=== PATIENT | female | born 1965 | race Caucasian/White ===

== ENCOUNTER 2019-07-17 17:44 | Emergency (ER) | payer OTHER, SELFPAY ==
[2018-10-29 10:39] VITALS: BMI 31.5
[2019-07-17] VITALS (7 sets, daily range): BP systolic 147–180; BP diastolic 81–106; PULSE 76–91; RESP 16–20; TEMP 36.3; O2SAT 96–98; BMI 34.3
--- NOTE | 2019-07-17 18:07 | EKG12_ITS ---
Test Reason : Blood Pressure : / mmHG Vent. Rate : 091 BPM Atrial Rate : 091 BPM P-R Int : 170 ms QRS Dur : 094 ms QT Int : 398 ms P-R-T Axes : 048 038 047 degrees QTc Int : 489 ms Normal sinus rhythm Prolonged QT Abnormal ECG Confirmed by RUPAL ESPITIA, ADELA ([id number]), editor magazine NARDA AKHTAR ([id number]) on 07/22/2019 11:28:29 AM Referred By: BRUNO Confirmed By:ADELA GOLDSMITH MD
--- NOTE | 2019-07-17 18:07 | RAD_ITS ---
STUDY: X-RAY CHEST REASON FOR EXAM: Female, 54 years old. Chest pain TECHNIQUE: Single AP portable view of the chest. COMPARISON: None. FINDINGS: The lungs are clear and expanded. There is no demonstrated pleural abnormality. Normal size heart. Normal mediastinum and paco. Normal visualized pulmonary arteries. Normal visualized aortic arch and descending thoracic aorta. Normal visualized thoracic spine. Normal visualized ribs, clavicles, and shoulders. There is no demonstrated abnormality of the visualized soft tissue structures of the upper abdomen. RAD/Chest 1 View (Portable) IMPRESSION: Normal x-ray examination of the chest. Electronically Signed: Charli Burger MD at 18:38 EST , Service support ,
--- NOTE | 2019-07-17 18:09 | ED.DCSUM_ITS ---
- ER Visit Summary Date of Service: 07/17/19 Chief Complaint: Chest pain History of Present Illness: The patient is a 54 F with left-sided chest pain that feels like an achy pressure. It started about an hour prior to arrival. She said she had similar symptoms in the past with panic attacks, but they usua lly do not last this long. Her pain is still 5 out of 10. Nothing seems to make it better. She does report increasing stress over the last few months. Denies any exertional component. She does report some shortness of breath and tingling in her bilateral fingertips. Denies any history of heart disease besides mitral valve prolapse. Denies any history of DVT or PE. Denies aortic disease. Denies recent illness, fever, or hospitalization. Physical Examination: Afebrile. Blood pressure 180/106. Otherwise vitals unremarkable. Alert and oriented. No acute distress. Heart regular. Lungs clear. Abdomen soft. Extremities nontender with no edema. Good pulses. Normal skin. Test Results: EKG shows sinus rhythm and rate of 91 with a QTC of 49. No sign of acute ischemia or infarction pattern. Laboratory studies and chest x-ray are pending. Emergency Department Course and Treatment: Patient presents with chest pain for about an hour. History of hypertension, but not currently on blood pressure medications. Denies any other risk factors for ACS. Initial EKG was unremarkable. Will check labs and a chest x-ray. She has no risk factors for PE besides her age. I have no clinical suspicion. Nothing to suggest aortic disease. Her blood pressure is elevated now, but I will monitor her. I suspect it is elevated from stress. Treated with aspirin while awaiting results. Patient's work-up was unremarkable. On reevaluation, she is feeling better. Her heart score is a 3, so we will check a delta troponin. Repeat blood pressure 169/96. Repeat troponin is normal. Patient is doing well. Given her symptoms, history, risk factors, findings, we will refer the patient for outpatient follow-up. She has a follow-up with her doctor next week. She will also have her blood pressure rechecked as she may need treatment for this. Treatment Plan: As above Disposition: Discharge Impression: 1. Chest pain This note was generated with Teachernowation software. It may contain incorrect words, spelling, and punctuation that were not noted in review of the chart prior to signing ED Disposition - Plan for ED Patient: Referrals: Eladio Gilman MD [Primary Care Provider] -
[2019-07-17 18:18] LABS: Absolute Lymphocyte Count 3.34 X10^3/uL (0.83-4.51); Absolute Neutrophil Count 4.2 X10^3/uL (2.0-7.7); Basophil# 0.07 X10^3/uL; Basophil% 0.8 % (0-1); Eosinophil# 0.13 X10^3/uL; Eosinophils% 1.6 % (0-5); Hemoglobin 13.6 g/dL (12.0-15.0); Lymphocyte # 3.34 X10^3/ul (4.0); Lymphocyte % 40.4 % (19-41); Mean Corp Hgb Conc 33.2 g/dL (32-36); Mean Corpuscular Hgb 31.8 pg (27.0-32.0); Mean Corpuscular Volume 95.8 fL (81-99); Mean Platelet Vol. 10.8 fl (6.2-12.0); Monocyte% 6.1 % (0-10); NRBC Flagged by Analyzer 0 % (0-5); Neutrophil # 4.19 X10^3/uL (2.7-7.7); Neutrophil % 50.7 % (47-70); Platelet Count 234 K/mm3 (150-450); RBC Distribution Width CV 12.1 % (11.6-14.6); RBC Distribution Width SD 42.1 fl (35.1-43.9); Red Blood Count 4.28 M/mm3 (4.2-5.4); White Blood Count 8.3 K/mm3 (4.4-11.0)
[2019-07-17] MEDS: Aspirin 81 MG TAB.CHEW 324 MG PO (18:35)
[2019-07-17 18:36] LABS: Anion Gap 8 (5-15); BUN 12 mg/dL (7-18); BUN/Creat Ratio 13.2 RATIO (10-20); Chloride 109 mmol/L (98-107); Creatinine, Serum 0.91 mg/dL (0.55-1.02); EST Glomerular Filtration Rate 68 mL/min (>60); Est Glom Filt Rate - Afr Amer 83 mL/min (>60); Glucose 93 mg/dL (74-106); Sodium Level 141 mmol/L (136-145)
--- NOTE | 2019-07-17 21:32 | ED.DEP ---
ED Disposition - Plan for ED Patient: Instructions: CHEST PAIN, Uncertain Cause Referrals: Eladio Gilman MD [Primary Care Provider] -
[2019-07-17] MEDS: Ibuprofen 600 MG Tablet PO (21:42)
== END 2019-07-17 21:46 | disposition home or self-care (01) ==
LOC: ED 18:10
PROVIDERS: Emergency Provider Emergency Medicine; Family Provider Family Medicine; PCP Family Medicine
DX: R07.9 Chest pain, unspecified (principal); I34.1 Nonrheumatic mitral (valve) prolapse; I10 Essential (primary) hypertension; R20.2 Paresthesia of skin; R06.02 Shortness of breath
CPT/HCPCS: 71045; 80048; 84484; 85025; 93005; 99285

== ENCOUNTER 2020-04-27 11:55 | Emergency (ER) | payer OTHER, SELFPAY ==
[2019-07-17 17:44] VITALS: BMI 34.3
[2020-04-27 11:55] VITALS: BP 170/112; PULSE 107; RESP 24; TEMP 36.4; O2SAT 96; BMI 34.0
[2020-04-27 12:07] VITALS: BP 158/113; PULSE 88; RESP 18
--- NOTE | 2020-04-27 12:16 | EKG12_ITS ---
Test Reason : CP Blood Pressure : / mmHG Vent. Rate : 091 BPM Atrial Rate : 091 BPM P-R Int : 140 ms QRS Dur : 086 ms QT Int : 364 ms P-R-T Axes : 053 026 085 degrees QTc Int : 447 ms Normal sinus rhythm Nonspecific ST and T wave abnormality Abnormal ECG Confirmed by RYLAN TELLO ([id number]), image editor ABRIL MERINO ([id number]) on 04/29/2020 9:01:58 AM Referred By: CHIRAG Confirmed By:RYLAN TELLO
--- NOTE | 2020-04-27 12:20 | RAD_ITS ---
STUDY: X-RAY CHEST REASON FOR EXAM: Female, 54 years old. Numbness and tingling all over, chest heaviness TECHNIQUE: Single AP portable view of the chest. COMPARISON: Comparison is made with prior examination dated 07/17/2019. FINDINGS: EKG electrodes are seen. The lungs are clear and expanded. There is no demonstrated pleural abnormality. Normal size heart. Normal mediastinum and paco. Normal visualized pulmonary arteries. Normal visualized aortic arch and descending thoracic aorta. Normal visualized thoracic spine. Normal visualized ribs, clavicles, and shoulders. There is no demonstrated abnormality of the visualized soft tissue structures of the upper abdomen. RAD/Chest 1 View (Portable) IMPRESSION: Normal x-ray examination of the chest. Electronically Signed: Dwight Bond, at 12:31 EDT , Service support ,
[2020-04-27 12:30] LABS: Absolute Lymphocyte Count 2.15 X10^3/uL (0.83-4.51); Absolute Neutrophil Count 3.6 X10^3/uL (2.0-7.7); Basophil# 0.04 X10^3/uL; Basophil% 0.6 % (0-1); Eosinophil# 0.04 X10^3/uL; Eosinophils% 0.6 % (0-5); Hematocrit 43.1 % (37-47); Hemoglobin 14.4 g/dL (12.0-15.0); Lymphocyte # 2.15 X10^3/ul (4.0); Lymphocyte % 34.9 % (19-41); Mean Corp Hgb Conc 33.4 g/dL (32-36); Mean Corpuscular Hgb 31.9 pg (27.0-32.0); Mean Corpuscular Volume 95.4 fL (81-99); Mean Platelet Vol. 10.6 fl (6.2-12.0); Monocyte# 0.31 X10^3/uL; NRBC Flagged by Analyzer 0 % (0-5); Neutrophil % 58.6 % (47-70); Platelet Count 250 K/mm3 (150-450); Red Blood Count 4.52 M/mm3 (4.2-5.4); White Blood Count 6.2 K/mm3 (4.4-11.0)
[2020-04-27 12:56] LABS: Anion Gap 7 (5-15); BUN 8 mg/dL (7-18); BUN/Creat Ratio 8.1 RATIO (10-20); Calcium,Total 9.6 mg/dL (8.5-10.1); Chloride 111 mmol/L (98-107); Creatinine, Serum 0.98 mg/dL (0.55-1.02); EST Glomerular Filtration Rate 62 mL/min (>60); Est Glom Filt Rate - Afr Amer 75 mL/min (>60); Estimated Creatinine Clearance 67.79 ml/min; Glucose 103 mg/dL (74-106); Magnesium 2.3 mg/dL (1.6-2.6); Potassium 4.1 mmol/L (3.5-5.1); Sodium Level 141 mmol/L (136-145)
--- NOTE | 2020-04-27 13:11 | ED.VIS.GEN ---
History of Present Illness Chief Complaint: Chest Pain Informant: Patient Narrative: Patient presents to the ED for multiple symptoms which she believes is related to a panic attack. States that her bilateral hands are tingling. She feels like she is out of her body. He has been having some midsternal chest discomfort/tightness. No significant shortness of breath with this. She has a history of panic attacks before in the past but they each resolve over a course of 10 minutes. Her symptoms at this time have been going on for multiple days which is unusual. Medication for anxiety/depression and has not had any recent medication adjustments. She denies any headache or vision changes. No weakness or loss of sensation in any extremity. No neck pain/stiffness. She has not had any leg swelling or calf pain. He has been having chills but denies any hot or cold intolerances. No significant weight gain or loss unintentionally. Symptoms. No nausea/vomiting/diarrhea. Past Medical History - Allergies and Home Meds Allergies/Adverse Reactions: Allergies No Known Allergies Allergy (Verified 07/17/19 17:50) Primary Care Physician: Eladio Gilman MD [Primary Care Provider] - 2 Days Prior records reviewed: Yes Past Medical History: - - Anxiety/depression Smoking Status: Never smoker Alcohol: None Drugs: None Review of Systems All systems negative except as indicated General: Reports: Chills. Denies: Fever, Sweats Eyes: Denies: Visual changes - bilaterally, Diplopia ENT: Denies: Rhinorrhea, Sore throat Cardiovascular: Reports: Chest pain - Tightness. Denies: Palpitations Respiratory: Denies: Dyspnea, Cough, Dyspnea on exertion Gastrointestinal: Denies: Abdominal pain, Nausea, Vomiting, Diarrhea Genitourinary: Denies: Dysuria, Hematuria, Frequency Musculoskeletal: Denies: Back pain, Extremity Pain Skin: Denies: Rash, Wounds Neurological: Reports: Parasthesia. Denies: Headache, Weakness, Numbness Psych: Reports: Anxiety. Denies: Suicidal thoughts, Suicidal ideations Endocrine: Denies: Heat intolerance, Cold intolerance Hematologic: Denies: Easy bruising, Easy bleeding Physical Exam Vital Signs/Narrative: Vital Signs Temp Pulse Resp BP Pulse Ox 04/27/20 12:07 88 18 158/113 H 04/27/20 11:55 97.6 F L 107 H 24 H 170/112 H 96 Inital Vital Signs reviewed: Yes General: Well nourished, Well developed, No Acute Distress Head: Normocephalic, Atraumatic Eyes: Perrl, EOMI ENT: Moist mucous membranes, No rhinorrhea Neck: Supple, Nontender Cardiovascular: Regular rate, Regular rhythm, No murmurs Respiratory: No distress, CTA bilaterally, Chest nontender Abdomen: Soft, Nontender, Nondistended, Normal bowel sounds Back: Nontender, Normal Inspection Extremities: Nontender, No edema Skin: Normal color, No rash Neurological: Alert, Oriented x3, Cranial nerves II-XII grossly intact, Normal Strength, Normal Sensation Psychological: - - Anxious Diagnostic/Tx/Re-eval - EKG Initial EKG Interpretation: - - Rate of 91 bpm and normal sinus rhythm. Normal intervals. Normal axis. No ST elevations or depressions appreciated. No significant T wave abnormalities. No prior EKG for comparison. - Medical Decision Making Patient presents to the ED for what she presumes is a panic attack although this is longer than her normal symptoms last for typically. Low concern for VTE. Denies any shortness of breath and has not been hypoxic. Heart rate did come down after resting and reassurance. No unilateral leg swelling. No risk factors. Her main concern is not her chest pain but her other symptoms. No shortness of breath. We did do a work-up which did not reveal an elevated troponin. EKG did not show any signs of ischemia or arrhythmia. The rest of her lab work was unremarkable for significant acute abnormality. Patient is relieved at this information. She is still having some symptoms despite the small dose of Ativan orally. She needs to see her PCP for potential medication increase or adjustment. At this time she does feel comfortable going home. Will discharge home in stable condition. Warning signs and symptoms for which to return to the ED are reviewed with her. She understands and is agreeable this plan. ED Disposition - Plan for ED Patient: Disposition: Home or Assisted Living Diagnosis: Chest pain, Paresthesia and pain of both upper extremities Instructions: Understanding Anxiety Disorders, ED Chest Pain Atypical Unkn Cause, ED Paraesthesias Referrals: Eladio Gilman MD [Primary Care Provider] - 2 Days
[2020-04-27 13:50] VITALS: BP 179/104; PULSE 79; RESP 18
[2020-04-27] MEDS: LORazepam 0.5 MG Tablet PO (13:50)
== END 2020-04-27 14:09 | disposition home or self-care (01) ==
PROVIDERS: Emergency Provider Emergency Medicine; PCP Family Medicine
DX: R07.9 Chest pain, unspecified (principal); R20.2 Paresthesia of skin; F32.9 Major depressive disorder, single episode, unspecified; F41.9 Anxiety disorder, unspecified
CPT/HCPCS: 71045; 80048; 83735; 84484; 85025; 93005; 99285; A4216

== ENCOUNTER 2021-03-19 17:31 | Inpatient (IN) | payer OTHER, SELFPAY ==
[2021-03-19 17:33] VITALS: BP 166/133; PULSE 121; RESP 18; TEMP 36.7; O2SAT 94; BMI 36.1
--- NOTE | 2021-03-19 17:51 | EKG12_ITS ---
Test Reason : ANXIETY Blood Pressure : / mmHG Vent. Rate : 117 BPM Atrial Rate : 117 BPM P-R Int : 142 ms QRS Dur : 086 ms QT Int : 328 ms P-R-T Axes : 055 022 043 degrees QTc Int : 457 ms Sinus tachycardia Otherwise normal ECG Confirmed by RUPAL ESPITIA, ADELA ([id number]), food expeditor HELEN PAEZ ([id number]) on 03/21/2021 2:24:31 PM Referred By: DAFNE Confirmed By:ADELA GOLDSMITH MD
--- NOTE | 2021-03-19 17:59 | EDS_ITS ---
HPI History of Present Illness Chief Complaint: Anxiety Narrative Narrative: Patient presenting with anxiety. She states that she has been drinking more often since July. She states she was drinking 5 small bottles of wine up until recently she has been drinking more. She is states that she is drinking about the equivalent of 2-1/2 bottles of wine daily. She took a cannabis gummy today as well thinking that would help. Patient states that she wanted to seek help earlier to quit drinking however she did not want to go to [facility] because other people would know her. Patient has not had withdrawal before. No withdrawal seizure. [facility], [facility] Medical History Anxiety HTN (hypertension) Home Medications NK 07/17/19 [History Last Taken Unknown] Allergy/AdvReac Type Severity Reaction Status Date / Time No Known Allergies Allergy Verified 07/17/19 17:50 Surgical History H/O section Social History Smoking Status: Never smoker alcohol intake: current alcohol intake frequency: a few times a week ROS ROS ED Constitutional Constitutional ED: Denies chills or fever(s) Eyes Eyes: Denies blurry vision ENT ENT ED: Denies ear pain or rhinorrhea Cardiovascular Cardiovascular: Reports palpitations and racing heartbeat Respiratory/Chest Respiratory/Chest: Denies cough or dyspnea Gastrointestinal Gastrointestinal: Denies abdominal pain, nausea or vomiting Genitourinary Genitourinary ED: Denies dysuria or hematuria Musculoskeletal Musculoskeletal: Denies arthralgias or myalgias Integumentary Denies abscess or rash Neurologic Neurologic: Denies headache(s) or paresthesias Psychiatric Psychiatric: Reports anxiety and depression; Denies suicidal ideation or suicidal thoughts EXAM Physical Exam Const Vital Signs: 03/19/21 17:33 03/19/21 20:08 Temperature 98.0 F Temperature Source Temporal Pulse Rate 121 H 109 H Respiratory Rate 18 17 Blood Pressure 166/133 H 151/95 H Blood Pressure Mean 144 113 Pulse Ox 94 92 Oxygen Delivery Method Room Air Room Air Positive obese General Appearance ED: other Very anxious Nutritional Appearance: obese HEENT Reports moist mucous membranes Negative for trauma Eyes PERRL and EOMs intact bilaterally General Eye ED: Negative for scleral icterus Chest Wall inspection of chest normal and palpation of chest normal Resp normal respiratory effort and clear to auscultation bilaterally Cardio regular rhythm Rate: tachycardic GI normal to inspection, nondistended, normoactive bowel sounds Extremity normal to inspection General Extremety ED: Yes tenderness Neuro oriented x3 and CN's II-XII intact bilaterally Sensorium / Orientation: alert Psych mental status grossly normal Skin no rashes or lesions noted and no wounds MDM MDM MDM Narrative Medical decision making narrative: Patient presenting for EtOH detox. She does have pain with anxiety as well. He is concerned that her special needs son would not have the assistance that he needs. Her states that he will be able to handle this. Patient states that she does want to be hospitalized for detox. She was given Ativan on arrival. Her lab work-up was remarkable for elevated AST and ALT as well as slight hyponatremia at 27. EtOH was negative. Urine drug screen is positive for cannabinoids. Patient discussed with hospitalist for admission for detox. She was accepted to the medical floor. Impression: 1. EtOH abuse 2. Hyponatremia 3. Elevated AST and ALT 4. EtOH withdrawal Lab Data Attestation: I reviewed the patient's lab results. Labs: Laboratory Results - last 24 hr 03/19/21 03/19/21 03/19/21 18:15 18:15 18:15 WBC 7.4 RBC 4.06 L Hgb 13.6 Hct 39.0 MCV 96.1 MCH 33.5 H MCHC 34.9 RDW Std Deviation 44.2 H RDW Coeff of Carline 12.6 Plt Count 236 MPV 10.4 Immature Gran % (Auto) 0.500 Neut % (Auto) 75.1 H Lymph % (Auto) 16.8 L [place] % (Auto) 6.8 Eos % (Auto) 0.3 Baso % (Auto) 0.5 Absolute Neuts (auto) 5.6 Absolute Lymphs (auto) 1.24 Nucleated RBC % 0 Sodium Cancelled Potassium Cancelled Chloride Cancelled Carbon Dioxide Cancelled Anion Gap Cancelled BUN Cancelled Creatinine Cancelled Estim Creat Clear Calc Cancelled Est GFR (MDRD) Af Amer Cancelled Est GFR (MDRD) Non-Af Cancelled BUN/Creatinine Ratio Cancelled Glucose Cancelled Calcium Cancelled Total Bilirubin Cancelled AST Cancelled ALT Cancelled Alkaline Phosphatase Cancelled Troponin I High Sens Cancelled Total Protein Cancelled Albumin Cancelled Globulin Cancelled Albumin/Globulin Ratio Cancelled Lipase Cancelled Urine Opiates Screen Urine Methadone Screen Ur Barbiturates Screen Ur Phencyclidine Scrn Ur Amphetamines Screen U Methamphetamin-MDMA U Benzodiazepines Scrn Urine Cocaine Screen U Cannabinoids Screen Ur Drug Screen Comment Ethyl Alcohol Cancelled 03/19/21 03/19/21 03/19/21 18:45 19:30 20:00 WBC RBC Hgb Hct MCV MCH MCHC RDW Std Deviation RDW Coeff of Carline Plt Count MPV Immature Gran % (Auto) Neut % (Auto) Lymph % (Auto) [place] % (Auto) Eos % (Auto) Baso % (Auto) Absolute Neuts (auto) Absolute Lymphs (auto) Nucleated RBC % Sodium 127 L Potassium 3.6 Chloride 95 L Carbon Dioxide 18.0 L Anion Gap 14 BUN 5 L Creatinine 0.63 Estim Creat Clear Calc 104.20 Est GFR (MDRD) Af Amer 125 Est GFR (MDRD) Non-Af 103 BUN/Creatinine Ratio 7.9 L Glucose 112 H Calcium 9.4 Total Bilirubin 0.80 AST 298 H ALT 150 H Alkaline Phosphatase 89 Troponin I High Sens 4.5 Total Protein 7.0 Albumin 3.7 Globulin 3.3 Albumin/Globulin Ratio 1.1 Lipase 81 Urine Opiates Screen NEGATIVE Urine Methadone Screen NEGATIVE Ur Barbiturates Screen NEGATIVE Ur Phencyclidine Scrn NEGATIVE Ur Amphetamines Screen NEGATIVE U Methamphetamin-MDMA NEGATIVE U Benzodiazepines Scrn NEGATIVE Urine Cocaine Screen NEGATIVE U Cannabinoids Screen POSITIVE H Ur Drug Screen Comment Ethyl Alcohol 4.0 Discharge Plan Disposition Disposition: Acute Care Hospital [facility] Discharge Date/Time: 03/19/21 21:34
[2021-03-19] MEDS: LORazepam 2 MG/ML Syringe 1 MG IV (18:16)
[2021-03-19 18:32] LABS: Absolute Lymphocyte Count 1.24 X10^3/uL (0.83-4.51); Absolute Neutrophil Count 5.6 X10^3/uL (2.0-7.7); Basophil# 0.04 X10^3/uL; Basophil% 0.5 % (0-1); Eosinophil# 0.02 X10^3/uL; Eosinophils% 0.3 % (0-5); Hemoglobin 13.6 g/dL (12.0-15.0); Lymphocyte # 1.24 X10^3/ul (0.83-4.51); Lymphocyte % 16.8 % (19-41); Mean Corp Hgb Conc 34.9 g/dL (32-36); Mean Corpuscular Hgb 33.5 pg (27.0-32.0); Mean Corpuscular Volume 96.1 fL (81-99); Mean Platelet Vol. 10.4 fl (6.2-12.0); Monocyte% 6.8 % (0-10); NRBC Flagged by Analyzer 0 % (0-5); Neutrophil # 5.55 X10^3/uL (2.7-7.7); Neutrophil % 75.1 % (47-70); Platelet Count 236 K/mm3 (150-450); RBC Distribution Width CV 12.6 % (11.6-14.6); RBC Distribution Width SD 44.2 fl (35.1-43.9); Red Blood Count 4.06 M/mm3 (4.2-5.4); White Blood Count 7.4 K/mm3 (4.4-11.0)
[2021-03-19 19:33] LABS: ALB/GLOB Ratio 1.1 RATIO (0.9-2.4); AST(SGOT) 298 U/L (15-37); Alanine Aminotransfer ALT/SGPT 150 U/L (13-56); Albumin, Serum 3.7 g/dL (3.2-5.0); Alkaline Phosphatase 89 U/L (45-117); Anion Gap 14 (5-15); BUN 5 mg/dL (7-18); BUN/Creat Ratio 7.9 RATIO (10-20); Calcium,Total 9.4 mg/dL (8.5-10.1); Chloride 95 mmol/L (98-107); Creatinine, Serum 0.63 mg/dL (0.55-1.02); EST Glomerular Filtration Rate 103 mL/min (>60); Est Glom Filt Rate - Afr Amer 125 mL/min (>60); Globulin 3.3 g/dL (2.2-4.2); Glucose 112 mg/dL (74-106); Lipase 81 U/L (73-393); Potassium 3.6 mmol/L (3.5-5.1); Sodium Level 127 mmol/L (136-145); Troponin-I HS 4.5 pg/mL (3.0-53.7)
[2021-03-19 20:08] VITALS: BP 151/95; PULSE 109; RESP 17; O2SAT 92
[2021-03-19 20:08] LABS: Amphetamine Urine VISTA NEGATIVE (<1000 ng/mL); Barbiturate Urine VISTA NEGATIVE (< 200 ng/mL); Benzodiazepine Urine VISTA NEGATIVE (< 200 ng/mL); Cocaine Urine VISTA NEGATIVE (< 300 ng/mL); Ecstacy Urine VISTA NEGATIVE (< 500 ng/mL); Methadone Urine VISTA NEGATIVE (< 300 ng/mL); PCP Urine VISTA NEGATIVE (< 25 ng/mL); THC Urine VISTA POSITIVE (< 50 ng/mL); Vista UDS pH Range 5
--- NOTE | 2021-03-19 20:15 | CASEMGMT ---
SW Note Referral Source: teletype installer Reason: Anxiety BRIT met with patient. Patient was tearful and labile. Patient appeared to be under the influence. Patient said that she came to the ED to taper off alcohol. Patient siad that she has really bad anxiety related to her tapering off alcohol. Patient has previously gone to her PCP for Ativan for the taper of alcohol. 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 Patient said that in July she was drinking 2 1/2 bottles wine a day. Patient said that for the past 2 days she has been drinking 6 glasses of wine. Patient reports she is [place] high functioning alcoholic. Patient said that a friend gave her a marijuana gummie today to assist with the anxiety related to the detox. Patient reported that she is not suicidal or homicidal and that the anxiety is related to her detox and alcohol use. SW advised and educated patient on the RAMP program. Patient verbalized understanding of the RAMP program and agreement to enroll in the RAMP program. BRIT called Jacqueline at [facility] and made referral to RAMP program for patient. Plan: Ramp Admit Mary DAVILA
--- NOTE | 2021-03-19 20:55 | HP.PCM.HOS_ITS ---
HPI - General HPI Narrative DEEPAK TURNER, is a 55 F who presents via the ED on 03/19/2021 with a complaint of anxiety. She drinks about 2-2.5 bottles of wine daily. She started drinking circa July 2020 when she was taking ~ 5 small bottles of wine daily, and has progressively increased her intake of wine. She says she has been prescribed ativan for her anxiety; she run out of ativan on , and says she is not due a refill till Sunday. She also took a cannabis gummy given to her by her friend to help with her anxiety, but she thinks it worsened it. She came in to the ED to seek help for quitting drinking. She denied fever, chills, cough, chest pain, nausea or vomiting. Review of systems otherwise negative. Vitals in the ED showed BP of 151/95, PA of 109, RR of 17 and sats of 92%/ CBC showed wbc of 7.4, Hb of 13.6, and platelets of 236. BMp showed sodium of 127, bicarb of 18, potassium of 2.6 and Cr of 0.63. AST/ALT were elevated at 298/150. Urine tox was positive for cannabinoids and serum alcohol level was only 4. She is being admitted to be managed for acute alcohol withdrawal. [facility] Medical History Anxiety HTN (hypertension) Home Medications NK 07/17/19 [History Last Taken Unknown] Allergy/AdvReac Type Severity Reaction Status Date / Time No Known Allergies Allergy Verified 07/17/19 17:50 Surgical History H/O section Social History Smoking Status: Never smoker alcohol intake: current alcohol intake frequency: a few times a week ROS Constitutional Constitutional: Denies anorexia, chills, fatigue, fever(s), malaise or weakness Eyes Eyes: Denies double vision ENT HEENT: Denies headache(s) or sore throat Cardiovascular Cardiovascular: Denies chest pain, lightheadedness, orthopnea, palpitations, rapid heart rate or syncope Respiratory/Chest Respiratory/Chest: Denies cough, dyspnea, productive cough, shortness of breath at rest or shortness of breath with exertion Gastrointestinal Gastrointestinal: Denies abdominal pain, diarrhea, nausea or vomiting Genitourinary Genitourinary: Denies burning urination Musculoskeletal Musculoskeletal: Reports neck pain; Denies arthralgias, back pain or myalgias Neurologic Neurologic: Denies dizziness, focal weakness, numbness, seizure-like activity or seizures Psychiatric Psychiatric: Reports anxiety; Denies depression Endocrine Endocrinology: Denies change in body appearance Vital Signs Vital Signs Vital Signs: 03/19/21 17:33 03/19/21 20:08 Temperature 98.0 F Temperature Source Temporal Pulse Rate 121 H 109 H Respiratory Rate 18 17 Blood Pressure 166/133 H 151/95 H Blood Pressure Mean 144 113 Pulse Ox 94 92 Oxygen Delivery Method Room Air Room Air Weight Weight: 245 lb 2.464 oz Body Mass Index (BMI) 36.1 Physical Exam Const alert, oriented x3 and no apparent distress General Appearance: cooperative HEENT normocephalic, head/scalp atraumatic, hearing grossly normal bilaterally and moist oral mucous membranes Eyes PERRL, EOMs intact bilaterally and conjunctivae normal Neck no lymphadenopathy and supple Resp normal respiratory effort, no retractions, no use of accessory muscles and clear to auscultation bilaterally Cardio regular rate, regular rhythm, S1 normal heart sound, S2 normal heart sound and no murmurs GI normal to inspection, nondistended, normoactive bowel sounds, soft to palpation, non-tender and non-distended Extremity normal to inspection, full ROM and no clubbing, cyanosis or edema Peripheral Pulses: Yes pulses 2+ throughout Skin no rashes or lesions noted Neuro oriented x3, CN's II-XII intact bilaterally and moves all extremities Sensorium / Orientation: awake and alert Psych Mood & Affect: anxious Results Lab / Micro Data Result Diagrams: 03/19/21 18:15 03/19/21 18:45 Labs: Laboratory Results - last 24 hr 03/19/21 18:15: WBC 7.4, RBC 4.06 L, Hgb 13.6, Hct 39.0, MCV 96.1, MCH 33.5 H, MCHC 34.9, RDW Std Deviation 44.2 H, RDW Coeff of Carline 12.6, Plt Count 236, MPV 10.4, Immature Gran % (Auto) 0.500, Neut % (Auto) 75.1 H, Lymph % (Auto) 16.8 L, Pope % (Auto) 6.8, Eos % (Auto) 0.3, Baso % (Auto) 0.5, Absolute Neuts (auto) 5.6, Absolute Lymphs (auto) 1.24, Nucleated RBC % 0 03/19/21 18:15: Sodium Cancelled, Potassium Cancelled, Chloride Cancelled, Carbon Dioxide Cancelled, Anion Gap Cancelled, BUN Cancelled, Creatinine Cancelled, Estim Creat Clear Calc Cancelled, Est GFR (MDRD) Af Amer Cancelled, Est GFR (MDRD) Non-Af Cancelled, BUN/Creatinine Ratio Cancelled, Glucose Cancell ed, Calcium Cancelled, Total Bilirubin Cancelled, AST Cancelled, ALT Cancelled, Alkaline Phosphatase Cancelled, Troponin I High Sens Cancelled, Total Protein Cancelled, Albumin Cancelled, Globulin Cancelled, Albumin/Globulin Ratio Cancelled, Lipase Cancelled 03/19/21 18:15: Ethyl Alcohol Cancelled 03/19/21 18:45: Sodium 127 L, Potassium 3.6, Chloride 95 L, Carbon Dioxide 18.0 L, Anion Gap 14, BUN 5 L, Creatinine 0.63, Estim Creat Clear Calc 104.20, Est GFR (MDRD) Af Amer 125, Est GFR (MDRD) Non-Af 103, BUN/Creatinine Ratio 7.9 L, Glucose 112 H, Calcium 9.4, Total Bilirubin 0.80, AST 298 H, ALT 150 H, Alkaline Phosphatase 89, Troponin I High Sens 4.5, Total Protein 7.0, Albumin 3.7, Globulin 3.3, Albumin/Globulin Ratio 1.1, Lipase 81 03/19/21 19:30: Urine Opiates Screen NEGATIVE, Urine Methadone Screen NEGATIVE, Ur Barbiturates Screen NEGATIVE, Ur Phencyclidine Scrn NEGATIVE, Ur Amphetamines Screen NEGATIVE, U Methamphetamin-MDMA NEGATIVE, U Benzodiazepines Scrn NEGATIVE, Urine Cocaine Screen NEGATIVE, U Cannabinoids Screen POSITIVE H, Ur Drug Screen Comment 03/19/21 20:00: Ethyl Alcohol 4.0 Assessment & Plan Assessment/Plan (1) Alcohol withdrawal delirium, acute, hyperactive: PLAN: #Acute alcohol withdrawal * admit to med surg * start on alcohol withdrawal protocol with phenobarbital * oral thiamine, folic acid and multivites * monitor CIWA score * #Elevated BP * not a known hypertensive, appears to be related to her anxiety * will trend BP. IV hydralzine prn * #Anxiety disorder * patient says she has been prescribed ativan by her PCP, but has run out of it and is due a refill on Sunday * I explained to patient that it is unlikely that she will be given a script for ativan on discharge, and would likely need to get the refill she says is due tomorrow on discharge. She is understanding and accepting of this. * DVT prophylaxis: Low risk. Encourage to ambulate Charges/Coding Visit Charges Inpatient E&M: 39878 Init Hosp L3
[2021-03-19 21:32] VITALS: BP 150/90; PULSE 102; RESP 16; TEMP 36.6; O2SAT 96
[2021-03-19 21:49] VITALS: BMI 34.9
[2021-03-19 21:51] VITALS: BP 144/74; PULSE 94; RESP 16; TEMP 36.7; O2SAT 94
[2021-03-19] MEDS: Phenobarbital 32.4 MG Tablet 64.8 MG PO (22:10)
[2021-03-20] MEDS: Phenobarbital 32.4 MG Tablet 64.8 MG PO ×6 (02:30→21:35)
[2021-03-20] MEDS: Gabapentin 300 MG Capsule PO (02:33)
[2021-03-20 02:39] VITALS: BP 135/71; PULSE 83; RESP 18; TEMP 36.7; O2SAT 97
[2021-03-20 05:54] LABS: ALB/GLOB Ratio 1.2 RATIO (0.9-2.4); AST(SGOT) 228 U/L (15-37); Alanine Aminotransfer ALT/SGPT 134 U/L (13-56); Albumin, Serum 3.6 g/dL (3.2-5.0); Alkaline Phosphatase 92 U/L (45-117); Anion Gap 7 (5-15); BUN 6 mg/dL (7-18); BUN/Creat Ratio 9.5 RATIO (10-20); Calcium,Total 9.4 mg/dL (8.5-10.1); Chloride 99 mmol/L (98-107); Creatinine, Serum 0.63 mg/dL (0.55-1.02); EST Glomerular Filtration Rate 103 mL/min (>60); Est Glom Filt Rate - Afr Amer 124 mL/min (>60); Globulin 2.9 g/dL (2.2-4.2); Glucose 93 mg/dL (74-106); Potassium 4.2 mmol/L (3.5-5.1); Protein, Total 6.5 g/dL (6.4-8.2); Sodium Level 133 mmol/L (136-145)
[2021-03-20 07:19] VITALS: BP 157/103; PULSE 110; RESP 20; TEMP 36.6; O2SAT 94
[2021-03-20] MEDS: 0.9% Saline Lock 10 ML Syringe IV (07:23)
[2021-03-20] MEDS: LORazepam 2 MG/ML Syringe IV (07:23)
[2021-03-20 09:57] VITALS: BP 127/69; PULSE 84; RESP 14; TEMP 36.8; O2SAT 65
[2021-03-20] MEDS: Thiamine Hydrochloride 100 MG Tablet PO (09:58)
[2021-03-20] MEDS: Folic Acid 1 MG Tablet PO (09:58)
--- NOTE | 2021-03-20 13:39 | PN.HOSP_ITS ---
Subjective Subjective Patient was seen and examined today, she appeared very lethargic and somnolent, she voiced no complaints of any nervousness, tremor, or muscle pain to this examiner. Objective Data Objective Data Vital Signs: Vital Signs Temp Pulse Resp BP Pulse Ox 98.3 F 84 14 127/69 H 65 03/20/21 09:57 03/20/21 09:57 03/20/21 09:57 03/20/21 09:57 03/20/21 09:57 Oxygen Delivery Method Room Air Weight: 107.2 kg Body Mass Index (BMI) 34.9 Intake & Output: Intake and Output for Last 24 Hours 03/18/21 03/19/21 03/20/21 23:59 23:59 23:59 Intake Total 600 / 600 Balance 600 / 600 Lab / Micro Data Result Diagrams: 03/19/21 18:15 03/20/21 05:12 Labs: Laboratory Results - last 24 hr 03/19/21 18:15: WBC 7.4, RBC 4.06 L, Hgb 13.6, Hct 39.0, MCV 96.1, MCH 33.5 H, MCHC 34.9, RDW Std Deviation 44.2 H, RDW Coeff of Carline 12.6, Plt Count 236, MPV 10.4, Immature Gran % (Auto) 0.500, Neut % (Auto) 75.1 H, Lymph % (Auto) 16.8 L, [place] % (Auto) 6.8, Eos % (Auto) 0.3, Baso % (Auto) 0.5, Absolute Neuts (auto) 5.6, Absolute Lymphs (auto) 1.24, Nucleated RBC % 0 03/19/21 18:15: Sodium Cancelled, Potassium Cancelled, Chloride Cancelled, Carbon Dioxide Cancelled, Anion Gap Cancelled, BUN Cancelled, Creatinine Cancelled, Estim Creat Clear Calc Cancelled, Est GFR (MDRD) Af Amer Cancelled, Est GFR (MDRD) Non-Af Cancelled, BUN/Creatinine Ratio Cancelled, Glucose Cancelled, Calcium Cancelled, Total Bilirubin Cancelled, AST Cancelled, ALT Cancelled, Alkaline Phosphatase Cancelled, Troponin I High Sens Cancelled, Total Protein Cancelled, Albumin Cancelled, Globulin Cancelled, Albumin/Globulin Ratio Cancelled, Lipase Cancelled 03/19/21 18:15: Ethyl Alcohol Cancelled 03/19/21 18:45: Sodium 127 L, Potassium 3.6, Chloride 95 L, Carbon Dioxide 18.0 L, Anion Gap 14, BUN 5 L, Creatinine 0.63, Estim Creat Clear Calc 104.20, Est GFR (MDRD) Af Amer 125, Est GFR (MDRD) Non-Af 103, BUN/Creatinine Ratio 7.9 L, Glucose 112 H, Calcium 9.4, Total Bilirubin 0.80, AST 298 H, ALT 150 H, Alkaline Phosphatase 89, Troponin I High Sens 4.5, Total Protein 7.0, Albumin 3.7, Globulin 3.3, Albumin/Globulin Ratio 1.1, Lipase 81 03/19/21 19:30: Urine Opiates Screen NEGATIVE, Urine Methadone Screen NEGATIVE, Ur Barbiturates Screen NEGATIVE, Ur Phencyclidine Scrn NEGATIVE, Ur Amphetamines Screen NEGATIVE, U Methamphetamin-MDMA NEGATIVE, U Benzodiazepines Scrn NEGATIV E, Urine Cocaine Screen NEGATIVE, U Cannabinoids Screen POSITIVE H, Ur Drug S creen Comment 03/19/21 20:00: Ethyl Alcohol 4.0 03/20/21 05:12: Sodium 133 L, Potassium 4.2, Chloride 99, Carbon Dioxide 27.0, A nion Gap 7, BUN 6 L, Creatinine 0.63, Estim Creat Clear Calc 104.20, Est GFR (MDRD) Af Amer 124, Est GFR (MDRD) Non-Af 103, BUN/Creatinine Ratio 9.5 L, Gl ucose 93, Calcium 9.4, Total Bilirubin 1.20 H, AST 228 H, ALT 134 H, Alkaline Phosphatase 92, Total Protein 6.5, Albumin 3.6, Globulin 2.9, Albumin/Globulin Ratio 1.2 Physical Exam Const no apparent distress and healthy appearing General Appearance: cooperative, well kempt and well developed Orientation / Consciousness: awake, oriented to person, oriented to place, oriented to time and lethargic HEENT normocephalic, head/scalp atraumatic and moist oral mucous membranes Head and Scalp: normocephalic Eyes PERRL, EOMs intact bilaterally and conjunctivae normal Neck nuchal rigidity, supple, no JVD, thyroid normal and no carotid bruits General: trachea midline Resp normal respiratory effort, no retractions, no use of accessory muscles and clear to auscultation bilaterally Auscultation: Negative for rales, rhonchi or wheezes Cardio regular rate, regular rhythm, S1 normal heart sound, S2 normal heart sound, no murmurs, no rub and no gallops GI normal to inspection, nondistended, normoactive bowel sounds, soft to palpation, non-tender and non-distended Extremity no clubbing, cyanosis or edema Skin no rashes or lesions noted General Skin Exam: no breakdown Neuro CN's II-XII intact bilaterally, moves all extremities, no focal motor deficits and no sensory deficits noted Psych thought process normal Psych Narrative: Patient is lethargic, she answers questions appropriately Assessment & Plan Assessment/Plan (1) Alcohol withdrawal delirium, acute, hyperactive: PLAN: 1. Acute alcohol withdrawal-continue present medications #2 chronic alcoholism #3 essential hypertension #4 chronic anxiety Charges/Coding Visit Charges Inpatient E&M: 22883 Subs Hosp L2
[2021-03-20 14:11] VITALS: BP 116/56; PULSE 103; RESP 16; TEMP 36.9; O2SAT 96
[2021-03-20 18:13] VITALS: BP 116/63; PULSE 90; RESP 16; TEMP 37.1; O2SAT 95
[2021-03-20] MEDS: Dicyclomine 10 MG Capsule 20 MG PO (19:32)
[2021-03-20] MEDS: Escitalopram Oxalate 20 MG Tablet PO (19:32)
[2021-03-20] MEDS: traZODone 100 MG Tablet PO (21:35)
[2021-03-20 21:41] VITALS: BP 125/72; PULSE 82; RESP 16; TEMP 37.3; O2SAT 97
[2021-03-21 02:00] VITALS: BP 105/64; PULSE 80; RESP 16; TEMP 37; O2SAT 99
[2021-03-21] MEDS: Phenobarbital 32.4 MG Tablet 64.8 MG PO ×3 (02:27→11:02)
[2021-03-21 08:28] VITALS: BP 136/83; PULSE 89; RESP 14; TEMP 36.8; O2SAT 96
[2021-03-21] MEDS: Escitalopram Oxalate 20 MG Tablet PO (08:35)
[2021-03-21] MEDS: Folic Acid 1 MG Tablet PO (08:35)
[2021-03-21] MEDS: Thiamine Hydrochloride 100 MG Tablet PO (08:35)
[2021-03-21] MEDS: Phenobarbital 32.4 MG Tablet PO ×2 (13:54→21:57)
[2021-03-21] MEDS: Acetaminophen 325 MG Tablet 650 MG PO (13:54)
[2021-03-21 14:00] VITALS: BP 134/89; PULSE 68; RESP 16; TEMP 36.4; O2SAT 96
--- NOTE | 2021-03-21 14:35 | PCM.PN.HOSP ---
Subjective Subjective Patient was seen and examined today, she was seen by addiction social media sr strategy manager and was given information for follow-up as an outpatient with 180. Patient complains of feeling tired and sleepy, I have elected to reduce her dose of phenobarbital. Patient does not complain of any tremor, nervousness, or muscle pain. Objective Data Objective Data Vital Signs: Vital Signs Temp Pulse Resp BP Pulse Ox 98.3 F 89 14 136/83 H 96 03/21/21 08:28 03/21/21 08:28 03/21/21 08:28 03/21/21 08:28 03/21/21 08:28 Oxygen Delivery Method Room Air Weight: 107.2 kg Body Mass Index (BMI) 34.9 Intake & Output: Intake and Output for Last 24 Hours 03/19/21 03/20/21 03/21/21 23:59 23:59 23:59 Intake Total 1000 / 1000 Balance 1000 / 1000 Lab / Micro Data Result Diagrams: 03/19/21 18:15 03/20/21 05:12 Physical Exam Const alert, oriented x3, no apparent distress and healthy appearing General Appearance: cooperative, well kempt and well developed Orientation / Consciousness: awake, oriented to person, oriented to place and oriented to time HEENT normocephalic and moist oral mucous membranes Eyes PERRL, EOMs intact bilaterally and conjunctivae normal Neck nuchal rigidity, supple, no JVD, thyroid normal and no carotid bruits General: trachea midline Resp normal respiratory effort and clear to auscultation bilaterally Auscultation: Negative for rales, rhonchi or wheezes Cardio regular rate, regular rhythm, S1 normal heart sound, S2 normal heart sound, no murmurs, no rub and no gallops GI normal to inspection, nondistended, normoactive bowel sounds, soft to palpation, non-tender and non-distended Extremity no clubbing, cyanosis or edema Skin no rashes or lesions noted General Skin Exam: no breakdown Neuro oriented x3, CN's II-XII intact bilaterally, no focal motor deficits and no sensory deficits noted Sensorium / Orientation: awake and alert Speech: speech normal Psych thought process normal and affect normal Assessment & Plan Assessment/Plan (1) Alcohol withdrawal delirium, acute, hyperactive: PLAN: 1. Acute alcohol withdrawal-continue present medications, I have adjusted her dose of phenobarbital. #2 chronic alcoholism #3 essential hypertension #4 chronic anxiety Charges/Coding Visit Charges Inpatient E&M: 25278 Subs Hosp L2
[2021-03-21] MEDS: LORazepam 1 MG Tablet 2 MG PO (15:20)
[2021-03-21] MEDS: Gabapentin 300 MG Capsule PO ×2 (15:20→23:41)
[2021-03-21 21:53] VITALS: BP 109/71; PULSE 82; RESP 16; TEMP 36.4; O2SAT 94
[2021-03-21] MEDS: traZODone 100 MG Tablet PO (21:57)
[2021-03-22 04:54] VITALS: BP 120/74; PULSE 84; RESP 16; TEMP 36.8; O2SAT 96
[2021-03-22] MEDS: Phenobarbital 32.4 MG Tablet PO (05:00)
[2021-03-22 08:54] VITALS: BP 123/71; PULSE 83; RESP 14; TEMP 36.7; O2SAT 94
[2021-03-22] MEDS: Escitalopram Oxalate 20 MG Tablet PO (09:06)
[2021-03-22] MEDS: Thiamine Hydrochloride 100 MG Tablet PO (09:06)
[2021-03-22] MEDS: Folic Acid 1 MG Tablet PO (09:06)
[2021-03-22] MEDS: Gabapentin 300 MG Capsule PO (11:43)
--- NOTE | 2021-03-22 13:31 | PCM.DC ---
Discharge Instructions Diet Discharge Diet: No restrictions Activity Discharge Activity: Return to Normal Activity Weight Bearing Status: Full weight bearing Follow Up Care Test Results: Test results from this visit will be discussed in further detail at your follow-up appointment, if applicable. Discharge Plan Admission Admit Date/Time: 03/19/21 21:07 Primary Reason for Your Visit: alcohol detox Attending Provider: Amadeo Vizcarra Primary Care Provider: Eladio Gilman Instructions Additional Instructions / Restrictions: Follow-up with 180 for additional outpatient detox services Discharge Orders/Prescriptions Prescriptions: New bupropion HCl [Wellbutrin SR] 150 mg tablet sustained-release 12 hr 150 mg PO BID Qty: 60 RF: 0 Continued lorazepam 1 mg tablet 1 mg PO BID PRN PRN (Reason: Anxiety) RF: 0 escitalopram oxalate 20 mg Tablet 20 mg PO DAILY RF: 0 Discontinued sucralfate 1 gram tablet 1 g PO 4X/DAY PRN PRN (Reason: Stomach Upset) RF: 0 Referrals / Follow Up: Eladio Gilman MD [Primary Care Provider] - Within 1 Week Disposition Disposition (needs filled in before D/C Order can be placed): Home, Self Care
--- NOTE | 2021-03-22 14:55 | PHA.DC.MR ---
Pharmacy Service has performed discharge medication reconciliation for this patient. The patient's discharge medication list was reviewed for discrepancies and discrepancies were resolved. Home Medications lorazepam 1 mg PO BID PRN PRN 03/19/21 escitalopram oxalate 20 mg PO DAILY 03/20/21 bupropion HCl [Wellbutrin SR] 150 mg PO BID #60 ea 03/22/21
--- NOTE | 2021-03-22 17:50 | DS.PCM_ITS ---
Providers Date of Admission: 03/19/21 Date of Discharge: 03/22/21 Primary Care Physician: Dr. Eladio Gilman MD Reason For Visit: ACUTE ALCOHOL WITHDRAWL Diagnosis Discharge Diagnosis (1) Alcohol withdrawal delirium, acute, hyperactive: Status: Acute Code(s): F10.231 - Alcohol dependence with withdrawal delirium Plan: Assessment: 1. Acute alcohol withdrawal #2 chronic alcoholism #3 essential hypertension #4 chronic anxiety Medications at Discharge Home Medications lorazepam 1 mg PO BID PRN PRN 03/19/21 escitalopram oxalate 20 mg PO DAILY 03/20/21 bupropion HCl [Wellbutrin SR] 150 mg PO BID #60 ea 03/22/21 Hospital Course Operations None Procedures None Summary of Care Provided Minutes Spent on Discharge: 32 Hospital Course: This 55-year-old white female came to the emergency room at [facility] requesting detox services for alcoholism. Patient's ethyl alcohol level on admission was 4, she was positive for cannabinoids. Patient was admitted to [place] [address], orders were entered using the alcohol detox order set, she was seen in consultation by addiction social staff worker. It was the patient's plan to follow-up with 180 as an outpatient. On 03/22/2021, patient was seen and examined: On examination she appeared tearful and anxious at time, she does not appear to be in any distress. Vital signs as documented. Skin warm and dry and without overt rashes. Neck without JVD, thyroid appears normal, trachea is midline, neck is supple. Lungs clear, normal air movement was noted. Heart exam notable for regular rhythm, normal sounds and absence of murmurs, rubs or gallops. Abdomen unremarkable and without evidence of organomegaly, masses, or abdominal aortic enlargement, bowel sounds are present in all 4 quadrants, no abdominal tenderness was noted. Extremities nonedematous, no cyanosis was noted, no clubbing was noted. Neuro: Cranial nerves II through XII are grossly intact, no focal motor deficits were noted, se nsation to light touch and pinprick is intact, motor exam 5/5 throughout. Psych: Patient is alert and oriented x3, she appears anxious and tearful at times On 03/22/2021, patient was seen and examined and felt to be stable for discharge home, I agreed to place her on additional medication for chronic depression (Wellbutrin SR), she was instructed to follow-up with her family physician regarding further treatment of her depression, she was also to follow-up with 180 as an outpatient for outpatient detox services for alcoholism. Weight / BMI Weight Weight: 107.2 kg Body Mass Index (BMI) 34.9 ABG / Lab / Microbiology Data Result Diagrams: 03/19/21 18:15 03/20/21 05:12 D/C Instructions Discharge Diet: No restrictions Weight Bearing Status: Full weight bearing Meaningful Use Info Meaningful Use Diagnoses (Choose all that apply): None applicable Discharge Plan Admission Admit Date/Time: 03/19/21 21:07 Primary Reason for Your Visit: alcohol detox Attending Provider: Amadeo Vizcarra Primary Care Provider: Eladio Gilman Instructions Additional Instructions / Restrictions: Follow-up with 180 for additional outpatient detox services Discharge Orders/Prescriptions Prescriptions: New bupropion HCl [Wellbutrin SR] 150 mg tablet sustained-release 12 hr 150 mg PO BID Qty: 60 RF: 0 Continued lorazepam 1 mg tablet 1 mg PO BID PRN PRN (Reason: Anxiety) RF: 0 escitalopram oxalate 20 mg Tablet 20 mg PO DAILY RF: 0 Discontinued sucralfate 1 gram tablet 1 g PO 4X/DAY PRN PRN (Reason: Stomach Upset) RF: 0 Referrals / Follow Up: Eladio Gilman MD [Primary Care Provider] - Within 1 Week Disposition Disposition (needs filled in before D/C Order can be placed): Home, Self Care Charges/Coding Visit Charges Inpatient E&M: 52546 Disch Hosp
== END 2021-03-22 14:45 | disposition home or self-care (01) | DRG 897 ==
LOC: ED 18:22 → MS3 21:23
PROVIDERS: Admitting Provider Student in an Organized Health Care Education/Training Program; Emergency Provider Student in an Organized Health Care Education/Training Program; PCP Family Medicine; Visit Provider Internal Medicine
DX: F10.231 Alcohol dependence with withdrawal delirium (principal); Y90.0 Blood alcohol level of less than 20 mg/100 ml; F32.9 Major depressive disorder, single episode, unspecified; F41.9 Anxiety disorder, unspecified; I10 Essential (primary) hypertension; Z79.899 Other long term (current) drug therapy
CPT/HCPCS: 36415; 80053; 80307; 82077; 83690; 84484; 85025; 93005; 99285; A4216

== ENCOUNTER 2021-04-11 09:09 | Inpatient (IN) | payer OTHER, SELFPAY ==
[2021-04-11] VITALS (7 sets, daily range): BP systolic 136–181; BP diastolic 65–121; PULSE 77–127; RESP 16–18; TEMP 35.8–36.7; O2SAT 95–98; BMI 33.0; BMI 33.1
--- NOTE | 2021-04-11 10:01 | EDS_ITS ---
HPI History of Present Illness Chief Complaint: Substance Abuse Informant: patient Narrative Narrative: Patient is a 55-year-old female with a past medical history of anxiety/depression and alcoholism who presents to the emergency department to request to detox. She states that she has been drinking over the past week. She drinks around 2-3 bottles of wine per day. She was sober for 2 weeks prior to that. She states that she had a crisis at home which triggered her to drink and she has not stopped. Last time she drank was around 4 PM yesterday. She states that she just feels crappy all over. She denies ever having seizures with withdrawal before in the past. She denies any issues with other drugs. No cigarette use. She denies any chest pain, shortness of breath. She has had some epigastric abdominal discomfort. [facility] Medical History Alcohol abuse Anxiety HTN (hypertension) Pharyngitis, acute Home Medications lorazepam 1 mg PO BID PRN PRN 03/19/21 [History Last Taken 03/17/21] bupropion HCl [Wellbutrin SR] 150 mg PO BID #60 ea 03/22/21 [Rx Last Taken U nknown] paroxetine HCl 20 mg PO DAILY 04/11/21 [History Last Taken Unknown] Allergy/AdvReac Type Severity Reaction Status Date / Time No Known Allergies Allergy Verified 04/11/21 09:10 Surgical History H/O section Social History Smoking Status: Never smoker alcohol intake: current alcohol intake frequency: a few times a week ROS ROS ED Constitutional Constitutional ED: Denies chills or fever(s) Eyes Eyes: Denies change in vision ENT ENT ED: Denies epistaxis or rhinorrhea Cardiovascular Cardiovascular: Denies chest pain or palpitations Respiratory/Chest Respiratory/Chest: Denies cough or dyspnea Gastrointestinal Gastrointestinal: Reports abdominal pain; Denies diarrhea, nausea or vomiting Musculoskeletal Musculoskeletal: Denies back pain or neck pain Integumentary Denies rash Neurologic Neurologic: Denies dizziness, headache(s) or weakness Psychiatric Psychiatric: Reports anxiety EXAM Physical Exam Const Vital Signs: 04/11/21 09:10 Temperature 97.9 F Temperature Source Temporal Pulse Rate 127 H Respiratory Rate 16 Blood Pressure 181/96 H Blood Pressure Mean 124 Pulse Ox 96 Oxygen Delivery Method Room Air Positive well nourished and well developed General Appearance ED: well developed and NAD HEENT Reports normocephalic, head/scalp atraumatic and moist mucous membranes Eyes PERRL and EOMs intact bilaterally Neck supple Chest Wall inspection of chest normal Resp normal respiratory effort and clear to auscultation bilaterally Auscultation: Negative for rales, rhonchi or wheezes Cardio regular rhythm and no murmurs Rate: tachycardic GI normal to inspection, nondistended, normoactive bowel sounds and non-tender Palpation: soft; Negative for guarding or rebound tenderness present Back/Spine no CVA tenderness Extremity normal to inspection General Extremety ED: Negative for edema or tenderness General Extremity: Negative for edema Neuro oriented x3, CN's II-XII intact bilaterally and no sensory deficits noted Sensorium / Orientation: alert Motor Exam: strength 5/5 throughout Psych Mood & Affect: anxious and tearful Skin no rashes or lesions noted MDM MDM MDM Narrative Medical decision making narrative: Patient presents to the emergency department to detox from alcohol. Her last drink was yesterday. She drinks around 2-3 bottles of wine per day. On arrival to the ED she is hypertensive, mildly tachycardic. She is tearful throughout exam but otherwise benign examination. Will check basic lab work and plan on admission to the hospital at this time. Patient's lab work did not reveal any significant acute abnormality. She does not have a high white blood cell count. Hemoglobin is just mildly elevated at 15.8. No significant electrolyte disturbance. Her liver enzymes are mildly elevated but this is actually decreased from previous lab work performed less than 1 month ago. She is positive for barbiturates and her alcohol level is negative. Will bring into the hospital for alcohol detox at this time. She otherwise has remained stable throughout ED stay. Lab Data Labs: Laboratory Results - last 24 hr 04/11/21 04/11/21 04/11/21 10:00 10:00 10:00 WBC 6.4 RBC 4.74 Hgb 15.8 H Hct 45.1 MCV 95.1 MCH 33.3 H MCHC 35.0 RDW Std Deviation 43.9 RDW Coeff of Carline 13.1 Plt Count 250 MPV 9.9 Immature Gran % (Auto) 0.300 Neut % (Auto) 61.8 Lymph % (Auto) 29.4 [place] % (Auto) 6.8 Eos % (Auto) 1.2 Baso % (Auto) 0.5 Absolute Neuts (auto) 4.0 Absolute Lymphs (auto) 1.89 Nucleated RBC % 0 Sodium 136 Potassium 3.9 Chloride 106 Carbon Dioxide 16.0 L Anion Gap 14 BUN 7 Creatinine 1.00 Estim Creat Clear Calc 65.65 Est GFR (MDRD) Af Amer 74 Est GFR (MDRD) Non-Af 61 BUN/Creatinine Ratio 7.0 L Glucose 103 Calcium 10.7 H Total Bilirubin 1.10 H AST 147 H ALT 105 H Alkaline Phosphatase 109 Total Protein 8.0 Albumin 4.4 Globulin 3.6 Albumin/Globulin Ratio 1.2 Urine Opiates Screen Urine Methadone Screen Ur Barbiturates Screen Ur Phencyclidine Scrn Ur Amphetamines Screen U Methamphetamin-MDMA U Benzodiazepines Scrn Urine Cocaine Screen U Cannabinoids Screen Ur Drug Screen Comment Ethyl Alcohol < 3.0 04/11/21 10:00 WBC RBC Hgb Hct MCV MCH MCHC RDW Std Deviation RDW Coeff of Carline Plt Count MPV Immature Gran % (Auto) Neut % (Auto) Lymph % (Auto) [place] % (Auto) Eos % (Auto) Baso % (Auto) Absolute Neuts (auto) Absolute Lymphs (auto) Nucleated RBC % Sodium Potassium Chloride Carbon Dioxide Anion Gap BUN Creatinine Estim Creat Clear Calc Est GFR (MDRD) Af Amer Est GFR (MDRD) Non-Af BUN/Creatinine Ratio Glucose Calcium Total Bilirubin AST ALT Alkaline Phosphatase Total Protein Albumin Globulin Albumin/Globulin Ratio Urine Opiates Screen NEGATIVE Urine Methadone Screen NEGATIVE Ur Barbiturates Screen POSITIVE H Ur Phencyclidine Scrn NEGATIVE Ur Amphetamines Screen NEGATIVE U Methamphetamin-MDMA NEGATIVE U Benzodiazepines Scrn NEGATIVE Urine Cocaine Screen NEGATIVE U Cannabinoids Screen NEGATIVE Ur Drug Screen Comment Ethyl Alcohol Discharge Plan Dx/Rx/DC Orders Clinical Impression: Alcohol abuse, Transaminitis Disposition Disposition: Acute Care Hospital [facility] Discharge Date/Time: 04/11/21 11:29
[2021-04-11 10:15] LABS: Absolute Lymphocyte Count 1.89 X10^3/uL (0.83-4.51); Basophil# 0.03 X10^3/uL; Basophil% 0.5 % (0-1); Eosinophil# 0.08 X10^3/uL; Eosinophils% 1.2 % (0-5); Hematocrit 45.1 % (37-47); Hemoglobin 15.8 g/dL (12.0-15.0); Lymphocyte # 1.89 X10^3/ul (0.83-4.51); Lymphocyte % 29.4 % (19-41); Mean Corpuscular Hgb 33.3 pg (27.0-32.0); Mean Corpuscular Volume 95.1 fL (81-99); Mean Platelet Vol. 9.9 fl (6.2-12.0); Monocyte# 0.44 X10^3/uL; Monocyte% 6.8 % (0-10); NRBC Flagged by Analyzer 0 % (0-5); Neutrophil # 3.97 X10^3/uL (2.7-7.7); Neutrophil % 61.8 % (47-70); Platelet Count 250 K/mm3 (150-450); RBC Distribution Width CV 13.1 % (11.6-14.6); RBC Distribution Width SD 43.9 fl (35.1-43.9); Red Blood Count 4.74 M/mm3 (4.2-5.4); White Blood Count 6.4 K/mm3 (4.4-11.0)
[2021-04-11 10:28] LABS: Amphetamine Urine VISTA NEGATIVE (<1000 ng/mL); Barbiturate Urine VISTA POSITIVE (< 200 ng/mL); Benzodiazepine Urine VISTA NEGATIVE (< 200 ng/mL); Cocaine Urine VISTA NEGATIVE (< 300 ng/mL); Ecstacy Urine VISTA NEGATIVE (< 500 ng/mL); Methadone Urine VISTA NEGATIVE (< 300 ng/mL); PCP Urine VISTA NEGATIVE (< 25 ng/mL); THC Urine VISTA NEGATIVE (< 50 ng/mL); Vista UDS pH Range 6
[2021-04-11 10:41] LABS: ALB/GLOB Ratio 1.2 RATIO (0.9-2.4); AST(SGOT) 147 U/L (15-37); Alanine Aminotransfer ALT/SGPT 105 U/L (13-56); Albumin, Serum 4.4 g/dL (3.2-5.0); Alkaline Phosphatase 109 U/L (45-117); Anion Gap 14 (5-15); BUN 7 mg/dL (7-18); Calcium,Total 10.7 mg/dL (8.5-10.1); Chloride 106 mmol/L (98-107); EST Glomerular Filtration Rate 61 mL/min (>60); Est Glom Filt Rate - Afr Amer 74 mL/min (>60); Estimated Creatinine Clearance 65.65 ml/min; Globulin 3.6 g/dL (2.2-4.2); Glucose 103 mg/dL (74-106); Potassium 3.9 mmol/L (3.5-5.1); Sodium Level 136 mmol/L (136-145)
[2021-04-11 10:45] LABS: Alcohol, Blood (Medical)-Serum < 3.0 mg/dL
--- NOTE | 2021-04-11 10:49 | ED.RN ---
pt drinks 2 bottles of white wine per day
--- NOTE | 2021-04-11 11:10 | HP.PCM.HOS_ITS ---
[facility] - General General Date of Admission: 04/11/21 Date of Service: 04/11/21 Chief Complaint: Tremors HPI Narrative DEEPAK TURNER, is a 55 F who presents with tremors. Patient has past medical history is again for alcohol dependence. Patient was apparently on admission almost 3 weeks ago for acute alcohol withdrawal for which she underwent medical stabilization. Patient however relapsed and started drinking a lot of white wine. Presented to the emergency department with a desire to quit. Patient states her last drink was a day prior to coming in and she did drink white wine. [facility] Medical History Alcohol abuse Anxiety HTN (hypertension) Pharyngitis, acute Home Medications lorazepam 1 mg PO BID PRN PRN 03/19/21 [History Last Taken 03/17/21] bupropion HCl [Wellbutrin SR] 150 mg PO BID #60 ea 03/22/21 [Rx Last Taken Unknown] paroxetine HCl 20 mg PO DAILY 04/11/21 [History Last Taken Unknown] Allergy/AdvReac Type Severity Reaction Status Date / Time No Known Allergies Allergy Verified 04/11/21 09:10 no significant family history Surgical History H/O section Social History Smoking Status: Never smoker alcohol intake: current alcohol intake frequency: a few times a week ROS ROS Narrative GENERAL: denies fever, chills, HEENT: denies headache, sinus congestion, RESPIRATORY: denies cough, sputum production, CARDIAC: denies chest pain, palpitations, orthopnea GASTROINTESTINAL: denies abdominal pain, nausea, GENITOURINARY: denies dysuria, urgency, frequency, EXTREMITY: denies swelling MUSCULOSKELETAL: denies current joint pain or tenderness NEUROLOGIC: denies focal numbness, weakness, tingling HEMATOLOGIC: denies easy bruising and/or hemorrhage INTEGUMENT: denies rashes PSYCHIATRIC: Admit to being depressed Vital Signs Vital Signs Vital Signs: 04/11/21 09:10 Temperature 97.9 F Temperature Source Temporal Pulse Rate 127 H Respiratory Rate 16 Blood Pressure 181/96 H Blood Pressure Mean 124 Pulse Ox 96 Oxygen Delivery Method Room Air Weight Weight: 101.5 kg Body Mass Index (BMI) 33.0 Physical Exam Narrative GENERAL: Patient is tearful HEENT: Atraumatic; EYES; Anicteric, Normal Conjunctiva NECK; supple, normal thyroid, RESPIRATORY: Diminished to auscultation CARDIOVASCULAR: Regular S1 S2, GI: soft, normoactive bowel sounds, : No Renal angle tenderness; EXTREMITIES: No edema, no clubbing, MUSCULOSKELETAL: no muscle waisting NEURO: Awake; no lateralizing signs. SKIN: No Rash PSYCH; Flat affect Results Lab / Micro Data Result Diagrams: 04/11/21 10:00 04/11/21 10:00 Labs: Laboratory Results - last 24 hr 04/11/21 10:00: WBC 6.4, RBC 4.74, Hgb 15.8 H, Hct 45.1, MCV 95.1, MCH 33.3 H, MCHC 35.0, RDW Std Deviation 43.9, RDW Coeff of Carline 13.1, Plt Count 250, MPV 9.9, Immature Gran % (Auto) 0.300, Neut % (Auto) 61.8, Lymph % (Auto) 29.4, [place] % (Auto) 6.8, Eos % (Auto) 1.2, Baso % (Auto) 0.5, Absolute Neuts (auto) 4.0, Absolute Lymphs (auto) 1.89, Nucleated RBC % 0 04/11/21 10:00: Sodium 136, Potassium 3.9, Chloride 106, Carbon Dioxide 16.0 L, Anion Gap 14, BUN 7, Creatinine 1.00, Estim Creat Clear Calc 65.65, Est GFR (MDRD) Af Amer 74, Est GFR (MDRD) Non-Af 61, BUN/Creatinine Ratio 7.0 L, Glucose 103, Calcium 10.7 H, Total Bilirubin 1.10 H, AST 147 H, ALT 105 H, Alkaline Phosphatase 109, Total Protein 8.0, Albumin 4.4, Globulin 3.6, Albumin/Globulin Ratio 1.2 04/11/21 10:00: Ethyl Alcohol < 3.0 04/11/21 10:00: Urine Opiates Screen NEGATIVE, Urine Methadone Screen NEGATIVE, Ur Barbiturates Screen POSITIVE H, Ur Phencyclidine Scrn NEGATIVE, Ur Amph etamines Screen NEGATIVE, U Methamphetamin-MDMA NEGATIVE, U Benzodiazepines Scrn NEGATIVE, Urine Cocaine Screen NEGATIVE, U Cannabinoids Screen NEGATIVE, Ur Drug Screen Comment Assessment & Plan Assessment/Plan (1) Alcohol abuse: PLAN: Patient is a 55-year-old lady with history of alcohol dependence presented with acute alcohol withdrawal 1. Acute alcohol withdrawal - has been admitted to regular nursing floor for medical stabilization using phenobarb taper. Consult was placed to the [facility] counseling services 2. Chronic alcohol dependence counseled on cessation 3. Depression with anxiety Did continue 4. DVT prophylaxis ?Lovenox Charges/Coding Visit Charges Inpatient E&M: 32227 Init Hosp L2
[2021-04-11] MEDS: Lactated Ringers 1,000 ML 125 ML IV (13:53)
[2021-04-11] MEDS: Phenobarbital 32.4 MG Tablet 64.8 MG PO ×3 (13:56→21:32)
[2021-04-11] MEDS: hydrOXYzine PAM 25 MG Capsule 50 MG PO (13:56)
[2021-04-11] MEDS: Acetaminophen 500 MG Tablet PO (13:57)
--- NOTE | 2021-04-11 15:23 | CASEMGMT ---
Social Work Telephone call to [employer] [facility]. No answer. Voicemail left updating on patient admission. Radha DAILEY, ZACHS
[2021-04-11] MEDS: Gabapentin 300 MG Capsule PO (15:38)
[2021-04-11] MEDS: Dicyclomine 10 MG Capsule 20 MG PO (15:53)
[2021-04-11] MEDS: Paroxetine 20 MG Tablet PO (17:16)
[2021-04-11] MEDS: Enoxaparin 40 MG/0.4 ML Syringe SC (17:16)
[2021-04-11] MEDS: buPROPion (SR) 150 MG Tablet.SA PO (21:32)
[2021-04-12] MEDS: Phenobarbital 32.4 MG Tablet 64.8 MG PO ×6 (02:27→21:57)
[2021-04-12 02:31] VITALS: BP 120/58; PULSE 85; RESP 16; TEMP 36.6; O2SAT 95
[2021-04-12] MEDS: hydrOXYzine PAM 25 MG Capsule 50 MG PO ×2 (05:58→12:53)
--- NOTE | 2021-04-12 07:36 | PN.HOSP_ITS ---
Subjective Subjective Patient seen has significant tremors. Also admit to being depressed Objective Data Objective Data Vital Signs: Vital Signs Temp Pulse Resp BP Pulse Ox 97.9 F 85 16 120/58 L 95 04/12/21 02:31 04/12/21 02:31 04/12/21 02:31 04/12/21 02:31 04/12/21 02:31 Oxygen Delivery Method Room Air Weight: 101.786 kg Body Mass Index (BMI) 33.1 Intake & Output: Intake and Output for Last 24 Hours 04/10/21 04/11/21 04/12/21 23:59 23:59 23:59 Intake Total 1000 / 1000 Balance 1000 / 1000 Lab / Micro Data Result Diagrams: 04/11/21 10:00 04/11/21 10:00 Labs: Laboratory Results - last 24 hr 04/11/21 10:00: WBC 6.4, RBC 4.74, Hgb 15.8 H, Hct 45.1, MCV 95.1, MCH 33.3 H, MCHC 35.0, RDW Std Deviation 43.9, RDW Coeff of Carline 13.1, Plt Count 250, MPV 9.9, Immature Gran % (Auto) 0.300, Neut % (Auto) 61.8, Lymph % (Auto) 29.4, [place] % (Auto) 6.8, Eos % (Auto) 1.2, Baso % (Auto) 0.5, Absolute Neuts (auto) 4.0, Absolute Lymphs (auto) 1.89, Nucleated RBC % 0 04/11/21 10:00: Sodium 136, Potassium 3.9, Chloride 106, Carbon Dioxide 16.0 L, Anion Gap 14, BUN 7, Creatinine 1.00, Estim Creat Clear Calc 65.65, Est GFR (MDRD) Af Amer 74, Est GFR (MDRD) Non-Af 61, BUN/Creatinine Ratio 7.0 L, Glucose 103, Calcium 10.7 H, Total Bilirubin 1.10 H, AST 147 H, ALT 105 H, Alkaline Phosphatase 109, Total Protein 8.0, Albumin 4.4, Globulin 3.6, Albumin/Globulin Ratio 1.2 04/11/21 10:00: Ethyl Alcohol < 3.0 04/11/21 10:00: Urine Opiates Screen NEGATIVE, Urine Methadone Screen NEGATIVE, Ur Barbiturates Screen POSITIVE H, Ur Phencyclidine Scrn NEGATIVE, Ur Amphetamines Screen NEGATIVE, U Methamphetamin-MDMA NEGATIVE, U Benzodiazepines Scrn NEGATIVE, Urine Cocaine Screen NEGATIVE, U Cannabinoids Screen NEGATIVE, Ur Drug Screen Comment Physical Exam Narrative GENERAL: In no apparent distress HEENT: Atraumatic; EYES; Anicteric, Normal Conjunctiva NECK; supple, normal thyroid, RESPIRATORY: Diminished to auscultation CARDIOVASCULAR: Regular S1 S2, GI: soft, normoactive bowel sounds, : No Renal angle tenderness; EXTREMITIES: No edema, no clubbing, MUSCULOSKELETAL: no muscle waisting NEURO: Awake; no lateralizing signs. SKIN: No Rash PSYCH; Flat affect Assessment & Plan Assessment/Plan (1) Alcohol abuse: PLAN: Patient is a 55-year-old lady with history of alcohol dependence pre sented with acute alcohol withdrawal 1. Acute alcohol withdrawal - has been admitted to regular nursing floor for medical stabilization using phenobarb taper. Consult was placed to the [facility] 04/12/2021; Patient seen has significant tremors. Also admit to being 2. Chronic alcohol dependence -counseled on cessation 3. Depression with anxiety -Did continue with SSRi 4. DVT prophylaxis ?Lovenox Charges/Coding Visit Charges Inpatient E&M: 11553 Subs Hosp L2
[2021-04-12] MEDS: Thiamine Hydrochloride 100 MG Tablet PO (08:15)
[2021-04-12] MEDS: Folic Acid 1 MG Tablet PO (08:16)
[2021-04-12] MEDS: Gabapentin 300 MG Capsule PO (08:20)
[2021-04-12 08:31] VITALS: BP 166/117; PULSE 102; RESP 16; TEMP 36.3; O2SAT 98
[2021-04-12 08:57] VITALS: BP 166/47; PULSE 102; RESP 20; TEMP 36.3; O2SAT 98
--- NOTE | 2021-04-12 09:29 | CASEMGMT ---
BRIT called Jimi the Metal Sheet Roller Operator and left her a message letting her know about patient's admission and room number. Jil Mcgowan GOLD BEATER JOVANNY
[2021-04-12] MEDS: buPROPion (SR) 150 MG Tablet.SA PO ×2 (10:27→22:01)
--- NOTE | 2021-04-12 11:54 | ADDICTION ---
This functional tester typewriters met with PT to conduct ASAM, MSE, AUDIT assessments and to plan for d/c. PT A+Ox4 and participated actively. All assessments completed, faxed to [facility] and placed in PT's chart. PT plans to f/u with individual counselor at [facility] for follow-up counseling and intensive outpatient services. PT did not indicate a need for transportation post d/c from [facility].
[2021-04-12] MEDS: Enoxaparin 40 MG/0.4 ML Syringe SC (12:53)
[2021-04-12 14:00] VITALS: BP 136/73; PULSE 89; RESP 16; TEMP 37.1; O2SAT 95
[2021-04-12] MEDS: Acetaminophen 325 MG Tablet 650 MG PO (14:08)
[2021-04-12] MEDS: Paroxetine 20 MG Tablet PO (17:32)
[2021-04-12 17:39] VITALS: BP 135/75; PULSE 72; RESP 16; TEMP 36.2; O2SAT 95
[2021-04-12 21:46] VITALS: BP 134/82; PULSE 75; RESP 15; TEMP 36.6; O2SAT 99
[2021-04-12] MEDS: traZODone 100 MG Tablet PO (21:57)
[2021-04-13] MEDS: Phenobarbital 32.4 MG Tablet 64.8 MG PO ×6 (03:56→21:28)
[2021-04-13 03:58] VITALS: BP 120/67; PULSE 75; RESP 17; TEMP 36.6; O2SAT 96
--- NOTE | 2021-04-13 07:19 | PN.HOSP_ITS ---
Subjective Subjective Patient seen admit to feeling much better less symptoms compared to previous day Objective Data Objective Data Vital Signs: Vital Signs Temp Pulse Resp BP Pulse Ox 98 F 75 17 120/67 96 04/13/21 03:58 04/13/21 03:58 04/13/21 03:58 04/13/21 03:58 04/13/21 03:58 Oxygen Delivery Method Room Air Weight: 101.8 kg Body Mass Index (BMI) 33.1 Intake & Output: Intake and Output for Last 24 Hours 04/11/21 04/12/21 04/13/21 23:59 23:59 23:59 Intake Total 1000 / 1000 800 / 800 Output Total 1000 / 1000 Balance 1000 / 1000 -1000 / -550 800 / 800 Medical Nutrition Assessment Dietitian: Nutrition Therapy Diagnosis Start: 04/12/21 1 3:58 Freq: Status: Active Protocol: Document 04/12/21 14:17 RMA (Rec: 04/12/21 14:17 RMA [id number]) Nutrition Malnutrition Evidence of Malnutrition Exists No Intake Problem None at this time Status Active Problem Clinical Problem None at this time Status Active Problem Recommendation Dietitian Recommendations/Changes Continue regular diet as ordered. ONS only if PO fails at meals- -will defer for now. Lab / Micro Data Result Diagrams: 04/11/21 10:00 04/11/21 10:00 Physical Exam Narrative GENERAL: In no apparent distress HEENT: Atraumatic; EYES; Anicteric, Normal Conjunctiva NECK; supple, normal thyroid, RESPIRATORY: Diminished to auscultation CARDIOVASCULAR: Regular S1 S2, GI: soft, normoactive bowel sounds, : No Renal angle tenderness; EXTREMITIES: No edema, no clubbing, MUSCULOSKELETAL: no muscle waisting NEURO: Awake; no lateralizing signs. SKIN: No Rash PSYCH; Flat affect Assessment & Plan Assessment/Plan (1) Alcohol abuse: PLAN: Patient is a 55-year-old lady with history of alcohol dependence presented with acute alcohol withdrawal 1. Acute alcohol withdrawal - has been admitted to regular nursing floor for medical stabilization using phenobarb taper. Consult was placed to the [facility] 04/12/2021; Patient seen has significant tremors. Also admit to being depressed 04/13/2021; patient seen symptoms significantly improved compared to previous day. Was seen and evaluated by [facility] services and has a plan in place following discharge 2. Chronic alcohol dependence -counseled on cessation 3. Depression with anxiety -Did continue with SSRi 4. DVT prophylaxis ?Lovenox Charges/Coding Visit Charges Inpatient E&M: 06729 Subs Hosp L2
[2021-04-13 07:27] VITALS: BP 129/69; PULSE 79; RESP 18; TEMP 36.8; O2SAT 97
[2021-04-13] MEDS: Thiamine Hydrochloride 100 MG Tablet PO (07:32)
[2021-04-13] MEDS: Folic Acid 1 MG Tablet PO (07:32)
[2021-04-13] MEDS: Gabapentin 300 MG Capsule PO (09:36)
[2021-04-13] MEDS: buPROPion (SR) 150 MG Tablet.SA PO ×2 (09:36→21:28)
[2021-04-13] MEDS: Enoxaparin 40 MG/0.4 ML Syringe SC (09:41)
[2021-04-13] MEDS: Paroxetine 20 MG Tablet PO (09:41)
[2021-04-13 13:32] VITALS: BP 137/77; PULSE 77; RESP 18; TEMP 36.5; O2SAT 98
[2021-04-13] MEDS: hydrOXYzine PAM 25 MG Capsule 50 MG PO (17:07)
[2021-04-13 17:59] VITALS: BP 140/75; PULSE 89; RESP 18; TEMP 36.4; O2SAT 97
[2021-04-13 21:25] VITALS: BP 139/80; PULSE 76; RESP 18; TEMP 36.9; O2SAT 96
[2021-04-13] MEDS: traZODone 100 MG Tablet PO (21:29)
[2021-04-14] MEDS: Phenobarbital 32.4 MG Tablet 64.8 MG PO ×2 (03:30→09:04)
[2021-04-14 03:33] VITALS: BP 118/75; PULSE 77; RESP 16; TEMP 36.6; O2SAT 96
--- NOTE | 2021-04-14 07:26 | DS.PCM_ITS ---
Providers Date of Admission: 04/11/21 Primary Care Physician: Dr. Eladio Gilman MD Reason For Visit: ACUTE ALCOHOL WITHDRAWl Diagnosis Discharge Diagnosis (1) Alcohol abuse: Status: Acute Code(s): F10.10 - Alcohol abuse, uncomplicated Medications at Discharge Home Medications lorazepam 1 mg PO BID PRN PRN 03/19/21 bupropion HCl [Wellbutrin SR] 150 mg PO BID #60 ea 03/22/21 paroxetine HCl 20 mg PO DAILY 04/11/21 Hospital Course Summary of Care Provided Minutes Spent on Discharge: 35 Hospital Course: Patient is a 55-year-old lady with history of alcohol dependence presented with acute alcohol withdrawal 1. Acute alcohol withdrawal - has been admitted to regular nursing floor for medical stabilization using phenobarb taper. Consult was placed to the [facility] 04/12/2021; Patient seen has significant tremors. Also admit to being depressed 04/13/2021; patient seen symptoms significantly improved compared to previous day. Was seen and evaluated by [facility] services and has a plan in place following discharge 2. Chronic alcohol dependence -counseled on cessation 3. Depression with anxiety -Did continue with SSRi 4. DVT prophylaxis ?Lovenox Physical Exam Narrative GENERAL: cooperative HEENT: Atraumatic; EYES; Anicteric, Normal Conjunctiva NECK; supple, normal thyroid, RESPIRATORY: Diminished to auscultation NEURO: Awake; no lateralizing signs. SKIN: No Rash PSYCH; Flat affect Medical Records Data Medical Nutrition Assessment Dietitian: Nutrition Therapy Diagnosis Start: 04/12/21 1 3:58 Freq: Status: Active Protocol: Document 04/12/21 14:17 RMA (Rec: 04/12/21 14:17 RMA [id number]) Nutrition Malnutrition Evidence of Malnutrition Exists No Intake Problem None at this time Status Active Problem Clinical Problem None at this time Status Active Problem Recommendation Dietitian Recommendations/Changes Continue regular diet as ordered. ONS only if PO fails at meals- -will defer for now. Weight / BMI Weight Weight: 101.8 kg Body Mass Index (BMI) 33.1 ABG / Lab / Microbiology Data Result Diagrams: 04/11/21 10:00 04/11/21 10:00 D/C Instructions Discharge Diet: No restrictions Discharge Activity: Return to Normal Activity Call your doctor if you observe: Fever of 101 or Higher, Shortness of breath, Fainting spells and Chest pain Meaningful Use Info Meaningful Use Diagnoses (Choose all that apply): None applicable Discharge Plan Admission Admit Date/Time: 04/11/21 11:08 Primary Reason for Your Visit: Acute alcohol withdrawal Attending Provider: Gabriel Schuler Primary Care Provider: Eladio Gilman Discharge Orders/Prescriptions Prescriptions: Continued lorazepam 1 mg tablet 1 mg PO BID PRN PRN (Reason: Anxiety) RF: 0 bupropion HCl [Wellbutrin SR] 150 mg tablet sustained-release 12 hr 150 mg PO BID Qty: 60 RF: 0 paroxetine HCl 20 mg Tablet 20 mg PO DAILY RF: 0 Referrals / Follow Up: Eladio Gilman MD [Primary Care Provider] - Within 2 Weeks Disposition Disposition (needs filled in before D/C Order can be placed): Home, Self Care Charges/Coding Visit Charges Inpatient E&M: 88507 Disch Hosp
[2021-04-14] MEDS: Thiamine Hydrochloride 100 MG Tablet PO (09:04)
[2021-04-14] MEDS: hydrOXYzine PAM 25 MG Capsule 50 MG PO (09:04)
[2021-04-14] MEDS: buPROPion (SR) 150 MG Tablet.SA PO (09:05)
[2021-04-14] MEDS: Paroxetine 20 MG Tablet PO (09:05)
[2021-04-14] MEDS: Folic Acid 1 MG Tablet PO (09:05)
[2021-04-14 09:08] VITALS: BP 123/74; PULSE 81; RESP 16; TEMP 36.4; O2SAT 95
[2021-04-14 11:41] VITALS: BP 123/74; PULSE 81; RESP 18; TEMP 36.4; O2SAT 95
== END 2021-04-14 11:58 | disposition home or self-care (01) | DRG 897 ==
LOC: ED 10:14 → PCU 11:22 → MS3 04-12 18:19
PROVIDERS: Admitting Provider Internal Medicine; Emergency Provider Emergency Medicine; PCP Family Medicine; Visit Provider Internal Medicine
DX: F10.239 Alcohol dependence with withdrawal, unspecified (principal); Y90.0 Blood alcohol level of less than 20 mg/100 ml; F32.9 Major depressive disorder, single episode, unspecified; F41.9 Anxiety disorder, unspecified; Z79.899 Other long term (current) drug therapy
CPT/HCPCS: 80053; 80307; 82077; 85025; 99284; J7120; A4216

== ENCOUNTER → 2021-04-28 14:19 | Outpatient (CLI) | payer OTHER, SELFPAY ==
[2021-04-28 14:59] LABS: Absolute Lymphocyte Count 2.77 X10^3/uL (0.83-4.51); Absolute Neutrophil Count 3.9 X10^3/uL (2.0-7.7); Basophil# 0.07 X10^3/uL; Basophil% 0.9 % (0-1); Eosinophil# 0.12 X10^3/uL; Eosinophils% 1.6 % (0-5); Hematocrit 39.4 % (37-47); Hemoglobin 13.9 g/dL (12.0-15.0); Lymphocyte # 2.77 X10^3/ul (0.83-4.51); Lymphocyte % 37.5 % (19-41); Mean Corp Hgb Conc 35.3 g/dL (32-36); Mean Corpuscular Hgb 33.2 pg (27.0-32.0); Mean Platelet Vol. 10.6 fl (6.2-12.0); Monocyte# 0.53 X10^3/uL; Monocyte% 7.2 % (0-10); NRBC Flagged by Analyzer 0 % (0-5); Neutrophil # 3.88 X10^3/uL (2.7-7.7); Neutrophil % 52.7 % (47-70); Platelet Count 318 K/mm3 (150-450); RBC Distribution Width CV 12.3 % (11.6-14.6); RBC Distribution Width SD 42.6 fl (35.1-43.9); Red Blood Count 4.19 M/mm3 (4.2-5.4); White Blood Count 7.4 K/mm3 (4.4-11.0)
[2021-04-28 15:29] LABS: ALB/GLOB Ratio 1.2 RATIO (0.9-2.4); AST(SGOT) 87 U/L (15-37); Alanine Aminotransfer ALT/SGPT 122 U/L (13-56); Albumin, Serum 4.4 g/dL (3.2-5.0); Alkaline Phosphatase 88 U/L (45-117); Anion Gap 10 (5-15); BUN 6 mg/dL (7-18); BUN/Creat Ratio 7.1 RATIO (10-20); Calcium,Total 10.5 mg/dL (8.5-10.1); Chloride 105 mmol/L (98-107); Cholesterol 196 mg/dL (200); Creatinine, Serum 0.84 mg/dL (0.55-1.02); EST Glomerular Filtration Rate 74 mL/min (>60); Est Glom Filt Rate - Afr Amer 90 mL/min (>60); Free T3 2.8 pg/mL (2.18-3.98); Globulin 3.6 g/dL (2.2-4.2); Glucose 82 mg/dL (74-106); High Density Lipoprotein 39 mg/dL; Potassium 3.2 mmol/L (3.5-5.1); Sodium Level 136 mmol/L (136-145); Thyroid Stim Hormone (TSH) 1.02 uIU/mL (0.358-3.74); Triglycerides 113 mg/dL; Very Low Density Lipoprotein 23 mg/dL (5-40)
[2021-04-28 15:44] LABS: Vitamin D,25 Hydroxy 14.8 ng/mL
[2021-04-28 15:45] LABS: Hemoglobin A1c 4.8 % (3.8-5.6)
== END ==
PROVIDERS: PCP Internal Medicine; Referring Provider Internal Medicine; Visit Provider Internal Medicine
DX: F10.10 Alcohol abuse, uncomplicated (principal); Y90.9 Presence of alcohol in blood, level not specified
CPT/HCPCS: 36415; 80053; 80061; 82306; 83036; 84439; 84443; 84481; 85025

== ENCOUNTER 2021-05-30 10:08 | Observation (INO) | payer OTHER, SELFPAY ==
[2021-05-30 10:10] VITALS: BP 174/100; PULSE 110; RESP 16; TEMP 36.6; O2SAT 96; BMI 32.5
[2021-05-30] MEDS: hydrOXYzine PAM 25 MG Capsule 50 MG PO ×2 (11:03→17:49)
--- NOTE | 2021-05-30 11:09 | EX.ED.SAOD ---
HPI History of Present Illness Chief Complaint: Substance Abuse Informant: patient Onset/Context/Timing Onset: Today Context: Gradual Onset Timing: Continuous Quality: Anxious Associated Symptoms Associated Symptoms: Negative for vomiting*, diarrhea*, fever*, rash*, seizure, change in mental status, suicidal ideation and homicidal ideation Narrative Narrative: Patient presents requesting detox from benzodiazepines and alcohol. Patient states she was in here for detox from alcohol approximately 6 weeks ago. Patient states that she followed up with Dr. Nugent and was supposed to get a Vivitrol injection. Patient was noted to be taking Ativan so she was not eligible for the Vivitrol injection. Patient tried to wean herself off of Ativan at home. Patient is starting to feel more anxious. Patient states she started drinking again over the last couple days. Patient drinks 1 bottle of wine per day. Patient denies any suicidal homicidal ideations. Patient is feeling anxious. [facility] Medical History Alcohol abuse Anxiety HTN (hypertension) MVP (mitral valve prolapse) Pharyngitis, acute Home Medications bupropion HCl 150 mg tablet,12 hr sustained-release 150 mg PO BID #60 ea 04/28/21 [Rx Last Taken 05/30/21] escitalopram oxalate 10 mg tablet 10 mg PO DAILY #30 tab 04/28/21 [Rx Last Taken 05/30/21] trazodone 50 mg tablet 50 mg PO QHS PRN #30 tab 04/28/21 [Rx Last Taken 05/29/21] lorazepam 0.5 mg PO DAILY 05/30/21 [History Last Taken 05/30/21] Allergy/AdvReac Type Severity Reaction Status Date / Time No Known Allergies Allergy Verified 05/11/21 11:22 Family History (Updated 04/28/21 @ 13:11 by Marilee Wheeler) Other Alcoholism Cancer Surgical History H/O section Social History Smoking Status: Never smoker alcohol intake: former year quit: 2020 details: quit 04-07-2021 substance use type: does not use ROS ROS ED Constitutional Constitutional ED: Denies chills or fever(s) Eyes Eyes: Denies blurry vision or change in vision ENT ENT ED: Reports rhinorrhea; Denies sore throat Cardiovascular Cardiovascular: Denies chest pain or palpitations Respiratory/Chest Respiratory/Chest: Denies cough or dyspnea Gastrointestinal Gastrointestinal: Denies nausea or vomiting Genitourinary Genitourinary ED: Denies dysuria or hematuria Musculoskeletal Musculoskeletal: Denies back pain or neck pain Integumentary Denies abscess or rash Neurologic Neurologic: Denies headache(s) or weakness Psychiatric Psychiatric: Reports anxiety; Denies suicidal ideation or suicidal thoughts Allergic/Immunologic Allergic/Immunologic ED: Denies mouth swelling or urticaria EXAM Physical Exam Const Vital Signs: 05/30/21 10:10 Temperature 97.8 F Temperature Source Temporal Pulse Rate 16 L Respiratory Rate 20 H Blood Pressure 174/100 H Blood Pressure Mean 124 Pulse Ox 96 Oxygen Delivery Method Room Air Positive well nourished and well developed General Appearance ED: well developed HEENT Reports moist mucous membranes Neck supple and no JVD Resp normal respiratory effort and clear to auscultation bilaterally Cardio regular rate, regular rhythm and no murmurs GI normal to inspection, nondistended, normoactive bowel sounds and non-tender Palpation: soft Extremity normal to inspection General Extremety ED: Negative for edema or tenderness General Extremity: Negative for edema Neuro oriented x3, CN's II-XII intact bilaterally and no sensory deficits noted Sensorium / Orientation: alert Motor Exam: strength 5/5 throughout Psych Mood & Affect: anxious and tearful Skin no rashes or lesions noted MDM MDM MDM Narrative Medical decision making narrative: Patient was given a dose of Vistaril here. CBC and comprehensive metabolic profile were obtained AST and ALT were slightly elevated at 105 and 116. Urinalysis does not show any evidence of urinary tract infection. Urine tox screen was positive for methamphetamines but otherwise negative. Serum alcohol level was negative. Patient is feeling better on reevaluation. Case was discussed with the hospitalist. He will admit the patient to his service. Patient understood and was agreeable with the plan. All questions were answered. Lab Data Attestation: I reviewed the patient's lab results. Labs: Laboratory Results - last 24 hr 05/30/21 05/30/21 05/30/21 11:16 11:16 11:16 WBC 7.3 RBC 4.56 Hgb 15.0 Hct 42.9 MCV 94.1 MCH 32.9 H MCHC 35.0 RDW Std Deviation 47.2 H RDW Coeff of Carline 13.7 Plt Count 251 MPV 9.9 Immature Gran % (Auto) 0.500 Neut % (Auto) 64.9 Lymph % (Auto) 27.7 [place] % (Auto) 5.5 Eos % (Auto) 1.0 Baso % (Auto) 0.4 Absolute Neuts (auto) 4.8 Absolute Lymphs (auto) 2.03 Nucleated RBC % 0 Sodium 133 L Potassium 4.1 Chloride 103 Carbon Dioxide 21.0 Anion Gap 9 BUN 4 L Creatinine 0.73 Estim Creat Clear Calc 89.93 Est GFR (MDRD) Af Amer 106 Est GFR (MDRD) Non-Af 88 BUN/Creatinine Ratio 5.5 L Glucose 93 Calcium 10.3 H Total Bilirubin 0.50 AST 105 H ALT 116 H Alkaline Phosphatase 111 Total Protein 8.3 H Albumin 4.4 Globulin 3.9 Albumin/Globulin Ratio 1.1 Urine Color Urine Clarity Urine pH Ur Specific [place] Urine Protein Urine Glucose (UA) Urine Ketones Urine Occult Blood Urine Nitrite Urine Bilirubin Urine Urobilinogen Ur Leukocyte Esterase Urine RBC Urine WBC Ur Squamous Epith Cells Urine Bacteria Urine Mucus Urine Opiates Screen Urine Methadone Screen Ur Barbiturates Screen Ur Phencyclidine Scrn Ur Amphetamines Screen U Methamphetamin-MDMA U Benzodiazepines Scrn Urine Cocaine Screen U Cannabinoids Screen Ur Drug Screen Comment Ethyl Alcohol 18.0 05/30/21 05/30/21 11:17 11:17 WBC RBC Hgb Hct MCV MCH MCHC RDW Std Deviation RDW Coeff of Carline Plt Count MPV Immature Gran % (Auto) Neut % (Auto) Lymph % (Auto) [place] % (Auto) Eos % (Auto) Baso % (Auto) Absolute Neuts (auto) Absolute Lymphs (auto) Nucleated RBC % Sodium Potassium Chloride Carbon Dioxide Anion Gap BUN Creatinine Estim Creat Clear Calc Est GFR (MDRD) Af Amer Est GFR (MDRD) Non-Af BUN/Creatinine Ratio Glucose Calcium Total Bilirubin AST ALT Alkaline Phosphatase Total Protein Albumin Globulin Albumin/Globulin Ratio Urine Color Straw Urine Clarity Sl. Cloudy Urine pH 6.0 Ur Specific [place] 1.010 Urine Protein Negative Urine Glucose (UA) Normal Urine Ketones 5 H Urine Occult Blood Negative Urine Nitrite Negative Urine Bilirubin Negative Urine Urobilinogen Normal Ur Leukocyte Esterase Negative Urine RBC 0 SEEN Urine WBC 0 SEEN Ur Squamous Epith Cells 0-5 SEEN Urine Bacteria 1+ Urine Mucus 0 SEEN Urine Opiates Screen NEGATIVE Urine Methadone Screen NEGATIVE Ur Barbiturates Screen NEGATIVE Ur Phencyclidine Scrn NEGATIVE Ur Amphetamines Screen NEGATIVE U Methamphetamin-MDMA POSITIVE H U Benzodiazepines Scrn NEGATIVE Urine Cocaine Screen NEGATIVE U Cannabinoids Screen NEGATIVE Ur Drug Screen Comment Ethyl Alcohol Treatment and Re-Evaluation Vital Sign Attestation:: Vital signs were reviewed prior to admission. They are stable. Discharge Plan Dx/Rx/DC Orders Clinical Impression: Alcohol withdrawal, Benzodiazepine withdrawal Disposition Disposition: Acute Care Hospital [facility]
--- NOTE | 2021-05-30 11:09 | CM.ED ---
BRIT Note Referral Source: Case Find Referral Reason: LJ PEREA met with patient in her ED room. Patient gave permission to speak to her in the presence of her . Mima, who prefers Chiquita, stated that she came to the ED as she was trying to taper off Ativan to get on the Vivitrol shot. Patient said that she experienced anxiety and was afraid she would run out of medicine so she started drinking this weekend. She began drinking on Sunday and drank a bottle of wine on both Sunday and Sunday. Patient drank a glass of wine at 6 am this morning. Patient is linked with [facility]. BRIT called [facility] and left voice mail message for Jimi, detox coordinator, regarding this patient. Plan: Ramp Admission Mary DAVILA
[2021-05-30 11:26] LABS: Mucous, Urine 0 SEEN /hpf (<or=2+); Red Blood Cells-Urine 0 SEEN /hpf (0-5); White Blood Cells 0 SEEN /hpf (0-5)
[2021-05-30 11:29] LABS: Color, Urine Straw (Yellow); Glucose, Dipstick Normal (Normal); Ketone-Dipstick 5 mg/dl (Negative); Leukocyte Esterase-Dipstick Negative /ul (Negative); Nitrite-Dipstick Negative (Negative); Occult Blood-Urine Negative /ul (Negative); Protein-Dipstick Negative (Negative); Urine Bilirubin Dipstick Negative (Negative); Urine Clarity Sl. Cloudy (Clear); Urine Urobilinogen Normal (Normal)
[2021-05-30 11:37] LABS: Absolute Lymphocyte Count 2.03 X10^3/uL (0.83-4.51); Absolute Neutrophil Count 4.8 X10^3/uL (2.0-7.7); Basophil# 0.03 X10^3/uL; Basophil% 0.4 % (0-1); Eosinophil# 0.07 X10^3/uL; Hematocrit 42.9 % (37-47); Lymphocyte # 2.03 X10^3/ul (0.83-4.51); Lymphocyte % 27.7 % (19-41); Mean Corpuscular Hgb 32.9 pg (27.0-32.0); Mean Corpuscular Volume 94.1 fL (81-99); Mean Platelet Vol. 9.9 fl (6.2-12.0); Monocyte% 5.5 % (0-10); NRBC Flagged by Analyzer 0 % (0-5); Neutrophil # 4.75 X10^3/uL (2.7-7.7); Neutrophil % 64.9 % (47-70); Platelet Count 251 K/mm3 (150-450); RBC Distribution Width CV 13.7 % (11.6-14.6); RBC Distribution Width SD 47.2 fl (35.1-43.9); Red Blood Count 4.56 M/mm3 (4.2-5.4); White Blood Count 7.3 K/mm3 (4.4-11.0)
[2021-05-30 11:38] LABS: Bacteria 1+ /hpf (None Seen); Squamous Epithelial Cells - UA 0-5 SEEN /hpf (5-10)
[2021-05-30 11:43] LABS: ALB/GLOB Ratio 1.1 RATIO (0.9-2.4); AST(SGOT) 105 U/L (15-37); Alanine Aminotransfer ALT/SGPT 116 U/L (13-56); Albumin, Serum 4.4 g/dL (3.2-5.0); Alkaline Phosphatase 111 U/L (45-117); Anion Gap 9 (5-15); BUN 4 mg/dL (7-18); BUN/Creat Ratio 5.5 RATIO (10-20); Calcium,Total 10.3 mg/dL (8.5-10.1); Chloride 103 mmol/L (98-107); Creatinine, Serum 0.73 mg/dL (0.55-1.02); EST Glomerular Filtration Rate 88 mL/min (>60); Est Glom Filt Rate - Afr Amer 106 mL/min (>60); Estimated Creatinine Clearance 89.93 ml/min; Globulin 3.9 g/dL (2.2-4.2); Glucose 93 mg/dL (74-106); Potassium 4.1 mmol/L (3.5-5.1); Protein, Total 8.3 g/dL (6.4-8.2); Sodium Level 133 mmol/L (136-145)
[2021-05-30 12:01] LABS: Amphetamine Urine VISTA NEGATIVE (<1000 ng/mL); Barbiturate Urine VISTA NEGATIVE (< 200 ng/mL); Benzodiazepine Urine VISTA NEGATIVE (< 200 ng/mL); Cocaine Urine VISTA NEGATIVE (< 300 ng/mL); Ecstacy Urine VISTA POSITIVE (< 500 ng/mL); Methadone Urine VISTA NEGATIVE (< 300 ng/mL); PCP Urine VISTA NEGATIVE (< 25 ng/mL); THC Urine VISTA NEGATIVE (< 50 ng/mL); Vista UDS pH Range 5
[2021-05-30 12:31] VITALS: BP 154/111; PULSE 83; RESP 17; TEMP 37.1
[2021-05-30 12:56] VITALS: RESP 18; BMI 32.5
--- NOTE | 2021-05-30 12:58 | NURSING ---
314 ELIAZAR ALCOHOL INTOX, BENZO WITHDRAWAL
[2021-05-30 13:38] VITALS: BP 136/84; PULSE 81; RESP 18; TEMP 36.6; O2SAT 98
[2021-05-30] MEDS: Phenobarbital 32.4 MG Tablet 64.8 MG PO ×3 (13:57→21:17)
[2021-05-30 15:59] VITALS: BP 117/82; PULSE 89; RESP 18; TEMP 36.3; O2SAT 99
--- NOTE | 2021-05-30 18:06 | HP.PCM.HOS_ITS ---
HPI - General General Date of Admission: 05/30/21 HPI Narrative DEEPAK TURNER, is a 55 F who presents to the hospital requesting detox from alcohol and benzodiazepines. She is to follow-up with 180 as an outpatient for Vivitrol injection however at that time she was noted to be taking Ativan so the service was refused. She tried to wean herself off of the Ativan at home however was unsuccessful and started drinking over the last couple of days. She drinks about a bottle of wine per day. She denies any suicidal homicidal ideations however she is feeling anxious and in the ER did have a CIWA score of 10. She has noted that she has a significant history of anxiety at baseline wi th a general personality of being a worrier, she states that the start of the pandemic really started making her have panic attacks which is when she started taking the Ativan and then she did not like being on the Ativan so she stopped taking the Ativan which then would cause her to drink because of the anxiety coming back. [facility] Medical History Alcohol abuse Anxiety HTN (hypertension) MVP (mitral valve prolapse) Pharyngitis, acute Home Medications bupropion HCl 150 mg tablet,12 hr sustained-release 150 mg PO BID #60 ea 04/28/21 [Rx Last Taken 05/30/21] escitalopram oxalate 10 mg tablet 10 mg PO DAILY #30 tab 04/28/21 [Rx Last Taken 05/30/21] trazodone 50 mg tablet 50 mg PO QHS PRN #30 tab 04/28/21 [Rx Last Taken 05/29/21] lorazepam 0.5 mg PO DAILY 05/30/21 [History Last Taken 05/30/21] Allergy/AdvReac Type Severity Reaction Status Date / Time No Known Allergies Allergy Verified 05/11/21 11:22 Family History (Updated 04/28/21 @ 13:11 by Marilee Wheeler) Other Alcoholism Cancer Surgical History H/O section Social History Smoking Status: Never smoker alcohol intake: former year quit: 2020 details: quit 8-5-2021 substance use type: does not use ROS Constitutional Constitutional: Denies chills, fatigue, fever(s) or malaise Eyes Eyes: Denies blurry vision ENT HEENT: Denies headache(s) or nasal discharge Cardiovascular Cardiovascular: Denies chest pain, dyspnea on exertion or syncope Respiratory/Chest Respiratory/Chest: Denies cough, shortness of breath at rest or shortness of breath with exertion Gastrointestinal Gastrointestinal: Denies constipation, diarrhea, nausea or vomiting Genitourinary Genitourinary: Denies dysuria Neurologic Neurologic: Denies focal weakness, numbness or tremor(s) Psychiatric Psychiatric: Reports anxiety; Denies depression Vital Signs Vital Signs Vital Signs: 05/30/21 10:10 05/30/21 12:31 05/30/21 12:56 Temperature 97.8 F 98.8 F Temperature Source Temporal Oral Pulse Rate 110 H 83 Respiratory Rate 16 17 18 Blood Pressure 174/100 H 154/111 H Blood Pressure Mean 124 125 Blood Pressure Source Blood Pressure Position Blood Pressure Location Pulse Ox 96 Oxygen Delivery Method Room Air Room Air Room Air 05/30/21 13:38 05/30/21 15:59 Temperature 98 F 97.3 F L Temperature Source Oral Oral Pulse Rate 81 89 Respiratory Rate 18 18 Blood Pressure 136/84 H 117/82 H Blood Pressure Mean 101 93 Blood Pressure Source Monitor Monitor Blood Pressure Position Semi-Fowlers Semi-Fowlers Blood Pressure Location Right Arm Right Arm Pulse Ox 98 99 Oxygen Delivery Method Room Air Room Air Weight Weight: 220 lb Body Mass Index (BMI) 32.5 Physical Exam Const alert, oriented x3 and no apparent distress General Appearance: cooperative HEENT normocephalic Mouth: dry mucous membranes Eyes PERRL, EOMs intact bilaterally and conjunctivae normal Neck supple and no JVD Resp normal respiratory effort, no retractions, no use of accessory muscles and clear to auscultation bilaterally Auscultation: Negative for crackles, rales, rhonchi or wheezes Cardio regular rate, regular rhythm, S1 normal heart sound, S2 normal heart sound and no murmurs GI soft to palpation, non-tender and non-distended; Negative for hepatosplenomegaly Extremity no clubbing, cyanosis or edema Skin no rashes or lesions noted Neuro no focal motor deficits and no sensory deficits noted Psych Mood & Affect: anxious Results Lab / Micro Data Result Diagrams: 05/30/21 11:16 05/30/21 11:16 Labs: Laboratory Results - last 24 hr 05/30/21 11:16: WBC 7.3, RBC 4.56, Hgb 15.0, Hct 42.9, MCV 94.1, MCH 32.9 H, MCHC 35.0, RDW Std Deviation 47.2 H, RDW Coeff of Carline 13.7, Plt Count 251, MPV 9.9, Immature Gran % (Auto) 0.500, Neut % (Auto) 64.9, Lymph % (Auto) 27.7, [place] % (Auto) 5.5, Eos % (Auto) 1.0, Baso % (Auto) 0.4, Absolute Neuts (auto) 4.8, Absolute Lymphs (auto) 2.03, Nucleated RBC % 0 05/30/21 11:16: Sodium 133 L, Potassium 4.1, Chloride 103, Carbon Dioxide 21.0, Anion Gap 9, BUN 4 L, Creatinine 0.73, Estim Creat Clear Calc 89.93, Est GFR (MDRD) Af Amer 106, Est GFR (MDRD) Non-Af 88, BUN/Creatinine Ratio 5.5 L, Glucose 93, Calcium 10.3 H, Total Bilirubin 0.50, AST 105 H, ALT 116 H, Alkaline Phosphatase 111, Total Protein 8.3 H, Albumin 4.4, Globulin 3.9, Albumin/Globulin Ratio 1.1 05/30/21 11:16: Ethyl Alcohol 18.0 05/30/21 11:17: Urine Color Straw, Urine Clarity Sl. Cloudy, Urine pH 6.0, Ur Specific [place] 1.010, Urine Protein Negative, Urine Glucose (UA) Normal, Urine Ketones 5 H, Urine Occult Blood Negative, Urine Nitrite Negative, Urine Bilirubin Negative, Urine Urobilinogen Normal, Ur Leukocyte Esterase Negative, Urine RBC 0 SEEN, Urine WBC 0 SEEN, Ur Squamous Epith Cells 0-5 SEEN, Urine Bacteria 1+, Urine Mucus 0 SEEN 05/30/21 11:17: Urine Opiates Screen NEGATIVE, Urine Methadone Screen NEGATIVE, Ur Barbiturates Screen NEGATIVE, Ur Phencyclidine Scrn NEGATIVE, Ur Amphetamines Screen NEGATIVE, U Methamphetamin-MDMA POSITIVE H, U Benzodiazepines Scrn NEGATIVE, Urine Cocaine Screen NEGATIVE, U Cannabinoids Screen NEGATIVE, Ur Drug Screen Comment Assessment & Plan Assessment/Plan (1) Alcohol withdrawal: QUALIFIERS: Complication of substance-induced condition: uncomplicated Qualified Code(s): F10.230 - Alcohol dependence with withdrawal, uncomplicated (2) Benzodiazepine withdrawal: QUALIFIERS: Complication of substance-induced condition: u ncomplicated Qualified Code(s): 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 Acute alcohol and benzodiazepine withdrawal/anxiety and depression -We will continue alcohol withdrawal protocol with phenobarbital taper -We will continue with her home Ativan of 0.5mg daily and once she completes d etox will have her follow-up with 180 monitoring of her Ativan taper -We will continue with her home mood stabilizing medications including Wellbutrin, Lexapro -We will add BuSpar to her medications to try to help her get off the Ativan as much as possible, I discussed with her that she will need to have extensive counseling with both behavioral therapy as well as mental health to get her coping mechanisms established as well as her anxiety is much under control as possible so that we can actually take her off the Ativan when the time is right. DVT: Ambulation Charges/Coding Visit Charges Inpatient E&M: 05128 Init Hosp L2
[2021-05-30 21:00] VITALS: BP 113/98; PULSE 97; RESP 18; TEMP 36.7; O2SAT 98
[2021-05-30] MEDS: buPROPion (SR) 150 MG Tablet.SA PO (21:17)
[2021-05-30] MEDS: traZODone 100 MG Tablet PO (21:17)
[2021-05-30] MEDS: busPIRone 5 MG Tablet PO (21:17)
[2021-05-31] VITALS (7 sets, daily range): BP systolic 118–145; BP diastolic 72–93; PULSE 77–88; RESP 16–20; TEMP 36.6–37; O2SAT 94–97
[2021-05-31] MEDS: Phenobarbital 32.4 MG Tablet 64.8 MG PO ×6 (01:11→21:21)
[2021-05-31] MEDS: busPIRone 5 MG Tablet PO ×2 (06:19→13:00)
[2021-05-31] MEDS: LORazepam 0.5 MG Tablet PO (09:22)
[2021-05-31] MEDS: Escitalopram Oxalate 10 MG Tablet PO (09:26)
[2021-05-31] MEDS: Folic Acid 1 MG Tablet PO (09:26)
[2021-05-31] MEDS: buPROPion (SR) 150 MG Tablet.SA PO ×2 (09:26→21:29)
[2021-05-31] MEDS: Thiamine Hydrochloride 100 MG Tablet PO (09:27)
--- NOTE | 2021-05-31 10:51 | ADDICTION ---
This rewriter met with PT to conduct ASAM, MSE, AUDIT assessments and to plan for d/c. PT A+Ox4 and participated actively. All assessments completed, faxed to [facility] and placed in PT's chart. PT plans to f/u with individual counselor at [facility] for follow-up counseling services and recovery groups. PT did not indicate a need for transportation post d/c from [facility].
--- NOTE | 2021-05-31 11:22 | PCM.PN.HOSP ---
Subjective Subjective Still very tearful, had to take her Ativan this morning secondary to panic attack. Doing well from a withdrawal symptom standpoint Objective Data Objective Data Vital Signs: Vital Signs Temp Pulse Resp BP Pulse Ox 98.2 F 83 16 145/93 H 95 05/31/21 09:30 05/31/21 09:30 05/31/21 09:30 05/31/21 09:30 05/31/21 09:30 Oxygen Delivery Method Room Air Weight: 220 lb Body Mass Index (BMI) 32.5 Intake & Output: Intake and Output for Last 24 Hours 05/30/21 05/31/21 06/01/21 03:59 03:59 03:59 Intake Total 850 / 850 200 / 200 Balance 850 / 850 200 / 200 Lab / Micro Data Result Diagrams: 05/30/21 11:16 05/30/21 11:16 Labs: Laboratory Results - last 24 hr 05/30/21 11:16: WBC 7.3, RBC 4.56, Hgb 15.0, Hct 42.9, MCV 94.1, MCH 32.9 H, MCHC 35.0, RDW Std Deviation 47.2 H, RDW Coeff of Carline 13.7, Plt Count 251, MPV 9.9, Immature Gran % (Auto) 0.500, Neut % (Auto) 64.9, Lymph % (Auto) 27.7, [place] % (Auto) 5.5, Eos % (Auto) 1.0, Baso % (Auto) 0.4, Absolute Neuts (auto) 4.8, Absolute Lymphs (auto) 2.03, Nucleated RBC % 0 05/30/21 11:16: Sodium 133 L, Potassium 4.1, Chloride 103, Carbon Dioxide 21.0, Anion Gap 9, BUN 4 L, Creatinine 0.73, Estim Creat Clear Calc 89.93, Est GFR (MDRD) Af Amer 106, Est GFR (MDRD) Non-Af 88, BUN/Creatinine Ratio 5.5 L, Glucose 93, Calcium 10.3 H, Total Bilirubin 0.50, AST 105 H, ALT 116 H, Alkaline Phosphatase 111, Total Protein 8.3 H, Albumin 4.4, Globulin 3.9, Albumin/Globulin Ratio 1.1 05/30/21 11:16: Ethyl Alcohol 18.0 05/30/21 11:17: Urine Color Straw, Urine Clarity Sl. Cloudy, Urine pH 6.0, Ur Specific Avenue 1.010, Urine Protein Negative, Urine Glucose (UA) Normal, Urine Ketones 5 H, Urine Occult Blood Negative, Urine Nitrite Negative, Urine Bilirubin Negative, Urine Urobilinogen Normal, Ur Leukocyte Esterase Negative, Urine RBC 0 SEEN, Urine WBC 0 SEEN, Ur Squamous Epith Cells 0-5 SEEN, Urine Bacteria 1+, Urine Mucus 0 SEEN 05/30/21 11:17: Urine Opiates Screen NEGATIVE, Urine Methadone Screen NEGATIVE, Ur Barbiturates Screen NEGATIVE, Ur Phencyclidine Scrn NEGATIVE, Ur Amphetamines Screen NEGATIVE, U Methamphetamin-MDMA POSITIVE H, U Benzodiazepines Scrn NEGATIVE, Urine Cocaine Screen NEGATIVE, U Cannabinoids Screen NEGATIVE, Ur Drug Screen Comment Physical Exam Const alert, oriented x3 and no apparent distress General Appearance: cooperative HEENT normocephalic Eyes PERRL, EOMs intact bilaterally and conjunctivae normal Neck supple and no JVD Resp normal respiratory effort, no retractions, no use of accessory muscles and clear to auscultation bilaterally Auscultation: Negative for crackles, rales, rhonchi or wheezes Cardio regular rate, regular rhythm, S1 normal heart sound, S2 normal heart sound and no murmurs GI soft to palpation, non-tender and non-distended; Negative for hepatosplenomegaly Extremity no clubbing, cyanosis or edema Skin no rashes or lesions noted Neuro no focal motor deficits and no sensory deficits noted Psych Mood & Affect: anxious Assessment & Plan Assessment/Plan (1) Alcohol withdrawal: QUALIFIERS: Complication of substance-induced condition: uncomplicated Qualified Code(s): F10.230 - Alcohol dependence with withdrawal, uncomplicated (2) Benzodiazepine withdrawal: QUALIFIERS: Complication of substance-induced condition: uncomplicated Qualified Code(s): 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 Acute alcohol and benzodiazepine withdrawal/anxiety and depression -We will continue alcohol withdrawal protocol with phenobarbital taper -We will continue with her home Ativan of 0.5mg daily and once she completes detox will have her follow-up with 180 monitoring of her Ativan taper -We will continue with her home mood stabilizing medications including Wellbutrin, Lexapro -Continue with BuSpar to try to help her get off the Ativan as much as possible, I discussed with her that she will need to have extensive counseling with both behavioral therapy as well as mental health to get her coping mechanisms established as well as her anxiety is much under control as possible so that we can actually take her off the Ativan when the time is right. DVT: Ambulation Charges/Coding Visit Charges Inpatient E&M: 36664 Subs Hosp L2
[2021-05-31] MEDS: hydrOXYzine PAM 25 MG Capsule 50 MG PO ×2 (17:12→21:23)
[2021-05-31] MEDS: traZODone 100 MG Tablet PO (21:22)
[2021-06-01] VITALS (8 sets, daily range): BP systolic 124–139; BP diastolic 76–87; PULSE 72–94; RESP 12–16; TEMP 36.6–37; O2SAT 95–99
[2021-06-01] MEDS: Phenobarbital 32.4 MG Tablet 64.8 MG PO ×6 (02:25→22:02)
[2021-06-01] MEDS: busPIRone 5 MG Tablet PO ×3 (06:19→22:01)
--- NOTE | 2021-06-01 08:08 | PCS.PANDOC ---
PANDEMIC DOCUMENTATION INITIATED: Date: 04/18/2021 Time: 190
[2021-06-01] MEDS: hydrOXYzine PAM 25 MG Capsule 50 MG PO ×2 (08:23→16:01)
[2021-06-01] MEDS: Escitalopram Oxalate 10 MG Tablet PO (08:25)
[2021-06-01] MEDS: buPROPion (SR) 150 MG Tablet.SA PO ×2 (08:25→22:01)
[2021-06-01] MEDS: Thiamine Hydrochloride 100 MG Tablet PO (08:25)
[2021-06-01] MEDS: Folic Acid 1 MG Tablet PO (08:25)
[2021-06-01] MEDS: LORazepam 0.5 MG Tablet PO (10:00)
--- NOTE | 2021-06-01 11:39 | PCM.PN.HOSP ---
Subjective Subjective Doing well, no active withdrawal symptoms. Had extensive mental health discussions today, will decrease her Ativan to 0.25 mg I did discuss with her that she will need this on discharge as well Objective Data Objective Data Vital Signs: Vital Signs Temp Pulse Resp BP Pulse Ox 98.0 F 81 16 136/80 H 96 06/01/21 08:26 06/01/21 08:26 06/01/21 08:26 06/01/21 08:26 06/01/21 08:26 Oxygen Delivery Method Room Air Weight: 220 lb Body Mass Index (BMI) 32.5 Intake & Output: Intake and Output for Last 24 Hours 05/31/21 06/01/21 06/02/21 03:59 03:59 03:59 Intake Total 850 / 850 200 / 200 Balance 850 / 850 200 / 200 Lab / Micro Data Result Diagrams: 05/30/21 11:16 05/30/21 11:16 Physical Exam Const alert, oriented x3 and no apparent distress General Appearance: cooperative HEENT normocephalic Eyes PERRL, EOMs intact bilaterally and conjunctivae normal Neck supple and no JVD Resp normal respiratory effort, no retractions, no use of accessory muscles and clear to auscultation bilaterally Auscultation: Negative for crackles, rales, rhonchi or wheezes Cardio regular rate, regular rhythm, S1 normal heart sound, S2 normal heart sound and no murmurs GI soft to palpation, non-tender and non-distended; Negative for hepatosplenomegaly Extremity no clubbing, cyanosis or edema Skin no rashes or lesions noted Neuro no focal motor deficits and no sensory deficits noted Psych Mood & Affect: anxious Assessment & Plan Assessment/Plan (1) Alcohol withdrawal: QUALIFIERS: Complication of substance-induced condition: uncomplicated Qualified Code(s): F10.230 - Alcohol dependence with withdrawal, uncomplicated (2) Benzodiazepine withdrawal: QUALIFIERS: Complication of substance-induced condition: uncomplicated Qualified Code(s): 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 Acute alcohol and benzodiazepine withdrawal/anxiety and depression -We will continue alcohol withdrawal protocol with phenobarbital taper -We will continue with her home Ativan of 0.5mg daily and once she completes detox will have her follow-up with 180 monitoring of her Ativan taper -We will continue with her home mood stabilizing medications including Wellbutrin, Lexapro -Continue with Leopoldo to try to help her get off the Ativan as much as possible, I discussed with her that she will need to have extensive counseling with both behavioral therapy as well as mental health to get her coping mechanisms established as well as her anxiety is much under control as possible so that we can actually take her off the Ativan when the time is right. DVT: Ambulation Charges/Coding Visit Charges Inpatient E&M: 78687 Subs Hosp L2
[2021-06-02 04:21] VITALS: BP 121/71; PULSE 71; RESP 12; TEMP 36.6; O2SAT 98
[2021-06-02 04:25] VITALS: BP 121/71; PULSE 71; RESP 12; TEMP 36.6; O2SAT 98
[2021-06-02] MEDS: Phenobarbital 32.4 MG Tablet 64.8 MG PO ×2 (04:26→09:40)
[2021-06-02] MEDS: busPIRone 5 MG Tablet PO (06:28)
[2021-06-02] MEDS: buPROPion (SR) 150 MG Tablet.SA PO (07:53)
[2021-06-02] MEDS: Thiamine Hydrochloride 100 MG Tablet PO (07:53)
[2021-06-02] MEDS: Escitalopram Oxalate 10 MG Tablet PO (07:53)
[2021-06-02] MEDS: hydrOXYzine PAM 25 MG Capsule 50 MG PO (07:53)
[2021-06-02] MEDS: Folic Acid 1 MG Tablet PO (07:53)
[2021-06-02] MEDS: LORazepam 0.5 MG Tablet 0.25 MG PO (09:40)
[2021-06-02 09:44] VITALS: BP 155/103; PULSE 76; RESP 18; TEMP 37.1; O2SAT 95
--- NOTE | 2021-06-02 10:00 | PCM.DC ---
Discharge Instructions Diet Discharge Diet: No restrictions Activity Discharge Activity: Return to Normal Activity Dressing / Incision Call your doctor if you observe: Fever of 101 or Higher, Shortness of breath, Dizziness, Fainting spells, Swelling in the ankles, Chest pain and Increased palpitations (irregular heartbeat) Follow Up Care Test Results: Test results from this visit will be discussed in further detail at your follow-up appointment, if applicable. Discharge Plan Admission Admit Date/Time: 05/30/21 12:17 Attending Provider: Dudley Long Primary Care Provider: Mickie Prado Discharge Orders/Prescriptions Prescriptions: New lorazepam 0.5 mg Tablet 0.25 mg PO DAILY 5 Days Qty: 3 RF: 0 buspirone 7.5 mg tablet 7.5 mg PO BID Qty: 60 RF: 0 Continued escitalopram oxalate 10 mg tablet 10 mg PO DAILY Qty: 30 RF: 1 bupropion HCl [Wellbutrin SR] 150 mg tablet sustained-release 12 hr 150 mg PO BID Qty: 60 RF: 0 trazodone 50 mg tablet 50 mg PO QHS PRN (Reason: sleep) Qty: 30 RF: 1 Discontinued lorazepam 1 mg tablet 0.5 mg PO DAILY RF: 0 Referrals / Follow Up: Mickie Prado MD [Primary Care Provider] - Within 1 Week Disposition Disposition (needs filled in before D/C Order can be placed): Home, Self Care
--- NOTE | 2021-06-02 11:03 | DS.PCM_ITS ---
Providers Date of Admission: 05/30/21 Primary Care Physician: Dr. 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 - Sedative, hypnotic or anxiolytic dependence with withdrawal, uncomplicated Medications at Discharge Home Medications bupropion HCl 150 mg tablet,12 hr sustained-release 150 mg PO BID #60 ea 04/28/21 escitalopram oxalate 10 mg tablet 10 mg PO DAILY #30 tab 04/28/21 trazodone 50 mg tablet 50 mg PO QHS PRN #30 tab 04/28/21 buspirone 7.5 mg PO BID #60 tab 06/02/21 lorazepam 0.25 mg PO DAILY 5 Days #3 tab 06/02/21 Hospital Course Operations None Procedures None Summary of Care Provided Minutes Spent on Discharge: 60 Hospital Course: Per HPI: DEEPAK TURNER, is a 55 F who presents to the hospital requesting detox from alcohol and benzodiazepines. She is to follow-up with 180 as an outpatient for Vivitrol injection however at that time she was noted to be taking Ativan so the service was refused. She tried to wean herself off of the Ativan at home however was unsuccessful and started drinking over the last couple of days. She drinks about a bottle of wine per day. She denies any kiran icidal homicidal ideations however she is feeling anxious and in the ER did have a CIWA score of 10. She has noted that she has a significant history of anxiety at baseline with a general personality of being a worrier, she states that the start of the pandemic really started making her have panic attacks which is when she started taking the Ativan and then she did not like being on the Ativan so she stopped taking the Ativan which then would cause her to drink because of the anxiety coming back. Hospital Course: 1. Acute alcohol withdrawal and benzodiazepine withdrawal/anxiety and [id number] female presents to the hospital with a chronic history of a low-lying amount of anxiety however this got worse with the pandemic. She started having panic attacks which led to her seeking medications from her PCP and getting Ativan and then occasionally she was upset taking Ativan so she would switch to drinking alcohol. She states that she would like to get off the Ativan as well as stop drinking therefore she completed the alcohol withdrawal protocol with the phenobarb. She denies any significant withdrawal symptoms and would like to go home today. I did discuss with her extensively over the last 3 days about coping mechanisms as well as the source of her anxiety, she understand that she will need to take Ativan and she was given a 5-day prescr iption of 0.25mg of Ativan to take at home and she will need to follow-up with her PCP or 180 for continued prescription for this. I discussed extensively the need for both exercise as well as therapy both mental and behavioral to learn how to cope with her anxiety and her urges to drink. To this end she was also started on BuSpar which she has tolerated well and therefore she was discharged on 7.5 mg twice daily. This will need to be continued as an outpatient and with upward titration as necessary. I discussed with her the plan for discharge today and she expressed understanding of the risk benefits of going home and would like to go home today. Physical Exam Const alert, oriented x3 and no apparent distress General Appearance: cooperative HEENT normocephalic and moist oral mucous membranes Eyes PERRL, EOMs intact bilaterally and conjunctivae normal Neck supple and no JVD Resp normal respiratory effort, no retractions, no use of accessory muscles and clear to auscultation bilaterally Auscultation: Negative for crackles, rales, rhonchi or wheezes Cardio regular rate, regular rhythm, S1 normal heart sound, S2 normal heart sound and no murmurs GI soft to palpation, non-tender and non-distended; Negative for hepatosplenomegaly Extremity no clubbing, cyanosis or edema Skin no rashes or lesions noted Neuro no focal motor deficits and no sensory deficits noted Psych Appearance: appropriate Mood & Affect: anxious Weight / BMI Weight Weight: 220 lb Body Mass Index (BMI) 32.5 ABG / Lab / Microbiology Data Result Diagrams: 05/30/21 11:16 05/30/21 11:16 D/C Instructions Discharge Diet: No restrictions Call your doctor if you observe: Fever of 101 or Higher, Shortness of breath, Dizziness, Fainting spells, Swelling in the ankles, Chest pain and Increased palpitations (irregular heartbeat) Meaningful Use Info Meaningful Use Diagnoses (Choose all that apply): None applicable Discharge Plan Admission Admit Date/Time: 05/30/21 12:17 Attending Provider: Dudley Long Primary Care Provider: Mickie Prado Discharge Orders/Prescriptions Prescriptions: New lorazepam 0.5 mg Tablet 0.25 mg PO DAILY 5 Days Qty: 3 RF: 0 buspirone 7.5 mg tablet 7.5 mg PO BID Qty: 60 RF: 0 Continued escitalopram oxalate 10 mg tablet 10 mg PO DAILY Qty: 30 RF: 1 bupropion HCl [Wellbutrin SR] 150 mg tablet sustained-release 12 hr 150 mg PO BID Qty: 60 RF: 0 trazodone 50 mg tablet 50 mg PO QHS PRN (Reason: sleep) Qty: 30 RF: 1 Discontinued lorazepam 1 mg tablet 0.5 mg PO DAILY RF: 0 Referrals / Follow Up: Mickie Prado MD [Primary Care Provider] - Within 1 Week Disposition Disposition (needs filled in before D/C Order can be placed): Home, Self Care Charges/Coding Visit Charges Inpatient E&M: 21659 Disch Hosp
--- NOTE | 2021-06-02 11:32 | ADDICTION ---
This worker met with PT to discuss discharge and follow-up planning.
[2021-06-02 12:06] VITALS: BP 139/91; PULSE 87; RESP 18
== END 2021-06-02 13:39 | disposition home or self-care (01) | DRG 897 ==
LOC: ED 12:22 → MS3 05-31 08:49
PROVIDERS: Admitting Provider Family Medicine; Emergency Provider Emergency Medicine; PCP Internal Medicine; Visit Provider Family Medicine
DX: F10.230 Alcohol dependence with withdrawal, uncomplicated (principal); F13.230 Sedative, hypnotic or anxiolytic dependence with withdrawal, uncomplicated; F32.9 Major depressive disorder, single episode, unspecified; I10 Essential (primary) hypertension; I34.1 Nonrheumatic mitral (valve) prolapse; Y90.9 Presence of alcohol in blood, level not specified; Z79.899 Other long term (current) drug therapy; F41.0 Panic disorder [episodic paroxysmal anxiety]
CPT/HCPCS: 80053; 80307; 81001; 82077; 85025; 99218; 99284; A4216; G0378

== ENCOUNTER → 2022-03-01 | Outpatient (CLI) | payer BC, SELFPAY ==
[2022-03-01 10:20] LABS: Carbamazepine (Tegretol) 5.4 ug/mL (4.0-12.0)
== END | disposition home or self-care (01) ==
PROVIDERS: PCP Internal Medicine
DX: Z79.899 Other long term (current) drug therapy (principal)
CPT/HCPCS: 36415; 80156

== ENCOUNTER 2022-06-27 07:55 | Emergency (ER) | payer BC, SELFPAY ==
[2022-06-27 07:56] VITALS: BP 142/84; PULSE 88; RESP 17; TEMP 36.3; O2SAT 95; BMI 32.5
--- NOTE | 2022-06-27 08:16 | EDS_ITS ---
HPI History of Present Illness Chief Complaint: Nosebleed Informant: patient Onset/Context/Timing Onset: Weeks Narrative Narrative: Patient present secondary to right-sided nosebleed. She reports having mild nosebleeds for the past 2 weeks that she thought was related to high blood pressure with stress at work. Yesterday she had more persistent nosebleed and saw her primary care provider. She has an appointment to see ENT on July 04. Due to recurrent bleeding again today she presented to the emergency room. Patient is not on anticoagulants. [facility] Medical History (Updated 06/27/22 @ 09:[address] Yi Kahn MD) Alcohol abuse Anxiety HTN (hypertension) MVP (mitral valve prolapse) Home Medications bupropion HCl 150 mg tablet,12 hr sustained-release (Wellbutrin SR) 150 mg PO BID #60 ea 04/28/21 [Rx Last Taken 05/30/21] escitalopram oxalate 10 mg tablet 10 mg PO DAILY #30 tabs 04/28/21 [Rx Last Taken 05/30/21] carbamazepine 200 mg tablet (Tegretol) 200 mg PO BID 08/12/21 [History Last Taken Unknown] naltrexone 50 mg tablet 50 mg PO 08/12/21 [History Last Taken Unknown] blood pressure test kit-large ([facility] Blood Pressure Monitor kit) #1 ea 06/26/22 [Rx Last Taken Unknown] lisinopril 10 mg tablet 10 mg PO DAILY hypertension #30 tabs 06/26/22 [Rx Last T aken Unknown] cephalexin 500 mg capsule 500 mg PO Q12 #10 caps 06/27/22 [Rx Last Taken Unknown] Allergy/AdvReac Type Severity Reaction Status Date / Time No Known Allergies Allergy Verified 06/27/22 07:55 Family History Other Alcoholism Cancer Surgical History H/O section History of partial hysterectomy Social History Smoking Status: Never smoker alcohol intake: former year quit: 2020 details: quit 04-07-2021 substance use type: does not use ROS ROS ED Constitutional Constitutional ED: Denies chills or fever(s) Eyes Eyes: Denies change in vision or discharge from eye(s) ENT ENT ED: Reports other Details: Right-sided epistaxis ; Denies discharge from eye(s), rhinorrhea or sore throat Cardiovascular Cardiovascular: Denies chest pain or palpitations Respiratory/Chest Respiratory/Chest: Denies cough or dyspnea Gastrointestinal Gastrointestinal: Denies abdominal pain, diarrhea, nausea or vomiting Genitourinary Genitourinary ED: Denies dysuria Musculoskeletal Musculoskeletal: Denies back pain or extremity pain Integumentary Denies Abrasions or rash Neurologic Neurologic: Denies headache(s) or weakness Psychiatric Psychiatric: Denies anxiety or depression Endocrine Endocrinology: Denies polydipsia or polyuria Allergic/Immunologic Allergic/Immunologic ED: Denies lip swelling or urticaria EXAM Physical Exam Const Vital Signs: 06/27/22 07:56 Temperature 97.3 F L Temperature Source Temporal Pulse Rate 88 Respiratory Rate 17 Blood Pressure 142/84 H Blood Pressure Mean 103 Pulse Ox 95 Oxygen Delivery Method Room Air Positive well nourished and well developed General Appearance ED: well developed HEENT Reports normocephalic and head/scalp atraumatic HEENT Narrative: Nasal clamp in place on initial evaluation. Eyes PERRL and EOMs intact bilaterally Neck supple Chest Wall inspection of chest normal and palpation of chest normal Resp normal respiratory effort and clear to auscultation bilaterally Cardio regular rate and regular rhythm GI normal to inspection, nondistended, normoactive bowel sounds Palpation: soft Extremity normal to inspection Neuro oriented x3 and no sensory deficits noted Sensorium / Orientation: alert Motor Exam: strength 5/5 throughout Psych mental status grossly normal Skin no rashes or lesions noted MDM MDM MDM Narrative Medical decision making narrative: Cottonball soaked in Afrin and Cetacaine is placed in the right nare. After 5 minutes this is removed and a 5.5 cm Rhino Rocket is placed.Patient was observed and ambulated in the hallway. She had no recurrent bleeding. I will write her for Keflex for the next several days. She called the ENT office and got her appointment moved up to this Sunday. Return instructions given. Discharge Plan Triage Chief Complaint: Nosebleed ED Provider: Yi Kahn Dx/Rx/DC Orders Clinical Impression: Epistaxis Instructions: ED Epistaxis (Adult) Prescriptions: New cephalexin 500 mg capsule 500 mg PO Q12 Qty: 10 0RF No Action escitalopram oxalate 10 mg tablet 10 mg PO DAILY Qty: 30 1RF bupropion HCl [Wellbutrin SR] 150 mg tablet sustained-release 12 hr 150 mg PO BID Qty: 60 0RF naltrexone 50 mg tablet 50 mg PO Label Comments: take 1 tablet by mouth once daily carbamazepine [Tegretol] 200 mg tablet 200 mg PO BID lisinopril 10 mg tablet 10 mg PO DAILY Qty: 30 0RF (DME) blood pressure test kit-large [[facility] Blood Pressure Monitr] Kit See Rx Instructions .Route Qty: 1 0RF Rx Instructions: As directed Primary Care Provider: Mickie Prado Referrals: Mickie Prado MD [Primary Care Provider] - Activity Restrictions/Additional Instructions: Follow-up with ENT on Sunday as scheduled. Disposition Disposition: Home, Self Care
[2022-06-27] MEDS: Oxymetazoline 0.05% 1 SPRAY SPRAY.BTL 2 SPRAY NASAL (10:13)
[2022-06-27] MEDS: Tetracaine/Benzocaine/Butamben 1 APPLIC TOPICAL (10:14)
== END 2022-06-27 10:15 | disposition home or self-care (01) ==
PROVIDERS: Emergency Provider Emergency Medicine; PCP Internal Medicine; Visit Provider Emergency Medicine
DX: R04.0 Epistaxis (principal); I10 Essential (primary) hypertension; Z79.899 Other long term (current) drug therapy
CPT/HCPCS: 30905; 99282

== ENCOUNTER 2022-09-08 12:09 | Emergency (ER) | payer BC, SELFPAY ==
[2022-09-08 12:10] VITALS: BP 152/113; PULSE 82; RESP 18; TEMP 35.9; O2SAT 98; BMI 34.5
--- NOTE | 2022-09-08 13:09 | EDS_ITS ---
HPI HPI - GI History of Present Illness Chief Complaint: Abd Pain Informant: patient Narrative Narrative: Patient presenting with right upper quadrant pain rating to epigastric region and intermittent last 2 days and today is more persistent. Nausea without vomiting. Last bowel movement 1/2 days ago. Typically goes daily. No abdominal surgeries. She is able a little bit around 8 AM. She had a muffin. Has not eaten much due to symptoms. She states she slept on retiring on her left side which she thought was musculoskeletal. Is feeling tightness and spasms. No fevers. No history of similar. History anxiety depression on m edications. Prior similar symptoms: No PFSH PFSH Medical History Alcohol abuse Anxiety HTN (hypertension) MVP (mitral valve prolapse) Home Medications bupropion HCl 150 mg tablet,12 hr sustained-release (Wellbutrin SR) 150 mg PO BID #60 ea 04/28/21 [Rx Last Taken 05/30/21] escitalopram oxalate 10 mg tablet 10 mg PO DAILY #30 tabs 04/28/21 [Rx Last Taken 05/30/21] carbamazepine 200 mg tablet (Tegretol) 200 mg PO BID 08/12/21 [History Last Taken Unknown] naltrexone 50 mg tablet 50 mg PO 08/12/21 [History Last Taken Unknown] blood pressure test kit-[facility] ([facility] Blood Pressure Monitor kit) #1 ea 06/26/22 [Rx Last Taken Unknown] lisinopril 10 mg tablet 10 mg PO DAILY hypertension #30 tabs 06/26/22 [Rx Last Taken Unknown] cephalexin 500 mg capsule 500 mg PO Q12 #10 caps 06/27/22 [Rx Last Taken Unknown] omeprazole 40 mg capsule,delayed release 40 mg PO DAILY #30 caps 09/08/22 [Rx Last Taken Unknown] ondansetron 4 mg disintegrating tablet 4 mg PO Q6H PRN nausea and vomiting #10 tabs 09/08/22 [Rx Last Taken Unknown] Allergy/AdvReac Type Severity Reaction Status Date / Time No Known Allergies Allergy Verified 07/10/22 08:39 Family History Other Alcoholism Cancer Surgical History H/O section History of partial hysterectomy Social History Smoking Status: Never smoker alcohol intake: former year quit: 2020 details: quit 04-07-2021 substance use type: does not use ROS ROS ED Constitutional Constitutional ED: Denies chills, fever(s) or sweats Eyes Eyes: Denies change in vision ENT ENT ED: Denies dysphagia or sore throat Cardiovascular Cardiovascular: Denies chest pain, leg edema, palpitations or racing heartbeat Respiratory/Chest Respiratory/Chest: Denies cough, dyspnea or dyspnea on exertion Gastrointestinal Gastrointestinal: Reports abdominal pain and nausea; Denies diarrhea or vomiting Genitourinary Genitourinary ED: Denies dysuria, hematuria or urinary frequency Musculoskeletal Musculoskeletal: Denies back pain, extremity pain or neck pain Integumentary Denies rash or wounds Neurologic Neurologic: Denies headache(s), paresthesias or weakness EXAM Physical Exam Const Vital Signs: 09/08/22 12:10 09/08/22 15:48 Temperature 96.7 F L Temperature Source Temporal Pulse Rate 82 64 Respiratory Rate 18 16 Blood Pressure 152/113 H 159/90 H Blood Pressure Mean 126 113 Pulse Ox 98 98 Oxygen Delivery Method Room Air Positive well nourished and well developed General Appearance ED: well developed and NAD HEENT Reports moist mucous membranes normocephalic and atraumatic Eyes PERRL, EOMs intact bilaterally and conjunctivae normal General Eye ED: Yes normal appearance of both eyes Neck no lymphadenopathy and supple General: Negative for tenderness Chest Wall Chest: Negative for tenderness Resp normal respiratory effort and normal air movement Effort and Inspection: symmetric chest movement; Negative for respiratory distress Cardio regular rate, regular rhythm and no murmurs Peripheral Pulses: pulses 2+ throughout GI normal to inspection, nondistended, normoactive bowel sounds GI Narrative: Mild right upper quadrant and epigastric tenderness. No guarding or rebound. Negative McBurney's. Palpation: Negative for guarding or rebound tenderness present Back/Spine no CVA tenderness and no thoracic nor lumbar tenderness Extremity normal to inspection General Extremety ED: Negative for edema or tenderness General Extremity: Negative for edema Neuro oriented x3 and no sensory deficits noted Sensorium / Orientation: awake and alert Skin no rashes or lesions noted and no wounds MDM MDM MDM Narrative Medical decision making narrative: Presenting persistent pain today epigastric mild right upper quadrant. Nonbloody stools her last bowel movement. Discussed potentially gastritis versus early gallbladder disease with cholelithiasis versus cholecystitis. Nonsurgical abdomen. Abdominal labs were obtained and reviewed by myself all in the normal range. She was treated with Pepcid and Zofran along with fluids. Gallbladder ultrasound interpreted by myself and reviewed with radiology read agree with findings with normal structures of the gallbladder. Fatty liver seen on ultrasound. Discussed findings with patient. Abdomen reviewed jono soft. She reported continued mild symptoms therefore treated with a GI cocktail. Started with prescription for PPI along with Zofran to use as needed. She will monitor for any bloody stools for potential peptic ulcer disease. At this time do not feel further work-up is required. She was given follow GI as an outpatient. Return precaution discussed. All questions were answered. Lab Data Attestation: I reviewed the patient's lab results. Labs: Laboratory Results - last 24 hr 09/08/22 09/08/22 13:09 13:09 WBC 7.8 RBC 4.26 Hgb 13.2 Hct 38.7 MCV 90.8 MCH 31.0 MCHC 34.1 RDW Std Deviation 40.7 RDW Coeff of Carline 12.4 Plt Count 239 MPV 10.1 Immature Gran % (Auto) 0.300 Neut % (Auto) 56.0 Lymph % (Auto) 36.6 [place] % (Auto) 6.0 Eos % (Auto) 0.6 Baso % (Auto) 0.5 Absolute Neuts (auto) 4.4 Absolute Lymphs (auto) 2.86 Nucleated RBC % 0 Sodium 139 Potassium 3.8 Chloride 108 H Carbon Dioxide 26.0 Anion Gap 5 BUN 13 Creatinine 0.79 Estim Creat Clear Calc 81.12 Est GFR (MDRD) Af Amer 96 Est GFR (MDRD) Non-Af 80 BUN/Creatinine Ratio 16.5 Glucose 90 Calcium 9.7 Total Bilirubin 0.30 Direct Bilirubin 0.13 AST 26 ALT 35 Alkaline Phosphatase 92 Total Protein 7.7 Albumin 4.1 Globulin 3.6 Lipase 111 Radiography Diagnostic Testing: Clinical Impression(s) from Imaging Studies Gallbladder Ultrasound 09/08/22 14:24 IMPRESSION: Fatty infiltration of the liver. Electronically Signed: Dwight Bond MD at 15:31 EST , Discharge Plan Triage Chief Complaint: Abd Pain ED Provider: Hever Galvez Dx/Rx/DC Orders Clinical Impression: Gastritis, Abdominal pain Instructions: Abdominal Pain, ED Gastritis (Adult) Prescriptions: New omeprazole 40 mg capsule,delayed release(DR/EC) 40 mg PO DAILY Qty: 30 0RF ondansetron 4 mg tablet,disintegrating 4 mg PO Q6H PRN (Reason: nausea and vomiting) Qty: 10 0RF No Action escitalopram oxalate 10 mg tablet 10 mg PO DAILY Qty: 30 1RF bupropion HCl [Wellbutrin SR] 150 mg tablet sustained-release 12 hr 150 mg PO BID Qty: 60 0RF naltrexone 50 mg tablet 50 mg PO Label Comments: take 1 tablet by mouth once daily carbamazepine [Tegretol] 200 mg tablet 200 mg PO BID lisinopril 10 mg tablet 10 mg PO DAILY Qty: 30 0RF (DME) blood pressure test kit-large [[facility] Blood Pressure Monitr] Kit See Rx Instructions .Route Qty: 1 0RF Rx Instructions: As directed cephalexin 500 mg capsule 500 mg PO Q12 Qty: 10 0RF Primary Care Provider: Mickie Prado Referrals: Mickie Prado MD [Primary Care Provider] - 1 Week Guero Brock DO [Med Staff - Active Staff] - 1-2 Weeks Activity Restrictions/Additional Instructions: Normal gallbladder ultrasound. Fatty liver noted. Labs are stable. Take medication as prescribed. Follow-up with your doctors. Return if any worsening symptoms. Disposition Disposition: Home, Self Care Discharge Date/Time: 09/08/22 16:33
[2022-09-08 13:15] LABS: Absolute Lymphocyte Count 2.86 X10^3/uL (0.83-4.51); Absolute Neutrophil Count 4.4 X10^3/uL (2.0-7.7); Basophil# 0.04 X10^3/uL; Basophil% 0.5 % (0-1); Eosinophil# 0.05 X10^3/uL; Eosinophils% 0.6 % (0-5); Hematocrit 38.7 % (37-47); Hemoglobin 13.2 g/dL (12.0-15.0); Lymphocyte # 2.86 X10^3/ul (0.83-4.51); Lymphocyte % 36.6 % (19-41); Mean Corp Hgb Conc 34.1 g/dL (32-36); Mean Corpuscular Volume 90.8 fL (81-99); Mean Platelet Vol. 10.1 fl (6.2-12.0); Monocyte# 0.47 X10^3/uL; NRBC Flagged by Analyzer 0 % (0-5); Neutrophil # 4.37 X10^3/uL (2.7-7.7); Platelet Count 239 K/mm3 (150-450); RBC Distribution Width CV 12.4 % (11.6-14.6); RBC Distribution Width SD 40.7 fl (35.1-43.9); Red Blood Count 4.26 M/mm3 (4.2-5.4); White Blood Count 7.8 K/mm3 (4.4-11.0)
[2022-09-08] MEDS: Famotidine 200 MG/20 ML MDV 20 MG in 0.9% Normal Saline (Pres. free 8 ML 300 MG IV (13:19)
[2022-09-08] MEDS: Ondansetron 4 MG/2 ML Vial IV (13:19)
[2022-09-08] MEDS: 0.9% Normal Saline 1,000 ML 125 ML IV (13:19)
[2022-09-08 13:37] LABS: AST(SGOT) 26 U/L (15-37); Alanine Aminotransfer ALT/SGPT 35 U/L (13-56); Albumin, Serum 4.1 g/dL (3.2-5.0); Alkaline Phosphatase 92 U/L (45-117); Anion Gap 5 (5-15); BUN 13 mg/dL (7-18); BUN/Creat Ratio 16.5 RATIO (10-20); Bilirubin, Direct 0.13 mg/dL (0.00-0.30); Calcium,Total 9.7 mg/dL (8.5-10.1); Chloride 108 mmol/L (98-107); Creatinine, Serum 0.79 mg/dL (0.55-1.02); EST Glomerular Filtration Rate 80 mL/min (>60); Est Glom Filt Rate - Afr Amer 96 mL/min (>60); Estimated Creatinine Clearance 81.12 ml/min; Globulin 3.6 g/dL (2.2-4.2); Glucose 90 mg/dL (74-106); Lipase 111 U/L (73-393); Potassium 3.8 mmol/L (3.5-5.1); Protein, Total 7.7 g/dL (6.4-8.2); Sodium Level 139 mmol/L (136-145)
--- NOTE | 2022-09-08 14:04 | ED.RN ---
PT IN TRIAGE 2 TALKING WITH SOCIAL WORK.
--- NOTE | 2022-09-08 14:24 | US_ITS ---
STUDY: ABDOMINAL ULTRASOUND - RIGHT UPPER QUADRANT REASON FOR VISIT: Female, 57 years old upper abd pain TECHNIQUE: Ultrasound evaluation of the right upper quadrant was performed with real-time and static booker-scale imaging. TECHNICAL QUALITY: Adequate. COMPARISON: None. FINDINGS: Liver: The liver measures 15.9 cm. There is increased echogenicity consistent with fatty infiltration. The bile ducts are within normal limits. There is hepatic color flow. The direction of portal flow is hepatopetal. There is no demonstrated mass lesion. Gallbladder: Normal distended gallbladder. The gallbladder wall measures 2.0 mm. There is a negative sonographic Roa''s sign. There is no pericholecystic fluid. There are no gallstones. Common Bile Duct (C.B.D.): The common bile duct measures 5.0 mm. Pancreas: Normal size of the head, body and tail of the pancreas. There is increased echogenicity of the pancreas. There is no demonstrated pancreatic mass or cyst. Right Kidney: Normal size of the right kidney. The right kidney measures 11.4 cm x 6.4 cm x 5.5 cm. Normal renal cortex. The right cortex measures 1.6 cm. There is no demonstrated renal mass or cyst. There is no right hydronephrosis. US/Gallbladder IMPRESSION: Fatty infiltration of the liver. Electronically Signed: Dwight Bond MD at 15:31 EST ,
[2022-09-08 15:48] VITALS: BP 159/90; PULSE 64; RESP 16; O2SAT 98
[2022-09-08] MEDS: Mag Hydrox/Al Hydrox/Simeth 30 ML UDC PO (16:25)
== END 2022-09-08 16:33 | disposition home or self-care (01) ==
PROVIDERS: Emergency Provider Emergency Medicine; PCP Internal Medicine; Visit Provider Emergency Medicine
DX: K29.70 Gastritis, unspecified, without bleeding (principal); K76.0 Fatty (change of) liver, not elsewhere classified; I10 Essential (primary) hypertension; Z79.899 Other long term (current) drug therapy
CPT/HCPCS: 76705; 80048; 80076; 83690; 85025; 96374; 96375; 99283; J7030; A4216; J2405; J3490

== ENCOUNTER → 2022-10-24 | Outpatient (CLI) | payer BC, SELFPAY ==
[2022-10-24 09:38] LABS: Absolute Lymphocyte Count 2.39 X10^3/uL (0.83-4.51); Absolute Neutrophil Count 3.4 X10^3/uL (2.0-7.7); Basophil# 0.05 X10^3/uL; Basophil% 0.8 % (0-1); Eosinophil# 0.01 X10^3/uL; Eosinophils% 0.2 % (0-5); Hematocrit 41.4 % (37-47); Hemoglobin 13.2 g/dL (12.0-15.0); Lymphocyte # 2.39 X10^3/ul (0.83-4.51); Lymphocyte % 38.6 % (19-41); Mean Corp Hgb Conc 31.9 g/dL (32-36); Mean Corpuscular Hgb 29.5 pg (27.0-32.0); Mean Corpuscular Volume 92.4 fL (81-99); Mean Platelet Vol. 10.4 fl (6.2-12.0); Monocyte# 0.37 X10^3/uL; NRBC Flagged by Analyzer 0 % (0-5); Neutrophil # 3.36 X10^3/uL (2.7-7.7); Neutrophil % 54.2 % (47-70); Platelet Count 285 K/mm3 (150-450); RBC Distribution Width SD 43.6 fl (35.1-43.9); Red Blood Count 4.48 M/mm3 (4.2-5.4); White Blood Count 6.2 K/mm3 (4.4-11.0)
[2022-10-24 09:59] LABS: Hemoglobin A1c 5.4 % (3.8-5.6)
[2022-10-24 10:12] LABS: Vitamin D,25 Hydroxy 14.9 ng/mL
[2022-10-24 10:26] LABS: ALB/GLOB Ratio 1.1 RATIO (0.9-2.4); AST(SGOT) 23 U/L (15-37); Alanine Aminotransfer ALT/SGPT 27 U/L (13-56); Alkaline Phosphatase 103 U/L (45-117); Anion Gap 5 (5-15); BUN 9 mg/dL (7-18); Chloride 112 mmol/L (98-107); Cholesterol 236 mg/dL (200); EST Glomerular Filtration Rate 69 mL/min (>60); Est Glom Filt Rate - Afr Amer 83 mL/min (>60); Globulin 3.8 g/dL (2.2-4.2); Glucose 111 mg/dL (74-106); High Density Lipoprotein 54 mg/dL; Protein, Total 7.8 g/dL (6.4-8.2); Sodium Level 143 mmol/L (136-145); Thyroid Stim Hormone (TSH) 1.86 uIU/mL (0.358-3.74); Triglycerides 161 mg/dL; Very Low Density Lipoprotein 32 mg/dL (5-40)
== END | disposition home or self-care (01) ==
LOC: LAB 08:12
PROVIDERS: PCP Internal Medicine; Referring Provider Internal Medicine; Visit Provider Internal Medicine
DX: Z00.00 Encounter for general adult medical examination without abnormal findings (principal); Z13.220 Encounter for screening for lipoid disorders; I10 Essential (primary) hypertension; F41.9 Anxiety disorder, unspecified; E55.9 Vitamin D deficiency, unspecified; R03.0 Elevated blood-pressure reading, without diagnosis of hypertension; R53.83 Other fatigue; R73.9 Hyperglycemia, unspecified
CPT/HCPCS: 36415; 80053; 80061; 82306; 83036; 84443; 85025

== ENCOUNTER 2023-03-18 14:57 | Observation (INO) | payer OTHER, SELFPAY ==
[2023-03-18] VITALS (9 sets, daily range): BP systolic 135–201; BP diastolic 70–94; PULSE 73–114; RESP 12–26; TEMP 36.8–37.3; O2SAT 96–99; BMI 37.9; BMI 37.5
--- NOTE | 2023-03-18 15:09 | RAD_ITS ---
INDICATION: deformity EXAMINATION/TECHNIQUE: X-RAY - LEFT XR Ankle Min 3 Views 4 VIEWS COMPARISON: None. FINDINGS: SOFT TISSUES: Diffuse soft tissue swelling. Oblique displaced fracture of the distal fibula. Transverse displaced fracture of the medial malleolus. Fracture of the posterior distal tibia is difficult to exclude. BONES/JOINTS: Subluxation of the tibiotalar joint. RAD/Ankle min 3 Views IMPRESSION: Fracture of the distal tibia and fibula with disruption of the tibiotalar joint. Electronically Signed: Harshal Morgan MD at 15:56 EDT ,
--- NOTE | 2023-03-18 15:10 | ED.VIS.LOWEX ---
HPI History of Present Illness Chief Complaint: Fall Narrative Narrative: 57-year-old female presenting with left ankle pain. She was coming down the stairs and twisted her left ankle. He is not sure if she hit it on the stairs. She states she fell on her left hip but does not really have pain in her buttocks and head. She has pain in her left ankle. She is unable to walk. States is a little bit tingly but she can feel it. She also states she is in recovery and does not want any opioids. She is on naltrexone. Patient denies head injury or LOC. [facility] Medical History Alcohol abuse Anxiety HTN (hypertension) MVP (mitral valve prolapse) Home Medications naltrexone 50 mg tablet 50 mg PO Q24H 08/12/21 [History Last Taken Unknown] ondansetron 4 mg disintegrating tablet 4 mg PO Q6H PRN nausea and vomiting #10 tabs 09/08/22 [Rx Last Taken Unknown] bupropion HCl 150 mg tablet,12 hr sustained-release (Wellbutrin SR) 150 mg PO DAILY 09/28/22 [History Last Taken Unknown] carbamazepine 200 mg tablet (Tegretol) 200 mg PO DAILY 09/28/22 [History Last Taken Unknown] cholecalciferol (vitamin D3) 25 mcg (1,000 unit) capsule 25 mcg PO DAILY 10/25/22 [History Last Taken Unknown] gabapentin 300 mg capsule mg 03/18/23 [History Last Taken Unknown] olanzapine 2.5 mg tablet mg 03/18/23 [History Last Taken Unknown] omeprazole 40 mg capsule,delayed release mg 03/18/23 [History Last Taken Unknown] Allergy/AdvReac Type Severity Reaction Status Date / Time No Known Allergies Allergy Verified 10/23/22 08:35 Family History Other Alcoholism Cancer Surgical History H/O section History of partial hysterectomy Social History Smoking Status: Never smoker alcohol intake: former year quit: 2020 details: quit 04-07-2021 substance use type: does not use ROS ROS ED Constitutional Constitutional ED: Denies chills, fever(s) or sweats Eyes Eyes: Denies blurry vision or change in vision ENT ENT ED: Denies ear pain or sore throat Cardiovascular Cardiovascular: Denies chest pain, palpitations or racing heartbeat Respiratory/Chest Respiratory/Chest: Denies cough, dyspnea or sputum Gastrointestinal Gastrointestinal: Denies abdominal pain, constipation, diarrhea, nausea or vomiting Genitourinary Genitourinary ED: Denies dysuria, hematuria or urinary frequency Musculoskeletal Musculoskeletal: Reports other Details: Left ankle and foot pain ; Denies myalgias or neck pain Integumentary Denies abscess, Abrasions or rash Neurologic Neurologic: Denies headache(s), paresthesias or weakness Psychiatric Psychiatric: Denies anxiety, depression, suicidal ideation or suicidal thoughts Endocrine Endocrinology: Denies polydipsia or polyuria EXAM Physical Exam Const Vital Signs: 03/18/23 14:58 Temperature 99.1 F Temperature Source Oral Pulse Rate 94 Respiratory Rate 18 Blood Pressure 135/70 H Blood Pressure Mean 91 Pulse Ox 96 Oxygen Delivery Method Room Air Positive well nourished General Appearance ED: NAD HEENT Reports moist mucous membranes normocephalic and atraumatic Resp normal respiratory effort Cardio regular rate and regular rhythm Extremity Extremity Narrative: Tenderness palpation of the left ankle. There is external rotation and deformity of the left ankle at the distal tibia. Left foot neurovascular intact prescription for the 5 toes. Neuro oriented x3 and CN's II-XII intact bilaterally Sensorium / Orientation: alert Psych mental status grossly normal MDM MDM MDM Narrative Medical decision making narrative: Patient has obvious deformity of the left ankle. We will obtain x-rays of the left ankle and foot. Patient medicated with Toradol and she is in recovery. She will likely need conscious sedation for closed reduction. Basic labs were obtained and CBC and BMP are unremarkable. Discussed the case with Dr. Peters as she has a bimalleolar fracture on x-ray of my interpretation. Foot x-rays were negative for foot fracture. Dr. Peters will admit the patient for surgical fixation of the ankle. Spoke to the hospitalist as he wanted the patient to have a medical consult. Dr. Peters came to evaluate the patient and I provided procedural sedation with propofol. Patient was sedated for about 11 minutes. She was placed in a posterior splint with stirrup by Dr. Peters. Patient tolerated anesthesia well. Requested CT scan by podiatry was ordered and is pending. Patient will be admitted for surgery. Impression: 1. Mechanical fall 2. Left ankle bimalleolar Radiography Diagnostic Testing: Clinical Impression(s) from Imaging Studies Ankle X-Ray 03/18/23 15:09 IMPRESSION: Fracture of the distal tibia and fibula with disruption of the tibiotalar joint. Electronically Signed: Harshal Morgan MD at 15:56 EDT , Foot X-Ray 03/18/23 15:30 IMPRESSION: Distal fibular and tibial fractures with disruption of the tibiotalar joint. Electronically Signed: Stacy Gomez MD at 16:19 EDT , Discharge Plan Disposition Disposition: Acute Care Hospital [facility] Discharge Date/Time: 03/18/23 19:40
[2023-03-18] MEDS: Ketorolac 15 MG/ML Vial IV (15:16)
--- OUTSIDE RECORDS SUMMARY | 2023-03-18 15:25 | XMS RPT_ITS | CCD ---
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 0 0 05/25/2010 Active Encounters Encounter Date Encounter Type Care Provider Facility Start: 07-13-2021 End: 08-02-2021 Subsequent hospital visit by physician Lab Referred MD Work Phone: [facility] Plan of Treatment Date Care Activity Detail Author Start: 05-04-2021 Influenza vaccination INFLUENZA (#1) [facility] Start: 2014 SHINGRIX VACCINE (1 of 2) SHINGRIX V ACCINE (1 of 2) [facility] Start: 2009 COLOGUARD (FIT-DNA) COLOGUARD (FIT-D NA) [facility] Start: 2009 Colonoscopy COLONOSCOPY [facility] Start: 2009 COLORECTAL CANCER SCREENING COLORECTAL CANCER SCREENING [facility] Start: [address] COLONOGRAPHY [facility] Start: 2009 DIABETES SCREEN DIABETES SCREEN [facility] Start: 2009 FECAL OCCULT BLOOD FECAL OCCULT BLOO D [facility] Start: 2009 LIPID SCREEN LIPID SCREEN [facility] Start: 2009 SIGMOIDOSCOPY SIGMOIDOSCOPY [facility] Start: 2004 Mammography MAMMOGRAM [facility] Start: 1994 HPV TESTING HPV TESTING [facility] Start: 1985 PAP TESTING PAP TESTING [facility] Start: 1983 Urine microalbumin profile DTAP,TDAP ,TD (1 - Tdap) [facility] Start: 1982 HEPATITIS C SCREENING HEPATITIS C SC REENING [facility] Start: 1982 HIV SCREENING HIV SCREENING [facility] Start: 1976 Adult depression scr eening assessment DEPRESSION SCREENING [facility] Start: 1969 COVID-19 VACCINE (1) COVID-19 VACCIN E (1) [facility] Payers Date Payer Category Payer Policy ID Unknown [facility] [employer] [facility] [employer] [id number] Effective for all dates [address] [place] [address] Other Social History Date Type Detail Facility [facility] Start: 05-25-2010 Alcohol intake Current drinke r of alcohol (finding) [facility] Start: 1964 Sex Assigned At Not on file [facility] Additional Source Comments Source Comments (unrecognize d section and content) In the event this informatio n is protected by the Federal Confidentiality of Alcohol and Drug Abuse Patient Records regulations: The Federal rules restrict any use of the information to criminally investigate or prosecute any alcohol or drug abuse patient.[facility] Care Teams (unrecognized sec tion and content) FOR RECORDS PERTAINING TO PATIENTS WHO ARE OR HAVE BEEN ENROLLED IN A CHEMICAL DEPENDENCY/SUBSTANCEABUSE PROGRAM, SOME INFORMATION MAY BE OMITTED. This clinical summary was aggregated from multiple sources. Caution should be exercised in using it in the provision of clinical care. This summary normalizes information from multiple sources, and as a consequence, information in this document may materially change the coding, format and clinical context of patient data. In addition, data may be omitted in some cases. CLINICAL DECISIONS SHOULD BE BASED ON THE PRIMARY CLINICAL RECORDS. [facility]. provides no warranty or guarantee of the accuracy or completeness of information in this document.
--- NOTE | 2023-03-18 15:30 | RAD_ITS ---
INDICATION: pain EXAMINATION/TECHNIQUE: X-RAY - LEFT XR Foot Min 3 Views 3 VIEWS COMPARISON: FINDINGS: SOFT TISSUES: There is diffuse soft tissue swelling of the ankle. No radiopaque foreign body. BONES/JOINTS: There is a medial malleolus fracture. There is lateral subluxation of the talus at the tibiotalar joint. There is an oblique fracture of the distal fibular diaphysis. No sclerotic or destructive changes observed. RAD/Foot min 3 Views IMPRESSION: Distal fibular and tibial fractures with disruption of the tibiotalar joint. Electronically Signed: Stacy Gomez MD at 16:19 EDT ,
--- OUTSIDE RECORDS SUMMARY | 2023-03-18 17:21 | XMS RPT_ITS | CCD ---
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 Start: 2009 DIABETES SCREEN DIABETES SCREEN [facility] Start: 2009 FECAL OCCULT BLOOD FECAL OCCULT BLOO D [facility] Start: 2009 LIPID SCREEN LIPID SCREEN [facility] Start: 2009 SIGMOIDOSCOPY SIGMOIDOSCOPY [facility] Start: 2004 Mammography MAMMOGRAM [facility] Start: 1994 HPV TESTING HPV TESTING [facility] Start: 1985 PAP TESTING PAP TESTING [facility] Start: 1983 Urine microalbumin profile DTAP,TDAP ,TD (1 - Tdap) [facility] Start: 1982 HEPATITIS C SCREENING HEPATITIS C SC REENING [facility] Start: 1982 HIV SCREENING HIV SCREENING [facility] Start: 1976 Adult depression scr eening assessment DEPRESSION SCREENING [facility] Start: 1969 COVID-19 VACCINE (1) COVID-19 VACCIN E (1) [facility] Payers Date Payer Category Payer Policy ID Unknown [facility] [employer] [place] [employer] [facility] [employer] [id number] Effective for all dates [address] [place] [address] Other Social History Date Type Detail Facility [facility] Start: 05-25-2010 Alcohol intake Current drinke r of alcohol (finding) [facility] Start: 1965 Sex Assigned At Not on file C [facility] Additional Source Comments Source Comments (unrecognize d section and content) In the event this informatio n is protected by the Federal Confidentiality of Alcohol and Drug Abuse Patient Records regulations: The Federal rules restrict any use of the information to criminally investigate or prosecute any alcohol or drug abuse patient.[facility] Care Teams (unrecognized sec tion and content) [...] BE BASED ON THE PRIMARY CLINICAL RECORDS. [facility]. provides no warranty or guarantee of the accuracy or completeness of information in this document.
--- NOTE | 2023-03-18 17:30 | PCM.CONS.GEN ---
Assessment & Plan Assessment/Plan (1) Ankle fracture, bimalleolar, closed: QUALIFIERS: Encounter type: initial encounter Laterality: left Qualified Code(s): S82.842A - Displaced bimalleolar fracture of left lower leg, initial encounter for closed fracture PLAN: Plan This is 57-year-old female being admitted under podiatry service for ankle fracture 1. Acute mechanical oblique displaced fracture of distal fibula, transverse displaced fracture of medial malleolus with disruption of tibiotalar joint: Patient is being admitted in podiatry service Dr. Peters. Fracture is going to be reduced under sedation by ER physician. Labs has been ordered and is pending. IV fluid Ringer lactate 100 Emmel per hour. Plan for ORIF tomorrow AM by plant and maintenance technician. Patient has intact left ankle neurovascular bundle with palpable pulsation of left DESULPHURIZER OPERATOR, JAYLIN and DESULPHURIZER OPERATOR with intact capillary refill. Pain control. PT and OT. 2. History of mitral valve prolapse: No audible murmur. Patient does not have symptoms pertaining to MVP. 3. History of alcohol dependence in the past, quit 2 to 3 years ago sober: Patient on naltrexone being prescribed by psychiatrist. 4. Anxiety depression: Patient on multiple antipsychotic medications including carbamazepine, bupropion, olanzapine and gabapentin. Antipsychotic medications continued. VTE prophylaxis: Recommend enoxaparin 40 mg daily after surgery. Living will/advanced directive/end of life care: Patient does not have living will or advanced directive. After discussion of benefits/risks procedures involved with full code, DNR CC arrest and DNR CC, the patient opted for full code. Patient does want artificial life support including intubation, tube feed, ventilator and/chest compression, central venous catheter, vasopressor and DC shock if needed Total time spent in [id number] encounter in discussion of advanced directive 17 minutes. Clinical Impression(s) from Imaging Studies Ankle X-Ray 03/18/23 15:09 IMPRESSION: Fracture of the distal tibia and fibula with disruption of the tibiotalar joint. Foot X-Ray 03/18/23 15:30 IMPRESSION: Distal fibular and tibial fractures with disruption of the tibiotalar joint. HPI Consult Data Date of Consult: 03/18/23 HPI Narrative Reason for Consultation: Fall and twisted left ankle. HPI Narrative: DEEPAK TURNER, is a 57 F was carrying the laundry bag fall down the steps and fell on her left hip and twisted left ankle laterally. Her ankle is very painful and swollen. Complain of severe 10/10 constant pain without numbness but mild tingling sensation. Denies pain at the buttock or hip region. No color change in the foot except mild redness around the left ankle. Patient has history of chronic alcohol use dependence and is sober for last 2 to 3 years and is on naltrexone 50 mg daily being managed by psychiatrist. Patient is also on carbamazepine, olanzapine, bupropion and gabapentin Patient has history of mitral valve prolapse otherwise denies any cardiac or pulmonary condition. Patient denies history of smoking. Denies substance use including opioids. She denies having cardiopulmonary symptoms because of mitral valve prolapse. No chest pain pressure tightness ID, shortness of breath, near-syncope or syncope. No LOC. Family history: She is adopted and does not know the details of her biological parents. [facility] Medical History Alcohol abuse Anxiety HTN (hypertension) MVP (mitral valve prolapse) Home Medications naltrexone 50 mg tablet 50 mg PO Q24H 08/12/21 [History Last Taken Unknown] ondansetron 4 mg disintegrating tablet 4 mg PO Q6H PRN nausea and vomiting #10 tabs 09/08/22 [Rx Last Taken Unknown] bupropion HCl 150 mg tablet,12 hr sustained-release (Wellbutrin SR) 150 mg PO DAILY 09/28/22 [History Last Taken Unknown] carbamazepine 200 mg tablet (Tegretol) 200 mg PO DAILY 09/28/22 [History Last Taken Unknown] cholecalciferol (vitamin D3) 25 mcg (1,000 unit) capsule 25 mcg PO DAILY 10/25/22 [History Last Taken Unknown] gabapentin 300 mg capsule mg 03/18/23 [History Last Taken Unknown] olanzapine 2.5 mg tablet mg 03/18/23 [History Last Taken Unknown] omeprazole 40 mg capsule,delayed release mg 03/18/23 [History Last Taken Unknown] Allergy/AdvReac Type Severity Reaction Status Date / Time No Known Allergies Allergy Verified 10/23/22 08:35 Family History Other Alcoholism Cancer Surgical History H/O section History of partial hysterectomy Social History Smoking Status: Never smoker alcohol intake: former year quit: 2020 details: quit 04-07-2021 substance use type: does not use ROS ROS Narrative Constitutional: Severe pain in left ankle. No fever. HEENT: Reports systems reviewed and no addt'l complaints, except as documented Respiratory/Chest: No acute shortness of breath or respiratory distress or wheezing. CVS: MVP history as mentioned in HPI. Rest negative. Gastrointestinal: Denies coffee ground emesis, hematemesis or vomiting Genitourinary: Denies burning urination or new urinary tract symptoms Musculoskeletal: As described in HPI Neurologic: Denies seizure-like symptoms. Psychiatry: History of alcohol use on naltrexone. Multiple antipsychotic medications as described in HPI skin: No ulcer. No rash Endocrinology: Reports systems reviewed and no addt'l complaints, except as documented Hematologic/Lymphatic: Reports systems reviewed and no addt'l complaints, except as documented Rest 14 ROS are negative except as mentioned in HPI Physical Exam Narrative General: Alert, Oriented x3, Cooperative HEENT: Atraumatic, PERRLA, EOMI, Normocephalic Oral: Oral mucosa dry. No Gingival or Mucosal Lesions/ Ulcerations Neck: Supple, No JVD, Negative Carotid Bruits Lungs: Air entry diminished in bilateral lung bases. No crepitation/rhonchi Cardiovascular: Regular rate, Regular Rhythm, Normal S1, Normal S2, No audible murmurs Abdomen: Bowel Sounds Present, Soft, Non Tender, Non-Distended : No renal angle tenderness. No suprapubic tenderness. Extremities: Left ankle edema, Capillary Refill Less than 3 Seconds Skin: Mild redness around left ankle mainly on medial side Musculoskeletal: Swelling, tenderness redness around left ankle. Mild bruise/skin tear on medial side of left ankle. Left DESULPHURIZER OPERATOR, JAYLIN and DESULPHURIZER OPERATOR are palpable. No cyanosis. Neurological: Cranial nerves II-XII grossly intact, DTR 2+/4 and Symmetrical, sensation over left ankle and foot are intact. Psych/Mental Status: Flat affect. Lab / Micro Data 03/18/23 17:30 03/18/23 17:30 Radiology Impression Ankle X-Ray 03/18/23 15:09 IMPRESSION: Fracture of the distal tibia and fibula with disruption of the tibiotalar joint. Electronically Signed: Harshal Morgan MD at 15:56 EDT , Foot X-Ray 03/18/23 15:30 IMPRESSION: Distal fibular and tibial fractures with disruption of the tibiotalar joint. Electronically Signed: Stacy Gomez MD at 16:19 EDT , Charges/Coding Visit Charges Office Visits / Consults: [id number] IP Consult L4 Procedures Hospitalists Procedures: 50610 Advncd Care Plan 30 Min
[2023-03-18 17:45] LABS: Absolute Lymphocyte Count 1.82 X10^3/uL (0.83-4.51); Absolute Neutrophil Count 7.9 X10^3/uL (2.0-7.7); Basophil# 0.03 X10^3/uL; Basophil% 0.3 % (0-1); Hematocrit 40.4 % (37-47); Hemoglobin 13.4 g/dL (12.0-15.0); Lymphocyte # 1.82 X10^3/ul (0.83-4.51); Lymphocyte % 17.7 % (19-41); Mean Corp Hgb Conc 33.2 g/dL (32-36); Mean Corpuscular Hgb 30.5 pg (27.0-32.0); Mean Platelet Vol. 9.7 fl (6.2-12.0); Monocyte# 0.56 X10^3/uL; Monocyte% 5.4 % (0-10); NRBC Flagged by Analyzer 0 % (0-5); Neutrophil # 7.86 X10^3/uL (2.7-7.7); Neutrophil % 76.2 % (47-70); Platelet Count 249 K/mm3 (150-450); RBC Distribution Width CV 13.1 % (11.6-14.6); Red Blood Count 4.39 M/mm3 (4.2-5.4); White Blood Count 10.3 K/mm3 (4.4-11.0)
[2023-03-18 18:09] LABS: AST(SGOT) 23 U/L (15-37); Alanine Aminotransfer ALT/SGPT 25 U/L (13-56); Albumin, Serum 3.8 g/dL (3.2-5.0); Alkaline Phosphatase 110 U/L (45-117); Anion Gap 5 (5-15); BUN 9 mg/dL (7-18); BUN/Creat Ratio 9.6 RATIO (10-20); Bilirubin, Direct 0.08 mg/dL (0.00-0.30); Calcium,Total 10.2 mg/dL (8.5-10.1); Chloride 111 mmol/L (98-107); Creatinine, Serum 0.94 mg/dL (0.55-1.02); EST Glomerular Filtration Rate 65 mL/min (>60); Est Glom Filt Rate - Afr Amer 79 mL/min (>60); Estimated Creatinine Clearance 68.18 ml/min; Glucose 107 mg/dL (74-106); Potassium 3.8 mmol/L (3.5-5.1); Protein, Total 7.8 g/dL (6.4-8.2); Sodium Level 142 mmol/L (136-145)
--- NOTE | 2023-03-18 19:19 | CT_ITS ---
CT LEFT LOWER EXTREMITY WITH 3-D IMAGING CLINICAL INDICATION: fracture TECHNIQUE: Axial CT images of the LEFT lower extremity was performed without IV contrast material. Coronal and sagittal reformats were provided. RADIATION DOSAGE (If Supplied By Facility): CTDIvol = ( 15.35 ) mGy, DLP = ( 775.92 ) mGycm COMPARISON: Prior study dated: 03/18/2023 left ankle series FINDINGS: Bones: Comminuted fracture of the distal fibula with mild lateral displacement of the distal fragment. Comminuted and minimally displaced fracture of the posterior malleolus. Comminuted and moderately displaced fracture of the medial malleolus. Soft Tissues: Circumferential ankle soft tissue swelling. No radiodense foreign body. CT/Extremity Lower without Contra IMPRESSION: Comminuted trimalleolar fracture of the left ankle. Electronically Signed: Travis Reid MD at 22:35 EDT ,
--- NOTE | 2023-03-18 19:19 | PCM.HP.STD ---
HPI - General General Date of Admission: 03/18/23 Chief Complaint: Left ankle fracture HPI Narrative DEEPAK TURNER, is a 57 F who presents with left ankle fracture which she sustained today. She slipped, and injured ankle on steps. She presented to the ER. Xrays taken and noted to have significantly displaced ankle fracture. I was called by the ER and came in to see patient. She relates to pain to the ankle c/w ankle fracture. She has history of alcohol abuse, chronic anxiety, as well as hypertension. She is resting in bed. No other complaints at this time. [facility] Medical History Alcohol abuse Anxiety HTN (hypertension) MVP (mitral valve prolapse) Home Medications naltrexone 50 mg tablet 50 mg PO Q24H 08/12/21 [History Last Taken Unknown] ondansetron 4 mg disintegrating tablet 4 mg PO Q6H PRN nausea and vomiting #10 tabs 09/08/22 [Rx Last Taken Unknown] bupropion HCl 150 mg tablet,12 hr sustained-release (Wellbutrin SR) 150 mg PO DAILY 09/28/22 [History Last Taken Unknown] carbamazepine 200 mg tablet (Tegretol) 200 mg PO DAILY 09/28/22 [History Last Taken Unknown] cholecalciferol (vitamin D3) 25 mcg (1,000 unit) capsule 25 mcg PO DAILY 10/25/22 [History Last Taken Unknown] gabapentin 300 mg capsule mg 03/18/23 [History Last Taken Unknown] olanzapine 2.5 mg tablet mg 03/18/23 [History Last Taken Unknown] omeprazole 40 mg capsule,delayed release mg 03/18/23 [History Last Taken Unknown] Allergy/AdvReac Type Severity Reaction Status Date / Time No Known Allergies Allergy Verified 10/23/22 08:35 Family History Other Alcoholism Cancer Surgical History H/O section History of partial hysterectomy Social History Smoking Status: Never smoker alcohol intake: former year quit: 2020 details: quit 04-07-2021 substance use type: does not use Vital Signs Vital Signs Vital Signs: 03/18/23 14:58 03/18/23 17:32 03/18/23 17:33 Temperature 99.1 F 99.0 F Temperature Source Oral Temporal Pulse Rate 94 80 73 Pulse Rate [1 (Initial Baseline)] Pulse Rate [2] Pulse Rate [3] Pulse Rate [4] Pulse Rate [5] Pulse Rate [6] Pulse Rate [7] Respiratory Rate 18 16 12 Respiratory Rate [1 (Initial Baseline)] Respiratory Rate [2] Respiratory Rate [3] Respiratory Rate [4] Respiratory Rate [5] Respiratory Rate [6] Respiratory Rate [7] Blood Pressure 135/70 H 153/86 H 153/86 H Blood Pressure [5] Blood Pressure [6] Blood Pressure Mean 91 108 108 Pulse Ox 96 97 99 Oxygen Delivery Method Room Air Room Air Room Air Oxygen Delivery Method [1 (Initial Baseline)] Oxygen Delivery Method [3] Oxygen Delivery Method [4] Oxygen Delivery Method [5] Oxygen Delivery Method [6] Oxygen Delivery Method [7] Oxygen Flow Rate (L/min) [1 (Initial Baseline)] Oxygen Flow Rate (L/min) [3] Oxygen Flow Rate (L/min) [4] Oxygen Flow Rate (L/min) [5] Oxygen Flow Rate (L/min) [6] Oxygen Flow Rate (L/min) [7] 03/18/23 19:01 03/18/23 19:03 03/18/23 19:15 Temperature Temperature Source Pulse Rate 85 Pulse Rate [1 (Initial Baseline)] 114 H Pulse Rate [2] 100 Pulse Rate [3] 104 H Pulse Rate [4] 97 Pulse Rate [5] 102 H Pulse Rate [6] 85 Pulse Rate [7] 92 Respiratory Rate 18 Respiratory Rate [1 (Initial Baseline)] 20 H Respiratory Rate [2] 20 H Respiratory Rate [3] 22 H Respiratory Rate [4] 20 H Respiratory Rate [5] 26 H Respiratory Rate [6] 16 Respiratory Rate [7] 22 H Blood Pressure 155/74 H Blood Pressure [5] 201/80 H Blood Pressure [6] 146/79 H Blood Pressure Mean Pulse Ox Oxygen Delivery Method Room Air Oxygen Delivery Method [1 (Initial Baseline)] Nasal Cannula Oxygen Delivery Method [3] Nasal Cannula Oxygen Delivery Method [4] Nasal Cannula Oxygen Delivery Method [5] Nasal Cannula Oxygen Delivery Method [6] Nasal Cannula Oxygen Delivery Method [7] Room Air Oxygen Flow Rate (L/min) [1 (Initial Baseline)] 4 Oxygen Flow Rate (L/min) [3] 4 Oxygen Flow Rate (L/min) [4] 98 Oxygen Flow Rate (L/min) [5] 97 Oxygen Flow Rate (L/min) [6] 4 Oxygen Flow Rate (L/min) [7] 99 Weight Weight: 116.4 kg Body Mass Index (BMI) 37.9 Physical Exam Narrative Left ankle is visible displaced, there are no open lesions, no erythema, no drainage, no necrosis present, CFT < 2 seconds to all toes, there is edema and pain to the ankle c/w fracture, vascular status intact to the left foot/ankle. Const alert, oriented x3 and no apparent distress Results Lab / Micro Data 03/18/23 17:30 03/18/23 17:30 Labs: Laboratory Results - last 24 hr 03/18/23 17:30: WBC 10.3, RBC 4.39, Hgb 13.4, Hct 40.4, MCV 92.0, MCH 30.5, MCHC 33.2, RDW Std Deviation 44.0 H, RDW Coeff of Carline 13.1, Plt Count 249, MPV 9.7, Immature Gran % (Auto) 0.400, Neut % (Auto) 76.2 H, Lymph % (Auto) 17.7 L, Dane % (Auto) 5.4, Eos % (Auto) 0.0, Baso % (Auto) 0.3, Absolute Neuts (auto) 7.9 H, Absolute Lymphs (auto) 1.82, Nucleated RBC % 0, Sodium 142, Potassium 3.8, Chloride 111 H, Carbon Dioxide 26.0, Anion Gap 5, BUN 9, Creatinine 0.94, Estim Creat Clear Calc 68.18, Est GFR (MDRD) Af Amer 79, Est GFR (MDRD) Non-Af 65, BUN/Creatinine Ratio 9.6 L, Glucose 107 H, Calcium 10.2 H, Total Bilirubin 0.20, Direct Bilirubin 0.08, AST 23, ALT 25, Alkaline Phosphatase 110, Total Protein 7.8, Albumin 3.8, Globulin 4.0 Radiology Impression Ankle X-Ray 03/18/23 15:09 IMPRESSION: Fracture of the distal tibia and fibula with disruption of the tibiotalar joint. Electronically Signed: Harshal Morgan MD at 15:56 EDT , Foot X-Ray 03/18/23 15:30 IMPRESSION: Distal fibular and tibial fractures with disruption of the tibiotalar joint. Electronically Signed: Stacy Gomez MD at 16:19 EDT , Assessment & Plan Assessment/Plan (1) Ankle fracture, bimalleolar, closed: QUALIFIERS: Encounter type: initial encounter Laterality: left Qualified Code(s): S82.842A - Displaced bimalleolar fracture of left lower leg, initial encounter for closed fracture (2) Acute left ankle pain: PLAN: Plan Evaluation performed. Reviewed diagnostic data. There is significantly displaced ankle fracture - at least a bimalleolus ankle fracture. I discussed with ER physician Dr. Richardson. After patient's consent, patient received sedation per Dr. Richardson and then the left ankle was reduced in closed fashion, a well padded posterior splint with sugar tong was applied to hold the reduction. Post reduction images will be obtained. Discussed with patient ORIF for the ankle in the coming days. She was agreeable. She will be admitted for pain management and surgical intervention. No weightbearing left foot, keep foot elevated, keep splint clean, dry and intact. Pain management: Tylenol, Dilaudid, Oxyir DVT Prophylaxis: SCD right. Will plan to start chemoprophylaxis post operatively. The hospitalist was consulted for patient's other medical problems.
[2023-03-18 19:56] LABS: Magnesium 2.2 mg/dL (1.6-2.6); Phosphorus 2.1 mg/dL (2.5-4.9)
--- OUTSIDE RECORDS SUMMARY | 2023-03-18 20:47 | XMS RPT_ITS | CCD ---
Author Name Unknown Address [address] [place] [address] [address] [place] [address] Organization [facility] Care Team Providers Care Sap Bpc Developer Name Role Phone Citlali Murguia [facility] [...] by physician Lab Referred MD Work Phone: [facility] Plan of Treatment Date Care Activity Detail Author Start: 05-04-2021 Influenza vaccination INFLUENZA (#1) [facility] Start: 2014 SHINGRIX VACCINE (1 of 2) SHINGRIX V ACCINE (1 of 2) [facility] Start: 2009 COLOGUARD (FIT-DNA) COLOGUARD (FIT-D NA) [facility] Start: 2009 Colonoscopy COLONOSCOPY [facility] Start: 2009 COLORECTAL CANCER SCREENING COLORECTAL CANCER SCREENING [facility] Start: [address] COLONOGRAPHY [facility] Start: 2009 DIABETES SCREEN DIABETES SCREEN [facility] Start: 2009 FECAL OCCULT BLOOD FECAL OCCULT BLOO D [facility] Start: 2009 LIPID SCREEN LIPID SCREEN [facility] Start: 2009 SIGMOIDOSCOPY SIGMOIDOSCOPY [facility] Start: 2004 Mammography MAMMOGRAM [facility] Start: 1994 HPV TESTING HPV TESTING [facility] Start: 1985 PAP TESTING PAP TESTING [facility] Start: 1983 Urine microalbumin profile DTAP,TDAP ,TD (1 - Tdap) [facility] Start: 1982 HEPATITIS C SCREENING HEPATITIS C SC REENING [facility] Start: 1982 HIV SCREENING HIV SCREENING [facility] Start: 1976 Adult depression scr eening assessment DEPRESSION SCREENING [facility] Start: 1969 COVID-19 VACCINE (1) COVID-19 VACCIN E (1) [facility] Payers Date Payer Category Payer Policy ID Unknown [facility] [employer] [facility] [employer] PAYOR [id number] Effective for all dates [address] [place] [address] Other Social History Date Type Detail [facility] Start: 05-25-2010 Alcohol intake Current drinke r of alcohol (finding) [facility] Start: 1965 Sex Assigned At Not on file [facility] Additional Source Comments Source Comments (unrecognize d section and content) In the event this informatio n is protected by the Federal Confidentiality of Alcohol and Drug Abuse Patient Records regulations: The Federal rules restrict any use of the information to criminally investigate or prosecute any alcohol or drug abuse patient.[facility] Care Teams (unrecognized sec tion and [...] BE BASED ON THE PRIMARY CLINICAL RECORDS. [facility]. provides no warranty or guarantee of the accuracy or completeness of information in this document.
--- NOTE | 2023-03-18 21:35 | RAD_ITS ---
STUDY: X-RAY - LEFT ANKLE REASON FOR EXAM: Female, 57 years old. post closed reduction TECHNIQUE: 3 view(s) of the ankle. COMPARISON: Radiographs of earlier the same day. FINDINGS: Splint obscures bone detail. Previously seen fractures of the distal fibula and medial malleolus are significantly improved position and alignment although significant widening of the ankle joint and shift of the talus laterally persists. RAD/Ankle min 3 Views IMPRESSION: Significantly improved positioning of previous fracture dislocation, although widening of the ankle and shift of the talus laterally persists. Electronically Signed: Nabil Bragg MD at 23:02 EDT ,
[2023-03-18] MEDS: Acetaminophen 325 MG Tablet 650 MG PO (21:44)
[2023-03-18] MEDS: Gabapentin 300 MG Capsule PO (21:45)
[2023-03-18] MEDS: oxyCODONE 5 MG Tablet PO (21:45)
[2023-03-18] MEDS: traZODone 100 MG Tablet PO (21:45)
[2023-03-18] MEDS: 0.9% Saline Lock 10 ML Syringe IV (21:48)
[2023-03-18] MEDS: Lactated Ringers 1,000 ML 100 ML IV (21:49)
[2023-03-18] MEDS: HYDROmorphone 0.5 MG/0.5 ML SYRINGE IV (23:09)
[2023-03-19 03:30] VITALS: BP 101/57; PULSE 75; RESP 16; TEMP 36.7; O2SAT 94
[2023-03-19] MEDS: HYDROmorphone 0.5 MG/0.5 ML SYRINGE IV (04:04)
[2023-03-19 05:07] LABS: Absolute Lymphocyte Count 2.61 X10^3/uL (0.83-4.51); Absolute Neutrophil Count 3.3 X10^3/uL (2.0-7.7); Basophil# 0.03 X10^3/uL; Basophil% 0.5 % (0-1); Eosinophil# 0.01 X10^3/uL; Eosinophils% 0.2 % (0-5); Hematocrit 33.4 % (37-47); Hemoglobin 10.9 g/dL (12.0-15.0); Lymphocyte # 2.61 X10^3/ul (0.83-4.51); Lymphocyte % 41.4 % (19-41); Mean Corp Hgb Conc 32.6 g/dL (32-36); Mean Corpuscular Hgb 30.8 pg (27.0-32.0); Mean Corpuscular Volume 94.4 fL (81-99); Monocyte# 0.37 X10^3/uL; Monocyte% 5.9 % (0-10); NRBC Flagged by Analyzer 0 % (0-5); Neutrophil # 3.27 X10^3/uL (2.7-7.7); Neutrophil % 51.7 % (47-70); Platelet Count 217 K/mm3 (150-450); RBC Distribution Width CV 13.2 % (11.6-14.6); RBC Distribution Width SD 45.4 fl (35.1-43.9); Red Blood Count 3.54 M/mm3 (4.2-5.4); White Blood Count 6.3 K/mm3 (4.4-11.0)
[2023-03-19 05:39] LABS: Anion Gap 5 (5-15); BUN 11 mg/dL (7-18); BUN/Creat Ratio 13.3 RATIO (10-20); Calcium,Total 9.1 mg/dL (8.5-10.1); Chloride 115 mmol/L (98-107); Creatinine, Serum 0.83 mg/dL (0.55-1.02); EST Glomerular Filtration Rate 75 mL/min (>60); Est Glom Filt Rate - Afr Amer 91 mL/min (>60); Estimated Creatinine Clearance 74.53 ml/min; Glucose 102 mg/dL (74-106); Potassium 3.5 mmol/L (3.5-5.1); Sodium Level 144 mmol/L (136-145)
--- NOTE | 2023-03-19 05:55 | EKG12_ITS ---
Test Reason : PRE OP Blood Pressure : / mmHG Vent. Rate : 068 BPM Atrial Rate : 068 BPM P-R Int : 170 ms QRS Dur : 096 ms QT Int : 440 ms P-R-T Axes : 048 017 082 degrees QTc Int : 467 ms Normal sinus rhythm Normal ECG When compared with ECG of 19-MAR-2021 18:01, Vent. rate has decreased BY 49 BPM T wave inversion now evident in Lateral leads Confirmed by RUPAL ESPITIA, ADELA ([id number]), editor publications HELEN PAEZ ([id number]) on 03/27/2023 7:26:49 AM Referred By: AMINA Confirmed By:ADELA GOLDSMITH MD
[2023-03-19] MEDS: Lactated Ringers 1,000 ML 100 ML IV (07:02)
[2023-03-19 08:04] LABS: Vitamin D,25 Hydroxy 41.7 ng/mL
[2023-03-19] MEDS: Ibuprofen 400 MG Tablet 800 MG PO ×2 (08:08→17:04)
[2023-03-19 08:20] VITALS: BP 129/70; PULSE 69; RESP 16; TEMP 36.6; O2SAT 93
--- NOTE | 2023-03-19 11:06 | CASEMGMT ---
SWAPNIL WARREN Assessment: Face to Face with pt for initial transition planning/care coordination assessment. SWAPNIL WARREN introduced self and role at [facility], pt voices understanding and consents to assessment. Pt is A/O x4 and answers all questions appropriately at this time. Pt lying in bed with at bedside. Pt nurse came in room during assessment and made pt aware that surgery was not going to be today and pt could eat. Care providers, pharmacy, and demographics verified/updated. Admitting Dx: painful left ankle fracture PCP:Johan Specialists:Christine Fuentes, c iron worker at [facility] in [place] Preferred Pharmacy: [facility] [place] [facility] Insurance: MMO Prescription Benefit: yes LNOK: Antwan Vyas, Living Arrangements: Pt lives with and son in a two story home with 5 steps to enter from the front or 4 steps to enter from the back, both with rails. Pt reports being I in ADL's prior to fall and denies concerns at home. Pt states she can stay on the main level as it has a bathroom, kitchen and couches to sleep on if needed. Transportation: Pt drives self and denies concerns with transportation. Pt is able to transport her until she can drive again. DME/HHC/SNF: Pt has a w/c, FWW and crutches at home but does not use AD typically. Pt denies hx of HHC or SNF stays. Pt states no concerns with going home at time of dc. She would like to return home. Pt states no further concerns/needs. CM to follow. Advised pt to ask CM if any further question/concerns/needs arise, voices understanding. Pt Goal: Home Plan: Home, will follow for OR, and recommendations for post surgical needs.
[2023-03-19] MEDS: Pantoprazole Sodium 40 MG Tablet PO (11:23)
[2023-03-19] MEDS: buPROPion (XL) 150 MG TABLET.XL PO (11:23)
[2023-03-19] MEDS: Cholecalciferol (VIT D3) 25 MCG TABLET (1,000 UNITS) PO (11:23)
[2023-03-19] MEDS: Gabapentin 300 MG Capsule PO ×2 (11:24→21:57)
--- NOTE | 2023-03-19 12:37 | PN_ITS ---
Subjective Subjective Patient seen bedside. Notes some pain to the left ankle. Denies constitutional symptoms. Denies chest pain calf pain shortness of breath. Objective Data Objective Data Vital Signs: Vital Signs Temp Pulse Resp BP Pulse Ox O2 Del Method O2 Flow Rate 97.9 F 69 16 129/70 H 93 Room Air 4 03/19/23 08:20 03/19/23 08:20 03/19/23 08:20 03/19/23 08:20 03/19/23 08:20 03/19/23 08:20 03/18/23 19:03 Oxygen Flow Rate (L/min) [7] 99 Oxygen Flow Rate (L/min) [6] 4 Oxygen Flow Rate (L/min) [5] 97 Oxygen Flow Rate (L/min) [4] 98 Oxygen Flow Rate (L/min) [3] 4 Oxygen Flow Rate (L/min) [1 ( 4 Initial Baseline)] Oxygen Delivery Method [7] Room Air Oxygen Delivery Method [6] Nasal Cannula Oxygen Delivery Method [5] Nasal Cannula Oxygen Delivery Method [4] Nasal Cannula Oxygen Delivery Method [3] Nasal Cannula Oxygen Delivery Method [1 ( Nasal Cannula Initial Baseline)] Oxygen Delivery Method Room Air Weight: 114.8 kg Body Mass Index (BMI) 37.5 Intake & Output: Intake and Output for Last 24 Hours 03/17/23 03/18/23 03/19/23 23:59 23:59 23:59 Intake Total 921.67 / 921.67 Balance 921.67 / 921.67 Lab / Micro Data 03/19/23 03:57 03/19/23 03:57 Labs: Laboratory Results - last 24 hr 03/18/23 17:30: WBC 10.3, RBC 4.39, Hgb 13.4, Hct 40.4, MCV 92.0, MCH 30.5, MCHC 33.2, RDW Std Deviation 44.0 H, RDW Coeff of Carline 13.1, Plt Count 249, MPV 9.7, Immature Gran % (Auto) 0.400, Neut % (Auto) 76.2 H, Lymph % (Auto) 17.7 L, [place] % (Auto) 5.4, Eos % (Auto) 0.0, Baso % (Auto) 0.3, Absolute Neuts (auto) 7.9 H, Absolute Lymphs (auto) 1.82, Nucleated RBC % 0, Sodium 142, Potassium 3.8, Chloride 111 H, Carbon Dioxide 26.0, Anion Gap 5, BUN 9, Creatinine 0.94, Estim Creat Clear Calc 68.18, Est GFR (MDRD) Af Amer 79, Est GFR (MDRD) Non-Af 65, BU N/Creatinine Ratio 9.6 L, Glucose 107 H, Calcium 10.2 H, Phosphorus 2.1 L, Magnesium 2.2, Total Bilirubin 0.20, Direct Bilirubin 0.08, AST 23, ALT 25, Alkaline Phosphatase 110, Total Protein 7.8, Albumin 3.8, Globulin 4.0 03/19/23 03:57: WBC 6.3, RBC 3.54 L, Hgb 10.9 L, Hct 33.4 L, MCV 94.4, MCH 30.8, MCHC 32.6, RDW Std Deviation 45.4 H, RDW Coeff of Carline 13.2, Plt Count 217, MPV 10.0, Immature Gran % (Auto) 0.300, Neut % (Auto) 51.7, Lymph % (Auto) 41.4 H, [place] % (Auto) 5.9, Eos % (Auto) 0.2, Baso % (Auto) 0.5, Absolute Neuts (auto) 3.3, Absolute Lymphs (auto) 2.61, Nucleated RBC % 0, Sodium 144, Potassium 3.5, Chloride 115 H, Carbon Dioxide 24.0, Anion Gap 5, BUN 11, Creatinine 0.83, Estim Creat Clear Calc 74.53, Est GFR (MDRD) Af Amer 91, Est GFR (MDRD) Non-Af 75, BUN/Creatinine Ratio 13.3, Glucose 102, Calcium 9.1, Vitamin D 25-Hydroxy 41.7 Radiography Diagnostic Testing: Radiology Impression Ankle X-Ray 03/18/23 15:09 IMPRESSION: Fracture of the distal tibia and fibula with disruption of the tibiotalar joint. Electronically Signed: Harshal Morgan MD at 15:56 EDT , Foot X-Ray 07/16/23 15:30 IMPRESSION: Distal fibular and tibial fractures with disruption of the tibiotalar joint. Electronically Signed: Stacy Gomez MD at 16:19 EDT , Lower Extremity CT 03/18/23 19:19 IMPRESSION: Comminuted trimalleolar fracture of the left ankle. Electronically Signed: Travis Reid MD at 22:35 EDT , Ankle X-Ray 03/18/23 21:35 IMPRESSION: Significantly improved positioning of previous fracture dislocation, although widening of the ankle and shift of the talus laterally persists. Electronically Signed: Nabil Bragg MD at 23:02 EDT , Physical Exam Narrative Splint intact left lower extremity with maintain reduction of left ankle fracture. Const alert, oriented x3 and no apparent distress Assessment & Plan Assessment/Plan (1) Ankle fracture, bimalleolar, closed: QUALIFIERS: Encounter type: initial encounter Laterality: left Qualified Code(s): S82.842A - Displaced bimalleolar fracture of left lower leg, initial encounter for closed fracture (2) Acute left ankle pain: PLAN: Plan Evaluation performed. Reviewed diagnostic data. We will plan for ORIF Sunday. She will be admitted for pain management and surgical intervention. No weightbearing left foot, keep foot elevated, keep splint clean, dry and intact. Pain management: Tylenol, Dilaudid, Oxyir DVT Prophylaxis: SCD right. Will plan to start chemoprophylaxis post operatively. The hospitalist was consulted for patient's other medical problems.
--- NOTE | 2023-03-19 13:58 | PN.HOSP_ITS ---
Reason for Visit Reason for Visit: Left ankle pain Subjective Subjective Patient is a 57-year-old white female who presented to the emergency department at [facility] on 03/18/2023 after a mechanical fall and twisting of her left ankle. She reported she was carrying a laundry bag and fell down steps at which time she fell on her left hip and twisted her left ankle laterally. She reported her ankle was very painful and swollen. She was comp laining of 10 out of 10 constant pain but denied numbness or tingling. She notes a history of MVP but has no other cardiac or pulmonary conditions and denies history of smoking. She has history of substance abuse with alcohol dependency and has been sober for 2 years now and is on naltrexone chronically. She denied any substance abuse issues with opiates. She was admitted to podiatry service and we have been consulted for medical management. Clinically she is overall doing fairly well today. Plan is for surgery tomorrow. She is medically ready for surgery. I did discuss with her need of any opiates. She does feel like she needs something extra for pain and would like to hold her nal trexone while she is admitted to hospital at least until she get her surgery performed and the ankle is stabilized. In the meantim,e we will hold her naltrexone and order as needed opiates. Objective Data Objective Data Vital Signs: Vital Signs Temp Pulse Resp BP Pulse Ox O2 Del Method O2 Flow Rate 97.9 F 69 16 129/70 H 93 Room Air 4 03/19/23 08:20 03/19/23 08:20 03/19/23 08:20 03/19/23 08:20 03/19/23 08:20 03/19/23 08:20 03/18/23 19:03 Oxygen Flow Rate (L/min) [7] 99 Oxygen Flow Rate (L/min) [6] 4 Oxygen Flow Rate (L/min) [5] 97 Oxygen Flow Rate (L/min) [4] 98 Oxygen Flow Rate (L/min) [3] 4 Oxygen Flow Rate (L/min) [1 ( 4 Initial Baseline)] Oxygen Delivery Method [7] Room Air Oxygen Delivery Method [6] Nasal Cannula Oxygen Delivery Method [5] Nasal Cannula Oxygen Delivery Method [4] Nasal Cannula Oxygen Delivery Method [3] Nasal Cannula Oxygen Delivery Method [1 ( Nasal Cannula Initial Baseline)] Oxygen Delivery Method Room Air Weight: 114.8 kg Body Mass Index (BMI) 37.5 Intake & Output: Intake and Output for Last 24 Hours 03/17/23 03/18/23 03/19/23 23:59 23:59 23:59 Intake Total 921.67 / 921.67 Balance 921.67 / 921.67 Lab / Micro Data 03/19/23 03:57 03/19/23 03:57 Labs: Laboratory Results - last 24 hr 03/18/23 17:30: WBC 10.3, RBC 4.39, Hgb 13.4, Hct 40.4, MCV 92.0, MCH 30.5, MCHC 33.2, RDW Std Deviation 44.0 H, RDW Coeff of Carline 13.1, Plt Count 249, MPV 9.7, Immature Gran % (Auto) 0.400, Neut % (Auto) 76.2 H, Lymph % (Auto) 17.7 L, [place] % (Auto) 5.4, Eos % (Auto) 0.0, Baso % (Auto) 0.3, Absolute Neuts (auto) 7.9 H, Absolute Lymphs (auto) 1.82, Nucleated RBC % 0, Sodium 142, Potassium 3.8, Chloride 111 H, Carbon Dioxide 26.0, Anion Gap 5, BUN 9, Creatinine 0.94, Estim Creat Clear Calc 68.18, Est GFR (MDRD) Af Amer 79, Est GFR (MDRD) Non-Af 65, BUN/Creatinine Ratio 9.6 L, Glucose 107 H, Calcium 10.2 H, Phosphorus 2.1 L, Magnesium 2.2, Total Bilirubin 0.20, Direct Bilirubin 0.08, AST 23, ALT 25, Alkaline Phosphatase 110, Total Protein 7.8, Albumin 3.8, Globulin 4.0 03/19/23 03:57: WBC 6.3, RBC 3.54 L, Hgb 10.9 L, Hct 33.4 L, MCV 94.4, MCH 30.8, MCHC 32.6, RDW Std Deviation 45.4 H, RDW Coeff of [place] 13.2, Plt Count 217, MPV 10.0, Immature Gran % (Auto) 0.300, Neut % (Auto) 51.7, Lymph % (Auto) 41.4 H, [place] % (Auto) 5.9, Eos % (Auto) 0.2, Baso % (Auto) 0.5, Absolute Neuts (auto) 3.3, Absolute Lymphs (auto) 2.61, Nucleated RBC % 0, Sodium 144, Potassium 3.5, Chloride 115 H, Carbon Dioxide 24.0, Anion Gap 5, BUN 11, Creatinine 0.83, Estim Creat Clear Calc 74.53, Est GFR (MDRD) Af Amer 91, Est GFR (MDRD) Non-Af 75, BUN/Creatinine Ratio 13.3, Glucose 102, Calcium 9.1, Vitamin D 25-Hydroxy 41.7 Radiography Diagnostic Testing: Radiology Impression Ankle X-Ray 03/18/23 15:09 IMPRESSION: Fracture of the distal tibia and fibula with disruption of the tibiotalar joint. Electronically Signed: Harshal Morgan MD at 15:56 EDT , Foot X-Ray 03/18/23 15:30 IMPRESSION: Distal fibular and tibial fractures with disruption of the tibiotalar joint. Electronically Signed: Stacy Gomez MD at 16:19 EDT , Lower Extremity CT 03/18/23 19:19 IMPRESSION: Comminuted trimalleolar fracture of the left ankle. Electronically Signed: Travis Reid MD at 22:35 EDT , Ankle X-Ray 03/18/23 21:35 IMPRESSION: Significantly improved positioning of previous fracture dislocation, although widening of the ankle and shift of the talus laterally persists. Electronically Signed: Nabil Bragg MD at 23:02 EDT , Physical Exam Const alert, oriented x3, no apparent distress, healthy appearing and well nourished Constitutional Narrative: Obese, very pleasant, white middle-aged female, sitting up in bed watching television, appears comfortable and nontoxic HEENT head/scalp atraumatic and moist oral mucous membranes HEENT Narrative: Mallampati 2, no thrush Head and Scalp: normocephalic Resp normal respiratory effort, no retractions, no use of accessory muscles and clear to auscultation bilaterally Auscultation: Negative for rales, rhonchi or wheezes Cardio regular rate, regular rhythm, S1 normal heart sound, S2 normal heart sound, no murmurs, no rub, no gallops and no clicks GI normal to inspection, nondistended, normoactive bowel sounds, soft to palpation and non-tender Extremity Extremity Narrative: Left lower extremity with splint in place, cap refill is 2+ bilateral lower extremities, pedal pulses right lower extremity 2+, no sinus clubbing Neuro oriented x3 and no focal motor deficits Neuro Narrative: Unable to move distal left lower extremity due to ankle fracture but no other deficits noted Speech: speech normal Psych affect normal Psych Narrative: Very pleasant Assessment & Plan Assessment/Plan (1) Acute left ankle pain: (2) Ankle fracture, bimalleolar, closed: QUALIFIERS: Encounter type: initial encounter Laterality: left Qualified Code(s): S82.842A - Displaced bimalleolar fracture of left lower leg, initial encounter for closed fracture PLAN: Plan Acute oblique displaced fracture of the distal fibula/transverse displaced fracture of the medial malleolus with disruption of the tibiotalar joint -Plan is for OR tomorrow -Patient is medically optimized -Hold naltrexone so patient can receive as needed opiates until surgery has been performed -We will schedule Tylenol -As needed ibuprofen -As needed bowel regimen -PT/OT for gait training postoperatively -Definitive management per primary service MVP -No murmur on exam -No further work-up required History of alcohol abuse/dependence -Currently in remission -Restart home naltrexone at discharge -Holding currently so patient may receive some opiates for pain -Encouraged ongoing cessation Anxiety/depression Continue carbamazepine -Continue bupropion -Continue olanzapine -Continue gabapentin DVT prophylaxis -Patient to start enoxaparin 40 mg daily postoperatively Disposition -Anticipate discharge home after surgery
[2023-03-19 13:59] VITALS: BP 166/93; PULSE 80; RESP 16; TEMP 36.5; O2SAT 94
[2023-03-19] MEDS: oxyCODONE 5 MG Tablet PO ×2 (14:23→19:50)
[2023-03-19] MEDS: Acetaminophen 500 MG Tablet 1000 MG PO ×2 (14:23→21:57)
[2023-03-19 18:17] LABS: Absolute Lymphocyte Count 2.26 X10^3/uL (0.83-4.51); Absolute Neutrophil Count 2.5 X10^3/uL (2.0-7.7); Basophil# 0.02 X10^3/uL; Basophil% 0.4 % (0-1); Eosinophil# 0.01 X10^3/uL; Eosinophils% 0.2 % (0-5); Hematocrit 29.6 % (37-47); Hemoglobin 9.8 g/dL (12.0-15.0); Lymphocyte # 2.26 X10^3/ul (0.83-4.51); Lymphocyte % 44.1 % (19-41); Mean Corp Hgb Conc 33.1 g/dL (32-36); Mean Corpuscular Volume 93.7 fL (81-99); Mean Platelet Vol. 9.7 fl (6.2-12.0); Monocyte# 0.31 X10^3/uL; NRBC Flagged by Analyzer 0 % (0-5); Neutrophil # 2.52 X10^3/uL (2.7-7.7); Neutrophil % 49.1 % (47-70); Platelet Count 177 K/mm3 (150-450); RBC Distribution Width CV 13.2 % (11.6-14.6); RBC Distribution Width SD 44.8 fl (35.1-43.9); Red Blood Count 3.16 M/mm3 (4.2-5.4); White Blood Count 5.1 K/mm3 (4.4-11.0)
[2023-03-19 19:53] VITALS: BP 132/82; PULSE 75; RESP 18; TEMP 36.7; O2SAT 94
[2023-03-19] MEDS: carBAMazepine 200 MG Tablet PO (21:57)
[2023-03-19] MEDS: OLANZapine 2.5 MG Tablet 5 MG PO (21:57)
[2023-03-20] MEDS: oxyCODONE 5 MG Tablet PO ×4 (00:14→19:51)
[2023-03-20 02:42] VITALS: BP 122/74; PULSE 57; RESP 18; TEMP 36.4; O2SAT 96
[2023-03-20] MEDS: Ibuprofen 400 MG Tablet 800 MG PO (02:46)
[2023-03-20] MEDS: Acetaminophen 500 MG Tablet 1000 MG PO ×3 (05:36→22:05)
[2023-03-20 07:51] LABS: Absolute Lymphocyte Count 2.25 X10^3/uL (0.83-4.51); Absolute Neutrophil Count 2.5 X10^3/uL (2.0-7.7); Basophil# 0.03 X10^3/uL; Basophil% 0.6 % (0-1); Eosinophil# 0.01 X10^3/uL; Eosinophils% 0.2 % (0-5); Hematocrit 35.1 % (37-47); Hemoglobin 11.4 g/dL (12.0-15.0); Lymphocyte # 2.25 X10^3/ul (0.83-4.51); Lymphocyte % 44.1 % (19-41); Mean Corp Hgb Conc 32.5 g/dL (32-36); Mean Corpuscular Hgb 30.7 pg (27.0-32.0); Mean Corpuscular Volume 94.6 fL (81-99); Mean Platelet Vol. 9.4 fl (6.2-12.0); Monocyte# 0.31 X10^3/uL; Monocyte% 6.1 % (0-10); NRBC Flagged by Analyzer 0 % (0-5); Neutrophil # 2.49 X10^3/uL (2.7-7.7); Neutrophil % 48.8 % (47-70); Platelet Count 199 K/mm3 (150-450); RBC Distribution Width CV 13.2 % (11.6-14.6); RBC Distribution Width SD 45.7 fl (35.1-43.9); Red Blood Count 3.71 M/mm3 (4.2-5.4); White Blood Count 5.1 K/mm3 (4.4-11.0)
[2023-03-20 08:12] LABS: Anion Gap 4 (5-15); BUN 10 mg/dL (7-18); BUN/Creat Ratio 11.1 RATIO (10-20); Calcium,Total 9.3 mg/dL (8.5-10.1); Chloride 113 mmol/L (98-107); EST Glomerular Filtration Rate 68 mL/min (>60); Est Glom Filt Rate - Afr Amer 82 mL/min (>60); Estimated Creatinine Clearance 68.73 ml/min; Glucose 94 mg/dL (74-106); Phosphorus 3.4 mg/dL (2.5-4.9); Potassium 4.1 mmol/L (3.5-5.1); Sodium Level 142 mmol/L (136-145)
[2023-03-20 08:24] VITALS: BP 125/85; PULSE 63; RESP 16; TEMP 36.6; O2SAT 95
[2023-03-20] MEDS: Gabapentin 300 MG Capsule PO ×2 (08:39→22:03)
[2023-03-20] MEDS: buPROPion (XL) 150 MG TABLET.XL PO (08:39)
[2023-03-20] MEDS: Cholecalciferol (VIT D3) 25 MCG TABLET (1,000 UNITS) PO (08:39)
[2023-03-20] MEDS: Pantoprazole Sodium 40 MG Tablet PO (08:40)
--- NOTE | 2023-03-20 12:09 | PN.HOSP_ITS ---
Reason for Visit Reason for Visit: Left ankle pain Subjective Subjective No issues overnight. Opiates are taking the edge off. Plan is for OR tomorrow at 1130. Objective Data Objective Data Vital Signs: Vital Signs Temp Pulse Resp BP Pulse Ox O2 Del Method O2 Flow Rate 97.8 F 63 16 125/85 H 95 Room Air 4 03/20/23 08:24 03/20/23 08:24 03/20/23 08:24 03/20/23 08:24 03/20/23 08:24 03/20/23 08:24 03/18/23 19:03 Oxygen Flow Rate (L/min) [7] 99 Oxygen Flow Rate (L/min) [6] 4 Oxygen Flow Rate (L/min) [5] 97 Oxygen Flow Rate (L/min) [4] 98 Oxygen Flow Rate (L/min) [3] 4 Oxygen Flow Rate (L/min) [1 ( 4 Initial Baseline)] Oxygen Delivery Method [7] Room Air Oxygen Delivery Method [6] Nasal Cannula Oxygen Delivery Method [5] Nasal Cannula Oxygen Delivery Method [4] Nasal Cannula Oxygen Delivery Method [3] Nasal Cannula Oxygen Delivery Method [1 ( Nasal Cannula Initial Baseline)] Oxygen Delivery Method Room Air Weight: 114.8 kg Body Mass Index (BMI) 37.5 Intake & Output: Intake and Output for Last 24 Hours 03/18/23 03/19/23 03/20/23 23:59 23:59 23:59 Intake Total 2178.67 / 2678.67 900 / 900 Output Total 950 / 1950 1500 / 1500 Balance 1228.67 / 728.67 -600 / -600 Lab / Micro Data 03/20/23 07:40 03/20/23 07:40 Labs: Laboratory Results - last 24 hr 03/19/23 18:06: WBC 5.1, RBC 3.16 L, Hgb 9.8 L, Hct 29.6 L, MCV 93.7, MCH 31.0, MCHC 33.1, RDW Std Deviation 44.8 H, RDW Coeff of Carline 13.2, Plt Count 177, MPV 9.7, Immature Gran % (Auto) 0.200, Neut % (Auto) 49.1, Lymph % (Auto) 44.1 H, [place] % (Auto) 6.0, Eos % (Auto) 0.2, Baso % (Auto) 0.4, Absolute Neuts (auto) 2.5, Absolute Lymphs (auto) 2.26, Nucleated RBC % 0 03/20/23 07:40: WBC 5.1, RBC 3.71 L, Hgb 11.4 L, Hct 35.1 L, MCV 94.6, MCH 30.7, MCHC 32.5, RDW Std Deviation 45.7 H, RDW Coeff of Carline 13.2, Plt Count 199, MPV 9.4, Immature Gran % (Auto) 0.200, Neut % (Auto) 48.8, Lymph % (Auto) 44.1 H, [place] % (Auto) 6.1, Eos % (Auto) 0.2, Baso % (Auto) 0.6, Absolute Neuts (auto) 2.5, Absolute Lymphs (auto) 2.25, Nucleated RBC % 0, Sodium 142, Potassium 4.1, Chloride 113 H, Carbon Dioxide 25.0, Anion Gap 4 L, BUN 10, Creatinine 0.90, E stim Creat Clear Calc 68.73, Est GFR (MDRD) Af Amer 82, Est GFR (MDRD) Non-Af 68, BUN/Creatinine Ratio 11.1, Glucose 94, Calcium 9.3, Phosphorus 3.4 Physical Exam Const alert, oriented x3, no apparent distress and well nourished Constitutional Narrative: Obese, middle-aged, white female, sitting up in bed watching television, appears comfortable and nontoxic HEENT head/scalp atraumatic and moist oral mucous membranes Head and Scalp: normocephalic Neuro oriented x3 and no focal motor deficits Speech: speech normal Psych affect normal Psych Narrative: Pleasant and appropriately interactive Assessment & Plan Assessment/Plan (1) Acute left ankle pain: (2) Ankle fracture, bimalleolar, closed: QUALIFIERS: Encounter type: initial encounter Laterality: left Qualified Code(s): S82.842A - Displaced bimalleolar fracture of left lower leg, initial encounter for closed fracture PLAN: Plan Acute oblique displaced fracture of the distal fibula/transverse displaced fracture of the medial malleolus with disruption of the tibiotalar joint -Plan is for OR 11:30 AM 03/21/2023 -Patient is medically optimized -Hold naltrexone so patient can receive as needed opiates until surgery has been performed -Continue scheduled Tylenol -As needed ibuprofen -As needed oxycodone -As needed bowel regimen -PT/OT for gait training postoperatively -Definitive management per primary service MVP -No murmur on exam -No further work-up required History of alcohol abuse/dependence -Currently in remission -Restart home naltrexone at discharge -Holding currently so patient may receive some opiates for pain -Encouraged ongoing cessation Anxiety/depression -Continue carbamazepine -Continue bupropion -Continue olanzapine -Continue gabapentin DVT prophylaxis -Recommend patient start enoxaparin 40 mg daily postoperatively while hospitalized Disposition -Anticipate discharge home after surgery Charges/Coding Visit Charges Inpatient E&M: 81113 Subs Hosp L1
[2023-03-20 14:21] VITALS: BP 159/98; PULSE 80; RESP 16; TEMP 36.8; O2SAT 98
--- NOTE | 2023-03-20 17:01 | PN_ITS ---
Subjective Subjective No changes overnight. pain improved today. Objective Data Objective Data Vital Signs: Vital Signs Temp Pulse Resp BP Pulse Ox O2 Del Method O2 Flow Rate 98.2 F 80 16 159/98 H 98 Room Air 4 03/20/23 14:21 03/20/23 14:21 03/20/23 14:21 03/20/23 14:21 03/20/23 14:21 03/20/23 14:21 03/18/23 19:03 Oxygen Flow Rate (L/min) [7] 99 Oxygen Flow Rate (L/min) [6] 4 Oxygen Flow Rate (L/min) [5] 97 Oxygen Flow Rate (L/min) [4] 98 Oxygen Flow Rate (L/min) [3] 4 Oxygen Flow Rate (L/min) [1 ( 4 Initial Baseline)] Oxygen Delivery Method [7] Room Air Oxygen Delivery Method [6] Nasal Cannula Oxygen Delivery Method [5] Nasal Cannula Oxygen Delivery Method [4] Nasal Cannula Oxygen Delivery Method [3] Nasal Cannula Oxygen Delivery Method [1 ( Nasal Cannula Initial Baseline)] Oxygen Delivery Method Room Air Weight: 114.8 kg Body Mass Index (BMI) 37.5 Intake & Output: Intake and Output for Last 24 Hours 03/18/23 03/19/23 03/20/23 23:59 23:59 23:59 Intake Total 2178.67 / 2678.67 900 / 900 Output Total 950 / 1950 1500 / 1500 Balance 1228.67 / 728.67 -600 / -600 Lab / Micro Data 03/20/23 07:40 03/20/23 07:40 Labs: Laboratory Results - last 24 hr 03/19/23 18:06: WBC 5.1, RBC 3.16 L, Hgb 9.8 L, Hct 29.6 L, MCV 93.7, MCH 31.0, MCHC 33.1, RDW Std Deviation 44.8 H, RDW Coeff of Carline 13.2, Plt Count 177, MPV 9.7, Immature Gran % (Auto) 0.200, Neut % (Auto) 49.1, Lymph % (Auto) 44.1 H, [place] % (Auto) 6.0, Eos % (Auto) 0.2, Baso % (Auto) 0.4, Absolute Neuts (auto) 2.5, Absolute Lymphs (auto) 2.26, Nucleated RBC % 0 07/18/23 07:40: WBC 5.1, RBC 3.71 L, Hgb 11.4 L, Hct 35.1 L, MCV 94.6, MCH 30.7, MCHC 32.5, RDW Std Deviation 45.7 H, RDW Coeff of Carline 13.2, Plt Count 199, MPV 9.4, Immature Gran % (Auto) 0.200, Neut % (Auto) 48.8, Lymph % (Auto) 44.1 H, [place] % (Auto) 6.1, Eos % (Auto) 0.2, Baso % (Auto) 0.6, Absolute Neuts (auto) 2.5, Absolute Lymphs (auto) 2.25, Nucleated RBC % 0, Sodium 142, Potassium 4.1, Chloride 113 H, Carbon Dioxide 25.0, Anion Gap 4 L, BUN 10, Creatinine 0.90, Estim Creat Clear Calc 68.73, Est GFR (MDRD) Af Amer 82, Est GFR (MDRD) Non-Af 68, BUN/Creatinine Ratio 11.1, Glucose 94, Calcium 9.3, Phosphorus 3.4 Physical Exam Narrative Splint intact left lower extremity with maintain reduction of left ankle fracture. Const alert, oriented x3 and no apparent distress Assessment & Plan Assessment/Plan (1) Ankle fracture, bimalleolar, closed: QUALIFIERS: Encounter type: initial encounter Laterality: left Qualified Code(s): S82.842A - Displaced bimalleolar fracture of left lower leg, initial encounter for closed fracture (2) Acute left ankle pain: PLAN: Plan Evaluation performed. Reviewed diagnostic data. We will plan for ORIF left ankle fracture Sunday. No weightbearing left foot, keep foot elevated, keep splint clean, dry and intact. DVT Prophylaxis: SCD right. Will plan to start chemoprophylaxis post operatively. We will follow closely
[2023-03-20 20:28] VITALS: BP 134/94; PULSE 77; RESP 16; TEMP 36.8; O2SAT 98
[2023-03-20] MEDS: OLANZapine 2.5 MG Tablet 5 MG PO (22:03)
[2023-03-20] MEDS: carBAMazepine 200 MG Tablet PO (22:05)
[2023-03-21] VITALS (12 sets, daily range): BP systolic 99–138; BP diastolic 62–84; PULSE 65–103; RESP 16–18; TEMP 36.1–36.8; O2SAT 93–100; BMI 37.5
[2023-03-21] MEDS: Acetaminophen 500 MG Tablet 1000 MG PO ×3 (05:58→22:07)
--- NOTE | 2023-03-21 10:30 | NURSING ---
Patient off unit to AC at this time.
[2023-03-21] MEDS: Lactated Ringers 1,000 ML 15 ML IV (10:56)
--- NOTE | 2023-03-21 10:59 | PN.HOSP_ITS ---
Reason for Visit Reason for Visit: Left ankle pain Subjective Subjective No issues overnight. Patient anxious to go to the OR today to get her ankle fixed and hopefully back home in the next 24 hours if possible. Objective Data Objective Data Vital Signs: Vital Signs Temp Pulse Resp BP Pulse Ox O2 Del Method O2 Flow Rate 97.8 F 65 18 122/62 H 98 Room Air 4 03/21/23 09:02 03/21/23 09:02 03/21/23 09:02 03/21/23 09:02 03/21/23 09:02 03/21/23 09:02 03/18/23 19:03 Oxygen Flow Rate (L/min) [7] 99 Oxygen Flow Rate (L/min) [6] 4 Oxygen Flow Rate (L/min) [5] 97 Oxygen Flow Rate (L/min) [4] 98 Oxygen Flow Rate (L/min) [3] 4 Oxygen Flow Rate (L/min) [1 ( 4 Initial Baseline)] Oxygen Delivery Method [7] Room Air Oxygen Delivery Method [6] Nasal Cannula Oxygen Delivery Method [5] Nasal Cannula Oxygen Delivery Method [4] Nasal Cannula Oxygen Delivery Method [3] Nasal Cannula Oxygen Delivery Method [1 ( Nasal Cannula Initial Baseline)] Oxygen Delivery Method Room Air Weight: 114.8 kg Body Mass Index (BMI) 37.5 Intake & Output: Intake and Output for Last 24 Hours 03/19/23 03/20/23 03/21/23 23:59 23:59 23:59 Intake Total 2178.67 / 2678.67 900 / 1300 450 / 450 Output Total 950 / 1950 3000 / 4000 1000 / 1000 Balance 1228.67 / 728.67 -2100 / -2700 -550 / -550 Lab / Micro Data 03/20/23 07:40 03/20/23 07:40 Physical Exam Const alert, oriented x3, no apparent distress, healthy appearing and well nourished; Negative for average body habitus Constitutional Narrative: Obese, middle-aged, white female, sitting up in bed, appears comfortable and nontoxic HEENT head/scalp atraumatic Head and Scalp: normocephalic Psych affect normal Psych Narrative: Pleasant, interacts appropriately Assessment & Plan Assessment/Plan (1) Acute left ankle pain: (2) Ankle fracture, bimalleolar, closed: QUALIFIERS: Encounter type: initial encounter Laterality: left Qualified Code(s): S82.842A - Displaced bimalleolar fracture of left lower leg, initial encounter for closed fracture PLAN: Plan Acute oblique displaced fracture of the distal fibula/transverse displaced fracture of the medial malleolus with disruption of the tibiotalar joint -Plan is for OR 11:30 AM today -Patient is medically optimized -Hold naltrexone so patient can receive as needed opiates until surgery has been performed -Continue scheduled Tylenol -As needed ibuprofen -As needed oxycodone -As needed bowel regimen -PT/OT for gait training postoperatively -Definitive management per primary service -Anticipate discharge in the next 24 hours and patient should be medically stable for this as long as no issues postoperatively MVP -No murmur on exam -No further work-up required History of alcohol abuse/dependence -Currently in remission -Restart home naltrexone at discharge -Holding currently so patient may receive some opiates for pain -Encouraged ongoing cessation Anxiety/depression -Continue carbamazepine -Continue bupropion -Continue olanzapine -Continue gabapentin DVT prophylaxis -Recommend patient start enoxaparin 40 mg daily postoperatively while hospitalized -Preoperative DVT prophylaxis per primary service Disposition -Anticipate discharge home after surgery Charges/Coding Visit Charges Inpatient E&M: 21416 [facility] Hosp L1
[2023-03-21] MEDS: Cefazolin 2 GM in 0.9% Normal Saline 100 ML IV (11:53)
--- NOTE | 2023-03-21 11:58 | RAD_ITS ---
STUDY: X-RAY - RIGHT ANKLE REASON FOR EXAM: Female, 57 years old. Intraoperative digital documentation views ORIF of the ankle. TECHNIQUE: 2 intraoperative digital documentation view(s) of the ankle. COMPARISON: Ankle x-rays dated March 18, 2023. FINDINGS: 10 digital intraoperative images show a lateral plate and screw fixation of the distal fibula, 2 cancellous screws through the medial malleolus and anterior cancellus screw through the distal fibula. RAD/Ankle 2 Views IMPRESSION: Intraoperative digital documentation views. Electronically Signed: Karan Leggett MD at 15:33 EDT ,
[2023-03-21] MEDS: Bacitracin 500 UNITS/GM PACKET (14:00)
[2023-03-21] MEDS: Bupivacaine Mpf 0.5% 30 ML VIAL (14:03)
--- NOTE | 2023-03-21 14:39 | OP.PCM_ITS ---
Problems Associated Problem List Diagnoses (1) Fracture of ankle, trimalleolar, left, closed: Report of Operation Date of Procedure: 03/21/23 Pre-Operative Diagnosis: Displaced trimalleolar ankle fracture, left Post-Operative Diagnosis: Same Surgery/Procedure Performed:: Open reduction internal fixation left trimalleolar ankle fracture Description of Surgical Findings:: Adequate reduction of trimalleolar ankle fracture via fixation medial lateral malleolus with stability of the syndesmosis noted and reduction of the posterior malleolus fracture fragment. CT examination nation demonstrated smaller than 25% posterior malleolar involvement with stressing of the syndesmosis no indication for stabilizing syndesmosis or fixating posterior malleolus fracture. Surgeon: Hal Bra bogger operator: None (Sergio Shoemaker) Type of Anesthesia: General Special Medications: 10 cc half percent Marcaine plain Specimen's removed: None Drains: None Estimated Blood Loss (mL): 50 cc Description of Procedure: Patient brought back the operating placed comfortably in supine position on the operating room table. Patient induced under general anesthesia. Well-padded left thigh tourniquet applied. Hip bump to knock on external rotation. Left lower extremity was elevated on blankets for no obstruction of the contralateral limb during fluoroscopy used. Left lower extremity was scrubbed prepped draped using typical aseptic fashion. Once cleared by anesthesia left lower extremity was elevated exsanguinated tourniquet was inflated to 300 mmHg. Using fluoroscopic guidance a direct lateral incision over the distal fibula was made with a 15 blade down to the level of periosteum. And there is noted to be an oblique fracture oblique with regards to the sagittal plane suggestive of an SER type injury. This fracture fragment was dissected out using combination of pickups and a 15 blade. Any bleeders were identified cauterized at this time. All neurovascular structures in the area were identified and prepped over the blunt retraction. The fracture site was mobilized and curetted and flushed of any hematoma then reduced using [id number] bone reduction forceps confirmed with AP and lateral imaging interfragmentary screw was placed from posterior to anterior using manufactures guidelines using a 3 5 cortical lag screw. A direct lateral locking plate was applied and locked down distally using 6 locking screws using the manufactures guidelines followed by proximal plate fixation with 4 screws combination of locking and nonlocking to allow for adequate apposition of the plate down to level of bone. Again fluoroscopic imaging was used to make identify reduction is noted to be maintained on AP and lateral imaging. Attention was then taken to the medial malleolus or guidepin was used to penetrate the distal medial malleolus fracture fragment in the anterior and posterior colliculus the foot was then taken into an inverted position medial mall needle this was reduced and pinned across that site to 54 cm 4 oh partially-threaded cancellous screws were applied to that site. AP and lateral imaging demonstrated maintenance of the ankle mortise with adequate reduction. At this time due to presence of posterior malleolus fracture fragment the syndesmosis was stressed and noted to be stable fracture fragment to the posterior malleolus was noted to be reduced. Decision was made to not apply any syndesmotic stabilization or posterior malleolus fracture fragment still stabilization. Tourniquet was let down tourniquet time was noted to be less than 90 minutes any bleeders identified cauterized incision sites were flushed with copious amounts normal sterile saline and closed with simple interrupted buried 2-0 Vicryl running continuous 2-0 Vicryl and skin closure with osbaldo then bacitracin Adaptic to the incisional site 4 x 4's Kerlix and a well-padded Bangura AO splint. Patient was transferred to PACU vital signs stable vascular status intact to all digits for further monitoring prior to transfer back to floor. Patient tolerated procedure and anesthesia well apparent satisfactory condition. No complications.
[2023-03-21] MEDS: Pantoprazole Sodium 40 MG Tablet PO (15:53)
[2023-03-21] MEDS: oxyCODONE 5 MG Tablet PO ×2 (15:53→19:56)
[2023-03-21] MEDS: Gabapentin 300 MG Capsule PO ×2 (15:53→22:06)
[2023-03-21] MEDS: Ondansetron ODT 4 MG Tablet PO (15:53)
[2023-03-21] MEDS: buPROPion (XL) 150 MG TABLET.XL PO (15:54)
[2023-03-21] MEDS: Cholecalciferol (VIT D3) 25 MCG TABLET (1,000 UNITS) PO (15:54)
[2023-03-21] MEDS: Ibuprofen 400 MG Tablet 800 MG PO (17:26)
[2023-03-21] MEDS: 0.9% Saline Lock 10 ML Syringe IV (17:26)
[2023-03-21] MEDS: Morphine 4 MG/ML Syringe IV ×2 (17:26→22:06)
[2023-03-21] MEDS: carBAMazepine 200 MG Tablet PO (22:07)
[2023-03-21] MEDS: OLANZapine 2.5 MG Tablet 5 MG PO (22:07)
[2023-03-22 02:41] VITALS: BP 112/67; PULSE 91; RESP 16; TEMP 36.9; O2SAT 97
[2023-03-22 02:44] VITALS: BP 112/67; PULSE 88; RESP 16; TEMP 36.9; O2SAT 97
[2023-03-22 05:53] VITALS: BP 101/59; PULSE 85; RESP 16; TEMP 36.8; O2SAT 94
[2023-03-22] MEDS: Acetaminophen 500 MG Tablet 1000 MG PO ×2 (05:59→14:03)
[2023-03-22] MEDS: Heparin Injection (Vial) 5,000 UNIT/ML VIAL 5000 UNIT SC (06:04)
[2023-03-22 09:00] VITALS: BP 100/60; PULSE 66; RESP 16; TEMP 36.6; O2SAT 96
[2023-03-22] MEDS: Gabapentin 300 MG Capsule PO (09:05)
[2023-03-22] MEDS: buPROPion (XL) 150 MG TABLET.XL PO (09:11)
[2023-03-22] MEDS: Cholecalciferol (VIT D3) 25 MCG TABLET (1,000 UNITS) PO (09:11)
[2023-03-22] MEDS: Pantoprazole Sodium 40 MG Tablet PO (09:11)
--- NOTE | 2023-03-22 12:21 | PCM.PN.HOSP ---
Reason for Visit Reason for Visit: Left ankle pain Subjective Subjective States she is feeling so much better since surgery. Still having pain and feels that she may need to go home with a short course of narcotics. I did discuss with her holding her naltrexone until her narcotics have been completed she is no longer requiring them and she voiced understanding. Plan is for discharge later today per discussion with patient. Objective Data Objective Data Vital Signs: Vital Signs Temp Pulse Resp BP Pulse Ox O2 Del Method O2 Flow Rate 97.9 F 66 16 100/60 96 Room Air 2 03/22/23 09:00 03/22/23 09:00 03/22/23 09:00 03/22/23 09:00 03/22/23 09:00 03/22/23 09:00 03/21/23 22:14 Oxygen Flow Rate (L/min) [7] 99 Oxygen Flow Rate (L/min) [6] 4 Oxygen Flow Rate (L/min) [5] 97 Oxygen Flow Rate (L/min) [4] 98 Oxygen Flow Rate (L/min) [3] 4 Oxygen Flow Rate (L/min) [1 ( 4 Initial Baseline)] Oxygen Flow Rate (L/min) 2 Oxygen Delivery Method [7] Room Air Oxygen Delivery Method [6] Nasal Cannula Oxygen Delivery Method [5] Nasal Cannula Oxygen Delivery Method [4] Nasal Cannula Oxygen Delivery Method [3] Nasal Cannula Oxygen Delivery Method [1 ( Nasal Cannula Initial Baseline)] Oxygen Delivery Method Room Air Weight: 114.8 kg Body Mass Index (BMI) 37.5 Intake & Output: Intake and Output for Last 24 Hours 03/20/23 03/21/23 03/22/23 23:59 23:59 23:59 Intake Total 900 / 1300 1153.5 / 1653.5 600 / 600 Output Total 3000 / 4000 1000 / 2000 1000 / 1000 Balance -2100 / -2700 153.5 / -346.5 -400 / -400 Lab / Micro Data 03/20/23 07:40 03/20/23 07:40 Radiography Diagnostic Testing: Radiology Impression Ankle X-Ray 03/21/23 11:58 IMPRESSION: Intraoperative digital documentation views. Electronically Signed: Karan Leggett MD at 15:33 EDT , Physical Exam Const alert, oriented x3, no apparent distress, healthy appearing and well nourished Constitutional Narrative: Obese, middle-aged, white female, sitting up in bed watching television, appears comfortable nontoxic HEENT head/scalp atraumatic and moist oral mucous membranes HEENT Narrative: Mallampati 2-3, no thrush Head and Scalp: normocephalic Resp normal respiratory effort, no retractions, no use of accessory muscles and clear to auscultation bilaterally Auscultation: Negative for rales, rhonchi or wheezes Cardio regular rate, regular rhythm, S1 normal heart sound, S2 normal heart sound, no murmurs, no rub, no gallops and no clicks Extremity Extremity Narrative: Left lower extremity with postoperative dressing in place, cap refill is good, sensation is normal, no clubbing or cyanosis, no edema right lower extremity Neuro oriented x3 Speech: speech normal Psych affect normal Psych Narrative: Very pleasant, appropriately interactive Assessment & Plan Assessment/Plan (1) Fracture of ankle, trimalleolar, left, closed: PLAN: Plan Acute oblique displaced fracture of the distal fibula/transverse displaced fracture of the medial malleolus with disruption of the tibiotalar joint -Postop day 1 ORIF left ankle -Patient is medically optimized -Hold naltrexone so patient can receive as needed opiates until surgery has been performed -Continue scheduled Tylenol -As needed ibuprofen -As needed oxycodone -As needed bowel regimen -PT/OT for gait training postoperatively -Definitive management per primary service -Anticipate discharge in the next 24 hours and patient should be medically stable for this as long as no issues postoperatively MVP -No murmur on exam -No further work-up required History of alcohol abuse/dependence -Currently in remission -Restart home naltrexone at discharge -Holding currently so patient may receive some opiates for pain -Encouraged ongoing cessation Anxiety/depression -Continue carbamazepine -Continue bupropion -Continue olanzapine -Continue gabapentin DVT prophylaxis -Recommend patient start enoxaparin 40 mg daily postoperatively while hospitalized -Preoperative DVT prophylaxis per primary service Disposition -Okay to discharge home from medical standpoint. Labs are unremarkable. Patient will need gait training with therapy prior to discharge. Would recommend holding naltrexone while on narcotics and then reinitiating after narcotics for pain have been discontinued. Charges/Coding Visit Charges Inpatient E&M: 52918 Subs Hosp L1
[2023-03-22 13:53] VITALS: BP 100/60; PULSE 66; RESP 16; TEMP 36.6; O2SAT 96
--- NOTE | 2023-03-22 13:57 | PCM.PROGNOTE ---
Subjective Subjective 87-year-old female 1 day after left ankle fracture open reduction internal fixation. Patient denies fever fever chills nausea vomiting today. Patient denies chest pain calf pain shortness of breath. Patient had some pain overnight but notes improvement today is tolerable at rest no other complaints. Objective Data Objective Data Vital Signs: Vital Signs Temp Pulse Resp BP Pulse Ox O2 Del Method O2 Flow Rate 97.9 F 66 16 100/60 96 Room Air 2 03/22/23 09:00 03/22/23 09:00 03/22/23 09:00 03/22/23 09:00 03/22/23 09:00 03/22/23 09:00 03/21/23 22:14 Oxygen Flow Rate (L/min) [7] 99 Oxygen Flow Rate (L/min) [6] 4 Oxygen Flow Rate (L/min) [5] 97 Oxygen Flow Rate (L/min) [4] 98 Oxygen Flow Rate (L/min) [3] 4 Oxygen Flow Rate (L/min) [1 ( 4 Initial Baseline)] Oxygen Flow Rate (L/min) 2 Oxygen Delivery Method [7] Room Air Oxygen Delivery Method [6] Nasal Cannula Oxygen Delivery Method [5] Nasal Cannula Oxygen Delivery Method [4] Nasal Cannula Oxygen Delivery Method [3] Nasal Cannula Oxygen Delivery Method [1 ( Nasal Cannula Initial Baseline)] Oxygen Delivery Method Room Air Weight: 114.8 kg Body Mass Index (BMI) 37.5 Intake & Output: Intake and Output for Last 24 Hours 03/20/23 03/21/23 03/22/23 23:59 23:59 23:59 Intake Total 900 / 1300 1153.5 / 1653.5 600 / 600 Output Total 3000 / 4000 1000 / 2000 1000 / 1000 Balance -2100 / -2700 153.5 / -346.5 -400 / -400 Lab / Micro Data 03/20/23 07:40 03/20/23 07:40 Radiography Diagnostic Testing: Radiology Impression Ankle X-Ray 03/21/23 11:58 IMPRESSION: Intraoperative digital documentation views. Electronically Signed: Karan Leggett MD at 15:33 EDT , Physical Exam Narrative Left foot demonstrates intact motor response to digits as well as capillary fill time light touch and protective sensation. No pain with calf squeeze left foot. splint left intact. Const alert and oriented x3 Assessment & Plan Assessment/Plan (1) Fracture of ankle, trimalleolar, left, closed: PLAN: Exam performed. Patient doing well today. We will plan for discharge home. Patient maintain nonweightbearing left lower extremity. Use crutches. Patient will keep dressing clean dry and intact and follow-up in 1 week.
--- NOTE | 2023-03-22 14:00 | DS.PCM_ITS ---
Providers Date of Admission: 03/18/23 Primary Care Physician: Dr. Mickie Prado MD Consultations 03/18/23 19:18 Consult: Hospitalist Routine Consulting Provider: Billy Yang Reason for Consult: Medical management EMERGENT Consult: No MD Notified: Yes Date Notified: 03/18/23 Time Notified: 19:18 Method of Notification: Verbal Reason For Visit: PAINFUL LEFT ANKLE FRACTURE Diagnosis Discharge Diagnosis (1) Fracture of ankle, trimalleolar, left, closed: Status: Acute Code(s): S82.852A - Displaced trimalleolar fracture of left lower leg, initial encounter for closed fracture Plan: Exam performed. Patient doing well today. We will plan for discharge home. Patient maintain nonweightbearing left lower extremity. Use crutches. Patient will keep dressing clean dry and intact and follow-up in 1 week. Medications at Discharge Home Medications naltrexone 50 mg tablet 50 mg PO Q24H 08/12/21 ondansetron 4 mg disintegrating tablet 4 mg PO Q6H PRN nausea and vomiting #10 tabs 09/08/22 bupropion HCl 150 mg tablet,12 hr sustained-release (Wellbutrin SR) 150 mg PO DAILY 09/28/22 carbamazepine 200 mg tablet (Tegretol) 200 mg PO DAILY 09/28/22 cholecalciferol (vitamin D3) 25 mcg (1,000 unit) capsule 25 mcg PO DAILY 10/25/22 gabapentin 300 mg capsule 300 mg PO BID anxiety 03/18/23 olanzapine 2.5 mg tablet 5 mg PO QHS anxiety 03/18/23 omeprazole 40 mg capsule,delayed release mg gerd 03/18/23 enoxaparin 40 mg/0.4 mL subcutaneous syringe (Lovenox) 40 mg (0.4 mL) subcut DAILY #8 mL 03/22/23 oxycodone 5 mg capsule 5 mg PO Q4H PRN pain 7 days #42 caps 03/22/23 Hospital Course Summary of Care Provided Hospital Course: Patient admitted to hospital after breaking her ankle on Sunday. Due to inst ability and pain control. Definitive open reduction internal fixation was performed on 03/21/2023. Patient appears to be stable and able to discharge to home self-care. Patient will be discharged home. Pain controlled at this time. Physical Exam Narrative Left foot demonstrates intact motor response to digits as well as capillary fill time light touch and protective sensation. No pain with calf squeeze left foot. splint left intact. Const alert and oriented x3 Weight / BMI Weight Weight: 114.8 kg Body Mass Index (BMI) 37.5 ABG / Lab / Microbiology Data 03/20/23 07:40 03/20/23 07:40 Radiography Diagnostic Testing: Radiology Impression Ankle X-Ray 03/21/23 11:58 IMPRESSION: Intraoperative digital documentation views. Electronically Signed: Karan Leggett MD at 15:33 EDT , D/C Instructions Discharge Diet: No restrictions Discharge Activity: Use Walker and Use Crutches Weight Bearing Status: No weight bearing Keep extremity elevated above heart level: Operative Extremity and Left Leg Call your doctor if your incision/area has: Continuous Slow Oozing, Sudden Increased Bleeding, Increased Pain/ Swelling, Increased Redness, Foul Smelling Discharge and Swelling at the incision site Call your doctor if you observe: Fever of 101 or Higher, Coldness, Increased Pain, Change in Color, Inability to urinate and Inability to have a bowel movement Change Dressing in: do not change dressing Remove Dressing in: do not remove dressing Cleanse incision/area with: Do not get Incision Wet Please Follow Up With: Hal Bar DPM When: 1 week Meaningful Use Info Meaningful Use Diagnoses (Choose all that apply): None applicable Discharge Plan Admission Admit Date/Time: 03/18/23 19:13 Attending Provider: Jaime Peters Primary Care Provider: Mickie Prado Consulting Providers: Iza Dior; Billy Yang Instructions Patient Instructions: Post-Op Tips: Foot Additional Instructions / Restrictions: keep dressing clean, dry and intact take prescriptions as directed ice behind knee, elevate at rest maintain non-weightbearing assisted by crutches on left follow up in 1 week Discharge Orders/Prescriptions Prescriptions: New oxycodone 5 mg capsule 5 mg PO Q4H PRN (Reason: pain) 7 Days Qty: 42 0RF enoxaparin [Lovenox] 40 mg/0.4 mL syringe 40 mg subcut DAILY Qty: 8 0RF Continued naltrexone 50 mg tablet 50 mg PO Q24H Patient Comments: take 1 tablet by mouth once daily carbamazepine [Tegretol] 200 mg tablet 200 mg PO DAILY bupropion HCl [Wellbutrin SR] 150 mg tablet sustained-release 12 hr 150 mg PO DAILY ondansetron 4 mg tablet,disintegrating 4 mg PO Q6H PRN (Reason: nausea and vomiting) Qty: 10 0RF Patient Comments: no longer takes olanzapine 2.5 mg tablet 5 mg PO QHS Patient Comments: TAKE 1/2 (ONE-HALF) TO 1 (ONE) TABLET BY MOUTH TWICE DAILY NEEDED FOR ANXIETY omeprazole 40 mg capsule,delayed release(DR/EC) Patient Comments: TAKE 1 CAPSULE BY MOUTH DAILY gabapentin 300 mg capsule 300 mg PO BID Patient Comments: TAKE 1 CAPSULE BY MOUTH TWICE DAILY cholecalciferol (vitamin D3) 25 mcg (1,000 unit) capsule 25 mcg PO DAILY Referrals / Follow Up: Mickie Prado MD [Primary Care Provider] - Disposition Disposition (needs filled in before D/C Order can be placed): Home, Self Care
[2023-03-22] MEDS: oxyCODONE 5 MG Tablet PO (14:05)
--- NOTE | 2023-03-22 14:52 | PHA.DC_ITS ---
Pharmacy [facility] has performed discharge medication reconciliation and counseling for this patient. The patient was counseled on the following discharge medications and changes in medications for homegoing were reviewed. 1. OXYCODONE - INFORMED PT OF INTERACTION B/W OXY AND NALTREXONE. PT WAS AWARE NALTREXONE WILL NEGATE EFFECTS OF NARCOTIC. PT REPORTS SHE IS NOT GOING TO TAKE NALTREXONE WHILE REQUIRING PAIN RELIEF FROM OXYCODONE. 2. LOVENOX The Reason for Use, instructions for use, and potential side effects were reviewed for all new medications. The patient's questions regarding all of their medications were answered. The patient was able to verbally demonstrate an understanding of their discharge medications. The patient's discharge medication list was reviewed for discrepancies and discrepancies were resolved. Patient counselled by Connor Richardson PharmD Candidate Medications at Discharge Home Medications naltrexone 50 mg tablet 50 mg PO Q24H 08/12/21 ondansetron 4 mg disintegrating tablet 4 mg PO Q6H PRN nausea and vomiting #10 tabs 09/08/22 bupropion HCl 150 mg tablet,12 hr sustained-release (Wellbutrin SR) 150 mg PO DAILY 09/28/22 carbamazepine 200 mg tablet (Tegretol) 200 mg PO DAILY 09/28/22 cholecalciferol (vitamin D3) 25 mcg (1,000 unit) capsule 25 mcg PO DAILY 10/25/22 gabapentin 300 mg capsule 300 mg PO BID anxiety 03/18/23 olanzapine 2.5 mg tablet 5 mg PO QHS anxiety 03/18/23 omeprazole 40 mg capsule,delayed release mg gerd 03/18/23 enoxaparin 40 mg/0.4 mL subcutaneous syringe (Lovenox) 40 mg (0.4 mL) subcut DAILY #8 mL 03/22/23 oxycodone 5 mg capsule 5 mg PO Q4H PRN pain 7 days #42 caps 03/22/23
--- OUTSIDE RECORDS SUMMARY | 2023-10-15 09:13 | XMS RPT_ITS | CCD ---
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 Role Phone Citlali Murguia Primary Care [...] visit by physician Lab Referred Work Phone: [facility] Plan of Treatment Date Care Activity Detail Author Start: 05-04-2021 Influenza vaccination INFLUENZA (#1) [facility] Start: 2014 SHINGRIX VACCINE (1 of 2) SHINGRIX V ACCINE (1 of 2) [facility] Start: 2009 COLOGUARD (FIT-DNA) COLOGUARD (FIT-D NA) [facility] Start: 2009 Colonoscopy COLONOSCOPY [facility] Start: 2009 COLORECTAL CANCER SCREENING COLORECTAL CANCER SCREENING [facility] Start: [address] COLONOGRAPHY [facility] Start: 2009 DIABETES SCREEN DIABETES SCREEN [facility] Start: 2009 FECAL OCCULT BLOOD FECAL OCCULT BLOO D [facility] Start: 2009 LIPID SCREEN LIPID SCREEN [facility] Start: 2009 SIGMOIDOSCOPY SIGMOIDOSCOPY [facility] Start: 2004 Mammography MAMMOGRAM [facility] Start: 1994 HPV TESTING HPV TESTING [facility] Start: 1985 PAP TESTING PAP TESTING [facility] Start: 1983 Urine microalbumin profile DTAP,TDAP ,TD (1 - Tdap) [facility] Start: 1982 HEPATITIS C SCREENING HEPATITIS C SC REENING [facility] Start: 1982 HIV SCREENING HIV SCREENING [facility] Start: 1976 Adult depression scr eening assessment DEPRESSION SCREENING [facility] Start: 1969 COVID-19 VACCINE (1) COVID-19 VACCIN E (1) [facility] Payers Date Payer Category Payer Policy ID Unknown [facility] [employer] [place] YOR [facility] [employer] PAYOR [id number] Effective for all dates [address] [place] [address] Other Social History Date Type Detail Facility Tobacco smoking stat us ORIS Never smoked tobacco [facility] Start: 05-25-2010 Alcohol intake Current drinke r of alcohol (finding) [facility] Start: 1964 Sex Assigned At Not on file C [facility] Additional Source Comments Source Comments (unrecognize d section and content) In the event this informatio n is protected by the Federal Confidentiality of Alcohol and Drug Abuse Patient Records regulations: The Federal rules restrict any use of the information to criminally investigate or prosecute any alcohol or drug abuse patient.[facility] Care Teams (unrecognized sec tion and [...] BE BASED ON THE PRIMARY CLINICAL RECORDS. [facility] [employer] [facility]. provides no warranty or guarantee of the accuracy or completeness of information in this document.
== END 2023-03-22 14:40 | disposition home or self-care (01) | DRG 494 ==
LOC: ED 15:41 → MS3 18:45
PROVIDERS: Anesthesiology; Family Medicine; Internal Medicine; Podiatrist; Admitting Provider Podiatrist; Emergency Provider Student in an Organized Health Care Education/Training Program; PCP Internal Medicine; Visit Provider Podiatrist
PROC: (CPT 27822; principal; 2023-03-21 11:10)
DX: S82.852A Displaced trimalleolar fracture of left lower leg, initial encounter for closed fracture (principal); F10.21 Alcohol dependence, in remission; F32.A Depression, unspecified; I10 Essential (primary) hypertension; W10.9XXA Fall (on) (from) unspecified stairs and steps, initial encounter; I34.1 Nonrheumatic mitral (valve) prolapse; F41.9 Anxiety disorder, unspecified; Z79.899 Other long term (current) drug therapy; Y93.89 Activity, other specified
CPT/HCPCS: 27822; 27818; 64445; 36415; 73600; 73610; 73630; 73700; 76000; 80048; 80076; 82306; 83735; 84100; 85025; 93005; 94668; 96361; 96372; 96374; 96375; 96376; 97162; 99152; 99221; 99285; C1713; J7030; J7050; J7120; A4216; G0378; J2405

== ENCOUNTER → 2023-08-31 | Outpatient (CLI) | payer OTHER, SELFPAY ==
--- NOTE | 2023-08-31 14:50 | CT_ITS ---
STUDY: CT LEFT ANKLE WITHOUT CONTRAST REASON FOR EXAM: Female, 58 years old. Ankle fracture. Follow-up after ORIF. RADIATION DOSAGE (If Supplied By Facility): CTDIvol = ( 15.35 ) mGy, DLP = ( 378.01 ) mGycm TECHNIQUE contiguous axial images of the lower leg and ankle were obtained without contrast. Coronal and sagittal reconstruction and bone and soft tissue algorithm images were provided for interpretation. Individualized dose optimization techniques were used for this CT. COMPARISON: CT of the left ankle dated March 18, 2023 and intraoperative images of the ankle dated March 21, 2023. FINDINGS: Osteopenia. Cancellus screw placement through the medial malleolus with callus formation at the previously described medial malleolar fracture site. Lateral plate and screw fixation of the distal fibula with minimal deformity of the distal fibula and partial bridging callus formation. Nondisplaced posterior malleolar fracture with intra-articular extension. 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 Os trigonum, a normal variant Diffuse mild residual soft tissue swelling. CT/Extremity Lower without Contra IMPRESSION: ORIF of ankle with anatomic alignment of the medial malleolus and the distal fibula. Minimal deformity of the distal fibula. Callus formation at both sites. Nondisplaced posterior malleolar fracture. Electronically Signed: Karan Leggett MD at 11:21 EST ,
--- OUTSIDE RECORDS SUMMARY | 2023-08-31 15:11 | XMS RPT_ITS | CCD ---
Author Name Unknown Address [address] [place] [address] [address] [place] [address] Organization [facility] Care Team Providers Care Application Development Director Name Role Phone Citlali Murguia Primary Care [...] Subsequent hospital visit by physician Lab Referred Work Phone: [facility] Plan of Treatment Date Care Activity Detail Author Start: 05-04-2021 Influenza vaccination INFLUENZA (#1) [facility] Start: 2014 SHINGRIX VACCINE (1 of 2) SHINGRIX V ACCINE (1 of 2) [facility] Start: 2009 COLOGUARD (FIT-DNA) COLOGUARD (FIT-D NA) [facility] Start: 2009 Colonoscopy COLONOSCOPY [facility] Start: 2009 COLORECTAL CANCER SCREENING COLORECTAL CANCER SCREENING [facility] Start: [address] COLONOGRAPHY [facility] Start: 2009 DIABETES SCREEN DIABETES SCREEN [facility] Start: 2009 FECAL OCCULT BLOOD FECAL OCCULT BLOO D [facility] Start: 2009 LIPID SCREEN LIPID SCREEN [facility] Start: 2009 SIGMOIDOSCOPY SIGMOIDOSCOPY [facility] Start: 2004 Mammography MAMMOGRAM [facility] Start: 1994 HPV TESTING HPV TESTING [facility] Start: 1985 PAP TESTING PAP TESTING [facility] Start: 1983 Urine microalbumin profile DTAP,TDAP ,TD (1 - Tdap) [facility] Start: 1982 HEPATITIS C SCREENING HEPATITIS C SC REENING [facility] Start: 1982 HIV SCREENING HIV SCREENING Cj [facility] Start: 1976 Adult depression scr eening assessment DEPRESSION SCREENING [facility] Start: 1969 COVID-19 VACCINE (1) COVID-19 VACCIN E (1) [facility] Payers Date Payer Category Payer Policy ID Unknown [facility] [employer] [facility] [employer] [id number] Effective for all dates [address] [place] [address] Other Social History Date Type Detail Facility Tobacco smoking stat us SDIS Never smoked tobacco [facility] Start: 05-25-2010 Alcohol intake Current drinke r of alcohol (finding) [facility] Start: 1965 Sex Assigned At Not on file [facility] Additional Source Comments Source Comments (unrecognize d section and content) In the event this informatio n is protected by the Federal Confidentiality of Alcohol and Drug Abuse Patient Records regulations: The Federal rules restrict any use of the information to criminally investigate or prosecute any alcohol or drug abuse patient.[facility] Care Teams (unrecognized sec tion and content) [...] BE BASED ON THE PRIMARY CLINICAL RECORDS. [facility] [employer] [facility] provides no warranty or guarantee of the accuracy or completeness of information in this document.
== END | disposition home or self-care (01) ==
PROVIDERS: PCP Internal Medicine; Referring Provider Podiatrist; Visit Provider Podiatrist
DX: S82.852K Displaced trimalleolar fracture of left lower leg, subsequent encounter for closed fracture with nonunion (principal); X58.XXXD Exposure to other specified factors, subsequent encounter
CPT/HCPCS: 73700

== ENCOUNTER → 2023-10-11 | Outpatient (CLI) | payer OTHER, SELFPAY ==
--- OUTSIDE RECORDS SUMMARY | 2023-10-11 07:46 | XMS RPT_ITS | CCD ---
Author Name Unknown Address [address] [place] [address] [address] [place] [address] Organization [facility] Care Team Providers Care Physical Security Manager Name Role Phone Citlali Murguia Primary Care [...] visit by physician Lab Referred Work Phone: [facility] Plan of Treatment Date Care Activity Detail Author Start: 05-04-2021 Influenza vaccination INFLUENZA (#1) [facility] Start: 2014 SHINGRIX VACCINE (1 of 2) SHINGRIX V ACCINE (1 of 2) [facility] Start: 2009 COLOGUARD (FIT-DNA) COLOGUARD (FIT-D NA) [facility] Start: 2009 Colonoscopy COLONOSCOPY [facility] Start: 2009 COLORECTAL CANCER SCREENING COLORECTAL CANCER SCREENING [facility] Start: [address] COLONOGRAPHY [facility] Start: 2009 DIABETES SCREEN DIABETES SCREEN [facility] Start: 2009 FECAL OCCULT BLOOD FECAL OCCULT BLOO D [facility] Start: 2009 LIPID SCREEN LIPID SCREEN [facility] Start: 2009 SIGMOIDOSCOPY SIGMOIDOSCOPY [facility] Start: 2004 Mammography MAMMOGRAM [facility] Start: 1994 HPV TESTING HPV TESTING [facility] Start: 1985 PAP TESTING PAP TESTING [facility] Start: 1983 Urine microalbumin profile DTAP,TDAP ,TD (1 - Tdap) [facility] Start: 1982 HEPATITIS C SCREENING HEPATITIS C SC REENING [facility] Start: 1982 HIV SCREENING [facility] SCREENING [facility] Start: 1976 Adult depression scr eening assessment DEPRESSION SCREENING [facility] Start: 1969 COVID-19 VACCINE (1) COVID-19 VACCIN E (1) [facility] Payers Date Payer Category Payer Policy ID Unknown [facility] [employer] [place] [employer] [facility] [employer] PAYOR [id number] Effective for all dates [address] [place] [address] Other Social History Date Type Detail Facility Tobacco smoking stat us NJIS Never smoked tobacco [facility] Start: 05-25-2010 Alcohol intake Current drinke r of alcohol (finding) [facility] Start: 1965 Sex Assigned At Not on file C [facility] Additional Source Comments Source Comments (unrecognize d section and content) In the event this informatio n is protected by the Federal Confidentiality of Alcohol and Drug Abuse Patient Records regulations: The Federal rules restrict any use of the information to criminally investigate or prosecute any alcohol or drug abuse patient.[facility] Care Teams (unrecognized sec tion [...] BE BASED ON THE PRIMARY CLINICAL RECORDS. [employer] [facility]. provides no warranty or guarantee of the accuracy or completeness of information in this document.
[2023-10-11 08:30] LABS: Absolute Lymphocyte Count 2.15 X10^3/uL (0.83-4.51); Absolute Neutrophil Count 3.4 X10^3/uL (2.0-7.7); Basophil# 0.01 X10^3/uL; Basophil% 0.2 % (0-1); Hematocrit 39.7 % (37-47); Hemoglobin 12.9 g/dL (12.0-15.0); Lymphocyte # 2.15 X10^3/ul (0.83-4.51); Lymphocyte % 36.7 % (19-41); Mean Corp Hgb Conc 32.5 g/dL (32-36); Mean Corpuscular Hgb 29.6 pg (27.0-32.0); Mean Corpuscular Volume 91.1 fL (81-99); Mean Platelet Vol. 9.9 fl (6.2-12.0); Monocyte# 0.32 X10^3/uL; Monocyte% 5.5 % (0-10); NRBC Flagged by Analyzer 0 % (0-5); Neutrophil # 3.36 X10^3/uL (2.7-7.7); Neutrophil % 57.3 % (47-70); Platelet Count 291 K/mm3 (150-450); RBC Distribution Width CV 12.9 % (11.6-14.6); RBC Distribution Width SD 42.7 fl (35.1-43.9); Red Blood Count 4.36 M/mm3 (4.2-5.4); White Blood Count 5.9 K/mm3 (4.4-11.0)
[2023-10-11 09:12] LABS: AST(SGOT) 26 U/L (15-37); Alanine Aminotransfer ALT/SGPT 23 U/L (13-56); Albumin, Serum 3.7 g/dL (3.2-5.0); Alkaline Phosphatase 126 U/L (45-117); Anion Gap 6 (5-15); BUN 11 mg/dL (7-18); BUN/Creat Ratio 12.9 RATIO (10-20); Chloride 115 mmol/L (98-107); Cholesterol 225 mg/dL (200); Creatinine, Serum 0.85 mg/dL (0.55-1.02); EST Glomerular Filtration Rate 72 mL/min (>60); Est Glom Filt Rate - Afr Amer 88 mL/min (>60); Globulin 3.7 g/dL (2.2-4.2); Glucose 115 mg/dL (74-106); High Density Lipoprotein 48 mg/dL; Potassium 3.9 mmol/L (3.5-5.1); Protein, Total 7.4 g/dL (6.4-8.2); Sodium Level 142 mmol/L (136-145); Thyroid Stim Hormone (TSH) 1.88 uIU/mL (0.358-3.74); Triglycerides 143 mg/dL; Very Low Density Lipoprotein 29 mg/dL (5-40)
[2023-10-11 09:27] LABS: Insulin 35.6 mU/L (2.6-37.6); Vitamin B12 282 pg/mL (211-911); Vitamin D,25 Hydroxy 23.5 ng/mL
[2023-10-12 10:34] LABS: Hemoglobin A1c 4.3 % (3.8-5.6)
== END | disposition home or self-care (01) ==
LOC: LAB 07:42
PROVIDERS: PCP Internal Medicine; Visit Provider Internal Medicine
DX: Z00.00 Encounter for general adult medical examination without abnormal findings (principal); Z13.220 Encounter for screening for lipoid disorders; I10 Essential (primary) hypertension; E55.9 Vitamin D deficiency, unspecified; F41.9 Anxiety disorder, unspecified; E88.819 Insulin resistance, unspecified; E53.8 Deficiency of other specified B group vitamins; R73.9 Hyperglycemia, unspecified
CPT/HCPCS: 36415; 80053; 80061; 82306; 82607; 83036; 83525; 84443; 85025

== ENCOUNTER → 2023-10-12 | Outpatient (CLI) | payer OTHER, SELFPAY ==
--- NOTE | 2023-10-12 07:15 | BI_ITS ---
MAMMOGRAPHY - BILATERAL SCREENING REASON FOR EXAM: Female, 58 years old. Routine annual screening examination. PERTINENT HISTORY: Non-contributory. History of prior right stereotactic breast biopsies. TECHNIQUE: Digital bilateral breast sofie (3D mammographic acquisition) in the CC and MLO projections. 2-D mediolateral oblique (MLO) and craniocaudad (CC) views of both breasts were obtained. CAD: Full Field Digital Mammography with Computer Added Detection was performed. COMPARISON: Comparison is made with prior study dated May 19, 2016 and May 04, 2010. FINDINGS: Breast Composition: There are scattered areas of fibroglandular density. There are no dominant masses or suspicious calcifications. Tissue clip markers are once again seen in the right breast from prior stereotactic breast biopsies. No other significant abnormalities are identified. There has been no significant change since the prior study. BI/SCRN MAMM (CAD)W/SOFIE BILAT IMPRESSION: Stable bilateral screening mammogram. Yearly follow-up mammogram recommended. (A) ASSESSMENT CATEGORY: BIRADS Category 2: Benign. A letter regarding these results will be sent to the patient by the facility within 30 days. Approximately 10% of breast cancers are not detected by mammography. A normal mammogram should not delay biopsy of a clinically suspicious abnormality. [id number] Electronically Signed: Dwight Bond MD at 8:56 EST ,
--- OUTSIDE RECORDS SUMMARY | 2023-10-12 07:31 | XMS RPT_ITS | CCD ---
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 Role Phone Citlali Murguia Primary Care [...] visit by physician Lab Referred Work Phone: [facility] Plan of Treatment Date Care Activity Detail Author Start: 05-04-2021 Influenza vaccination INFLUENZA (#1) [facility] Start: 2014 SHINGRIX VACCINE (1 of 2) SHINGRIX V ACCINE (1 of 2) [facility] Start: 2009 COLOGUARD (FIT-DNA) COLOGUARD (FIT-D NA) [facility] Start: 2009 Colonoscopy COLONOSCOPY [facility] Start: 2009 COLORECTAL CANCER SCREENING COLORECTAL CANCER SCREENING [facility] Start: [address] COLONOGRAP[address] [facility] Start: 2009 DIABETES SCREEN DIABETES SCREEN [facility] Start: 2009 FECAL OCCULT BLOOD FECAL OCCULT BLOO D [facility] Start: 2009 LIPID SCREEN LIPID SCREEN [facility] Start: 2009 SIGMOIDOSCOPY SIGMOIDOSCOPY [facility] Start: 2004 Mammography MAMMOGRAM [facility] Start: 1994 HPV TESTING HPV TESTING [facility] Start: 1985 PAP TESTING PAP TESTING [facility] Start: 1983 Urine microalbumin profile DTAP,TDAP ,TD (1 - Tdap) [facility] Start: 1982 HEPATITIS C SCREENING HEPATITIS C SC REENING [facility] Start: 1982 HIV SCREENING HIV SCREENING [facility] Start: 1976 Adult depression scr eening assessment DEPRESSION SCREENING [facility] Start: 1969 COVID-19 VACCINE (1) COVID-19 VACCIN E (1) [facility] Payers Date Payer Category Payer Policy ID Unknown [facility] [employer] [place] Y[employer] [facility] [employer] PA[employer]OR [id number] Effective for all dates [address] [place] [address] Other Social History Date Type Detail Facility Tobacco smoking stat us ILIS Never smoked tobacco [facility] Start: 05-25-2010 Alcohol intake Current drinke r of alcohol (finding) [facility] Start: 1965 Sex Assigned At Not on file C [facility] Additional Source Comments Source Comments (unrecognize d section and content) In the event this informatio n is protected by the Federal Confidentiality of Alcohol and Drug Abuse Patient Records regulations: The Federal rules restrict any use of the information to criminally investigate or prosecute any alcohol or drug abuse patient.[facility] Care Teams (unrecognized sec tion and [...] BE BASED ON THE PRIMARY CLINICAL RECORDS. [facility] [employer] [facility]. provides no warranty or guarantee of the accuracy or completeness of information in this document.
== END | disposition home or self-care (01) ==
LOC: OPBI 07:13
PROVIDERS: PCP Internal Medicine; Referring Provider Internal Medicine; Visit Provider Internal Medicine
DX: Z12.31 Encounter for screening mammogram for malignant neoplasm of breast (principal)
CPT/HCPCS: 77063; 77067

== ENCOUNTER 2024-01-20 09:14 | Emergency (ER) | payer OTHER, SELFPAY ==
[2024-01-20 09:14] VITALS: BP 137/99; PULSE 113; RESP 18; TEMP 36.6; O2SAT 98; BMI 36.3
--- NOTE | 2024-01-20 09:47 | EX.ED.DYSGE1 ---
HPI History of Present Illness Chief Complaint: Nausea/Vomiting Informant: patient Narrative Narrative: Patient had her first Ozempic injection 4 days ago, she states the office called her of the accidentally gave her a larger dose than they were supposed to for her first 1, and she has not been able to stop vomiting since. She has since also developed some burning in her upper abdomen that is worse when she vomits, but she did not have any abdominal pain initially. No syncope. Trouble eating or drinking anything in the last several days which is why she presents here. She has not been given any nausea medication. No diarrhea. No fevers or chills. [facility] Medical History MVP (mitral valve prolapse) Alcohol abuse Anxiety HTN (hypertension) Home Medications ?Medication ?Instructions ?Recorded ?Last Taken ?Type naltrexone 50 mg tablet 50 mg PO Q24H 08/12/21 Unknown History ondansetron 4 mg disintegrating 4 mg PO Q6H PRN nausea and 09/08/22 Unknown Rx tablet vomiting #10 tabs carbamazepine 200 mg tablet 200 mg PO DAILY 09/28/22 Unknown History (Tegretol) cholecalciferol (vitamin D3) 25 25 mcg PO DAILY 10/25/22 Unknown History mcg (1,000 unit) capsule gabapentin 300 mg capsule 300 mg PO DAILY anxiety 10/10/23 Unknown History olanzapine 2.5 mg tablet 5 mg PO QHS PRN anxiety 10/10/23 Unknown History bupropion HCl 150 mg 24 hr tablet, 150 mg PO DAILY 01/20/24 Unknown History extended release ondansetron 8 mg disintegrating 8 mg PO Q8H PRN nausea and 01/20/24 Unknown Rx tablet vomiting #20 tabs promethazine 25 mg tablet 25 mg PO Q6H PRN PRN Nausea #16 01/20/24 Unknown Rx TABLETS semaglutide (weight loss) 0.25 0.25 mg subcut QWEEK 01/20/24 Unknown History mg/0.5 mL subcutaneous pen injector sertraline 100 mg tablet 100 mg PO DAILY 01/20/24 Unknown History Allergy/AdvReac Type Severity Reaction Status Date / Time No Known Allergies Allergy Verified 01/20/24 09:14 Family History Other Alcoholism Cancer Surgical History H/O section History of partial hysterectomy Social History Smoking Status: Never smoker alcohol intake: former year quit: 2020 details: quit 04-07-2021 substance use type: does not use ROS ROS ED Constitutional Constitutional ED: Denies chills or fever(s) Eyes Eyes: Denies change in vision or diplopia ENT ENT ED: Denies rhinorrhea or sore throat Cardiovascular Cardiovascular: Denies chest pain or palpitations Respiratory/Chest Respiratory/Chest: Denies cough or dyspnea Gastrointestinal Gastrointestinal: Reports abdominal pain, nausea and vomiting; Denies diarrhea Genitourinary Genitourinary ED: Denies dysuria or hematuria Musculoskeletal Musculoskeletal: Denies back pain or neck pain Integumentary Denies abscess or rash Neurologic Neurologic: Denies headache(s), paresthesias or weakness Psychiatric Psychiatric: Denies anxiety or suicidal thoughts EXAM Physical Exam Const Vital Signs: 01/20/24 09:14 Temperature 97.8 F Temperature Source Temporal Pulse Rate 113 H Respiratory Rate 18 Blood Pressure 137/99 H Blood Pressure Mean 111 Pulse Ox 98 Oxygen Delivery Method Room Air Positive well nourished and well developed General Appearance ED: well developed and NAD HEENT Reports moist mucous membranes normocephalic and atraumatic Eyes PERRL and EOMs intact bilaterally Neck full ROM and supple Resp normal respiratory effort and clear to auscultation bilaterally Cardio regular rate, regular rhythm and no murmurs GI non-distended GI Narrative: Mild epigastric tenderness. No guarding or rebound. Benign abdomen. Auscultation: normoactive bowel sounds Palpation: soft Back/Spine no CVA tenderness General Back: other FROM Extremity normal to inspection General Extremety ED: Negative for edema, pulses abnormal or tenderness General Extremity: Negative for edema or pulses abnormal Neuro oriented x3, CN's II-XII intact bilaterally and no sensory deficits noted Sensorium / Orientation: awake and alert Motor Exam: strength 5/5 throughout Psych Mood & Affect: anxious Skin no rashes or lesions noted and no wounds MDM MDM MDM Narrative Medical decision making narrative: Mildly tachycardic in triage but not on exam, benign exam and vital signs otherwise. I will check a blood sugar but otherwise give her some fluids and nausea medicine to try to get her feeling better with a prescription for antinausea medication for at home. According to outpatient documentation I am seeing, it was a 2 mg per 3 mL Ozempic pen, so they could not have given her more than 2 mg which is within the therapeutic range. Initially Zofran did not help a lot so she was then given Reglan, it helped more she is asking for prescriptions for both of them. Also getting a GI cocktail for the burning in her stomach. Lab Data Attestation: I reviewed the patient's lab results. Labs: Laboratory Results - last 24 hr 01/20/24 12:03 POC Glucose 82 Discharge Plan Triage Chief Complaint: Nausea/Vomiting ED Provider: Pavel Newsome Dx/Rx/DC Orders Clinical Impression: Medication side effect Instructions: ED Vomiting (Adult) Prescriptions: New ondansetron 8 mg tablet,disintegrating 8 mg PO Q8H PRN (Reason: nausea and vomiting) Qty: 20 0RF promethazine 25 mg tablet 25 mg PO Q6H PRN PRN (Reason: Nausea) Qty: 16 0RF No Action naltrexone 50 mg tablet 50 mg PO Q24H Patient Comments: take 1 tablet by mouth once daily carbamazepine [Tegretol] 200 mg tablet 200 mg PO DAILY ondansetron 4 mg tablet,disintegrating 4 mg PO Q6H PRN (Reason: nausea and vomiting) Qty: 10 0RF Patient Comments: no longer takes gabapentin 300 mg capsule 300 mg PO DAILY olanzapine 2.5 mg tablet 5 mg PO QHS PRN (Reason: anxiety) Patient Comments: TAKE 1/2 (ONE-HALF) TO 1 (ONE) TABLET BY MOUTH TWICE DAILY NEEDED FOR ANXIETY bupropion HCl 150 mg tablet extended release 24 hr 150 mg PO DAILY semaglutide (weight loss) 0.25 mg/0.5 mL pen injector 0.25 mg subcut QWEEK Patient Comments: 0.25MG X4W THEN 0.5MG X4W, THEN UD sertraline 100 mg tablet 100 mg PO DAILY cholecalciferol (vitamin D3) 25 mcg (1,000 unit) capsule 25 mcg PO DAILY Primary Care Provider: Mickie Prado Referrals: Mickie Prado MD [Primary Care Provider] - 3-5 Days if not improving Print Language: Djiboutian Disposition Disposition: Home, Self Care
[2024-01-20] MEDS: 0.9% Normal Saline (1000mL) 1,000 ML 999 ML IV (10:11)
[2024-01-20] MEDS: Ondansetron 4 MG/2 ML Vial IV (10:11)
[2024-01-20 11:14] VITALS: BP 132/84
[2024-01-20 12:23] LABS: Bedside Glucose 82 mg/dL (74-106)
[2024-01-20] MEDS: Mag Hydrox/Al Hydrox/Simeth 30 ML UDC PO (12:44)
[2024-01-20] MEDS: Metoclopramide 10 MG/2 ML Vial 5 MG IV (12:44)
[2024-01-20 12:50] VITALS: BP 137/73; PULSE 88; RESP 16; TEMP 36.8; O2SAT 98
== END 2024-01-20 12:57 | disposition home or self-care (01) ==
PROVIDERS: Emergency Provider Emergency Medicine; PCP Internal Medicine; Visit Provider Emergency Medicine
DX: T50.995A Adverse effect of other drugs, medicaments and biological substances, initial encounter (principal); R11.2 Nausea with vomiting, unspecified
CPT/HCPCS: 82962; 96361; 96374; 96375; 99283; J7030; A4216; J2405

== ENCOUNTER 2024-11-22 11:29 | Emergency (ER) | payer OTHER, SELFPAY ==
[2024-11-22 11:29] VITALS: BP 141/82; PULSE 89; RESP 14; TEMP 36.9; O2SAT 99; BMI 35.4
--- NOTE | 2024-11-22 11:44 | EX.ED.DYSGE1 ---
HPI <NATHAN Delgado - Last Filed: 11/22/24 13:19> History of Present Illness Chief Complaint: Nosebleed Narrative Narrative: 59-year-old female developed a left-sided nosebleed about an hour ago. She has had a cold for the last week and has been blowing her nose frequently. 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 She is not on blood thinners. She states she had a nosebleed last year and was seen in the ENT office by Dr. Parikh and had cauterization. PFS <NATHAN Delgado - Last Filed: 11/22/24 13:19> [facility] Medical History MVP (mitral valve prolapse) Alcohol abuse Anxiety HTN (hypertension) Home Medications ?Medication ?Instructions ?Recorded ?Last Taken ?Type naltrexone 50 mg tablet 50 mg PO Q24H 08/12/21 Unknown History ondansetron 4 mg disintegrating 4 mg PO Q6H PRN nausea and 09/08/22 Unknown Rx tablet vomiting #10 tabs carbamazepine 200 mg tablet 200 mg PO DAILY 09/28/22 Unknown History (Tegretol) cholecalciferol (vitamin D3) 25 25 mcg PO DAILY 10/25/22 Unknown History mcg (1,000 unit) capsule gabapentin 300 mg capsule 300 mg PO DAILY anxiety 10/10/23 Unknown History olanzapine 2.5 mg tablet 5 mg PO QHS PRN anxiety 10/10/23 Unknown History bupropion HCl 150 mg 24 hr tablet, 150 mg PO DAILY 01/20/24 Unknown History extended release ondansetron 8 mg disintegrating 8 mg PO Q8H PRN nausea and 01/20/24 Unknown Rx tablet vomiting #20 tabs promethazine 25 mg tablet 25 mg PO Q6H PRN PRN Nausea #16 01/20/24 Unknown Rx TABLETS semaglutide (weight loss) 0.25 0.25 mg subcut QWEEK 01/20/24 Unknown History mg/0.5 mL subcutaneous pen injector sertraline 100 mg tablet 100 mg PO DAILY 01/20/24 Unknown History Allergy/AdvReac Type Severity Reaction Status Date / Time No Known Allergies Allergy Verified 11/22/24 11:29 Family History Other Alcoholism Cancer Surgical History H/O section History of partial hysterectomy Social History (Updated 11/22/24 @ 11:45 by Viviana Trinidad) household members: spouse housing: house Smoking Status: Never smoker alcohol intake: former year quit: 2020 details: quit 04-07-2021 substance use type: does not use ROS <NATHAN Delgado - Last Filed: 11/22/24 13:19> ROS ED ROS Narrative Constitutional: Negative for fever, chills, malaise. Respiratory: Negative for shortness of breath. Neuro: Negative for headache. EXAM <NATHAN Delgado - Last Filed: 11/22/24 13:19> Physical Exam Narrative Exam Narrative: CONST: Patient sitting in no acute distress. EYES: Normal inspection. ENT: Blood in left nostril without acute bleeding. Normal posterior oropharynx. After cottonball was removed on reexamination there is a small stream of blood from an anterior vessel along the upper septum. NECK: Normal inspection. RESP: No respiratory distress, CTAB. CVS: Regular rate and rhythm, no murmur, no gallop. SKIN: Color normal, no rash, warm, dry, intact. EXTREMITIES: Normal appearance, no pedal edema. NEURO: Alert and answering questions appropriately. PSYCH: Normal affect. Const Vital Signs: 11/22/24 11:29 11/22/24 13:17 Temperature 98.4 F 98 F Temperature Source Oral Pulse Rate 89 89 Respiratory Rate 14 16 Blood Pressure 141/82 H 138/98 H Blood Pressure Mean 101 111 Pulse Ox 99 99 Oxygen Delivery Method Room Air <Dr. Pavel Newsome MD - Last Filed: 11/22/24 14:31> Physical Exam Const Vital Signs: 11/22/24 11:29 11/22/24 13:17 Temperature 98.4 F 98 F Temperature Source Oral Pulse Rate 89 89 Respiratory Rate 14 16 Blood Pressure 141/82 H 138/98 H Blood Pressure Mean 101 111 Pulse Ox 99 99 Oxygen Delivery Method Room Air MDM <NATHAN Delgado - Last Filed: 11/22/24 13:19> MDM MDM Narrative Medical decision making narrative: 59-year-old female has an acute left-sided nosebleed. She has had upper respiratory symptoms this week, blowing her nose frequently. She is not on blood thinners. She appears well and nontoxic. Vital signs stable. She was asked to blow her nose and in her left nare was packed with a cottonball soaked in lidocaine 4% and Afrin. On reexamination there is a tiny stream of blood from an anterior vessel along the upper septum which was cauterized with silver nitrate. Patient tolerated procedure well without complications. She will follow-up with ENT as needed and was discharged in stable condition. <Dr. Pavel Newsome MD - Last Filed: 11/22/24 14:31> MDM Treatment and Re-Evaluation Comments:: I have personally performed a face to face assessment of the patient and have reviewed the BRIANNE Note. I performed a substantive portion of the visit including all aspects of the following. My de santiago findings include: History is has been blowing nose a lot, sudden nosebleed started about an hour or 2 prior to arrival. Better with holding pressure. Left side, swallowing a little bit of blood, no symptoms of anemia. Exam is no active bleeding but blood and clots present within the left naris, limiting further exam. No active bleeding in the posterior oropharynx, no right-sided blood. Well-appearing otherwise. No excessively elevated BP. Medical Decision Making: patient was able to blow some blood in the large clot out of her left naris, and then was able to move air freely through that side. There was no significant active bleeding, but we placed a 3 cc aerosolized mix of oxymetazoline and lidocaine liquid into the left side, followed by a pledget into the left nostril soaked in same. Tolerated well no active bleeding. I then assisted PA and performing silver nitrate cauterization of 2 separate areas that were suspicious for bleeding, there was no active bleeding before or after this and patient tolerated well. Stable for discharge we discussed reasons to return and follow-up. Other additions or changes: [None] Procedures <Dr. Pavel Newsome MD - Last Filed: 11/22/24 14:31> Other Procedures Procedure(s): Epistaxis care: See above for details Discharge Plan Triage Chief Complaint: Nosebleed ED Midlevel Provider: Genoveva Parker ED Provider: Pavel Newsome Dx/Rx/DC Orders Clinical Impression: Acute anterior epistaxis Instructions: ED Epistaxis (Adult) Prescriptions: No Action naltrexone 50 mg tablet 50 mg PO Q24H Patient Comments: take 1 tablet by mouth once daily carbamazepine [Tegretol] 200 mg tablet 200 mg PO DAILY ondansetron 4 mg tablet,disintegrating 4 mg PO Q6H PRN (Reason: nausea and vomiting) Qty: 10 0RF Patient Comments: no longer takes gabapentin 300 mg capsule 300 mg PO DAILY olanzapine 2.5 mg tablet 5 mg PO QHS PRN (Reason: anxiety) Patient Comments: TAKE 1/2 (ONE-HALF) TO 1 (ONE) TABLET BY MOUTH TWICE DAILY NEEDED FOR ANXIETY bupropion HCl 150 mg tablet extended release 24 hr 150 mg PO DAILY semaglutide (weight loss) 0.25 mg/0.5 mL pen injector 0.25 mg subcut QWEEK Patient Comments: 0.25MG X4W THEN 0.5MG X4W, THEN UD sertraline 100 mg tablet 100 mg PO DAILY ondansetron 8 mg tablet,disintegrating 8 mg PO Q8H PRN (Reason: nausea and vomiting) Qty: 20 0RF promethazine 25 mg tablet 25 mg PO Q6H PRN PRN (Reason: Nausea) Qty: 16 0RF cholecalciferol (vitamin D3) 25 mcg (1,000 unit) capsule 25 mcg PO DAILY Primary Care Provider: Mickie Prado Referrals: Nirav Rodriguez MD [Med Staff - Courtesy Staff] - Mickie Prado MD [Primary Care Provider] - Activity Restrictions/Additional Instructions: Your blood vessels were cauterized with silver nitrate. Avoid blowing your nose or putting any sprays into the nose. If bleeding occurs hold direct pressure with your fingers or a clip. Follow up with ENT as needed. Print Language: Nauruan Disposition Disposition: Home, Self Care Discharge Date/Time: 11/22/24 13:26
[2024-11-22] MEDS: Oxymetazoline 0.05% 1 SPRAY SPRAY.BTL 2 SPRAY NASAL (11:51)
[2024-11-22] MEDS: Lidocaine 4% 50 ML Bottle TOPICAL (11:53)
[2024-11-22] MEDS: Silver Nitrate (BKC) 1 EACH TOPICAL (13:10)
[2024-11-22 13:17] VITALS: BP 138/98; PULSE 89; RESP 16; TEMP 36.6; O2SAT 99
== END 2024-11-22 13:26 | disposition home or self-care (01) ==
PROVIDERS: Emergency Provider Emergency Medicine; PCP Internal Medicine; Visit Provider Emergency Medicine
DX: R04.0 Epistaxis (principal)
CPT/HCPCS: 30901; 99282

== ENCOUNTER 2024-11-22 19:34 | Emergency (ER) | payer OTHER, SELFPAY ==
[2024-11-22 19:34] VITALS: BP 187/95; PULSE 97; RESP 16; TEMP 36.3; O2SAT 98; BMI 32.5
--- NOTE | 2024-11-22 19:48 | EX.ED.DYSGE1 ---
HPI History of Present Illness Chief Complaint: Nosebleed Informant: patient Narrative Narrative: Patient seen here earlier for epistaxis, she was sitting in her recliner and restarted from the same side, the left side and she came right back. She states it is not bleeding anymore right now. She tried instilling Afrin nasal spray into her nose which we gave her with instructions before coming. PFSH PFSH Medical History MVP (mitral valve prolapse) Alcohol abuse Anxiety HTN (hypertension) Home Medications ?Medication ?Instructions ?Recorded ?Last Taken ?Type naltrexone 50 mg tablet 50 mg PO Q24H 08/12/21 Unknown History ondansetron 4 mg disintegrating 4 mg PO Q6H PRN nausea and 09/08/22 Unknown Rx tablet vomiting #10 tabs carbamazepine 200 mg tablet 200 mg PO DAILY 09/28/22 Unknown History (Tegretol) cholecalciferol (vitamin D3) 25 25 mcg PO DAILY 10/25/22 Unknown History mcg (1,000 unit) capsule gabapentin 300 mg capsule 300 mg PO DAILY anxiety 10/10/23 Unknown History olanzapine 2.5 mg tablet 5 mg PO QHS PRN anxiety 10/10/23 Unknown History bupropion HCl 150 mg 24 hr tablet, 150 mg PO DAILY 01/20/24 Unknown History extended release ondansetron 8 mg disintegrating 8 mg PO Q8H PRN nausea and 01/20/24 Unknown Rx tablet vomiting #20 tabs promethazine 25 mg tablet 25 mg PO Q6H PRN PRN Nausea #16 01/20/24 Unknown Rx TABLETS semaglutide (weight loss) 0.25 0.25 mg subcut QWEEK 01/20/24 Unknown History mg/0.5 mL subcutaneous pen injector sertraline 100 mg tablet 100 mg PO DAILY 01/20/24 Unknown History Allergy/AdvReac Type Severity Reaction Status Date / Time No Known Allergies Allergy Verified 11/22/24 11:29 Family History Other Alcoholism Cancer Surgical History H/O section History of partial hysterectomy Social History (Updated 11/22/24 @ 11:45 by Viviana Trinidad) household members: spouse housing: house Smoking Status: Never smoker alcohol intake: former year quit: 2020 details: quit 04-07-2021 substance use type: does not use ROS ROS ED Constitutional Constitutional ED: Denies chills or fever(s) ENT ENT ED: Reports epistaxis; Denies facial pain or sinus pain Cardiovascular Cardiovascular: Denies leg edema, lightheadedness or syncope Respiratory/Chest Respiratory/Chest: Denies dyspnea Gastrointestinal Gastrointestinal: Denies nausea or vomiting Neurologic Neurologic: Denies headache(s), paresthesias or weakness EXAM Physical Exam Const Vital Signs: 11/22/24 19:34 Temperature 97.3 F L Temperature Source Temporal Pulse Rate 97 Respiratory Rate 16 Blood Pressure 187/95 H Blood Pressure Mean 125 Pulse Ox 98 Oxygen Delivery Method Room Air Positive well nourished and well developed General Appearance ED: well developed HEENT HEENT Narrative: Left naris: 2 areas that were superficially cauterized earlier, the more anterior one at the septum on the left has a small amount of blood around it with a little stream caudally, suspicious for the source. No active bleeding from anywhere else. Eyes PERRL and EOMs intact bilaterally Resp normal respiratory effort Extremity normal to inspection Neuro oriented x3, CN's II-XII intact bilaterally, no sensory deficits noted and gait normal Motor Exam: strength 5/5 throughout Psych mental status grossly normal Skin no rashes or lesions noted MDM MDM MDM Narrative Medical decision making narrative: Patient was amenable to getting a packing. I recommend an anterior Merisel, this was done see the procedure note patient tolerated well and was observed for a while. She had no recurrent bleeding at all. Procedures Other Procedures Procedure(s): Epistaxis care: After informed consent from the patient verbally, placed a sterile short Merisel packing in the left side lubricated with antibiotic gel, inflated gently with sterile saline, tolerated well no complications no bleeding good hemostasis. Discharge Plan Triage Chief Complaint: Nosebleed ED Provider: Pavel Newsome Dx/Rx/DC Orders Clinical Impression: Acute anterior epistaxis Instructions: ED Epistaxis (Adult) Prescriptions: No Action naltrexone 50 mg tablet 50 mg PO Q24H Patient Comments: take 1 tablet by mouth once daily carbamazepine [Tegretol] 200 mg tablet 200 mg PO DAILY ondansetron 4 mg tablet,disintegrating 4 mg PO Q6H PRN (Reason: nausea and vomiting) Qty: 10 0RF Patient Comments: no longer takes gabapentin 300 mg capsule 300 mg PO DAILY olanzapine 2.5 mg tablet 5 mg PO QHS PRN (Reason: anxiety) Patient Comments: TAKE 1/2 (ONE-HALF) TO 1 (ONE) TABLET BY MOUTH TWICE DAILY NEEDED FOR ANXIETY bupropion HCl 150 mg tablet extended release 24 hr 150 mg PO DAILY semaglutide (weight loss) 0.25 mg/0.5 mL pen injector 0.25 mg subcut QWEEK Patient Comments: 0.25MG X4W THEN 0.5MG X4W, THEN UD sertraline 100 mg tablet 100 mg PO DAILY ondansetron 8 mg tablet,disintegrating 8 mg PO Q8H PRN (Reason: nausea and vomiting) Qty: 20 0RF promethazine 25 mg tablet 25 mg PO Q6H PRN PRN (Reason: Nausea) Qty: 16 0RF cholecalciferol (vitamin D3) 25 mcg (1,000 unit) capsule 25 mcg PO DAILY Primary Care Provider: Mickie Prado Referrals: Jaron Rodriguez MD [Med Staff - Active Staff] - 2 Days (call for appt time) Print Language: Uzbek Disposition Disposition: Home, Self Care
[2024-11-22 20:46] VITALS: BP 138/96
== END 2024-11-22 20:47 | disposition home or self-care (01) ==
PROVIDERS: Emergency Provider Emergency Medicine; PCP Internal Medicine; Visit Provider Emergency Medicine
DX: R04.0 Epistaxis (principal)
CPT/HCPCS: 30901; 99282

== ENCOUNTER → 2025-03-27 | Outpatient (CLI) | payer OTHER, SELFPAY ==
--- OUTSIDE RECORDS SUMMARY | 2025-03-27 07:16 | XMS RPT_ITS | CCD ---
Author Organization [facility] Care Team Providers Care Dietitian Teacher Name Role Phone Citlali Murguia Primary Care Provider Unavail able Dr. Mickie Prado Primary Care Provider Dr. Mickie Prado Attending Provider Dr. Mickie Prado Primary Care Provider Dr. Erwin Richardson Emergency Provider Dr. Jaime Peters Admit Provider Dr. Jaime Peters Other Provider Dr. Billy Yang Attending Provider [phone] Iza Dior Attending Provider Dr. Iza Dior Other Provider Dr. Billy Yang Other Provider Dr. Mickie Prado Primary Care Provider Dr. Mickie Prado Attending Provider [phone] Mickie Prado MD Primary Care Provider [phone] Dr. Pavel Newsome MD Emergency Provider Dr. Pavel Newsome MD Attending Provider Dr. Mickie Prado MD Attending Provider Mickie Prado Primary Care Unavailable Mickie Prado Attending Unavailable Karl Cosby Attending Unavailable Mickie Prado Primary Care Unavailable Mickie Prado Referring Unavailable Mickie Prado Primary Care Unavailable Pavel Newsome Attending Unavailable Mickie Prado Primary Care Unavailable Pavel Newsome Attending Unavailable Mickie Prado Attending Unavailable Mickie Prado Referring Unavailable Mickie Prado Primary Care Unavailable Mickie Prado Primary Care Unavailable Karl Cosby Attending Unavailable Mickie Prado Referring Unavailable Mickie Prado Primary Care Unavailable Cesario Bragg NP Attending Unavailable Mickie Prado Referring Unavailable Medications Current Medications Medication Drug Class(es) Dates Sig (Normalized) Sig (Original) Blood Pressure Test Kit-Large ([facility] Blood Pressure Monitr) kit (2 sources) Start: 06-26-2022 Blood Pressure Test Kit-Large ([employer] Blood Pressure Monitr) kit Active 0 .Route 1 June 25, 2022 11:00pm As directed 24 hr buPROPion hydrochloride 150 mg extended release oral tablet (20 sources) Aminoketone Start: 01-20-2024 take 1 tablet by mouth once daily Bupropion Hcl 150 mg tablet extended release 24 hr Active 150 mg PO DAILY January 20, 2024 12:00am Start: 09-28-2022 End: 01-20-2024 take 1 tablet by mouth once daily Bupropion Hcl (Wellbutrin Sr) 150 mg tablet sustained-release 12 hr Discontinued 150 mg PO DAILY September 28, 2022 10:35am January 20, 2024 9:17am Start: 03-22-2021 End: 09-28-2022 take 1 tablet by mouth twice daily Bupropion Hcl (Wellbutrin Sr) 150 mg tablet sustained-release 12 hr Discontinued 150 mg PO TWICE A DAY 60 0 April 28, 2021 2:04pm September 28, 2022 10:36am carBAMazepine 200 mg oral tablet (18 sources) Mood Stabilizer Start: 09-28-2022 take 1 tablet by mouth once daily Carbamazepine (Tegretol) 200 mg tablet Active 200 mg PO DAILY September 28, 2022 10:35am Start: 08-12-2021 End: 09-28-2022 take 1 tablet by mouth twice daily Carbamazepine (Tegretol) 200 mg tablet Discontinued 200 mg PO TWICE A DAY August 12, 2021 1:00am September 28, 2022 10:36am cholecalciferol 0.025 mg oral capsule (8 sources) Vitamin D Start: 10-25-2022 take 1 capsule by mouth once daily Cholecalciferol (Vitamin D3) 25 mcg (1,000 unit) capsule Active 25 ug PO DAILY October 25, 2022 1:00am gabapentin 300 mg oral capsule (12 sources) Anti-epilepti c Agent Start: 10-10-2023 take 1 capsule by mouth once daily Gabapentin 300 mg capsule Active 300 mg PO DAILY October 10, 2023 11:30am anxiety Start: 03-18-2023 End: 10-10-2023 take 1 capsule by mouth twice daily Gabapentin 300 mg capsule Discontinued 300 mg PO TWICE A DAY March 18, 2023 12:00am October 10, 2023 11:32am anxiety Start: 03-18-2023 Gabapentin Act emerita MG March 18, 2023 12:00am naltrexone hydrochloride 50 mg oral tablet (10 sources) Opioid Antagonist Start: 08-12-2021 take 1 tablet by mouth every twenty-four hours Naltrexone 50 mg tablet Active 50 mg PO Q24H August 12, 2021 1:00am OLANZapine 2.5 mg oral tablet (12 sources) Atypical Antipsychotic Start: 03-18-2023 End: 10-10-2023 take 2 tablets by mouth at bedtime as needed for anxiety Olanzapine 2.5 mg tablet Active 5 mg PO AT BEDTIME as needed for anxiety October 10, 2023 11:31am Start: 03-18-2023 End: 10-10-2023 take 5 mg by mouth at bedtime Olanzapine Active 5 MG P O AT BEDTIME October 10, 2023 10:31am Start: 03-18-2023 Olanzapine Act emerita MG March 18, 2023 12:00am ondansetron 8 mg disintegrating oral tablet (12 sources) Serotonin-3 Receptor Antagonist Start: 01-20-2024 take 1 tablet by mouth every eight hours as needed for nausea and vomiting Ondansetron 8 mg tablet,disintegrating Active 8 mg PO Q8H as needed for nausea and vomiting January 20, 2024 12:00am Start: 09-08-2022 take 1 tablet by jim th every six hours as needed for nausea and vomiting Ondansetron 4 mg tablet,disintegrating Active 4 mg PO EVERY 6 HOURS as needed for nausea and vomiting September 08, 2022 1:00am promethazine hydrochloride 25 mg oral tablet (3 sources) Phenothiazine Start: 01-20-2024 take 1 tablet by mouth every six hours as needed for nausea Promethazine 25 mg tablet Active 25 mg PO EVERY 6 HOURS NEEDED as needed for Nausea 16 0 January 20, 2024 12:00am sertraline 100 mg oral tablet (3 sources) Serotonin Reuptake Inhibitor Start: 01-20-2024 take 1 tablet by mouth once daily Sertraline 100 mg tablet Active 100 mg PO DAILY January 20, 2024 12:00am Completed/Discontinued Medications Medication Drug Class(es) Dates Sig (Normalized) Sig (Original) amoxicillin 500 mg oral capsule (10 sources) Penicillin-class Antibacterial Start: 10-29-2018 End: 11-08-2018 take 1 capsule by mouth twice daily Amoxicillin 500 mg capsule Discontinued 500 mg PO TWICE A DAY 20 10 October 29, 2018 1:00am November 07, 2018 1:00am November 08, 2018 1:09am Acute pharyngitis, unspecified amoxicillin 875 mg / clavulanate 125 mg oral tablet (10 sources) Penicillin-class Antibacterial Start: 08-12-2021 End: 08-22-2021 Amoxicillin-Pot Clavulanate (Augmentin) 875-125 mg tablet Discontinued 1 {tbl} PO Q12H 20 10 August 12, 2021 1:00am August 21, 2021 1:00am August 22, 2021 1:01am Acute sinusitis, unspecified busPIRone hydrochloride 7.5 mg oral tablet (20 sources) Start: 06-02-2021 End: 08-12-2021 take 1 tablet by mouth twice daily Buspirone 7.5 mg tablet Discontinued 7.5 mg PO TWICE A DAY 60 3 June 08, 2021 2:50pm August 12, 2021 1:01pm cephalexin 500 mg oral capsule (9 sources) Cephalosporin Antibacterial Start: 06-27-2022 End: 09-28-2022 take 1 capsule by mouth every twelve hours Cephalexin 500 mg capsule Discontinued 500 mg PO EVERY 12 HOURS 10 June 27, 2022 12:00am September 28, 2022 10:35am citalopram 20 mg oral tablet (2 sources) Serotonin Reuptake Inhibitor Start: 05-25-2010 citalopram hydrobromide(CELEX A 20 MG TAB) Takes one tab daily. 0 0 05/25/2010 Active Start: 05-25-2010 citalopram hyd robromide(CELEXA 40 MG TAB) takes one tab daily. 0 0 05/25/2010 Active Comment on above: Takes one tab daily. 0.4 ml enoxaparin sodium 100 mg/ml prefilled syringe (6 sources) Low Molecular Weight Heparin Start: 03-22-20 End: 10-10-19 Enoxaparin (Lovenox) 40 mg/0.4 mL syringe Discontinued 40 mg SC DAILY 8 March 22, 2023 12:00am October 10, 2023 11:30am escitalopram 10 mg oral tablet (10 sources) Serotonin Reuptake Inhibitor Start: 04-28-20 End: 09-28-19 take 1 tablet by mouth once daily Escitalopram Oxalate 10 mg tablet Discontinued 10 mg PO DAILY 30 April 28, 2021 12:00am September 28, 2022 10:36am lisinopril 10 mg oral tablet (9 sources) Angiotensin Converting Enzyme Inhibitor Start: 06-26-20 End: 09-28-19 take 1 tablet by mouth once daily Lisinopril 10 mg tablet Discontinued 10 mg PO DAILY 30 June 26, 2022 12:00am September 28, 2022 10:36am hypertension LORazepam 0.5 mg oral tablet (20 sources) Benzodiazepine Start: 06-02-20 End: 06-08-20 take 0.25 mg by mouth once daily Lorazepam 0.5 mg Tablet Discontinued 0.25 mg PO DAILY 3 5 June 02, 2021 12:00am June 08, 2021 1:35pm Start: 06-02-2021 End: 06-08-2021 take 0.25 mg by mouth once daily Lorazepam Discontinued 0.25 MG PO DAILY 3 June 01, 2021 11:00pm June 08, 2021 12:35pm Start: 05-30-2021 End: 06-02-2021 take 0.5 mg by mouth once daily Lorazepam 1 mg tablet Discontinued 0.5 mg PO DAILY May 30, 2021 10:41am June 02, 2021 10:01am Start: 05-30-2021 End: 06-02-2021 take 0.5 mg by mouth once daily Lorazepam Discontinued 0.5 MG PO DAILY May 30, 2021 9:41am June 02, 2021 9:01am Start: 05-11-2021 End: 05-30-2021 take 0.5 mg by mouth twice daily as needed for anxiety Lorazepam 1 mg tablet Discontinued 0.5 mg PO TWICE DAILY NEEDED as needed for Anxiety 14 0 May 11, 2021 1:20pm May 30, 2021 10:41am Start: 05-11-2021 End: 05-30-2021 take 0.5 mg by mouth twice daily as needed Lorazepam Discontinued 0.5 MG PO TWICE DAILY NEEDED 14 May 11, 2021 12:20pm May 30, 2021 9:41am Start: 03-19-2021 End: 05-11-2021 take 1 tablet by mouth twice daily as needed for anxiety Lorazepam 1 mg tablet Discontinued 1 mg PO TWICE DAILY NEEDED as needed for Anxiety March 19, 2021 12:00am May 11, 2021 1:21pm omeprazole 40 mg delayed release oral capsule (16 sources) Proton Pump Inhibitor Start: 03-18-2023 End: 10-10-2023 Omeprazole 40 mg capsule,delayed release(DR/EC) Discontinued mg March 18, 2023 12:00am October 10, 2023 11:31am gerd Start: 03-18-2023 End: 10-10-2023 Omeprazole Discontinued MG J henry 2022 11:00pm October 10, 2023 10:31am Start: 09-08-2022 End: 09-28-2022 take 1 capsule by mouth once daily Omeprazole 40 mg capsule,delayed release(DR/EC) Discontinued 40 mg PO DAILY 30 0 September 08, 2022 1:00am September 28, 2022 10:36am oxyCODONE hydrochloride 5 mg oral capsule (6 sources) Opioid Agonist Start: 03-22-2023 End: 10-10-2023 take 1 capsule by mouth every four hours as needed for pain Oxycodone 5 mg capsule Discontinued 5 mg PO Q4H as needed for pain 42 7 0 March 22, 2023 October 10, 2023 11:32am Other acute postprocedural pain Closed trimalleolar fracture of left ankle Other acute postprocedural pain PARoxetine hydrochloride 20 mg oral tablet (10 sources) Serotonin Reuptake Inhibitor Start: 04-11-2021 End: 04-28-2021 take 1 tablet by mouth once daily Paroxetine Hcl 20 mg Tablet Discontinued 20 mg PO DAILY April 11, 2021 12:00am April 28, 2021 2:04pm Semaglutide (6 sources) Start: 01-14-2024 End: 01-20-2024 Semaglutide (Ozempic) 0.25 mg or 0.5 mg (2 mg/3 mL) pen injector Discontinued 0.25 mg SC EVERY WEEK 3 1 January 14, 2024 2:42pm January 20, 2024 9:17am for 4 weeks Start: 01-14-2024 End: 01-20-2024 Semaglutide (Ozempic) 0.25 m g or 0.5 mg (2 mg/3 mL) pen injector Discontinued 0.25 mg SC EVERY WEEK 3 January 14, 2024 2:42pm January 20, 2024 9:17am for 4 weeks Start: 12-31-2023 End: 01-14-2024 Semaglutide (Ozempic) 0.25 m g or 0.5 mg (2 mg/3 mL) pen injector Discontinued 0.25 mg SC EVERY WEEK 3 December 31, 2023 12:00am January 14, 2024 2:43pm for 4 weeks Start: 12-31-2023 End: 01-14-2024 Semaglutide (Ozempic) 0.25 m g or 0.5 mg (2 mg/3 mL) pen injector Discontinued 0.25 mg SC EVERY WEEK 3 December 31, 2023 12:00am January 14, 2024 2:43pm for 4 weeks Semaglutide (Weight Loss) (3 sources) Start: 01-20-2024 End: 03-18-2025 Semaglutide (Weight Loss) 0. 25 mg/0.5 mL pen injector Discontinued 0.25 mg SC EVERY WEEK January 20, 2024 12:00am March 18, 2025 3:34pm Start: 01-20-2024 Semaglutide (W eight Loss) 0.25 mg/0.5 mL pen injector Active 0.25 mg SC EVERY WEEK January 20, 2024 12:00am sucralfate 1000 mg oral tablet (10 sources) Aluminum Complex Start: 03-19-2021 End: 03-22-2021 take 1 tablet by mouth four times daily as needed Sucralfate 1 gram tablet Discontinued 1 g PO 4 TIMES DAILY NEEDED as needed for Stomach Upset March 19, 2021 12:00am March 22, 2021 1:35pm traZODone hydrochloride 50 mg oral tablet (20 sources) Serotonin Reuptake Inhibitor Start: 04-28-2021 End: 08-12-2021 take 1 tablet by mouth at bedtime as needed for sleep Trazodone 50 mg tablet Discontinued 50 mg PO AT BEDTIME as needed for sleep 30 June 08, 2021 2:51pm August 12, 2021 1:01pm Problems Active Problems Problem Classification Problem Date Documented Date Episodic/Chronic Abdominal pain (18 sources) Abdominal pain; Translations: [Unspecified abdominal pain] 09-28-2022 Episodic Alcohol-related disorders (20 sources) Alcohol abuse; Translations: [Alcohol abuse, uncomplicated] 04-11-2021 Chronic Anxiety disorders (11 sources) Chronic anxiety; Translations: [Anxiety disorder, unspecified] 06-08-2021 Chronic Complications of surgical procedures or medical care (3 sources) Drug therapy finding; Translations: [Unspecified adverse effect of drug or medicament, initial encounter] 01-28-2024 Episodic Essential hypertension (13 sources) Hypertensive disorder; Translations: [Essential (primary) hypertension] Onset: 03-18-2025 06-26-2022 Chronic Fracture of lower limb (11 sources) Closed bimalleolar fracture; Translations: [Displaced bimalleolar fracture of unspecified lower leg, initial encounter for closed fracture] 03-18-2023 Episodic Gastritis and duodenitis (9 sources) Gastritis; Translations: [Gastritis, unspecified, without bleeding] 09-16-2022 Episodic Malaise and fatigue (10 sources) Fatigue; Translations: [Other fatigue] 06-26-2022 Episodic Nonspecific chest pain (10 sources) Chest pain; Translations: [Chest pain, unspecified] 04-28-2020 Episodic Nutritional deficiencies (8 sources) Vitamin D deficiency; Translations: [Vitamin D deficiency, unspecified] Onset: 03-18-2025 10-10-2023 Chronic Other circulatory disease (9 sources) Elevated blood pressure; Translations: [Elevated blood-pressure reading, without diagnosis of hypertension] 07-10-2022 Episodic Other circulatory disease (1 source) Elevated blood-pressure reading, without diagnosis of hypertension; Translations: [Elevated blood-pressure reading, without diagnosis of hypertension] Onset: 03-18-2025 Episodic Other liver diseases (10 sources) Enzyme level - finding; Translations: [Elevated transaminase measurement] 04-22-2021 Episodic Other nervous system disorders (10 sources) Pain in limb - multiple; Translations: [Paresthesia of skin] 04-28-2020 Episodic Other nervous system disorders (6 sources) Acute postoperative pain; Translations: [Other acute postprocedural pain] 03-22-2023 Episodic Other non-traumatic joint disorders (7 sources) Acute ankle pain; Translations: [Pain in left ankle and joints of left foot] 03-18-2023 Episodic Other non-traumatic joint disorders (2 sources) Pain in left ankle and joints of left foot; Translations: [Pain in joint, ankle and foot] 03-18-2023 Episodic Other nutritional; endocrine; and metabolic disorders (7 sources) Insulin resistance; Translations: [Insulin resistance] 10-10-2023 Chronic Other nutritional; endocrine; and metabolic disorders (3 sources) Body mass index 30+ - obesity; Translations: [Obesity, unspecified] 12-31-2023 Chronic Other nutritional; endocrine; and metabolic disorders (1 source) Obesity, unspecified; Translations: [Obesity, unspecified] Onset: 03-18-2025 Chronic Other screening for suspected conditions (not mental disorders or infectious disease) (13 sources) Patient encounter status; Translations: [Encounter for screening for lipoid disorders] Onset: 03-21-2025 06-26-2022 Episodic Other upper respiratory disease (18 sources) Bleeding from nose; Translations: [Epistaxis] 06-27-2022 Episodic Other upper respiratory disease (5 sources) Anterior epistaxis; Translations: [Epistaxis] 11-22-2024 Episodic Other upper respiratory infections (20 sources) Acute sinusitis; Translations: [Acute sinusitis, unspecified] 08-12-2021 Episodic Substance-related disorders (10 sources) Benzodiazepine withdrawal; Translations: [Sedative, hypnotic or anxiolytic use, unspecified with withdrawal, unspecified] 2021 Episodic Unclassified (2 sources) call for appt time Unclassified (1 source) Insulin resistance, unspecified; Translations: [Insulin resistance, unspecified] Onset: 03-18-2025 Past or Other Problems Problem Classification Problem Date Documented Da te Episodic/Chronic Other upper respiratory disease (1 source) Epistaxis; Translations: [Epistaxis] Onset: 11-28-2024 Episodic Results Test Name Value Interpretation Reference Range Facility MR/IMBon 03-18-2025 MR/IMB [facility] [address] [place] [address] OFFICE VISIT Date of Service: 03/18/25 MR#: [id number] Acct: [id number] Name: DEEPAK TURNER Rep #: [id number] : 1965 Provider: Dr. Mickie rivera MD Age/Sex: 59/F Location: [facility] Status: Signed Intake Vital Signs 11/22/24 19:34 03/18/25 15:34 Height 5 ft 8.9 in 5 ft 8.9 in Weight: 251 lb 4 oz BMI 37.2 BP 137/83 H Blood Pressure Location Rt brachial Position Sitting Respiration 16 Pulse 79 Pulse Source Monitor Temp 98.4 F Temp Source Temporal Pulse Oximetry (%) 92 Oxygen Delivery Method room air Intake Visit Reasons: Annual/Physical Nurse Rn Bsn Required: No Accompanied by: Self Is patient in pain?: No Allergies No Known Allergies Allergy (Verified 03/18/25 15:25) Medications ???Medication ???Instructions ???Recorded ???Confirmed ???Type naltrexone 50 mg tablet 50 mg PO Q24H 08/12/21 03/18/25 Hi story ondansetron 4 mg disintegrating 4 mg PO Q6H PRN nausea and 3 03/18/25 Rx tablet vomiting #10 tabs carbamazepine 200 mg tablet 200 mg PO DAILY 09/28/22 03/18/25 History (Tegretol) cholecalciferol (vitamin D3) 25 25 mcg PO DAILY 10/25/22 03/18/25 History mcg (1,000 unit) capsule gabapentin 300 mg capsule 300 mg PO DAILY anxiety 10/10/23 0 03/18/25 History olanzapine 2.5 mg tablet 5 mg PO QHS PRN anxiety 10/10/23 0 03/18/25 History bupropion HCl 150 mg 24 hr tablet, 150 mg PO DAILY 01/20/24 5 History extended release ondansetron 8 mg disintegrating 8 mg PO Q8H PRN nausea and 4 03/18/25 Rx tablet vomiting #20 tabs promethazine 25 mg tablet 25 mg PO Q6H PRN PRN Nausea #16 03/18/25 Rx TABLETS sertraline 100 mg tablet 100 mg PO DAILY 01/20/24 03/18/25 History PFSH Medical History MVP (mitral valve prolapse) Alcohol abuse Anxiety HTN (hypertension) Surgical History History of partial hysterectomy H/O section Family History Other Alcoholism Cancer Social History household members: spouse housing: house Smoking Status: Never smoker alcohol intake: former year quit: 2020 details: quit 04-07-2021 substance use type: does not use HPI HPI Details: DEEPAK TURNER, is a 59 F who presents to the office today for annual wellness visit/follow-up. 59-year-old female who has history of insulin resistance, vitamin D deficiency, obesity. She has had mildly elevated blood pressures intermittently in the past but not formally diagnosed with hypertension and had not been on specific treatment for blood pressure. She is on Tegretol, bupropion, gabapentin, olanzapine, Zoloft as a stable medical regimen. She does need Tegretol levels checked. She was also wanting to have her blood sugar specifically as well as lipid levels evaluated. Generally speaking has been doing pretty well. Unfortunately last year, she inadvertently received a higher dose of semaglutide than she was supposed to during nurse administration/teach ing. She had several days of nausea and emesis as associated with that which then faded. She has not tried that again and really does not wish to look towards medication at this point in time from a weight loss standpoint other than what she is currently doing. She has had a couple of nosebleeds over the years, one in November of this year, that required ER visit. Came on abruptly. She did follow with ENT and had cauterization. Otherwise been stable since. She has had a couple of recent headaches, last one a couple of weeks ago. Not clearly linked to elevated blood pressure but she is not routinely monitoring at home. Review of systems per chart. Patient denies chest pain, chest tightness, shortness of breath wheeze cough or congestion. No nausea or vomiting. Bowel movements have been regular. No focal areas of numbness or tingling that are new or different. No rashes. Has not been using alcohol now for 4 years which is excellent. Physical exam. Vital signs on chart. PERRLA. Sclera are clear. TMs are unremarkable with normal light reflexes. Canals are unremarkable. Posterior pharynx is unremarkable. Good dentition. No cervical or supraclavicular lymph nodes enlarged or tender. No clear thyromegaly. No thyroid nodules readily palpable. There is some mild irritation/inflammat ion in the anterior right nasal septum but no active bleeding. Lungs are without wheeze, rhonchi, rales. No E/A changes are heard. Heart is regular. Not tachycardic. No clear murmur, rub, or gallop is identified. The abdomen is soft. Bowel sounds are present. Nont (more content not included)... Normal [facility] Emergency Department Summary on 11-22-2024 Emergency Department Summary [facility] Medical Records Department [address] [place] [address] Emergency Department Summary 11/22/24 MR#: [id number] Acct: [id number] Name: DEEPAK TURNER Rep #: [id number] : 1965 59 From: Pavel Newsome MD PCP: Dr. Mickie Prado MD Status:DEP ER Location: ED HPI History of Present Illness Chief Complaint: Nosebleed Informant: patient Narrative Narrative: Patient seen here earlier for epistaxis, she was sitting in her recliner and restarted from the same side, the left side and she came right back. She states it is not bleeding anymore right now. She tried instilling Afrin nasal spray into her nose which we gave her with instructions before coming. [facility] Medical History MVP (mitral valve prolapse) Alcohol abuse Anxiety HTN (hypertension) Home Medications ???Medication ???Instructions ???Recorded ???Last Taken ???Type naltrexone 50 mg tablet 50 mg PO Q24H 08/12/21 Unknown His tory ondansetron 4 mg disintegrating 4 mg PO Q6H PRN nausea and 3 Unknown Rx tablet vomiting #10 tabs carbamazepine 200 mg tablet 200 mg PO DAILY 09/28/22 Unknown H istory (Tegretol) cholecalciferol (vitamin D3) 25 25 mcg PO DAILY 10/25/22 Unknown H istory mcg (1,000 unit) capsule gabapentin 300 mg capsule 300 mg PO DAILY anxiety 10/10/23 U nknown History olanzapine 2.5 mg tablet 5 mg PO QHS PRN anxiety 10/10/23 U nknown History bupropion HCl 150 mg 24 hr tablet, 150 mg PO DAILY 01/20/24 Unknown History extended release ondansetron 8 mg disintegrating 8 mg PO Q8H PRN nausea and 4 Unknown Rx tablet vomiting #20 tabs promethazine 25 mg tablet 25 mg PO Q6H PRN PRN Nausea #16 Unknown Rx TABLETS semaglutide (weight loss) 0.25 0.25 mg subcut QWEEK 01/20/24 Unkn own History mg/0.5 mL subcutaneous pen injector sertraline 100 mg tablet 100 mg PO DAILY 01/20/24 Unknown H istory Allergy/AdvReac Type Severity Reaction Status Date / Time No Known Allergies Allergy Verified 11/22/24 11:29 Family History Other Alcoholism Cancer Surgical History H/O section History of partial hysterectomy Social History (Updated 11/22/24 @ 11:45 by Viviana Trinidad) household members: spouse housing: house Smoking Status: Never smoker alcohol intake: former year quit: 2020 details: quit 04-07-2021 substance use type: does not use ROS ROS ED Constitutional Constitutional ED: Denies chills or fever(s) ENT ENT ED: Reports epistaxis; Denies facial pain or sinus pain Cardiovascular Cardiovascular: Denies leg edema, lightheadedness or syncope Respiratory/Chest Respiratory/Chest: Denies dyspnea Gastrointestinal Gastrointestinal: Denies nausea or vomiting Neurologic Neurologic: Denies headache(s), paresthesias or weakness EXAM Physical Exam Const Vital Signs: 11/22/24 19:34 Temperature 97.3 F L Temperature Source Temporal Pulse Rate 97 Respiratory Rate 16 Blood Pressure 187/95 H Blood Pressure Mean 125 Pulse Ox 98 Oxygen Delivery Method Room Air Positive well nourished and well developed General Appearance ED: well developed HEENT HEENT Narrative: Left naris: 2 areas that were superficially cauterized earlier, the more anterior one at the septum on the left has a small amount of blood around it with a little stream caudally, suspicious for the source. No active bleeding from anywhere else. Eyes PERRL and EOMs intact bilaterally Resp normal respiratory effort Extremity normal to inspection Neuro oriented x3, CN's II-XII intact bilaterally, no sensory deficits noted and gait normal Motor Exam: strength 5/5 throughout Psych mental status grossly normal Skin no rashes or lesions noted MDM MDM MDM Narrative Medical decision making narrative: Patient was amenable to getting a packing. I recommend an anterior Merisel, this was done see the procedure note patient tolerated well and was observed for a while. She had no recurrent bleeding at all. Procedures Other Procedures Procedure(s): Epistaxis care: After informed consent from the patient verbally, placed a sterile short Merisel packing in the left side lubricated with antibiotic gel, inflated gently with sterile saline, tolerated well no complications no bleeding good hemostasis. Discharge Plan Triage Chief Complaint: Nosebleed ED Provider: Pavel Newsome Dx/Rx/DC Orders Clinical Impression: Acute anterior epistaxis Instructions: ED Epistaxis (Adult) Prescriptions: No Action naltrexone 50 mg tablet 50 mg PO Q24H Patient Comments: take 1 tablet by mouth once daily carba (more content not included)... Normal [facility] Emergency Department Summary [facility] Medical Records Department [address] [place] [address] Emergency Department Summary 11/22/24 MR#: [id number] Acct: [id number] Name: DEEPAK TURNER LUCAS Rep #: [id number] : 1965 59 From: Genoveva EVANS PCP: Dr. Mickie Prado MD Status:DEP ER Location: ED HPI History of Present Illness Chief Complaint: Nosebleed Narrative Narrative: 59-year-old female developed a left-sided nosebleed about an hour ago. She has had a cold for the last week and has been blowing her nose frequently. An hour ago she bent over to get something out of the dray driver and it spontaneously started bleeding. She is not on blood thinners. She states she had a nosebleed last year and was seen in the ENT office by Dr. Parikh and had cauterization. [facility] Medical History MVP (mitral valve prolapse) Alcohol abuse Anxiety HTN (hypertension) Home Medications ???Medication ???Instructions ???Recorded ???Last Taken ???Type naltrexone 50 mg tablet 50 mg PO Q24H 08/12/21 Unknown His tory ondansetron 4 mg disintegrating 4 mg PO Q6H PRN nausea and 3 Unknown Rx tablet vomiting #10 tabs carbamazepine 200 mg tablet 200 mg PO DAILY 09/28/22 Unknown H istory (Tegretol) cholecalciferol (vitamin D3) 25 25 mcg PO DAILY 10/25/22 Unknown H istory mcg (1,000 unit) capsule gabapentin 300 mg capsule 300 mg PO DAILY anxiety 10/10/23 U nknown History olanzapine 2.5 mg tablet 5 mg PO QHS PRN anxiety 10/10/23 U nknown History bupropion HCl 150 mg 24 hr tablet, 150 mg PO DAILY 01/20/24 Unknown History extended release ondansetron 8 mg disintegrating 8 mg PO Q8H PRN nausea and 4 Unknown Rx tablet vomiting #20 tabs promethazine 25 mg tablet 25 mg PO Q6H PRN PRN Nausea #16 Unknown Rx TABLETS semaglutide (weight loss) 0.25 0.25 mg subcut QWEEK 01/20/24 Unkn own History mg/0.5 mL subcutaneous pen injector sertraline 100 mg tablet 100 mg PO DAILY 01/20/24 Unknown H istory Allergy/AdvReac Type Severity Reaction Status Date / Time No Known Allergies Allergy Verified 11/22/24 11:29 Family History Other Alcoholism Cancer Surgical History H/O section History of partial hysterectomy Social History (Updated 11/22/24 @ 11:45 by Viviana Trinidad) household members: spouse housing: house Smoking Status: Never smoker alcohol intake: former year quit: 2020 details: quit 04-07-2021 substance use type: does not use ROS ROS ED ROS Narrative Constitutional: Negative for fever, chills, malaise. Respiratory: Negative for shortness of breath. Neuro: Negative for headache. EXAM Physical Exam Narrative Exam Narrative: CONST: Patient sitting in no acute distress. EYES: Normal inspection. ENT: Blood in left nostril without acute bleeding. Normal posterior oropharynx. After cottonball was removed on reexamination there is a small stream of blood from an anterior vessel along the upper septum. NECK: Normal inspection. RESP: No respiratory distress, CTAB. CVS: Regular rate and rhythm, no murmur, no gallop. SKIN: Color normal, no rash, warm, dry, intact. EXTREMITIES: Normal appearance, no pedal edema. NEURO: Alert and answering questions appropriately. PSYCH: Normal affect. Const Vital Signs: 11/22/24 11:29 11/22/24 13:17 Temperature 98.4 F 98 F Temperature Source Oral Pulse Rate 89 89 Respiratory Rate 14 16 Blood Pressure 141/82 H 138/98 H Blood Pressure Mean 101 111 Pulse Ox 99 99 Oxygen Delivery Method Room Air Physical Exam Const Vital Signs: 11/22/24 11:29 11/22/24 13:17 Temperature 98.4 F 98 F Temperature Source Oral Pulse Rate 89 89 Respiratory Rate 14 16 Blood Pressure 141/82 H 138/98 H Blood Pressure Mean 101 111 Pulse Ox 99 99 Oxygen Delivery Method Room Air MDM MDM MDM Narrative Medical decision making narrative: 59-year-old female has an acute left-sided nosebleed. She has had upper respiratory symptoms this week, blowing her nose frequently. She is not on blood thinners. She appears well and nontoxic. Vital signs stable. She was asked to blow her nose and in her left nare was packed with a cottonball soaked in lidocaine 4% and Afrin. On reexamination there is a tiny stream of blood from an anterior vessel along the upper septum which was cauterized with silver nitrate. Patient tolerated procedure well without complications. She will follow-up with ENT as needed and was discharged in stable condition. MDM Treatment and Re-Evaluation Comments:: I have personally performed a face to face assessment of the p (more content not included)... Normal [facility] Office Visit Reporton 2023 Office Visit Report [facility] [address] [place] [address] OFFICE VISIT Date of Service: 05/01/24 MR#: [id number] Acct: [id number] Patient: DEEPAK TURNER LUCAS Rep #: [id number] : 1965 Provider: NATHAN Kerns Age/Sex: 58/F Location: [facility] [place] Status: Signed Intake Vital Signs 01/20/24 09:14 Height 5 ft 9 in Intake Visit Reasons: PE NON DOT DRUG SCREEN, 1 STEP TB/ BOWEN AMSTER Chief Complaint: Preemployment physical Allergies No Known Allergies Allergy (Verified 01/20/24 09:14) Office Procedures [facility] Billing Sheet Testing Pre-Employment Drug Screen: Yes TB Test: Yes 06/11/24 0654 Date Karl Acostaignnicole Signature: Date (if applicable) CC: Normal [facility] Urgent Care Visit Reporton 0 05-01-2024 Urgent Care Visit Report [facility] [address], [address] [place] [address] OFFICE VISIT Date of Service: 05/01/24 MR#: [id number] Acct: [id number] Name: DEEPAK TURNER LUCAS Rep #: [id number] : 1965 Provider: NATHAN Kerns Age/Sex: 58/F Location: [facility] [place] Status: Signed Intake Vital Signs 01/20/24 09:14 Height 5 ft 9 in Intake Visit Reasons: PE NON DOT PHYSICAL/ BOWEN AMSTER Chief Complaint: Preemployment physical Allergies No Known Allergies Allergy (Verified 01/20/24 09:14) [facility] Medical History MVP (mitral valve prolapse) Alcohol abuse Anxiety HTN (hypertension) Surgical History H/O section History of partial hysterectomy Family History Other Alcoholism Cancer Social History Smoking Status: Never smoker alcohol intake: former year quit: 2020 details: quit 04-07-2021 substance use type: does not use HPI HPI Chief Complaint: Preemployment physical Details: DEEPAK TURNER, is a 58 F who presents to the office today for preemployment physical. Please see corresponding scanned documents with today's date. Office Procedures Physical Exam Coding PE Coding Pre-employment PE: Yes Coding Level of Care Code No Charge Diagnoses Encounter for pre-employment health screening examination Z02.1 Assessment and Plan Assessment and Plan (1) Encounter for pre-employment health screening examination: Status: Acute 05/01/24 1733 Date Karl Recio Signature: Date (if applicable) CC: Normal [facility] Absolute lymphocyte countOrd ered By: Mickie Prado on 10-11-2023 Lymphocytes Auto (Unsp spec) [#/Vol] 2.15 10*3/uL 0.83-4.51 [facility] Automated lymphocyte count a s percentage of total leukocytesOrdered By: Mickie Prado on 10-11-2023 Lymphocytes/100 WBC Auto (Unsp spec) 36.7 % 19-41 [facility] Basophil percentageOrdered B y: Mickie Prado on 10-11-2023 Basophils/100 WBC (Bld) 0.2 % 0-1 [facility] Bilirubin [Mass/Vol] 0.30 mg/dL 0.20-1.00 [facility] Comment on above: For patients on eltr ombopag therapy, use of Dimension Hardin TBIL is not recommended. Chloride [Moles/Vol] 115 mmol/L 98-107 [facility] Cholesterol [Mass/Vol] 225 mg/dL <200 [facility] Comment on above: <200 mg/dL Desirable 200-240 mg/dL Borderline >240 mg/dL High Risk Eosinophils/100 WBC (Bld) 0.0 % 0-5 [facility] Glucose [Mass/Vol] 115 mg/dL 74-106 [facility] Comment on above: Fasting Glucose resu lt from 100 to 125 mg/dL suggests IMPAIRED HOMEOSTASIS per A.D.A. criteria. Hemoglobin (Bld) [Mass/Vol] 12.9 g/dL 12.0-15.0 [facility] Monocytes/100 WBC (Bld) 5.5 % 0-10 [facility] Neutrophils (Bld) [#/Vol] 3.4 10*3/uL 2.0-7.7 [facility] Neutrophils/100 WBC (Bld) 57.3 % 47-70 [facility] Potassium [Moles/Vol] 3.9 mmol/L 3.5-5.1 [facility] Protein [Mass/Vol] 7.4 g/dL 6.4-8.2 [facility] Sodium [Moles/Vol] 142 mmol/L 136-145 [facility] Triglyceride [Mass/Vol] 143 mg/dL <199 [facility] Comment on above: The drugs N-Acetylcy steine and Metamizole may falsely depress this assay.Serum Triglycerides Reference Interval Normal <150 mg/dL Borderline high 150 - 199 mg/dL High 200 - 499 mg/dL Very High > or = 500 mg/dL WBC (Bld) [#/Vol] 5.9 10*3/uL 4.4-11.0 [facility] Determination of erythrocyte mean corpuscular volume (MCV)Ordered By: Mickie Prado on 10-11-2023 MCV (RBC) [Entitic vol] 91.1 fL 81-99 [facility] Erythrocyte distribution wid th ratioOrdered By: Mickie Prado on 10-11-2023 Erythrocyte distribution width (RBC) [Ratio] 12.9 % 11.6-14.6 [facility] Erythrocyte distribution wid th standard deviationOrdered By: Mickie Prado on 10-11-2023 Erythrocyte distribution width (RBC) [Entitic vol] 42.7 fL 35.1-43.9 [facility] Hematocrit Auto (Bld) [Volum e fraction]Ordered By: Mickie Prado on 10-11-2023 Hematocrit (Bld) [Volume fraction] 39.7 % 37-47 [facility] Immature granulocytes/100 WB C Auto (Bld)Ordered By: Mickie Prado on 10-11-2023 Immature granulocytes/100 WBC (Bld) 0.300 % 0.0-0.9 [facility] Comment on above: IG% - Immature Granu locytes (promyelocytes, myelocytes and metamyelocytes) > 1% indicates that a LEFT SHIFT is Present. Laboratory - Chemistry and C hemistry - challengeOrdered By: Mickie Prado on 10-11-2023 Albumin/Globulin [Mass ratio] 1.0 {ratio} 0.9-2.4 [facility] ALP [Catalytic activity/Vol] 126 U/L 45-117 [facility] ALT [Catalytic activity/Vol] 23 U/L 13-56 [facility] Cholesterol in HDL [Mass/Vol] 48 mg/dL >40 [facility] Comment on above: The drugs N-Acetylcy steine and Metamizole may falsely depress this assay. Reference Range HDL <40 mg/dL Low HDL Cholesterol HDL >or= 60 mg/dL High HDL Cholesterol Cholesterol in LDL [Mass/Vol] 148 mg/dL 0-130 [facility] CO2 [Moles/Vol] 21.0 mmol/L 21.0-32.0 [facility] Cobalamin (Vitamin B12) [Mass/Vol] 282 pg/mL 211-911 [facility] Globulin (S) [Mass/Vol] 3.7 g/dL 2.2-4.2 [facility] Urea nitrogen/Creatinine [Mass ratio] 12.9 mg/mg 10-20 [facility] Laboratory - Hematology and Cell countsOrdered By: Mickie Prado on 10-11-2023 MCH (RBC) [Entitic mass] 29.6 pg 27.0-32.0 [facility] MCHC (RBC) [Mass/Vol] 32.5 g/dL 32-36 [facility] Nucleated RBC/100 WBC (Bld) [Ratio] 0 % 0-5 [facility] Platelet mean volume (Bld) [Entitic vol] 9.9 fL 6.2-12.0 [facility] Platelets (Bld) [#/Vol] 291 10*3/uL 150-450 [facility] No Panel InformationOrdered By: Mickie Prado on 10-11-2023 Estimated GFR (MDRD) Amer 88 mL/min >60 [facility] Comment on above: GFR Calc Estimated GFR (MDRD) Non-Af Amer 72 mL/min >60 [facility] Comment on above: Non- GFR Calc Insulin Level 35.6 mU/L 2.6-37.6 [facility] Vitamin D 25-Hydroxy 23.5 ng/mL [facility] Comment on above: Vitamin D 25(OH) Sta tus Range Deficiency <20 ng/mL (50nmol/L) Insufficiency 20 - 30 ng/mL (50 - 75 nmol/L) Sufficiency 30 - 100 ng/mL (75 - 250 nmol/L) Toxicity >100 ng/mL (>250 nmol/L) VLDL Cholesterol 29 mg/dL 5-40 [facility] RBC Auto (Bld) [#/Vol]Ordere d By: Mickie Prado on 10-11-2023 RBC (Bld) [#/Vol] 4.36 10*6/uL 4.2-5.4 [facility] Serum or plasma calcium ric urement (mass/volume)Ordered By: Mickie Prado on 10-11-2023 Calcium [Mass/Vol] 10.0 mg/dL 8.5-10.1 [facility] Serum or plasma creatinine m easurement (mass/volume)Ordered By: Mickie Prado on 10-11-2023 Creatinine [Mass/Vol] 0.85 mg/dL 0.55-1.02 [facility] Comment on above: The validity of the calculated GFR & GFRAA in patients over 70 years has not been determined. Clinical correlation is essential. Serum or plasma thyroid stim ulating hormone (TSH) measurement (units/volume)Ordered By: Mickie Prado on 10-11-2023 TSH Qn 1.88 uIU/mL 0.358-3.74 [facility] Serum or plasma urea nitroge n measurement (mass/volume)Ordered By: Mickie Prado on 10-11-2023 Urea nitrogen [Mass/Vol] 11 mg/dL 7-18 [facility] Thin prep Papanicolaou smear with manual screeningOrdered By: Mickie Prado on 10-11-2023 Thin prep Papanicolaou smear with manual screening 3.7 g/dL 3.2-5.0 [facility] Thin prep Papanicolaou smear with manual screening 26 U/L 15-37 [facility] Thin prep Papanicolaou smear with manual screening 6 5-15 [facility] Whole blood hemoglobin A1c/t otal hemoglobin ratio (mass fraction)Ordered By: Mickie Prado on 10-11-2023 HbA1c (Bld) [Mass fraction] 4.3 % 3.8-5.6 [facility] Comment on above: Normal < 5.7 % Predi abetic 5.7 - 6.4 % Diabetic >or= 6.5 % Please note range changes. Absolute lymphocyte countOrd ered By: Iza Dior on 03-20-2023 Lymphocytes Auto (Unsp spec) [#/Vol] 2.25 10*3/uL 0.83-4.51 [facility] Basophil percentageOrdered B y: Iza Dior on 03-20-2023 Basophil percentage 3.4 mg/dL 2.5-4.9 [facility] Basophils/100 WBC (Bld) 0.6 % 0-1 [facility] Chloride [Moles/Vol] 113 mmol/L 98-107 [facility] Eosinophils/100 WBC (Bld) 0.2 % 0-5 [facility] Glucose [Mass/Vol] 94 mg/dL 74-106 [facility] Neutrophils (Bld) [#/Vol] 2.5 10*3/uL 2.0-7.7 [facility] Neutrophils/100 WBC (Bld) 48.8 % 47-70 [facility] Potassium [Moles/Vol] 4.1 mmol/L 3.5-5.1 [facility] Sodium [Moles/Vol] 142 mmol/L 136-145 [facility] WBC (Bld) [#/Vol] 5.1 10*3/uL 4.4-11.0 [facility] Blood erythrocytes count (nu mber/volume)Ordered By: Iza Dior on 03-20-2023 RBC (Bld) [#/Vol] 3.71 10*6/uL 4.2-5.4 [facility] Blood hemoglobin measurement (mass/volume)Ordered By: Iza Dior on 03-20-2023 Hemoglobin (Bld) [Mass/Vol] 11.4 g/dL 12.0-15.0 [facility] Blood lymphocytes/100 leukoc ytesOrdered By: Iza Dior on 03-20-2023 Lymphocytes/100 WBC (Bld) 44.1 % 19-41 [facility] Blood monocytes/100 leukocyt esOrdered By: Iza Dior on 03-20-2023 Monocytes/100 WBC (Bld) 6.1 % 0-10 [facility] Blood platelet mean volumeOr dered By: Iza Dior on 03-20-2023 Platelet mean volume (Bld) [Entitic vol] 9.4 fL 6.2-12.0 [facility] Determination of erythrocyte mean corpuscular volume (MCV)Ordered By: Iza Dior on 03-20-2023 MCV (RBC) [Entitic vol] 94.6 fL 81-99 [facility] Hematocrit Auto (Bld) [Volum e fraction]Ordered By: Iza Dior on 03-20-2023 Hematocrit (Bld) [Volume fraction] 35.1 % 37-47 [facility] Laboratory - Chemistry and C hemistry - challengeOrdered By: Iza Dior on 03-20-2023 CO2 [Moles/Vol] 25.0 mmol/L 21.0-32.0 [facility] Urea nitrogen/Creatinine [Mass ratio] 11.1 mg/mg 10-20 [facility] Laboratory - Hematology and Cell countsOrdered By: Iza Dior on 03-20-2023 Erythrocyte distribution width (RBC) [Entitic vol] 45.7 fL 35.1-43.9 [facility] Erythrocyte distribution width (RBC) [Ratio] 13.2 % 11.6-14.6 [facility] Immature granulocytes/100 WBC (Bld) 0.200 % 0.0-0.9 [facility] Comment on above: IG% - Immature Granu locytes (promyelocytes, myelocytes and metamyelocytes) > 1% indicates that a LEFT SHIFT is Present. MCH (RBC) [Entitic mass] 30.7 pg 27.0-32.0 [facility] Nucleated RBC/100 WBC (Bld) [Ratio] 0 % 0-5 [facility] MCHC Auto (RBC) [Mass/Vol]Or dered By: Iza Dior on 03-20-2023 MCHC (RBC) [Mass/Vol] 32.5 g/dL 32-36 [facility] No Panel InformationOrdered By: Iza Dior on 03-20-2023 Estimated Creatinine Clearance Calc 68.73 ml/min [facility] Estimated GFR (MDRD) Amer 82 mL/min >60 [facility] Comment on above: GFR Calc Estimated GFR (MDRD) Non-Af Amer 68 mL/min >60 [facility] Comment on above: Non- GFR Calc Platelets bldOrdered By: Yecenia Dior on 03-20-2023 Platelets (Bld) [#/Vol] 199 10*3/uL 150-450 [facility] Serum or plasma calcium ric urement (mass/volume)Ordered By: Iza Dior on 03-20-2023 Calcium [Mass/Vol] 9.3 mg/dL 8.5-10.1 [facility] Serum or plasma creatinine m easurement (mass/volume)Ordered By: Iza Dior on 03-20-2023 Creatinine [Mass/Vol] 0.90 mg/dL 0.55-1.02 [facility] Comment on above: The validity of the calculated GFR & GFRAA in patients over 70 years has not been determined. Clinical correlation is essential. Serum or plasma urea nitroge n measurement (mass/volume)Ordered By: Iza Dior on 03-20-2023 Urea nitrogen [Mass/Vol] 10 mg/dL -18 [facility] Thin prep Papanicolaou smear with manual screeningOrdered By: Iza Dior on 03-20-2023 Thin prep Papanicolaou smear with manual screening 4 5-15 [facility] No Panel InformationOrdered By: Jaime Peters on 03-19-2023 Vitamin D 25-Hydroxy 41.7 ng/mL [facility] Comment on above: Vitamin D 25(OH) Sta tus Range Deficiency <20 ng/mL (50nmol/L) Insufficiency 20 - 30 ng/mL (50 - 75 nmol/L) Sufficiency 30 - 100 ng/mL (75 - 250 nmol/L) Toxicity >100 ng/mL (>250 nmol/L) Absolute lymphocyte countOrd ered By: Erwin Richardson on 03-18-2023 Lymphocytes Auto (Unsp spec) [#/Vol] 1.82 10*3/uL 0.83-4.51 [facility] Basophil percentageOrdered B y: Melissa Salcedo on 03-18-2023 Basophil percentage 2.1 mg/dL 2.5-4.9 [facility] Basophil percentageOrdered B y: Erwin Richardson on 03-18-2023 Basophils/100 WBC (Bld) 0.3 % 0-1 [facility] Chloride [Moles/Vol] 111 mmol/L 98-107 [facility] Eosinophils/100 WBC (Bld) 0.0 % 0-5 [facility] Glucose [Mass/Vol] 107 mg/dL 74-106 [facility] Comment on above: Fasting Glucose resu lt from 100 to 125 mg/dL suggests IMPAIRED HOMEOSTASIS per A.D.A. criteria. Neutrophils (Bld) [#/Vol] 7.9 10*3/uL 2.0-7.7 [facility] Neutrophils/100 WBC (Bld) 76.2 % 47-70 [facility] Potassium [Moles/Vol] 3.8 mmol/L 3.5-5.1 [facility] Sodium [Moles/Vol] 142 mmol/L 136-145 [facility] WBC (Bld) [#/Vol] 10.3 10*3/uL 4.4-11.0 [facility] Basophil percentageOrdered B y: Billy Yang on 03-18-2023 Bilirubin [Mass/Vol] 0.20 mg/dL 0.20-1.00 [facility] Comment on above: For patients on eltr ombopag therapy, use of Dimension Hardin TBIL is not recommended. Protein [Mass/Vol] 7.8 g/dL 6.4-8.2 [facility] Blood erythrocytes count (nu mber/volume)Ordered By: Erwin Richardson on 03-18-2023 RBC (Bld) [#/Vol] 4.39 10*6/uL 4.2-5.4 [facility] Blood hemoglobin measurement (mass/volume)Ordered By: Erwin Richardson on 03-18-2023 Hemoglobin (Bld) [Mass/Vol] 13.4 g/dL 12.0-15.0 [facility] Blood lymphocytes/100 leukoc ytesOrdered By: Erwin Richardson on 03-18-2023 Lymphocytes/100 WBC (Bld) 17.7 % 19-41 [facility] Blood monocytes/100 leukocyt esOrdered By: Erwin Richardson on 03-18-2023 Monocytes/100 WBC (Bld) 5.4 % 0-10 [facility] Blood platelet mean volumeOr dered By: Erwin Richardson on 03-18-2023 Platelet mean volume (Bld) [Entitic vol] 9.7 fL 6.2-12.0 [facility] Determination of erythrocyte mean corpuscular volume (MCV)Ordered By: Erwin Richardson on 03-18-2023 MCV (RBC) [Entitic vol] 92.0 fL 81-99 [facility] Direct bilirubinOrdered By: Billy Yang on 03-18-2023 Bilirubin.direct [Mass/Vol] 0.08 mg/dL 0.00-0.30 [facility] Hematocrit Auto (Bld) [Volum e fraction]Ordered By: Erwin Richardson on 03-18-2023 Hematocrit (Bld) [Volume fraction] 40.4 % 37-47 [facility] Laboratory - Chemistry and C hemistry - challengeOrdered By: Billy Yang on 03-18-2023 ALP [Catalytic activity/Vol] 110 U/L 45-117 [facility] ALT [Catalytic activity/Vol] 25 U/L 13-56 [facility] Globulin (S) [Mass/Vol] 4.0 g/dL 2.2-4.2 [facility] Laboratory - Chemistry and C hemistry - challengeOrdered By: Erwin Richardson on 03-18-2023 CO2 [Moles/Vol] 26.0 mmol/L 21.0-32.0 [facility] Urea nitrogen/Creatinine [Mass ratio] 9.6 mg/mg 10-20 [facility] Laboratory - Chemistry and C hemistry - challengeOrdered By: Melissa Salcedo on 03-18-2023 Magnesium [Mass/Vol] 2.2 mg/dL 1.6-2.6 [facility] Laboratory - Hematology and Cell countsOrdered By: Erwin Richardson on 03-18-2023 Erythrocyte distribution width (RBC) [Entitic vol] 44.0 fL 35.1-43.9 [facility] Erythrocyte distribution width (RBC) [Ratio] 13.1 % 11.6-14.6 [facility] Immature granulocytes/100 WBC (Bld) 0.400 % 0.0-0.9 [facility] Comment on above: IG% - Immature Granu locytes (promyelocytes, myelocytes and metamyelocytes) > 1% indicates that a LEFT SHIFT is Present. MCH (RBC) [Entitic mass] 30.5 pg 27.0-32.0 [facility] Nucleated RBC/100 WBC (Bld) [Ratio] 0 % 0-5 [facility] MCHC Auto (RBC) [Mass/Vol]Or dered By: Erwin Richardson on 03-18-2023 MCHC (RBC) [Mass/Vol] 33.2 g/dL 32-36 [facility] No Panel InformationOrdered By: Erwin Richardson on 03-18-2023 Estimated Creatinine Clearance Calc 68.18 ml/min [facility] Estimated GFR (MDRD) Amer 79 mL/min >60 [facility] Comment on above: GFR Calc Estimated GFR (MDRD) Non-Af Amer 65 mL/min >60 [facility] Comment on above: Non- GFR Calc Platelets bldOrdered By: Rasheed Richardson on 03-18-2023 Platelets (Bld) [#/Vol] 249 10*3/uL 150-450 [facility] Serum or plasma albumin ric urement (mass/volume)Ordered By: Billy Yang on 03-18-2023 Albumin [Mass/Vol] 3.8 g/dL 3.2-5.0 [facility] Serum or plasma calcium ric urement (mass/volume)Ordered By: Erwin Richardson on 03-18-2023 Calcium [Mass/Vol] 10.2 mg/dL 8.5-10.1 [facility] Serum or plasma creatinine m easurement (mass/volume)Ordered By: Erwin Richardson on 03-18-2023 Creatinine [Mass/Vol] 0.94 mg/dL 0.55-1.02 [facility] Comment on above: The validity of the calculated GFR & GFRAA in patients over 70 years has not been determined. Clinical correlation is essential. Serum or plasma urea nitroge n measurement (mass/volume)Ordered By: Erwin Richardson on 03-18-2023 Urea nitrogen [Mass/Vol] 9 mg/dL 7-18 [facility] Thin prep Papanicolaou smear with manual screeningOrdered By: Billy Yang on 03-18-2023 Thin prep Papanicolaou smear with manual screening 23 U/L 15-37 [facility] Thin prep Papanicolaou smear with manual screeningOrdered By: Erwin Richardson on 03-18-2023 Thin prep Papanicolaou smear with manual screening 5 5-15 [facility] Absolute lymphocyte countOrd ered By: Dr. Prado on 10-24-2022 Lymphocytes Auto (Unsp spec) [#/Vol] 2.39 10*3/uL 0.83-4.51 [facility] Basophil percentageOrdered B y: Dr. Prado on 10-24-2022 Basophils/100 WBC (Bld) 0.8 % 0-1 [facility] Bilirubin [Mass/Vol] 0.30 mg/dL 0.20-1.00 [facility] Comment on above: For patients on eltr ombopag therapy, use of Dimension [place] TBIL is not recommended. Chloride [Moles/Vol] 112 mmol/L 98-107 [facility] Cholesterol [Mass/Vol] 236 mg/dL <200 [facility] Comment on above: <200 mg/dL Desirable 200-240 mg/dL Borderline >240 mg/dL High Risk Eosinophils/100 WBC (Bld) 0.2 % 0-5 [facility] Glucose [Mass/Vol] 111 mg/dL 74-106 [facility] Comment on above: Fasting Glucose resu lt from 100 to 125 mg/dL suggests IMPAIRED HOMEOSTASIS per A.D.A. criteria. Neutrophils (Bld) [#/Vol] 3.4 10*3/uL 2.0-7.7 [facility] Neutrophils/100 WBC (Bld) 54.2 % 47-70 [facility] Potassium [Moles/Vol] 4.0 mmol/L 3.5-5.1 [facility] Protein [Mass/Vol] 7.8 g/dL 6.4-8.2 [facility] Sodium [Moles/Vol] 143 mmol/L 136-145 [facility] Triglyceride [Mass/Vol] 161 mg/dL <199 [facility] Comment on above: The drugs N-Acetylcy steine and Metamizole may falsely depress this assay.Serum Triglycerides Reference Interval Normal <150 mg/dL Borderline high 150 - 199 mg/dL High 200 - 499 mg/dL Very High > or = 500 mg/dL WBC (Bld) [#/Vol] 6.2 10*3/uL 4.4-11.0 [facility] Blood erythrocytes count (nu mber/volume)Ordered By: Dr. Prado on 10-24-2022 RBC (Bld) [#/Vol] 4.48 10*6/uL 4.2-5.4 [facility] Blood hemoglobin measurement (mass/volume)Ordered By: Dr. Prado on 10-24-2022 Hemoglobin (Bld) [Mass/Vol] 13.2 g/dL 12.0-15.0 [facility] Blood lymphocytes/100 leukoc ytesOrdered By: Dr. Prado on 10-24-2022 Lymphocytes/100 WBC (Bld) 38.6 % 19-41 [facility] Blood monocytes/100 leukocyt esOrdered By: Dr. Prado on 10-24-2022 Monocytes/100 WBC (Bld) 6.0 % 0-10 [facility] Blood platelet mean volumeOr dered By: Dr. Prado on 10-24-2022 Platelet mean volume (Bld) [Entitic vol] 10.4 fL 6.2-12.0 [facility] Determination of erythrocyte mean corpuscular volume (MCV)Ordered By: Dr. Prado on 10-24-2022 MCV (RBC) [Entitic vol] 92.4 fL 81-99 [facility] Hematocrit Auto (Bld) [Volum e fraction]Ordered By: Dr. Prado on 10-24-2022 Hematocrit (Bld) [Volume fraction] 41.4 % 37-47 [facility] Laboratory - Chemistry and C hemistry - challengeOrdered By: Dr. Prado on 10-24-2022 ALP [Catalytic activity/Vol] 103 U/L 45-117 [facility] ALT [Catalytic activity/Vol] 27 U/L 13-56 [facility] CO2 [Moles/Vol] 26.0 mmol/L 21.0-32.0 [facility] Globulin (S) [Mass/Vol] 3.8 g/dL 2.2-4.2 [facility] Urea nitrogen/Creatinine [Mass ratio] 10.0 mg/mg 10-20 [facility] Laboratory - Hematology and Cell countsOrdered By: Dr. Prado on 10-24-2022 Erythrocyte distribution width (RBC) [Entitic vol] 43.6 fL 35.1-43.9 [facility] Erythrocyte distribution width (RBC) [Ratio] 13.0 % 11.6-14.6 [facility] Immature granulocytes/100 WBC (Bld) 0.200 % 0.0-0.9 [facility] Comment on above: IG% - Immature Granu locytes (promyelocytes, myelocytes and metamyelocytes) > 1% indicates that a LEFT SHIFT is Present. MCH (RBC) [Entitic mass] 29.5 pg 27.0-32.0 [facility] Nucleated RBC/100 WBC (Bld) [Ratio] 0 % 0-5 [facility] MCHC Auto (RBC) [Mass/Vol]Or dered By: Dr. Prado on 10-24-2022 MCHC (RBC) [Mass/Vol] 31.9 g/dL 32-36 [facility] No Panel InformationOrdered By: Dr. Prado on 10-24-2022 Estimated GFR (MDRD) Amer 83 mL/min >60 [facility] Comment on above: GFR Calc Estimated GFR (MDRD) Non-Af Amer 69 mL/min >60 [facility] Comment on above: Non- GFR Calc Thyroid Stimulating Hormone (TSH) 1.86 uIU/mL 0.358-3.74 [facility] Vitamin D 25-Hydroxy 14.9 ng/mL [facility] Comment on above: Vitamin D 25(OH) Sta tus Range Deficiency <20 ng/mL (50nmol/L) Insufficiency 20 - 30 ng/mL (50 - 75 nmol/L) Sufficiency 30 - 100 ng/mL (75 - 250 nmol/L) Toxicity >100 ng/mL (>250 nmol/L) Platelets bldOrdered By: Dr. Prado on 10-24-2022 Platelets (Bld) [#/Vol] 285 10*3/uL 150-450 [facility] Serum or plasma albumin ric urement (mass/volume)Ordered By: Dr. Prado on 10-24-2022 Albumin [Mass/Vol] 4.0 g/dL 3.2-5.0 [facility] Serum or plasma albumin/glob ulin mass ratioOrdered By: Dr. Prado on 10-24-2022 Albumin/Globulin [Mass ratio] 1.1 {ratio} 0.9-2.4 [facility] Serum or plasma calcium ric urement (mass/volume)Ordered By: Dr. Prado on 10-24-2022 Calcium [Mass/Vol] 10.0 mg/dL 8.5-10.1 [facility] Serum or plasma cholesterol in HDL measurement (mass/volume)Ordered By: Dr. Prado on 10-24-2022 Cholesterol in HDL [Mass/Vol] 54 mg/dL >40 [facility] Comment on above: The drugs N-Acetylcy steine and Metamizole may falsely depress this assay. Reference Range HDL <40 mg/dL Low HDL Cholesterol HDL >or= 60 mg/dL High HDL Cholesterol Serum or plasma cholesterol in VLDL measurement (mass/volume)Ordered By: Dr. Prado on 10-24-2022 Cholesterol in VLDL [Mass/Vol] 32 mg/dL 5-40 [facility] Serum or plasma creatinine m easurement (mass/volume)Ordered By: Dr. Prado on 10-24-2022 Creatinine [Mass/Vol] 0.90 mg/dL 0.55-1.02 [facility] Comment on above: The validity of the calculated GFR & GFRAA in patients over 70 years has not been determined. Clinical correlation is essential. Serum or plasma low density lipoprotein (LDL) cholesterol measurement (mass/volume)Ordered By: Dr. Prado on 10-24-2022 Cholesterol in LDL [Mass/Vol] 150 mg/dL 0-130 [facility] Serum or plasma urea nitroge n measurement (mass/volume)Ordered By: Dr. Prado on 10-24-2022 Urea nitrogen [Mass/Vol] 9 mg/dL 7-18 [facility] Thin prep Papanicolaou smear with manual screeningOrdered By: Dr. Prado on 10-24-2022 Thin prep Papanicolaou smear with manual screening 23 U/L 15-37 [facility] Thin prep Papanicolaou smear with manual screening 5 5-15 [facility] Whole blood hemoglobin A1c/t otal hemoglobin ratio (mass fraction)Ordered By: Dr. Prado on 10-24-2022 HbA1c (Bld) [Mass fraction] 5.4 % 3.8-5.6 [facility] Comment on above: Normal < 5.7 % Predi abetic 5.7 - 6.4 % Diabetic >or= 6.5 % Please note range changes. Absolute lymphocyte countOrd ered By: Dr. Galvez on 09-08-2022 Lymphocytes Auto (Unsp spec) [#/Vol] 2.86 10*3/uL 0.83-4.51 [facility] Basophil percentageOrdered B y: Dr. Galvez on 09-08-2022 Basophils/100 WBC (Bld) 0.5 % 0-1 [facility] Bilirubin [Mass/Vol] 0.30 mg/dL 0.20-1.00 [facility] Comment on above: For patients on eltr ombopag therapy, use of Dimension [place] TBIL is not recommended. Chloride [Moles/Vol] 108 mmol/L 98-107 [facility] Eosinophils/100 WBC (Bld) 0.6 % 0-5 [facility] Glucose [Mass/Vol] 90 mg/dL 74-106 [facility] Neutrophils (Bld) [#/Vol] 4.4 10*3/uL 2.0-7.7 [facility] Neutrophils/100 WBC (Bld) 56.0 % 47-70 [facility] Potassium [Moles/Vol] 3.8 mmol/L 3.5-5.1 [facility] Protein [Mass/Vol] 7.7 g/dL 6.4-8.2 [facility] Sodium [Moles/Vol] 139 mmol/L 136-145 [facility] WBC (Bld) [#/Vol] 7.8 10*3/uL 4.4-11.0 [facility] Blood erythrocytes count (nu mber/volume)Ordered By: Dr. Galvez on 09-08-2022 RBC (Bld) [#/Vol] 4.26 10*6/uL 4.2-5.4 [facility] Blood hemoglobin measurement (mass/volume)Ordered By: Dr. Galvez on 09-08-2022 Hemoglobin (Bld) [Mass/Vol] 13.2 g/dL 12.0-15.0 [facility] Blood lymphocytes/100 leukoc ytesOrdered By: Dr. Galvez on 09-08-2022 Lymphocytes/100 WBC (Bld) 36.6 % 19-41 [facility] Blood monocytes/100 leukocyt esOrdered By: Dr. Galvez on 09-08-2022 Monocytes/100 WBC (Bld) 6.0 % 0-10 [facility] Blood platelet mean volumeOr dered By: Dr. Galvez on 09-08-2022 Platelet mean volume (Bld) [Entitic vol] 10.1 fL 6.2-12.0 [facility] Determination of erythrocyte mean corpuscular volume (MCV)Ordered By: Dr. Galvez on 09-08-2022 MCV (RBC) [Entitic vol] 90.8 fL 81-99 [facility] Direct bilirubinOrdered By: Dr. Galvez on 09-08-2022 Bilirubin.direct [Mass/Vol] 0.13 mg/dL 0.00-0.30 [facility] Hematocrit Auto (Bld) [Volum e fraction]Ordered By: Dr. Galvez on 09-08-2022 Hematocrit (Bld) [Volume fraction] 38.7 % 37-47 [facility] Laboratory - Chemistry and C hemistry - challengeOrdered By: Dr. Galvez on 09-08-2022 ALP [Catalytic activity/Vol] 92 U/L 45-117 [facility] ALT [Catalytic activity/Vol] 35 U/L 13-56 [facility] CO2 [Moles/Vol] 26.0 mmol/L 21.0-32.0 [facility] Globulin (S) [Mass/Vol] 3.6 g/dL 2.2-4.2 [facility] Lipase [Catalytic activity/Vol] 111 U/L 73-393 [facility] Urea nitrogen/Creatinine [Mass ratio] 16.5 mg/mg 10-20 [facility] Laboratory - Hematology and Cell countsOrdered By: Dr. Galvez on 09-08-2022 Erythrocyte distribution width (RBC) [Entitic vol] 40.7 fL 35.1-43.9 [facility] Erythrocyte distribution width (RBC) [Ratio] 12.4 % 11.6-14.6 [facility] Immature granulocytes/100 WBC (Bld) 0.300 % 0.0-0.9 [facility] Comment on above: IG% - Immature Granu locytes (promyelocytes, myelocytes and metamyelocytes) > 1% indicates that a LEFT SHIFT is Present. MCH (RBC) [Entitic mass] 31.0 pg 27.0-32.0 [facility] Nucleated RBC/100 WBC (Bld) [Ratio] 0 % 0-5 [facility] MCHC Auto (RBC) [Mass/Vol]Or dered By: Dr. Galvez on 09-08-2022 MCHC (RBC) [Mass/Vol] 34.1 g/dL 32-36 [facility] No Panel InformationOrdered By: Dr. Galvez on 09-08-2022 Estimated Creatinine Clearance Calc 81.12 ml/min [facility] Estimated GFR (MDRD) Amer 96 mL/min >60 [facility] Comment on above: GFR Calc Estimated GFR (MDRD) Non-Af Amer 80 mL/min >60 [facility] Comment on above: Non- GFR Calc Platelets bldOrdered By: Dr. Galvez on 09-08-2022 Platelets (Bld) [#/Vol] 239 10*3/uL 150-450 [facility] Serum or plasma albumin ric urement (mass/volume)Ordered By: Dr. Galvez on 09-08-2022 Albumin [Mass/Vol] 4.1 g/dL 3.2-5.0 [facility] Serum or plasma calcium ric urement (mass/volume)Ordered By: Dr. Galvez on 09-08-2022 Calcium [Mass/Vol] 9.7 mg/dL 8.5-10.1 [facility] Serum or plasma creatinine m easurement (mass/volume)Ordered By: Dr. Galvez on 09-08-2022 Creatinine [Mass/Vol] 0.79 mg/dL 0.55-1.02 [facility] Comment on above: The validity of the calculated GFR & GFRAA in patients over 70 years has not been determined. Clinical correlation is essential. Serum or plasma urea nitroge n measurement (mass/volume)Ordered By: Dr. Galvez on 09-08-2022 Urea nitrogen [Mass/Vol] 13 mg/dL 7-18 [facility] Thin prep Papanicolaou smear with manual screeningOrdered By: Dr. Galvez on 09-08-2022 Thin prep Papanicolaou smear with manual screening 26 U/L 15-37 [facility] Thin prep Papanicolaou smear with manual screening 5 5-15 [facility] No Panel Informationon 03-01 Carbamazepine (Tegretol) Level 5.4 ug/mL 4.0-12.0 [facility] Work Phone: Vital Signs Date Time Vital Sign Value Performing Clinician Faci lity 03-18-2025 15:34-0400 Body height 175.[address] Mickie Prado MD Work Phone: [facility] 03-18-2025 15:34-0400 Body mass index (BMI) [Ratio] 37.2 kg/m2 Dr. Mickie Prado MD Work Phone: [facility] 03-18-2025 15:34-0400 Body temperature 98.4 [degF] Dr. Mickie Prado MD Work Phone: [facility] 03-18-2025 15:34-0400 Body weight 113.[address] Mickie Prado MD Work Phone: [facility] 03-18-2025 15:34-0400 Diastolic blood pressure 83 mm[Hg] Dr. Mickie Prado MD Work Phone: [facility] 03-18-2025 15:34-0400 Heart rate 79 /min Dr. Mickie Prado MD Work Phone: [facility] 03-18-2025 15:34-0400 Respiratory rate 16 /min Dr. Mickie Prado MD Work Phone: [facility] 03-18-2025 15:34-0400 SaO2% (BldA) [Mass fraction] 92 % Dr. Mickie Prado MD Work Phone: [facility] 03-18-2025 15:34-0400 Systolic blood pressure 137 mm[Hg] Dr. Mickie Prado MD Work Phone: [facility] 11-22-2024 20:46-0400 Diastolic blood pressure 96 mm[Hg] Dr. Mickie Prado MD Work Phone: [facility] 11-22-2024 20:46-0400 Systolic blood pressure 138 mm[Hg] Dr. Mickie Prado MD Work Phone: [facility] 11-22-2024 19:34-0400 Body height 175.[address] iMckie Prado MD Work Phone: [facility] 11-22-2024 19:34-0400 Body mass index (BMI) [Ratio] 32.5 kg/m2 Dr. Mickie Prado MD Work Phone: [facility] 11-22-2024 19:34-0400 Body temperature 97.3 [degF] Dr. Mickie Prado MD Work Phone: [facility] 11-22-2024 19:34-0400 Body weight 99.[address] Mickie Prado MD Work Phone: [facility] 11-22-2024 19:34-0400 Heart rate 97 /min Dr. Mickie Prado MD Work Phone: [facility] 11-22-2024 19:34-0400 Respiratory rate 16 /min Dr. Mickie Prado MD Work Phone: [facility] 11-22-2024 19:34-0400 SaO2% (BldA) [Mass fraction] 98 % Dr. Mickie Prado MD Work Phone: [facility] 11-22-2024 13:17-0400 Body temperature 98 [degF] Dr. Mickie Prado MD Work Phone: [facility] 11-22-2024 13:17-0400 Diastolic blood pressure 98 mm[Hg] Dr. Mickie Prado MD Work Phone: [facility] 11-22-2024 13:17-0400 Heart rate 89 /min Dr. Mickie Prado MD Work Phone: [facility] 11-22-2024 13:17-0400 Respiratory rate 16 /min Dr. Mickie Prado MD Work Phone: [facility] 11-22-2024 13:17-0400 SaO2% (BldA) [Mass fraction] 99 % Dr. Mickie Prado MD Work Phone: [facility] 11-22-2024 13:17-0400 Systolic blood pressure 138 mm[Hg] Dr. Mickie Prado MD Work Phone: [facility] 11-22-2024 11:29-0400 Body height 175.[address] Mickie Prado MD Work Phone: [facility] 11-22-2024 11:29-0400 Body mass index (BMI) [Ratio] 35.4 kg/m2 Dr. Mickie Prado MD Work Phone: [facility] 11-22-2024 11:29-0400 Body weight 108.[address] Mickie Prado MD Work Phone: [facility] 10-10-2023 10:29-0500 Body height 175.[address] Mickie Prado Work Phone: [facility] 10-10-2023 10:29-0500 Body mass index (BMI) [Ratio] 37.2 kg/m2 Dr. Mickie Prado Work Phone: [facility] 10-10-2023 10:29-0500 Body temperature 97.1 [degF] Dr. Mickie Prado Work Phone: [facility] 10-10-2023 10:29-0500 Body weight 114.[address] Mickie Prado Work Phone: [facility] 10-10-2023 10:29-0500 Diastolic blood pressure 85 mm[Hg] Dr. Mickie Prado Work Phone: [facility] 10-10-2023 10:29-0500 Heart rate 85 /min Dr. Mickie Prado Work Phone: [facility] 10-10-2023 10:29-0500 Respiratory rate 16 /min Dr. Mickie Prado Work Phone: [facility] 10-10-2023 10:29-0500 SaO2% (BldA) [Mass fraction] 95 % Dr. Mickie Prado Work Phone: [facility] 10-10-2023 10:29-0500 Systolic blood pressure 133 mm[Hg] Dr. Mickie Prado Work Phone: [facility] 03-22-2023 13:53-0400 Body temperature 97.9 [degF] Dr. Mickie Prado Work Phone: [facility] 03-22-2023 13:53-0400 Diastolic blood pressure 60 mm[Hg] Dr. Mickie Prado Work Phone: [facility] 03-22-2023 13:53-0400 Heart rate 66 /min Dr. Mickie Prado Work Phone: [facility] 03-22-2023 13:53-0400 Respiratory rate 16 /min Dr. Mickie Prado Work Phone: [facility] 03-22-2023 13:53-0400 SaO2% (BldA) [Mass fraction] 96 % Dr. Mickie Prado Work Phone: [facility] 03-22-2023 13:53-0400 Systolic blood pressure 100 mm[Hg] Dr. Mickie Prado Work Phone: [facility] 03-21-2023 22:14-0400 Inhaled oxygen flow rate 2 L/min Dr. Mickie Prado Work Phone: [facility] 03-21-2023 04:06-0400 Body height 175.[address] Mickie Prado Work Phone: [facility] 03-21-2023 04:06-0400 Body mass index (BMI) [Ratio] 37.5 kg/m2 Dr. Mcikie Prado Work Phone: [facility] 03-21-2023 04:06-0400 Body weight 114.[address] Mickie Prado Work Phone: [facility] 03-18-2023 19:03-0400 Diastolic blood pressure 79 mm[Hg] Dr. Mickie Prado Work Phone: [facility] 03-18-2023 19:03-0400 Heart rate 92 /min Dr. Mickie Prado Work Phone: [facility] 03-18-2023 19:03-0400 Inhaled oxygen flow rate 99 L/min Dr. Mickie Prado Work Phone: [facility] 03-18-2023 19:03-0400 Respiratory rate 22 /min Dr. Mickie Prado Work Phone: [facility] 03-18-2023 19:03-0400 Systolic blood pressure 146 mm[Hg] Dr. Mickie Prado Work Phone: [facility] 03-18-2023 17:33-0400 Body temperature 99 [degF] Dr. Mickie Prado Work Phone: [facility] 03-18-2023 17:33-0400 SaO2% (BldA) [Mass fraction] 99 % Dr. Mickie Prado Work Phone: [facility] 03-18-2023 14:58-0400 Body height 175.[address] Mickie Prado Work Phone: [facility] 03-18-2023 14:58-0400 Body mass index (BMI) [Ratio] 37.9 kg/m2 Dr. Mickie Prado Work Phone: [facility] 03-18-2023 14:58-0400 Body weight 116.[address] Mickie Prado Work Phone: [facility] 10-23-2022 08:34-0500 Body temperature 97.1 [degF] Dr. Mickie Prado Work Phone: [facility] 10-23-2022 08:34-0500 Body weight 111.[address] Mickie Prado Work Phone: [facility] 10-23-2022 08:34-0500 Diastolic blood pressure 87 mm[Hg] Dr. Mickie Prado Work Phone: [facility] 10-23-2022 08:34-0500 Heart rate 88 /min Dr. Mickie Prado Work Phone: [facility] 10-23-2022 08:34-0500 Respiratory rate 16 /min Dr. Mickie Prado Work Phone: [facility] 10-23-2022 08:34-0500 SaO2% (BldA) [Mass fraction] 93 % Dr. Mickie Prado Work Phone: [facility] 10-23-2022 08:34-0500 Systolic blood pressure 140 mm[Hg] Dr. Mickie Prado Work Phone: [facility] 09-28-2022 09:34-0500 Body temperature 97.3 [degF] Dr. Mickie Prado Work Phone: [facility] 09-28-2022 09:34-0500 Body weight 108.[address] Mickie Prado Work Phone: [facility] 09-28-2022 09:34-0500 Diastolic blood pressure 79 mm[Hg] Dr. Mickie Prado Work Phone: [facility] 09-28-2022 09:34-0500 Heart rate 100 /min Dr. Mickie Prado Work Phone: [facility] 09-28-2022 09:34-0500 Respiratory rate 16 /min Dr. Mickie Prado Work Phone: [facility] 09-28-2022 09:34-0500 SaO2% (BldA) [Mass fraction] 92 % Dr. Mickie Prado Work Phone: [facility] 09-28-2022 09:34-0500 Systolic blood pressure 126 mm[Hg] Dr. Mickie Prado Work Phone: [facility] 09-08-2022 15:48-0500 Diastolic blood pressure 90 mm[Hg] [facility] 09-08-2022 15:48-0500 Heart rate 64 /min [facility] 09-08-2022 15:48-0500 Respiratory rate 16 /min [facility] 09-08-2022 15:48-0500 SaO2% (BldA) [Mass fraction] 98 % [facility] 09-08-2022 15:48-0500 Systolic blood pressure 159 mm[Hg] [facility] 09-08-2022 12:10-0500 Body height 175.26 cm [facility] 09-08-2022 12:10-0500 Body mass index (BMI) [Ratio] 34.5 kg/m2 [facility] 09-08-2022 12:10-0500 Body temperature 96.7 [degF] [facility] 09-08-2022 12:10-0500 Body weight 106.14 kg [facility] 06-27-2022 07:56-0400 Body mass index (BMI) [Ratio] 32.5 kg/m2 [facility] Work Phone: 06-27-2022 07:56-0400 Body temperature 97.3 [degF] [facility] Work Phone: 06-27-2022 07:56-0400 Body weight 99.79 kg [facility] Work Phone: 06-27-2022 07:56-0400 Diastolic blood pressure 84 mm[Hg] [facility] Work Phone: 06-27-2022 07:56-0400 Heart rate 88 /min [facility] Work Phone: 06-27-2022 07:56-0400 Respiratory rate 17 /min [facility] Work Phone: 06-27-2022 07:56-0400 SaO2% (BldA) [Mass fraction] 95 % [facility] Work Phone: 06-27-2022 07:56-0400 Systolic blood pressure 142 mm[Hg] [facility] Work Phone: Encounters Encounter Date Encounter Type Care Provider Facility Start: 03-27-2025 ambulatory Mickie Prado Facility :[facility] Start: 03-18-2025 End: 03-18-[address] Mickie Prado MD -[facility] Work Phone: Start: 03-18-2025 End: 03-18-[address] Mickie Prado MD Work Phone: -[facility] Start: 11-22-2024 End: 11-22-2024 Emergency department patient visit Dr. Mickie Prado MD Work Phone: -Emergency Department Work Phone: Start: 11-22-2024 End: 11-22-2024 Emergency department patient visit Dr. Mickie Prado MD Work Phone: -Emergency Department Work Phone: Start: 05-03-2024 End: 05-03-2024 ambulatory Mickie Prado Facility:[facility] Start: 05-01-2024 End: 05-01-2024 ambulatory aKrl EVANS Facility:[facility] Start: 10-12-2023 End: 10-12-[address] Mickie Prado Work Phone: [facility] Work Phone: Start: 10-12-2023 End: 10-12-[address] Mickie Prado Work Phone: [facility] Work Phone: Start: 10-11-2023 End: 10-11-[address] Mickie Prado Work Phone: [facility] Work Phone: Start: 10-11-2023 End: 10-11-[address] Mickie Prado Work Phone: [facility] Work Phone: Start: 10-10-2023 End: 10-10-2023 Encounter for general adult medical examination without abnormal findings Dr. Mickie Prado Work Phone: [facility] Start: 10-10-2023 End: 10-10-[address] Mickie Prado Work Phone: [facility] Work Phone: Start: 08-31-2023 End: 08-31-[address] Mickie Prado Work Phone: [facility], [facility] Work Phone: Start: 03-22-2023 Non-patient / Non-visit Dr. Katerine Prado Work Phone: [facility] Work Phone: Start: 03-21-2023 Non-patient / Non-visit Dr. Katerine Prado Work Phone: [facility] Work Phone: Start: 03-20-2023 Non-patient / Non-visit Dr. Katerine Prado Work Phone: [facility] Work Phone: Start: 03-19-2023 Non-patient / Non-visit Dr. Katerine Prado Work Phone: [facility] Work Phone: Start: 03-18-2023 End: 03-22-2023 Evaluation and management of inpatient [facility]. Mickie Prado [facility] Work Phone: Start: 03-18-2023 Non-patient / Non-visit Dr. Katerine rPado Work Phone: [facility] Work Phone: Start: 03-18-2023 Evaluation and management of inpatient Dr. Mickie Prado [facility] Work Phone: Start: 10-24-2022 End: 10-24-[address] Mickie Prado Work Phone: [facility] Work Phone: Start: 10-24-2022 End: 10-24-[address] Mickie Prado Work Phone: [facility] Start: 10-23-[address] Megan Prado Work Phone: [facility] Start: 10-23-2022 End: 10-23-2022 Encounter for general adult medical examination without abnormal findings Dr. Mickie Prado Work Phone: [facility] Start: 10-23-2022 End: 10-23-[address] Mickie Prado Work Phone: [facility] Start: 09-28-2022 End: 09-28-[address] Mickie Prado Work Phone: [facility] [place] Start: 09-08-2022 End: 09-08-2022 Emergency department patient visit [facility] Start: 06-27-2022 End: 06-27-2022 Emergency department patient visit [facility] Start: 03-01-2022 End: 03-01-2022 Patient encounter procedure [facility] Start: 07-13-2021 End: 08-02-2021 Subsequent hospital visit by physician Lab Referred Work Phone: [facility] Comment on above: F10.20 Procedures Date Procedure Procedure Detail Performing Clinician Start: 10-12-[address] Mickie Prado Work Phone: Start: 08-31-2023 MRI of lower extremity Dr. Mickie madsen Work Phone: Start: 03-21-[address] Mickie Prado Work Phone: Start: 03-21-[address] Mickie Prado Work Phone: Start: 03-21-2023 Open reduction with internal fixation Dr. Mickie Prado Work Phone: Start: 03-18-[address] Mickie Prado Work Phone: Start: 03-18-2023 MRI of lower extremity Dr. Mickie madsen Work Phone: Start: 03-18-2023 X-ray of both feet Dr. Mickie Prado Work Phone: Start: 03-18-[address] Mickei Prado Work Phone: Start: 09-08-2022 US scan of gallbladder H/O: hysterectomy History of par tial hysterectomy Plan of Treatment Date Care Activity Detail Author Start: 11-22-2024 [facility] Start: 11-22-2024 Control nasal hemorrhage anterior simple CONTROL OF NOSEBLEED [facility] Start: 11-22-2024 [facility] Start: 03-22-2023 Patient discharge [facility] Start: 03-21-2023 Referral to service [facility] Start: 03-19-2023 Vitamin D, 25-hydroxy measurement [facility] Start: 03-18-2023 [facility] Start: 03-18-2023 Following clinical pathway protocol [facility] Start: 03-18-2023 Application of intermittent pneumatic compression device [facility] Start: 03-18-2023 MR Lower extremity WO contrast [facility] Start: 03-18-2023 MRI of lower extremity Extremity Lower without Contra [facility] Start: 03-18-2023 Consultation [facility] Start: 03-18-2023 Elevation of affected extremity [facility] Start: 03-18-2023 Admission procedure [facility] Start: 03-18-2023 Assessment of risk of venous thromboembolism [facility] Start: 03-18-2023 Catheterization of vein [facility] Start: 03-18-2023 Incentive spirometry [facility] Start: 03-18-2023 Referral to service [facility] Start: 03-18-2023 Verification routine [facility] Start: 03-18-2023 End: 03-19-2023 [facility] Start: 06-27-2022 Ctrl nsl hemrrg pst nasal packs&/cautery 1st CONTROL OF NOSEBLEED [facility] Work Phone: Start: 05-04-2021 Influenza vaccination INFLUENZA (#1) [facility] Start: 2014 SHINGRIX VACCINE (1 of 2) SHINGRIX VACCINE (1 of 2) [facility] Start: 2009 COLOGUARD (FIT-DNA) COLOGUARD (FIT-DNA) [facility] Start: 2009 Colonoscopy COLONOSCOPY [facility] Start: 2009 COLORECTAL CANCER SCREENING COLORECTAL CANCER SCREENING [facility] Start: [address] COLONOGRAPHY [facility] Start: 2009 DIABETES SCREEN DIABETES SCREEN [facility] Start: 2009 FECAL OCCULT BLOOD FECAL OCCULT BLOOD [facility] Start: 2009 LIPID SCREEN LIPID SCREEN [facility] Start: 2009 SIGMOIDOSCOPY SIGMOIDOSCOPY [facility] Start: 2004 Mammography MAMMOGRAM [facility] Start: 1994 HPV TESTING HPV TESTING [facility] Start: 1985 PAP TESTING PAP TESTING [facility] Start: 1983 Urine microalbumin profile DTAP,TDAP,TD (1 - Tdap) [facility] Start: 1982 HEPATITIS C SCREENING HEPATITIS C SCREENING [facility] Start: 1982 HIV SCREENING HIV SCREENING [facility] Start: 1976 Adult depression screening assessment DEPRESSION SCREENING [facility] Start: 1969 COVID-19 VACCINE (1) COVID-19 VACCINE (1) [facility] CBC W Auto Different ial panel - Blood [facility] Comprehensive metabo lic 1999 panel - Serum or Plasma [facility] Hemoglobin A1c/Hemoglobin.total in Blood [facility] Insulin [Mass/volume ] in Serum or Plasma [facility] Lipid 1996 panel - S corbin or Plasma [facility] Magnesium measurement [facility] MG Breast - bilatera l Screening [facility] Patient Education [facility] Work Phone: Patient referral [facility] Work Phone: Thyroid stimulating hormone measurement [facility] Vitamin B12 measurement [facility] Vitamin D, 25-hydrox y measurement [facility] Immunizations Immunization Date Immunization Notes Care Provider Fa genesisty 01-25-2021 Covid (Moderna) [facility] 01-01-2021 Covid (Moderna) [facility] Payers Date Payer Category Payer Private Health Insurance [id number] 2025 Unknown [id number] 2024 Private Health Insurance [id number] 2024 Self-pay [id number] Unknown [facility] [employer] [place] YOR [facility] [employer] PAYOR [id number] Effective for all dates [address] [place] [address] Other Unknown [id number] Unknown [id number] Unknown [id number] Unknown [id number] Unknown [id number] Unknown [id number] Unknown [id number] Unknown [id number] Unknown [id number] Social History Date Type Detail Facility Start: 11-22-2024 End: 11-22-2024 Tobacco smoking status NHIS Never smoked tobacco [facility] Start: 05-25-2010 Alcohol intake Current drinke r of alcohol (finding) [facility] Start: 1965 Sex Assigned At Not on file [facility] Start: 08-12-2021 End: 10-10-2023 Tobacco smoking status TNIS Unknown if ever smoked [facility] Start: 04-27-2020 None [facility] Start: 1965 Sex Assigned At Female [facility] Start: 11-22-2024 End: 11-22-2024 Sex Female (finding) [facility] NEGATED: Highlighted row [facility] Medical Equipment Procedure Code Equipment Code Equipment Origin al Text Equipment Identifier Dates ORIF, ankle 3.0 LOCKING COMPRESION SCREW FDA Start: 03-21-2023 ORIF, ankle 3.5 LOCKING COMPRESSION SCREW FDA Start: 03-21-2023 ORIF, ankle 3.5 LOCKING COMPRESSION SCREW FDA Start: 03-21-2023 ORIF, ankle 4.0 MM QUICKFIX CANNULATED SCREW FDA Start: 03-21-2023 ORIF, ankle 4.0 MM QUICKFIX CANNULATED SCREW FDA Start: 03-21-2023 ORIF, ankle LOCKING DISTAL F IBULA PLATE, LEFT FDA Start: 03-21-2023 ORIF, ankle 3.0 LOCKING COMPRESION SCREW FDA Start: 03-21-2023 ORIF, ankle 3.0 LOCKING COMPRESION SCREW FDA Start: 03-21-2023 ORIF, ankle 3.0 LOCKING COMPRESSION SCREW FDA Start: 03-21-2023 ORIF, ankle 3.0 LOCKING COMPRESSION SCREW. FDA Start: 03-21-2023 ORIF, ankle 3.5 CORTICAL SCREW FDA Start : 03-21-2023 ORIF, ankle 3.5 CORTICAL SCREW FDA Start : 03-21-2023 ORIF, ankle 3.5 LOCKING COMPRESSION SCREW FDA Start: 03-21-2023 ORIF, ankle 3.5 LOCKING COMPRESSION SCREW FDA Start: 03-21-2023 ORIF, ankle 3.0 LOCKING COMPRESION SCREW FDA Start: 03-21-2023 ORIF, ankle 3.5 LOCKING COMPRESSION SCREW FDA Start: 03-21-2023 ORIF, ankle 3.5 LOCKING COMPRESSION SCREW FDA Start: 03-21-2023 ORIF, ankle 4.0 MM QUICKFIX CANNULATED SCREW FDA Start: 03-21-2023 ORIF, ankle 4.0 MM QUICKFIX CANNULATED SCREW FDA Start: 03-21-2023 ORIF, ankle LOCKING DISTAL F IBULA PLATE, LEFT FDA Start: 03-21-2023 ORIF, ankle 3.0 LOCKING COMPRESION SCREW FDA Start: 03-21-2023 ORIF, ankle 3.0 LOCKING COMPRESION SCREW FDA Start: 03-21-2023 ORIF, ankle 3.0 LOCKING COMPRESSION SCREW FDA Start: 03-21-2023 ORIF, ankle 3.0 LOCKING COMPRESSION SCREW. FDA Start: 03-21-2023 ORIF, ankle 3.5 CORTICAL SCREW FDA Start : 03-21-2023 ORIF, ankle 3.5 CORTICAL SCREW FDA Start : 03-21-2023 ORIF, ankle 3.5 LOCKING COMPRESSION SCREW FDA Start: 03-21-2023 ORIF, ankle 3.5 LOCKING COMPRESSION SCREW FDA Start: 03-21-2023 ORIF, ankle 3.0 LOCKING COMPRESION SCREW FDA Start: 03-21-2023 ORIF, ankle 3.5 LOCKING COMPRESSION SCREW FDA Start: 03-21-2023 ORIF, ankle 3.5 LOCKING COMPRESSION SCREW FDA Start: 03-21-2023 ORIF, ankle 4.0 MM QUICKFIX CANNULATED SCREW FDA Start: 03-21-2023 ORIF, ankle 4.0 MM QUICKFIX CANNULATED SCREW FDA Start: 03-21-2023 ORIF, ankle LOCKING DISTAL F IBULA PLATE, LEFT FDA Start: 03-21-2023 ORIF, ankle 3.0 LOCKING COMPRESION SCREW FDA Start: 03-21-2023 ORIF, ankle 3.0 LOCKING COMPRESION SCREW FDA Start: 03-21-2023 ORIF, ankle 3.0 LOCKING COMPRESSION SCREW FDA Start: 03-21-2023 ORIF, ankle 3.0 LOCKING COMPRESSION SCREW. FDA Start: 03-21-2023 ORIF, ankle 3.5 CORTICAL SCREW FDA Start : 03-21-2023 ORIF, ankle 3.5 CORTICAL SCREW FDA Start : 03-21-2023 ORIF, ankle 3.5 LOCKING COMPRESSION SCREW FDA Start: 03-21-2023 ORIF, ankle 3.5 LOCKING COMPRESSION SCREW FDA Start: 03-21-2023 ORIF, ankle 3.0 LOCKING COMPRESION SCREW FDA Start: 03-21-2023 ORIF, ankle 3.5 LOCKING COMPRESSION SCREW FDA Start: 03-21-2023 ORIF, ankle 3.5 LOCKING COMPRESSION SCREW FDA Start: 03-21-2023 ORIF, ankle 4.0 MM QUICKFIX CANNULATED SCREW FDA Start: 03-21-2023 ORIF, ankle 4.0 MM QUICKFIX CANNULATED SCREW FDA Start: 03-21-2023 ORIF, ankle LOCKING DISTAL F IBULA PLATE, LEFT FDA Start: 03-21-2023 ORIF, ankle 3.0 LOCKING COMPRESION SCREW FDA Start: 03-21-2023 ORIF, ankle 3.0 LOCKING COMPRESION SCREW FDA Start: 03-21-2023 ORIF, ankle 3.0 LOCKING COMPRESSION SCREW FDA Start: 03-21-2023 ORIF, ankle 3.0 LOCKING COMPRESSION SCREW. FDA Start: 03-21-2023 ORIF, ankle 3.5 CORTICAL SCREW FDA Start : 03-21-2023 ORIF, ankle 3.5 CORTICAL SCREW FDA Start : 03-21-2023 ORIF, ankle 3.5 LOCKING COMPRESSION SCREW FDA Start: 03-21-2023 ORIF, ankle 3.5 LOCKING COMPRESSION SCREW FDA Start: 03-21-2023 ORIF, ankle 3.0 LOCKING COMPRESION SCREW FDA Start: 03-21-2023 ORIF, ankle 3.5 LOCKING COMPRESSION SCREW FDA Start: 03-21-2023 ORIF, ankle 3.5 LOCKING COMPRESSION SCREW FDA Start: 03-21-2023 ORIF, ankle 4.0 MM QUICKFIX CANNULATED SCREW FDA Start: 03-21-2023 ORIF, ankle 4.0 MM QUICKFIX CANNULATED SCREW FDA Start: 03-21-2023 ORIF, ankle LOCKING DISTAL F IBULA PLATE, LEFT FDA Start: 03-21-2023 ORIF, ankle 3.0 LOCKING COMPRESION SCREW FDA Start: 03-21-2023 ORIF, ankle 3.0 LOCKING COMPRESION SCREW FDA Start: 03-21-2023 ORIF, ankle 3.0 LOCKING COMPRESSION SCREW FDA Start: 03-21-2023 ORIF, ankle 3.0 LOCKING COMPRESSION SCREW. FDA Start: 03-21-2023 ORIF, ankle 3.5 CORTICAL SCREW FDA Start : 03-21-2023 ORIF, ankle 3.5 CORTICAL SCREW FDA Start : 03-21-2023 ORIF, ankle 3.5 LOCKING COMPRESSION SCREW FDA Start: 03-21-2023 ORIF, ankle 3.5 LOCKING COMPRESSION SCREW FDA Start: 03-21-2023 ORIF, ankle 3.0 LOCKING COMPRESION SCREW FDA Start: 03-21-2023 ORIF, ankle 3.5 LOCKING COMPRESSION SCREW FDA Start: 03-21-2023 ORIF, ankle 3.5 LOCKING COMPRESSION SCREW FDA Start: 03-21-2023 ORIF, ankle 4.0 MM QUICKFIX CANNULATED SCREW FDA Start: 03-21-2023 ORIF, ankle 4.0 MM QUICKFIX CANNULATED SCREW FDA Start: 03-21-2023 ORIF, ankle LOCKING DISTAL F IBULA PLATE, LEFT FDA Start: 03-21-2023 ORIF, ankle 3.0 LOCKING COMPRESION SCREW FDA Start: 03-21-2023 ORIF, ankle 3.0 LOCKING COMPRESION SCREW FDA Start: 03-21-2023 ORIF, ankle 3.0 LOCKING COMPRESSION SCREW FDA Start: 03-21-2023 ORIF, ankle 3.0 LOCKING COMPRESSION SCREW. FDA Start: 03-21-2023 ORIF, ankle 3.5 CORTICAL SCREW FDA Start : 03-21-2023 ORIF, ankle 3.5 CORTICAL SCREW FDA Start : 03-21-2023 ORIF, ankle 3.5 LOCKING COMPRESSION SCREW FDA Start: 03-21-2023 ORIF, ankle 3.5 LOCKING COMPRESSION SCREW FDA Start: 03-21-2023 Goals Date Patient Goal Desired Activity /State Functional Status Date Assessment Result Facility 03-22-2023 Functional status Bedrest;Bedside Commode [facility] Work Phone: Mental Status Date Assessment Result Facility 03-22-2023 Cognitive function Voice/Name [facility] Work Phone: 03-18-2023 Cognitive function Awake;Alert;A ppropriate;Fol lows Commands [facility] Work Phone: Clinical Notes 03-18-2023 to 03-22-2023 Note Date & Type Note Facility 03-22-2023 Progress note Note Date/Time March 22, 2023 12:23pm [facility] Medical Records Department [address] [place] [address] Progress Note - Hospitalist 03/22/23 1221 MR#: [id number] Acct: [id number] Name: DEEPAK TURNER LUCAS Rep #:[id number] : 1965 57 From: Iza Dior DO PCP: Dr. Mickie Prado MD Status:ADM IN Location: [facility] [id number] Reason for Visit Reason for Visit: Left ankle pain Subjective Subjective States she is feeling so much better since surgery. Still having pain and feelsthat she may need to go home with a short course of narcotics. I did discuss with her holding her naltrexone until her narcotics have been completed she is no longer requiring them and she voiced understanding. Plan is for discharge later today per discussion with patient. Objective Data Objective Data Vital Signs: Vital Signs Temp Pulse Resp BP Pulse Ox O2 Del Method O2 Flow Rate 97.9 F 66 16 100/60 96 Room Air 2 03/22/23 09:00 03/22/23 09:00 03/22/23 09:00 03/22/23 09:00 03/22/23 09:00 03/22/23 09:00 03/21/23 22:14 Oxygen Flow Rate (L/min) [7] 99 Oxygen Flow Rate (L/min) [6] 4 Oxygen Flow Rate (L/min) [5] 97 Oxygen Flow Rate (L/min) [4] 98 Oxygen Flow Rate (L/min) [3] 4 Oxygen Flow Rate (L/min) [1 ( 4 Initial Baseline)] Oxygen Flow Rate (L/min) 2 Oxygen Delivery Method [7] Room Air Oxygen Delivery Method [6] Nasal Cannula Oxygen Delivery Method [5] Nasal Cannula Oxygen Delivery Method [4] Nasal Cannula Oxygen Delivery Method [3] Nasal Cannula Oxygen Delivery Method [1 ( Nasal Cannula Initial Baseline)] Oxygen Delivery Method Room Air Weight: 114.8 kg Body Mass Index (BMI) 37.5 Intake & Output: Intake and Output for Last 24 Hours 03/20/23 03/21/23 03/22/23 23:59 23:59 23:59 Intake Total 900 / 1300 1153.5 / 1653.5 600 / 600 Output Total 3000 / 4000 1000 / 2000 1000 / 1000 Balance -2100 / -2700 153.5 / -346.5 -400 / -400 Lab / Micro Data 03/20/23 07:40 03/20/23 07:40 Radiography Diagnostic Testing: Radiology Impression Ankle X-Ray 03/21/23 11:58 IMPRESSION: Intraoperative digital documentation views. Electronically Signed: Karan Leggett MD at 15:33 EDT , Physical Exam Const alert, oriented x3, no apparent distress, healthy appearing and well nourished Constitutional Narrative: Obese, middle-aged, white female, sitting up in bed watching television, appearscomfortable nontoxic HEENT head/scalp atraumatic and moist oral mucous membranes HEENT Narrative: Mallampati 2-3, no thrush Head and Scalp: normocephalic Resp normal respiratory effort, no retractions, no use of accessory muscles and clearto auscultation bilaterally Auscultation: Negative for rales, rhonchi or wheezes Cardio regular rate, regular rhythm, S1 normal heart sound, S2 normal heart sound, no murmurs, no rub, no gallops and no clicks Extremity Extremity Narrative: Left lower extremity with postoperative dressing in place, cap refill is good, sensation is normal, no clubbing or cyanosis, no edema right lower extremity Neuro oriented x3 Speech: speech normal Psych affect normal Psych Narrative: Very pleasant, appropriately interactive Assessment & Plan Assessment/Plan (1) Fracture of ankle, trimalleolar, left, closed: PLAN: Plan Acute oblique displaced fracture of the distal fibula/transverse displaced fracture of the medial malleolus with disruption of the tibiotalar joint -Postop day 1 ORIF left ankle -Patient is medically optimized -Hold naltrexone so patient can receive as needed opiates until surgery has beenperformed -Continue scheduled Tylenol -As needed ibuprofen -As needed oxycodone -As needed bowel regimen -PT/OT for gait training postoperatively -Definitive management per primary service -Anticipate discharge in the next 24 hours and patient should be medically stable for this as long as no issues postoperatively MVP -No murmur on exam -No further work-up required History of alcohol abuse/dependence -Currently in remission -Restart home naltrexone at discharge -Holding currently so patient may receive some opiates for pain -Encouraged ongoing cessation Anxiety/depression -Continue carbamazepine -Continue bupropion -Continue olanzapine -Continue gabapentin DVT prophylaxis -Recommend patient start enoxaparin 40 mg daily postoperatively while hospitalized -Preoperative DVT prophylaxis per primary service Disposition -Okay to discharge home from medical standpoint. Labs are unremarkable. Patient will need gait training with therapy prior to discharge. Would recommend holding naltrexone while on narcotics and then reinitiating after narcotics for pain have been discontinued. Charges/Coding Visit Charges Inpatient E&M: 38337 Subs Hosp L1 03/22/23 1223 <Electronically signed by Iza Dior DO> Cosigner Signature (if applicable): CC: ~ Signed [facility] Work Phone: 1(102) 790-991707-19-2023 Procedure [facility] 03-21-2023 Progress note Author Iza Dior [facility] March 21, 2023 11:01am Note Date/Time March 21, 2023 11:0 1am [facility] Medical Records Department [address] [place] [address] Progress Note - Hospitalist 03/21/23 1059 MR#: [id number] Acct: [id number] Name: DEEPAK TURNER Rep #:[id number] : 1965 57 From: Iza Dior DO PCP: Dr. Mickie Prado MD Status:ADM IN Location: [place] [address] Reason for Visit Reason for Visit: Left ankle pain Subjective Subjective No issues overnight. Patient anxious to go to the OR today to get her ankle fixed and hopefully back home in the next 24 hours if possible. Objective Data Objective Data Vital Signs: Vital Signs Temp Pulse Resp BP Pulse Ox O2 Del Method O2 Flow Rate 97.8 F 65 18 122/62 H 98 Room Air 4 03/21/23 09:02 03/21/23 09:02 03/21/23 09:02 03/21/23 09:02 03/21/23 09:02 03/21/23 09:02 03/18/23 19:03 Oxygen Flow Rate (L/min) [7] 99 Oxygen Flow Rate (L/min) [6] 4 Oxygen Flow Rate (L/min) [5] 97 Oxygen Flow Rate (L/min) [4] 98 Oxygen Flow Rate (L/min) [3] 4 Oxygen Flow Rate (L/min) [1 ( 4 Initial Baseline)] Oxygen Delivery Method [7] Room Air Oxygen Delivery Method [6] Nasal Cannula Oxygen Delivery Method [5] Nasal Cannula Oxygen Delivery Method [4] Nasal Cannula Oxygen Delivery Method [3] Nasal Cannula Oxygen Delivery Method [1 ( Nasal Cannula Initial Baseline)] Oxygen Delivery Method Room Air Weight: 114.8 kg Body Mass Index (BMI) 37.5 Intake & Output: Intake and Output for Last 24 Hours 03/19/23 03/20/23 03/21/23 23:59 23:59 23:59 Intake Total 2178.67 / 2678.67 900 / 1300 450 / 450 Output Total 950 / 1950 3000 / 4000 1000 / 1000 Balance 1228.67 / 728.67 -2100 / -2700 -550 / -550 Lab / Micro Data 03/20/23 07:40 03/20/23 07:40 Physical Exam Const alert, oriented x3, no apparent distress, healthy appearing and well nourished; Negative for average body habitus Constitutional Narrative: Obese, middle-aged, white female, sitting up in bed, appears comfortable and nontoxic HEENT head/scalp atraumatic Head and Scalp: normocephalic Psych affect normal Psych Narrative: Pleasant, interacts appropriately Assessment & Plan Assessment/Plan (1) Acute left ankle pain: (2) Ankle fracture, bimalleolar, closed: QUALIFIERS: Encounter type: initial encounter Laterality: left Qualified Code(s): S82.842A - Displaced bimalleolar fracture of left lower leg, initial encounter for closed fracture PLAN: Plan Acute oblique displaced fracture of the distal fibula/transverse displaced fracture of the medial malleolus with disruption of the tibiotalar joint -Plan is for OR 11:30 AM today -Patient is medically optimized -Hold naltrexone so patient can receive as needed opiates until surgery has beenperformed -Continue scheduled Tylenol -As needed ibuprofen -As needed oxycodone -As needed bowel regimen -PT/OT for gait training postoperatively -Definitive management per primary service -Anticipate discharge in the next 24 hours and patient should be medically stable for this as long as no issues postoperatively MVP -No murmur on exam -No further work-up required History of alcohol abuse/dependence -Currently in remission -Restart home naltrexone at discharge -Holding currently so patient may receive some opiates for pain -Encouraged ongoing cessation Anxiety/depression -Continue carbamazepine -Continue bupropion -Continue olanzapine -Continue gabapentin DVT prophylaxis -Recommend patient start enoxaparin 40 mg daily postoperatively while hospitalized -Preoperative DVT prophylaxis per primary service Disposition -Anticipate discharge home after surgery Charges/Coding Visit Charges Inpatient E&M: 92894 Subs Hosp L1 03/21/23 1101 <Electronically signed by Iza Dior DO> Cosigner Signature (if applicable): CC: ~ Signed [facility] Work Phone: 1(523) 299-592107-18-2023 Progress note Author Hal Bar [facility] March 20, 2023 5:02pm Note Date/Time March 20, 2023 5:02 pm [facility] Medical Records Department [address] [place] [address] Progress Note 03/20/23 1701 MR#: [id number] Acct: [id number] Name: DEEPAK TURNER Rep #:[id number] : 1965 57 From: Hal Bar DPM PCP: Dr. Mickie Prado MD Status:ADM IN Location: [place] [address]-1 Subjective Subjective No changes overnight. pain improved today. Objective Data Objective Data Vital Signs: Vital Signs Temp Pulse Resp BP Pulse Ox O2 Del Method O2 Flow Rate 98.2 F 80 16 159/98 H 98 Room Air 4 03/20/23 14:21 03/20/23 14:21 03/20/23 14:21 03/20/23 14:21 03/20/23 14:21 03/20/23 14:21 03/18/23 19:03 Oxygen Flow Rate (L/min) [7] 99 Oxygen Flow Rate (L/min) [6] 4 Oxygen Flow Rate (L/min) [5] 97 Oxygen Flow Rate (L/min) [4] 98 Oxygen Flow Rate (L/min) [3] 4 Oxygen Flow Rate (L/min) [1 ( 4 Initial Baseline)] Oxygen Delivery Method [7] Room Air Oxygen Delivery Method [6] Nasal Cannula Oxygen Delivery Method [5] Nasal Cannula Oxygen Delivery Method [4] Nasal Cannula Oxygen Delivery Method [3] Nasal Cannula Oxygen Delivery Method [1 ( Nasal Cannula Initial Baseline)] Oxygen Delivery Method Room Air Weight: 114.8 kg Body Mass Index (BMI) 37.5 Intake & Output: Intake and Output for Last 24 Hours 03/18/23 03/19/23 03/20/23 23:59 23:59 23:59 Intake Total 2178.67 / 2678.67 900 / 900 Output Total 950 / 1950 1500 / 1500 Balance 1228.67 / 728.67 -600 / -600 Lab / Micro Data 03/20/23 07:40 03/20/23 07:40 Labs: Laboratory Results - last 24 hr 03/19/23 18:06: WBC 5.1, RBC 3.16 L, Hgb 9.8 L, Hct 29.6 L, MCV 93.7, MCH 31.0, MCHC 33.1, RDW Std Deviation 44.8 H, RDW Coeff of Carline 13.2, Plt Count 177, MPV 9.7, Immature Gran % (Auto) 0.200, Neut % (Auto) 49.1, Lymph % (Auto) 44.1 H, [place] % (Auto) 6.0, Eos % (Auto) 0.2, Baso % (Auto) 0.4, Absolute Neuts (auto) 2.5, Absolute Lymphs (auto) 2.26, Nucleated RBC % 0 03/20/23 07:40: WBC 5.1, RBC 3.71 L, Hgb 11.4 L, Hct 35.1 L, MCV 94.6, MCH 30.7,MCHC 32.5, RDW Std Deviation 45.7 H, RDW Coeff of Carline 13.2, Plt Count 199, MPV 9.4, Immature Gran % (Auto) 0.200, Neut % (Auto) 48.8, Lymph % (Auto) 44.1 H, [place] % (Auto) 6.1, Eos % (Auto) 0.2, Baso % (Auto) 0.6, Absolute Neuts (auto) 2.5, Absolute Lymphs (auto) 2.25, Nucleated RBC % 0, Sodium 142, Potassium 4.1, Chloride 113 H, Carbon Dioxide 25.0, Anion Gap 4 L, BUN 10, Creatinine 0.90, Estim Creat Clear Calc 68.73, Est GFR (MDRD) Af Amer 82, Est GFR (MDRD) Non-Af 68, BUN/Creatinine Ratio 11.1, Glucose 94, Calcium 9.3, Phosphorus 3.4 Physical Exam Narrative Splint intact left lower extremity with maintain reduction of left ankle fracture. Const alert, oriented x3 and no apparent distress Assessment & Plan Assessment/Plan (1) Ankle fracture, bimalleolar, closed: QUALIFIERS: Encounter type: initial encounter Laterality: left Qualified Code(s): S82.842A - Displaced bimalleolar fracture of left lower leg, initial encounter for closed fracture (2) Acute left ankle pain: PLAN: Plan Evaluation performed. Reviewed diagnostic data. We will plan for ORIF left ankle fracture Sunday. No weightbearing left foot, keep foot elevated, keep splint clean, dry and intact. DVT Prophylaxis: SCD right. Will plan to start chemoprophylaxis post operatively. We will follow closely 03/20/23 1702 <Electronically signed by Hal Bar DPM> Hal Bar DPM Cosigner Signature (if applicable): CC: ~ Signed [facility] Work Phone: [phone]) 174-231407-18-2023 Progress note Author Iza Dior [facility] March 20, 2023 12:11pm Note Date/Time March 20, 2023 12:1 1pm [facility] Medical Records Department [address] [place] [address] Progress Note - Hospitalist 03/20/23 1209 MR#: [id number] Acct: [id number] Name: DEEPAK TURNER LUCAS Rep #:[id number] : 1965 57 From: Iza Dior DO PCP: Dr. Mickie Prado MD Status:ADM [facility] Reason for Visit Reason for Visit: Left ankle pain Subjective Subjective No issues overnight. Opiates are taking the edge off. Plan is for OR tomorrow at 1130. Objective Data Objective Data Vital Signs: Vital Signs Temp Pulse Resp BP Pulse Ox O2 Del Method O2 Flow Rate 97.8 F 63 16 125/85 H 95 Room Air 4 03/20/23 08:24 03/20/23 08:24 03/20/23 08:24 03/20/23 08:24 03/20/23 08:24 03/20/23 08:24 03/18/23 19:03 Oxygen Flow Rate (L/min) [7] 99 Oxygen Flow Rate (L/min) [6] 4 Oxygen Flow Rate (L/min) [5] 97 Oxygen Flow Rate (L/min) [4] 98 Oxygen Flow Rate (L/min) [3] 4 Oxygen Flow Rate (L/min) [1 ( 4 Initial Baseline)] Oxygen Delivery Method [7] Room Air Oxygen Delivery Method [6] Nasal Cannula Oxygen Delivery Method [5] Nasal Cannula Oxygen Delivery Method [4] Nasal Cannula Oxygen Delivery Method [3] Nasal Cannula Oxygen Delivery Method [1 ( Nasal Cannula Initial Baseline)] Oxygen Delivery Method Room Air Weight: 114.8 kg Body Mass Index (BMI) 37.5 Intake & Output: Intake and Output for Last 24 Hours 03/18/23 03/19/23 03/20/23 23:59 23:59 23:59 Intake Total 2178.67 / 2678.67 900 / 900 Output Total 950 / 1950 1500 / 1500 Balance 1228.67 / 728.67 -600 / -600 Lab / Micro Data 03/20/23 07:40 03/20/23 07:40 Labs: Laboratory Results - last 24 hr 03/19/23 18:06: WBC 5.1, RBC 3.16 L, Hgb 9.8 L, Hct 29.6 L, MCV 93.7, MCH 31.0, MCHC 33.1, RDW Std Deviation 44.8 H, RDW Coeff of Carline 13.2, Plt Count 177, MPV 9.7, Immature Gran % (Auto) 0.200, Neut % (Auto) 49.1, Lymph % (Auto) 44.1 H, [place] % (Auto) 6.0, Eos % (Auto) 0.2, Baso % (Auto) 0.4, Absolute Neuts (auto) 2.5, Absolute Lymphs (auto) 2.26, Nucleated RBC % 0 03/20/23 07:40: WBC 5.1, RBC 3.71 L, Hgb 11.4 L, Hct 35.1 L, MCV 94.6, MCH 30.7,MCHC 32.5, RDW Std Deviation 45.7 H, RDW Coeff of Carline 13.2, Plt Count 199, MPV 9.4, Immature Gran % (Auto) 0.200, Neut % (Auto) 48.8, Lymph % (Auto) 44.1 H, [place] % (Auto) 6.1, Eos % (Auto) 0.2, Baso % (Auto) 0.6, Absolute Neuts (auto) 2.5, Absolute Lymphs (auto) 2.25, Nucleated RBC % 0, Sodium 142, Potassium 4.1, Chloride 113 H, Carbon Dioxide 25.0, Anion Gap 4 L, BUN 10, Creatinine 0.90, Estim Creat Clear Calc 68.73, Est GFR (MDRD) Af Amer 82, Est GFR (MDRD) Non-Af 68, BUN/Creatinine Ratio 11.1, Glucose 94, Calcium 9.3, Phosphorus 3.4 Physical Exam Const alert, oriented x3, no apparent distress and well nourished Constitutional Narrative: Obese, middle-aged, white female, sitting up in bed watching television, appearscomfortable and nontoxic HEENT head/scalp atraumatic and moist oral mucous membranes Head and Scalp: normocephalic Neuro oriented x3 and no focal motor deficits Speech: speech normal Psych affect normal Psych Narrative: Pleasant and appropriately interactive Assessment & Plan Assessment/Plan (1) Acute left ankle pain: (2) Ankle fracture, bimalleolar, closed: QUALIFIERS: Encounter type: initial encounter Laterality: left Qualified Code(s): S82.842A - Displaced bimalleolar fracture of left lower leg, initial encounter for closed fracture PLAN: Plan Acute oblique displaced fracture of the distal fibula/transverse displaced fracture of the medial malleolus with disruption of the tibiotalar joint -Plan is for OR 11:30 AM 03/21/2023 -Patient is medically optimized -Hold naltrexone so patient can receive as needed opiates until surgery has beenperformed -Continue scheduled Tylenol -As needed ibuprofen -As needed oxycodone -As needed bowel regimen -PT/OT for gait training postoperatively -Definitive management per primary service MVP -No murmur on exam -No further work-up required History of alcohol abuse/dependence -Currently in remission -Restart home naltrexone at discharge -Holding currently so patient may receive some opiates for pain -Encouraged ongoing cessation Anxiety/depression -Continue carbamazepine -Continue bupropion -Continue olanzapine -Continue gabapentin DVT prophylaxis -Recommend patient start enoxaparin 40 mg daily postoperatively while hospitalized Disposition -Anticipate discharge home after surgery Charges/Coding Visit Charges Inpatient E&M: 40615 Subs Hosp L1 03/20/23 1211 <Electronically signed by Iza Dior DO> Cosigner Signature (if applicable): CC: ~ Signed [facility] Work Phone: [phone]) 499-700307-17-2023 Progress note Author Iza Dior [facility] March 19, 2023 2:07pm Note Date/Time March 19, 2023 2:07 pm [facility] Medical Records Department [address] [place] [address] Progress Note - Hospitalist 03/19/23 1358 MR#: [id number] Acct: [id number] Name: DEEPAK TURNER Rep #:[id number] : 1965 57 From: Iza Dior DO PCP: Dr. Mickie Prado MD Status:ADM IN Location: [facility] FB525-2 Reason for Visit Reason for Visit: Left ankle pain Subjective Subjective Patient is a 57-year-old white female who presented to the emergency department at [facility] on 03/18/2023 after a mechanical fall and twisting of her left ankle. She reported she was carrying a laundry bag and fell down steps at which time she fell on her left hip and twisted her left ankle laterally. She reported her ankle was very painful and swollen. She was complaining of 10 out of 10 constant pain but denied numbness or tingling. She notes a history of MVP but has no other cardiac or pulmonary conditions and denies history of smoking. She has history of substance abuse with alcohol dependency and has been sober for 2 years now and is on naltrexone chronically. She denied any substance abuse issues with opiates. She was admitted to podiatry service and we have been consulted for medical management. Clinically she is overall doing fairly well today. Plan is for surgery tomorrow. She is medically ready for surgery. I did discuss with her need of any opiates. She does feel like she needs something extra for pain and would like to hold her naltrexone while she is admitted to hospital at least until she get her surgery performed and the ankle is stabilized. In the meantim,e we will hold her naltrexone and order as needed opiates. Objective Data Objective Data Vital Signs: Vital Signs Temp Pulse Resp BP Pulse Ox O2 Del Method O2 Flow Rate 97.9 F 69 16 129/70 H 93 Room Air 4 03/19/23 08:20 03/19/23 08:20 03/19/23 08:20 03/19/23 08:20 03/19/23 08:20 03/19/23 08:20 03/18/23 19:03 Oxygen Flow Rate (L/min) [7] 99 Oxygen Flow Rate (L/min) [6] 4 Oxygen Flow Rate (L/min) [5] 97 Oxygen Flow Rate (L/min) [4] 98 Oxygen Flow Rate (L/min) [3] 4 Oxygen Flow Rate (L/min) [1 ( 4 Initial Baseline)] Oxygen Delivery Method [7] Room Air Oxygen Delivery Method [6] Nasal Cannula Oxygen Delivery Method [5] Nasal Cannula Oxygen Delivery Method [4] Nasal Cannula Oxygen Delivery Method [3] Nasal Cannula Oxygen Delivery Method [1 ( Nasal Cannula Initial Baseline)] Oxygen Delivery Method Room Air Weight: 114.8 kg Body Mass Index (BMI) 37.5 Intake & Output: Intake and Output for Last 24 Hours 03/17/23 03/18/23 03/19/23 23:59 23:59 23:59 Intake Total 921.67 / 921.67 Balance 921.67 / 921.67 Lab / Micro Data 03/19/23 03:57 03/19/23 03:57 Labs: Laboratory Results - last 24 hr 03/18/23 17:30: WBC 10.3, RBC 4.39, Hgb 13.4, Hct 40.4, MCV 92.0, MCH 30.5, MCHC33.2, RDW Std Deviation 44.0 H, RDW Coeff of Carline 13.1, Plt Count 249, MPV 9.7, Immature Gran % (Auto) 0.400, Neut % (Auto) 76.2 H, Lymph % (Auto) 17.7 L, [place] % (Auto) 5.4, Eos % (Auto) 0.0, Baso % (Auto) 0.3, Absolute Neuts (auto) 7.9 H, Absolute Lymphs (auto) 1.82, Nucleated RBC % 0, Sodium 142, Potassium 3.8, Chloride 111 H, Carbon Dioxide 26.0, Anion Gap 5, BUN 9, Creatinine 0.94, Estim Creat Clear Calc 68.18, Est GFR (MDRD) Af Amer 79, Est GFR (MDRD) Non-Af 65, BUN/Creatinine Ratio 9.6 L, Glucose 107 H, Calcium 10.2 H, Phosphorus 2.1 L, Magnesium 2.2, Total Bilirubin 0.20, Direct Bilirubin 0.08, AST 23, ALT 25, Alkaline Phosphatase 110, Total Protein 7.8, Albumin 3.8, Globulin 4.0 03/19/23 03:57: WBC 6.3, RBC 3.54 L, Hgb 10.9 L, Hct 33.4 L, MCV 94.4, MCH 30.8,MCHC 32.6, RDW Std Deviation 45.4 H, RDW Coeff of Carline 13.2, Plt Count 217, MPV 10.0, Immature Gran % (Auto) 0.300, Neut % (Auto) 51.7, Lymph % (Auto) 41.4 H, [place] % (Auto) 5.9, Eos % (Auto) 0.2, Baso % (Auto) 0.5, Absolute Neuts (auto) 3.3, Absolute Lymphs (auto) 2.61, Nucleated RBC % 0, Sodium 144, Potassium 3.5, Chloride 115 H, Carbon Dioxide 24.0, Anion Gap 5, BUN 11, Creatinine 0.83, EstimCreat Clear Calc 74.53, Est GFR (MDRD) Af Amer 91, Est GFR (MDRD) Non-Af 75, BUN/Creatinine Ratio 13.3, Glucose 102, Calcium 9.1, Vitamin D 25-Hydroxy 41.7 Radiography Diagnostic Testing: Radiology Impression Ankle X-Ray 03/18/23 15:09 IMPRESSION: Fracture of the distal tibia and fibula with disruption of the tibiotalar joint. Electronically Signed: Harshal Morgan MD at 15:56 EDT , Foot X-Ray 03/18/23 15:30 IMPRESSION: Distal fibular and tibial fractures with disruption of the tibiotalar joint. Electronically Signed: Stacy Gomez MD at 16:19 EDT , Lower Extremity CT 03/18/23 19:19 IMPRESSION: Comminuted trimalleolar fracture of the left ankle. Electronically Signed: Travis Reid MD at 22:35 EDT , Ankle X-Ray 03/18/23 21:35 IMPRESSION: Significantly improved positioning of previous fracture dislocation, although widening of the ankle and shift of the talus laterally persists. Electronically Signed: Nabil Bragg MD at 23:02 EDT , Physical Exam Const alert, oriented x3, no apparent distress, healthy appearing and well nourished Constitutional Narrative: Obese, very pleasant, white middle-aged female, sitting up in bed watching television, appears comfortable and nontoxic HEENT head/scalp atraumatic and moist oral mucous membranes HEENT Narrative: Mallampati 2, no thrush Head and Scalp: normocephalic Resp normal respiratory effort, no retractions, no use of accessory muscles and clearto auscultation bilaterally Auscultation: Negative for rales, rhonchi or wheezes Cardio regular rate, regular rhythm, S1 normal heart sound, S2 normal heart sound, no murmurs, no rub, no gallops and no clicks GI normal to inspection, nondistended, normoactive bowel sounds, soft to palpation and non-tender Extremity Extremity Narrative: Left lower extremity with splint in place, cap refill is 2+ bilateral lower extremities, pedal pulses right lower extremity 2+, no sinus clubbing Neuro oriented x3 and no focal motor deficits Neuro Narrative: Unable to move distal left lower extremity due to ankle fracture but no other deficits noted Speech: speech normal Psych affect normal Psych Narrative: Very pleasant Assessment & Plan Assessment/Plan (1) Acute left ankle pain: (2) Ankle fracture, bimalleolar, closed: QUALIFIERS: Encounter type: initial encounter Laterality: left Qualified Code(s): S82.842A - Displaced bimalleolar fracture of left lower leg, initial encounter for closed fracture PLAN: Plan Acute oblique displaced fracture of the distal fibula/transverse displaced fracture of the medial malleolus with disruption of the tibiotalar joint -Plan is for OR tomorrow -Patient is medically optimized -Hold naltrexone so patient can receive as needed opiates until surgery has beenperformed -We will schedule Tylenol -As needed ibuprofen -As needed bowel regimen -PT/OT for gait training postoperatively -Definitive management per primary service MVP -No murmur on exam -No further work-up required History of alcohol abuse/dependence -Currently in remission -Restart home naltrexone at discharge -Holding currently so patient may receive some opiates for pain -Encouraged ongoing cessation Anxiety/depression Continue carbamazepine -Continue bupropion -Continue olanzapine -Continue gabapentin DVT prophylaxis -Patient to start enoxaparin 40 mg daily postoperatively Disposition -Anticipate discharge home after surgery 03/19/23 1406 <Electronically signed by Iza Dior DO> Cosigner Signature (if applicable): CC: ~ Signed ADDENDUM by Dr. Iza Dior DO on 03/19/23 at 1407 Visit Charges Inpatient E&M: 12995 Subs Hosp L2 03/19/23 1407<Electronically signed by Iza Dior DO> Cosigner Signature (if applicable): cc: ~* Signed [facility] Work Phone: 1(426) 451-890207-17-2023 Progress note Author Hal Bar [facility] March 19, 2023 12:38pm Note Date/Time March 19, 2023 12:3 8pm [facility] Medical Records Department [address] [place] [id number] Progress Note 03/19/23 1237 MR#: [id number] Acct: [id number] Name: DEEPAK TURNER LUCAS Rep #:[id number] : 1965 57 From: Hal Bar DPM PCP: Dr. Mickie Prado MD Status:ADM IN Location: [facility] IK350-4 Subjective Subjective Patient seen bedside. Notes some pain to the left ankle. Denies constitutional symptoms. Denies chest pain calf pain shortness of breath. Objective Data Objective Data Vital Signs: Vital Signs Temp Pulse Resp BP Pulse Ox O2 Del Method O2 Flow Rate 97.9 F 69 16 129/70 H 93 Room Air 4 03/19/23 08:20 03/19/23 08:20 03/19/23 08:20 03/19/23 08:20 03/19/23 08:20 03/19/23 08:20 03/18/23 19:03 Oxygen Flow Rate (L/min) [7] 99 Oxygen Flow Rate (L/min) [6] 4 Oxygen Flow Rate (L/min) [5] 97 Oxygen Flow Rate (L/min) [4] 98 Oxygen Flow Rate (L/min) [3] 4 Oxygen Flow Rate (L/min) [1 ( 4 Initial Baseline)] Oxygen Delivery Method [7] Room Air Oxygen Delivery Method [6] Nasal Cannula Oxygen Delivery Method [5] Nasal Cannula Oxygen Delivery Method [4] Nasal Cannula Oxygen Delivery Method [3] Nasal Cannula Oxygen Delivery Method [1 ( Nasal Cannula Initial Baseline)] Oxygen Delivery Method Room Air Weight: 114.8 kg Body Mass Index (BMI) 37.5 Intake & Output: Intake and Output for Last 24 Hours 03/17/23 03/18/23 03/19/23 23:59 23:59 23:59 Intake Total 921.67 / 921.67 Balance 921.67 / 921.67 Lab / Micro Data 03/19/23 03:57 03/19/23 03:57 Labs: Laboratory Results - last 24 hr 03/18/23 17:30: WBC 10.3, RBC 4.39, Hgb 13.4, Hct 40.4, MCV 92.0, MCH 30.5, MCHC33.2, RDW Std Deviation 44.0 H, RDW Coeff of Carline 13.1, Plt Count 249, MPV 9.7, Immature Gran % (Auto) 0.400, Neut % (Auto) 76.2 H, Lymph % (Auto) 17.7 L, [place] % (Auto) 5.4, Eos % (Auto) 0.0, Baso % (Auto) 0.3, Absolute Neuts (auto) 7.9 H, Absolute Lymphs (auto) 1.82, Nucleated RBC % 0, Sodium 142, Potassium 3.8, Chloride 111 H, Carbon Dioxide 26.0, Anion Gap 5, BUN 9, Creatinine 0.94, Estim Creat Clear Calc 68.18, Est GFR (MDRD) Af Amer 79, Est GFR (MDRD) Non-Af 65, BUN/Creatinine Ratio 9.6 L, Glucose 107 H, Calcium 10.2 H, Phosphorus 2.1 L, Magnesium 2.2, Total Bilirubin 0.20, Direct Bilirubin 0.08, AST 23, ALT 25, Alkaline Phosphatase 110, Total Protein 7.8, Albumin 3.8, Globulin 4.0 03/19/23 03:57: WBC 6.3, RBC 3.54 L, Hgb 10.9 L, Hct 33.4 L, MCV 94.4, MCH 30.8,MCHC 32.6, RDW Std Deviation 45.4 H, RDW Coeff of Carline 13.2, Plt Count 217, MPV 10.0, Immature Gran % (Auto) 0.300, Neut % (Auto) 51.7, Lymph % (Auto) 41.4 H, [place] % (Auto) 5.9, Eos % (Auto) 0.2, Baso % (Auto) 0.5, Absolute Neuts (auto) 3.3, Absolute Lymphs (auto) 2.61, Nucleated RBC % 0, Sodium 144, Potassium 3.5, Chloride 115 H, Carbon Dioxide 24.0, Anion Gap 5, BUN 11, Creatinine 0.83, EstimCreat Clear Calc 74.53, Est GFR (MDRD) Af Amer 91, Est GFR (MDRD) Non-Af 75, BUN/Creatinine Ratio 13.3, Glucose 102, Calcium 9.1, Vitamin D 25-Hydroxy 41.7 Radiography Diagnostic Testing: Radiology Impression Ankle X-Ray 03/18/23 15:09 IMPRESSION: Fracture of the distal tibia and fibula with disruption of the tibiotalar joint. Electronically Signed: Harshal Morgan MD at 15:56 EDT , Foot X-Ray 03/18/23 15:30 IMPRESSION: Distal fibular and tibial fractures with disruption of the tibiotalar joint. Electronically Signed: Stacy Gomez MD at 16:19 EDT , Lower Extremity CT 03/18/23 19:19 IMPRESSION: Comminuted trimalleolar fracture of the left ankle. Electronically Signed: Travis Reid MD at 22:35 EDT , Ankle X-Ray 03/18/23 21:35 IMPRESSION: Significantly improved positioning of previous fracture dislocation, although widening of the ankle and shift of the talus laterally persists. Electronically Signed: Nabil Bragg MD at 23:02 EDT , Physical Exam Narrative Splint intact left lower extremity with maintain reduction of left ankle fracture. Const alert, oriented x3 and no apparent distress Assessment & Plan Assessment/Plan (1) Ankle fracture, bimalleolar, closed: QUALIFIERS: Encounter type: initial encounter Laterality: left Qualified Code(s): S82.842A - Displaced bimalleolar fracture of left lower leg, initial encounter for closed fracture (2) Acute left ankle pain: PLAN: Plan Evaluation performed. Reviewed diagnostic data. We will plan for ORIF Sunday. She will be admitted for pain management and surgical intervention. No weightbearing left foot, keep foot elevated, keep splint clean, dry and intact. Pain management: Tylenol, Dilaudid, Oxyir DVT Prophylaxis: SCD right. Will plan to start chemoprophylaxis post operatively. The hospitalist was consulted for patient's other medical problems. 03/19/23 1238 <Electronically signed by Hal Bar DPM> Hal Bar DPM Cosigner Signature (if applicable): CC: ~ Signed [facility] Work Phone: [phone]) 937-305207-16-2023 History and physical note Author Jaime Peters [facility] March 18, 2023 8:04pm Note Date/Time March 18, 2023 7:24 pm [facility] Medical Records Department [address] [place] [address] History & Physical Exam 03/18/23 191 MR#: [id number] Acct: [id number] Name: DEEPAK TURNER Rep #:[id number] : 1965 57 From: Jamie Peters DPM PCP: Dr. Mickie Prado MD Status:ADM IN Location: [facility] LP150-5 HPI - General General Date of Admission: 03/18/23 Chief Complaint: Left ankle fracture HPI Narrative DEEPAK TURNER, is a 57 F who presents with left ankle fracture which she sustained today. She slipped, and injured ankle on steps. She presented to the ER. Xrays taken and noted to have significantly displaced ankle fracture. I was called by the ER and came in to see patient. She relates to pain to the ankle c/w ankle fracture. She has history of alcohol abuse, chronic anxiety, as well as hypertension. She is resting in bed. No other complaints at this time. [facility] Medical History Alcohol abuse Anxiety HTN (hypertension) MVP (mitral valve prolapse) Home Medications naltrexone 50 mg tablet 50 mg PO Q24H 08/12/21 [History Last Taken Unknown] ondansetron 4 mg disintegrating tablet 4 mg PO Q6H PRN nausea and vomiting #10 tabs 09/08/22 [Rx Last Taken Unknown] bupropion HCl 150 mg tablet,12 hr sustained-release (Wellbutrin SR) 150 mg PO DAILY 09/28/22 [History Last Taken Unknown] carbamazepine 200 mg tablet (Tegretol) 200 mg PO DAILY 09/28/22 [History Last Taken Unknown] cholecalciferol (vitamin D3) 25 mcg (1,000 unit) capsule 25 mcg PO DAILY 10/25/22 [History Last Taken Unknown] gabapentin 300 mg capsule mg 03/18/23 [History Last Taken Unknown] olanzapine 2.5 mg tablet mg 03/18/23 [History Last Taken Unknown] omeprazole 40 mg capsule,delayed release mg 03/18/23 [History Last Taken Unknown] Allergy/AdvReac Type Severity Reaction Status Date / Time No Known Allergies Allergy Verified 10/23/22 08:35 Family History Other Alcoholism Cancer Surgical History H/O section History of partial hysterectomy Social History Smoking Status: Never smoker alcohol intake: former year quit: 2020 details: quit 04-07-2021 substance use type: does not use Vital Signs Vital Signs Vital Signs: 03/18/23 14:58 03/18/23 17:32 03/18/23 17:33 Temperature 99.1 F 99.0 F Temperature Source Oral Temporal Pulse Rate 94 80 73 Pulse Rate [1 (Initial Baseline)] Pulse Rate [2] Pulse Rate [3] Pulse Rate [4] Pulse Rate [5] Pulse Rate [6] Pulse Rate [7] Respiratory Rate 18 16 12 Respiratory Rate [1 (Initial Baseline)] Respiratory Rate [2] Respiratory Rate [3] Respiratory Rate [4] Respiratory Rate [5] Respiratory Rate [6] Respiratory Rate [7] Blood Pressure 135/70 H 153/86 H 153/86 H Blood Pressure [5] Blood Pressure [6] Blood Pressure Mean 91 108 108 Pulse Ox 96 97 99 Oxygen Delivery Method Room Air Room Air Room Air Oxygen Delivery Method [1 (Initial Baseline)] Oxygen Delivery Method [3] Oxygen Delivery Method [4] Oxygen Delivery Method [5] Oxygen Delivery Method [6] Oxygen Delivery Method [7] Oxygen Flow Rate (L/min) [1 (Initial Baseline)] Oxygen Flow Rate (L/min) [3] Oxygen Flow Rate (L/min) [4] Oxygen Flow Rate (L/min) [5] Oxygen Flow Rate (L/min) [6] Oxygen Flow Rate (L/min) [7] 03/18/23 19:01 03/18/23 19:03 03/18/23 19:15 Temperature Temperature Source Pulse Rate 85 Pulse Rate [1 (Initial Baseline)] 114 H Pulse Rate [2] 100 Pulse Rate [3] 104 H Pulse Rate [4] 97 Pulse Rate [5] 102 H Pulse Rate [6] 85 Pulse Rate [7] 92 Respiratory Rate 18 Respiratory Rate [1 (Initial Baseline)] 20 H Respiratory Rate [2] 20 H Respiratory Rate [3] 22 H Respiratory Rate [4] 20 H Respiratory Rate [5] 26 H Respiratory Rate [6] 16 Respiratory Rate [7] 22 H Blood Pressure 155/74 H Blood Pressure [5] 201/80 H Blood Pressure [6] 146/79 H Blood Pressure Mean Pulse Ox Oxygen Delivery Method Room Air Oxygen Delivery Method [1 (Initial Baseline)] Nasal Cannula Oxygen Delivery Method [3] Nasal Cannula Oxygen Delivery Method [4] Nasal Cannula Oxygen Delivery Method [5] Nasal Cannula Oxygen Delivery Method [6] Nasal Cannula Oxygen Delivery Method [7] Room Air Oxygen Flow Rate (L/min) [1 (Initial Baseline)] 4 Oxygen Flow Rate (L/min) [3] 4 Oxygen Flow Rate (L/min) [4] 98 Oxygen Flow Rate (L/min) [5] 97 Oxygen Flow Rate (L/min) [6] 4 Oxygen Flow Rate (L/min) [7] 99 Weight Weight: 116.4 kg Body Mass Index (BMI) 37.9 Physical Exam Narrative Left ankle is visible displaced, there are no open lesions, no erythema, no drainage, no necrosis present, CFT < 2 seconds to all toes, there is edema and pain to the ankle c/w fracture, vascular status intact to the left foot/ankle. Const alert, oriented x3 and no apparent distress Results Lab / Micro Data 03/18/23 17:30 03/18/23 17:30 Labs: Laboratory Results - last 24 hr 03/18/23 17:30: WBC 10.3, RBC 4.39, Hgb 13.4, Hct 40.4, MCV 92.0, MCH 30.5, MCHC 33.2, RDW Std Deviation 44.0 H, RDW Coeff of Carline 13.1, Plt Count 249, MPV 9.7, Immature Gran % (Auto) 0.400, Neut % (Auto) 76.2 H, Lymph % (Auto) 17.7 L, [place] % (Auto) 5.4, Eos % (Auto) 0.0, Baso % (Auto) 0.3, Absolute Neuts (auto) 7.9 H, Absolute Lymphs (auto) 1.82, Nucleated RBC % 0, Sodium 142, Potassium 3.8, Chloride 111 H, Carbon Dioxide 26.0, Anion Gap 5, BUN 9, Creatinine 0.94, Estim Creat Clear Calc 68.18, Est GFR (MDRD) Af Amer 79, Est GFR (MDRD) Non-Af 65, BUN/Creatinine Ratio 9.6 L, Glucose 107 H, Calcium 10.2 H, Total Bilirubin 0.20, Direct Bilirubin 0.08, AST 23, ALT 25, Alkaline Phosphatase 110, Total Protein 7.8, Albumin 3.8, Globulin 4.0 Radiology Impression Ankle X-Ray 03/18/23 15:09 IMPRESSION: Fracture of the distal tibia and fibula with disruption of the tibiotalar joint. Electronically Signed: Harshal Morgan MD at 15:56 EDT , Foot X-Ray 03/18/23 15:30 IMPRESSION: Distal fibular and tibial fractures with disruption of the tibiotalar joint. Electronically Signed: Stacy Gomez MD at 16:19 EDT , Assessment & Plan Assessment/Plan (1) Ankle fracture, bimalleolar, closed: QUALIFIERS: Encounter type: initial encounter Laterality: left Qualified Code(s): S82.842A - Displaced bimalleolar fracture of left lower leg, initial encounter for closed fracture (2) Acute left ankle pain: PLAN: Plan Evaluation performed. Reviewed diagnostic data. There is significantly displaced ankle fracture - at least a bimalleolus ankle fracture. I discussed with ER physician Dr. Richardson. After patient's consent, patient received sedation per Dr. Richardson and then the left ankle was reduced in closed fashion, a well padded posterior splint with sugar tong was applied to hold the reduction. Post reduction images will be obtained. Discussed with patient ORIF for the ankle in the coming days. She was agreeable. She will be admitted for pain management and surgical intervention. No weightbearing left foot, keep foot elevated, keep splint clean, dry and intact. Pain management: Tylenol, Dilaudid, Oxyir DVT Prophylaxis: SCD right. Will plan to start chemoprophylaxis post operatively. The hospitalist was consulted for patient's other medical problems. 03/18/232003 <Electronically signed by Jaime Peters DPM> Cosigner Signature (if applicable): CC: NORMA Peters; Dr. Mickie Prado MD~ Signed [facility] Work Phone: [phone]) 951-170407-16-2023 Discharge summary Author Erwin Richardson [facility] March 18, 2023 8:01pm Note Date/Time March 18, 2023 3:13 pm [facility] Medical Records Department [address] [place] [address] Emergency Department Summary 03/18/23 MR#: [id number] Acct: [id number] Name: DEEPAK TURNER Rep #:[id number] : 1965 57 From: Erwin Richardson DO PCP: Dr. Mickie Prado MD Status:ADM IN Location: [place] OC520-9 [facility] History of Present Illness Chief Complaint: Fall Narrative Narrative: 57-year-old female presenting with left ankle pain. She was coming down the stairs and twisted her left ankle. He is not sure if she hit it on the stairs. She states she fell on her left hip but does not really have pain in her buttocks and head. She has pain in her left ankle. She is unable to walk. States is a little bit tingly but she can feel it. She also states she is in recovery and does not want any opioids. She is on naltrexone. Patient denies head injury or LOC. [facility] Medical History Alcohol abuse Anxiety HTN (hypertension) MVP (mitral valve prolapse) Home Medications naltrexone 50 mg tablet 50 mg PO Q24H 08/12/21 [History Last Taken Unknown] ondansetron 4 mg disintegrating tablet 4 mg PO Q6H PRN nausea and vomiting #10 tabs 09/08/22 [Rx Last Taken Unknown] bupropion HCl 150 mg tablet,12 hr sustained-release (Wellbutrin SR) 150 mg PO DAILY 09/28/22 [History Last Taken Unknown] carbamazepine 200 mg tablet (Tegretol) 200 mg PO DAILY 09/28/22 [History Last Taken Unknown] cholecalciferol (vitamin D3) 25 mcg (1,000 unit) capsule 25 mcg PO DAILY 10/25/22 [History Last Taken Unknown] gabapentin 300 mg capsule mg 03/18/23 [History Last Taken Unknown] olanzapine 2.5 mg tablet mg 03/18/23 [History Last Taken Unknown] omeprazole 40 mg capsule,delayed release mg 03/18/23 [History Last Taken Unknown] Allergy/AdvReac Type Severity Reaction Status Date / Time No Known Allergies Allergy Verified 10/23/22 08:35 Family History Other Alcoholism Cancer Surgical History H/O section History of partial hysterectomy Social History Smoking Status: Never smoker alcohol intake: former year quit: 2020 details: quit 04-07-2021 substance use type: does not use ROS ROS ED Constitutional Constitutional ED: Denies chills, fever(s) or sweats Eyes Eyes: Denies blurry vision or change in vision ENT ENT ED: Denies ear pain or sore throat Cardiovascular Cardiovascular: Denies chest pain, palpitations or racing heartbeat Respiratory/Chest Respiratory/Chest: Denies cough, dyspnea or sputum Gastrointestinal Gastrointestinal: Denies abdominal pain, constipation, diarrhea, nausea or vomiting Genitourinary Genitourinary ED: Denies dysuria, hematuria or urinary frequency Musculoskeletal Musculoskeletal: Reports other Details: Left ankle and foot pain ; Denies myalgias or neck pain Integumentary Denies abscess, Abrasions or rash Neurologic Neurologic: Denies headache(s), paresthesias or weakness Psychiatric Psychiatric: Denies anxiety, depression, suicidal ideation or suicidal thoughts Endocrine Endocrinology: Denies polydipsia or polyuria EXAM Physical Exam Const Vital Signs: 03/18/23 14:58 Temperature 99.1 F Temperature Source Oral Pulse Rate 94 Respiratory Rate 18 Blood Pressure 135/70 H Blood Pressure Mean 91 Pulse Ox 96 Oxygen Delivery Method Room Air Positive well nourished General Appearance ED: NAD HEENT Reports moist mucous membranes normocephalic and atraumatic Resp normal respiratory effort Cardio regular rate and regular rhythm Extremity Extremity Narrative: Tenderness palpation of the left ankle. There is external rotation and deformity of the left ankle at the distal tibia. Left foot neurovascular intactprescription for the 5 toes. Neuro oriented x3 and CN's II-XII intact bilaterally Sensorium / Orientation: alert Psych mental status grossly normal MDM MDM MDM Narrative Medical decision making narrative: Patient has obvious deformity of the left ankle. We will obtain x-rays of the left ankle and foot. Patient medicated with Toradol and she is in recovery. She will likely need conscious sedation for closed reduction. Basic labs were obtained and CBC and BMP are unremarkable. Discussed the case with Dr. Peters as she has a bimalleolar fracture on x-ray of my interpretation. Foot x-rays were negative for foot fracture. Dr. Peters will admit the patient for surgical fixation of the ankle. Spoke to the hospitalist as he wanted the patient to have a medical consult. Dr. Petesr came to evaluate the patient Shimon provided procedural sedation with propofol. Patient was sedated for about 11 minutes. She was placed in a posterior splint with stirrup by Dr. Peters. Patient tolerated anesthesia well. Requested CT scan by podiatry was ordered and is pending. Patient will be admitted for surgery. Impression: 1. Mechanical fall 2. Left ankle bimalleolar Radiography Diagnostic Testing: Clinical Impression(s) from Imaging Studies Ankle X-Ray 03/18/23 15:09 IMPRESSION: Fracture of the distal tibia and fibula with disruption of the tibiotalar joint. Electronically Signed: Harshal Morgan MD at 15:56 EDT , Foot X-Ray 03/18/23 15:30 IMPRESSION: Distal fibular and tibial fractures with disruption of the tibiotalar joint. Electronically Signed: Stacy Gomez MD at 16:19 EDT , Discharge Plan Disposition Disposition: Acute Care Hospital [facility] Discharge Date/Time: 03/18/23 19:40 What to do if you have Problems For any increased pain, shortness of breath, bleeding, nausea or vomiting, chestpain, or any unexpected problems, contact your Primary Care Provider. Call [facility] ([phone]) or report to the closest Emergency Room. Call 911 if necessary. 03/18/232000 <Electronically signed by Erwin Richardson DO> Cosigner Signature (if applicable): CC: Dr. Mickie Prado MD ~ Signed [facility] Work Phone: [phone]) 209-890207-16-2023 Consult note Author Billy Yang [facility] March 18, 2023 5:52pm Note Date/Time March 18, 2023 5:45 pm [facility] Medical Records Department [address] [place] [address] Consultation - Hospitalist 03/18/23 1730 MR#: [id number] Acct: [id number] Name: DEEPAK TURNER Rep #:[id number] : 1965 57 From: Billy Byrd PCP: Dr. Mickie Prado MD Status:ADM IN Location: [place] [address] Assessment & Plan Assessment/Plan (1) Ankle fracture, bimalleolar, closed: QUALIFIERS: Encounter type: initial encounter Laterality: left Qualified Code(s): S82.842A - Displaced bimalleolar fracture of left lower leg, initial encounter for closed fracture PLAN: Plan This is 57-year-old female being admitted under podiatry service for ankle fracture 1. Acute mechanical oblique displaced fracture of distal fibula, transverse displaced fracture of medial malleolus with disruption of tibiotalar joint: Patient is being admitted in podiatry service Dr. Peters. Fracture is going jluis reduced under sedation by ER physician. Labs has been ordered and is pending. IV fluid Ringer lactate 100 Emmel per hour. Plan for ORIF tomorrow [facility] home healthcare. Patient has intact left ankle neurovascular bundle with palpablepulsation of left E[employer]LY EDUCATION TEACHER, JAYLIN and EARLY EDUCATION TEACHER with intact capillary refill. Pain control. PT and OT. 2. History of mitral valve prolapse: No audible murmur. Patient does not have symptoms pertaining to MVP. 3. History of alcohol dependence in the past, quit 2 to 3 years ago sober: Patient on naltrexone being prescribed by psychiatrist. 4. Anxiety depression: Patient on multiple antipsychotic medications including carbamazepine, bupropion, olanzapine and gabapentin. Antipsychotic medications continued. VTE prophylaxis: Recommend enoxaparin 40 mg daily after surgery. Living will/advanced directive/end of life care: Patient does not have living will or advanced directive. After discussion of benefits/risks procedures involved with full code, DNR CC arrest and DNR CC, the patient opted for full code. Patient does want artificial life support including intubation, tube feed, ventilator and/chest compression, central venous catheter, vasopressor and DC shock if needed Total time spent in [id number] encounter in discussion of advanced directive 17 minutes. Clinical Impression(s) from Imaging Studies Ankle X-Ray 03/18/23 15:09 IMPRESSION: Fracture of the distal tibia and fibula with disruption of the tibiotalar joint. Foot X-Ray 03/18/23 15:30 IMPRESSION: Distal fibular and tibial fractures with disruption of the tibiotalar joint. HPI Consult Data Date of Consult: 03/18/23 HPI Narrative Reason for Consultation: Fall and twisted left ankle. HPI Narrative: DEEPAK TURNER, is a 57 F was carrying the laundry bag fall down the steps and fell on her left hip and twisted left ankle laterally. Her ankle is very painful and swollen. Complain of severe 10/10 constant pain without numbness but mild tingling sensation. Denies pain at the buttock or hip region. No color change in the foot except mild redness around the left ankle. Patient has history of chronic alcohol use dependence and is sober for last 2 to3 years and is on naltrexone 50 mg daily being managed by psychiatrist. Patientis also on carbamazepine, olanzapine, bupropion and gabapentin Patient has history of mitral valve prolapse otherwise denies any cardiac or pulmonary condition. Patient denies history of smoking. Denies substance use including opioids. She denies having cardiopulmonary symptoms because of mitral valve prolapse. Nochest pain pressure tightness OR, shortness of breath, near-syncope or syncope. No LOC. Family history: She is adopted and does not know the details of her biological parents. [facility] Medical History Alcohol abuse Anxiety HTN (hypertension) MVP (mitral valve prolapse) Home Medications naltrexone 50 mg tablet 50 mg PO Q24H 08/12/21 [History Last Taken Unknown] ondansetron 4 mg disintegrating tablet 4 mg PO Q6H PRN nausea and vomiting #10 tabs 09/08/22 [Rx Last Taken Unknown] bupropion HCl 150 mg tablet,12 hr sustained-release (Wellbutrin SR) 150 mg PO DAILY 09/28/22 [History Last Taken Unknown] carbamazepine 200 mg tablet (Tegretol) 200 mg PO DAILY 09/28/22 [History Last Taken Unknown] cholecalciferol (vitamin D3) 25 mcg (1,000 unit) capsule 25 mcg PO DAILY 10/25/22 [History Last Taken Unknown] gabapentin 300 mg capsule mg 03/18/23 [History Last Taken Unknown] olanzapine 2.5 mg tablet mg 03/18/23 [History Last Taken Unknown] omeprazole 40 mg capsule,delayed release mg 03/18/23 [History Last Taken Unknown] Allergy/AdvReac Type Severity Reaction Status Date / Time No Known Allergies Allergy Verified 10/23/22 08:35 Family History Other Alcoholism Cancer Surgical History H/O section History of partial hysterectomy Social History Smoking Status: Never smoker alcohol intake: former year quit: 2020 details: quit 04-07-2021 substance use type: does not use ROS ROS Narrative Constitutional: Severe pain in left ankle. No fever. HEENT: Reports systems reviewed and no addt'l complaints, except as documented Respiratory/Chest: No acute shortness of breath or respiratory distress or wheezing. CVS: MVP history as mentioned in HPI. Rest negative. Gastrointestinal: Denies coffee ground emesis, hematemesis or vomiting Genitourinary: Denies burning urination or new urinary tract symptoms Musculoskeletal: As described in HPI Neurologic: Denies seizure-like symptoms. Psychiatry: History of alcohol use on naltrexone. Multiple antipsychotic medications as described in HPI skin: No ulcer. No rash Endocrinology: Reports systems reviewed and no addt'l complaints, except as documented Hematologic/Lymphatic: Reports systems reviewed and no addt'l complaints, exceptas documented Rest 14 ROS are negative except as mentioned in HPI Physical Exam Narrative General: Alert, Oriented x3, Cooperative HEENT: Atraumatic, PERRLA, EOMI, Normocephalic Oral: Oral mucosa dry. No Gingival or Mucosal Lesions/ Ulcerations Neck: Supple, No JVD, Negative Carotid Bruits Lungs: Air entry diminished in bilateral lung bases. No crepitation/rhonchi Cardiovascular: Regular rate, Regular Rhythm, Normal S1, Normal S2, No audible murmurs Abdomen: Bowel Sounds Present, Soft, Non Tender, Non-Distended : No renal angle tenderness. No suprapubic tenderness. Extremities: Left ankle edema, Capillary Refill Less than 3 Seconds Skin: Mild redness around left ankle mainly on medial side Musculoskeletal: Swelling, tenderness redness around left ankle. Mild bruise/skin tear on medial side of left ankle. Left [employer]UC[employer] TEACHER, JAYLIN and EARLY EDUCATION TEACHER are palpable. No cyanosis. Neurological: Cranial nerves II-XII grossly intact, DTR 2+/4 and Symmetrical, sensation over left ankle and foot are intact. Psych/Mental Status: Flat affect. Lab / Micro Data 03/18/23 17:30 03/18/23 17:30 Radiology Impression Ankle X-Ray 03/18/23 15:09 IMPRESSION: Fracture of the distal tibia and fibula with disruption of the tibiotalar joint. Electronically Signed: Harshal Morgan MD at 15:56 EDT , Foot X-Ray 03/18/23 15:30 IMPRESSION: Distal fibular and tibial fractures with disruption of the tibiotalar joint. Electronically Signed: Stacy Gomez MD at 16:19 EDT , Charges/Coding Visit Charges Office Visits / Consults: 66653 IP Consult L4 Procedures Hospitalists Procedures: 57261 Advncd Care Plan 30 Min 03/18/23 1752 <Electronically signed by Billy Yang MD> Cosigner Signature (if applicable): CC: Dr. Mickie Prado MD~ Signed [facility] Work Phone: Discharge summary Author Hal Bar [facility] March 22, 2023 2:02pm Note Date/Time March 22, 2023 2:02 pm [facility] Medical Records Department [address] [place] [address] Discharge Summary 03/22/23 1400 MR#: [id number] Acct: [id number] Name: DEEPAK TURNER Rep #:[id number] : 1965 57 From: Hal Bar DPM PCP: Dr. Mickie Prado MD Status:ADM IN [id number] Prov[facility] Date of Admission: 03/18/23 Primary Care Physician: Dr. Mickie Prado MD Consultations 03/18/23 19:18 Consult: Hospitalist Routine Consulting Provider: Billy Yang Reason for Consult: Medical management EMERGENT Consult: No MD Notified: Yes Date Notified: 03/18/23 Time Notified: 19:18 Method of Notification: Verbal Reason For Visit: PAINFUL LEFT ANKLE FRACTURE Diagnosis Discharge Diagnosis (1) Fracture of ankle, trimalleolar, left, closed: Status: Acute Code(s): S82.852A - Displaced trimalleolar fracture of left lower leg, initial encounter for closed fracture Plan: Exam performed. Patient doing well today. We will plan for discharge home. Patient maintain nonweightbearing left lower extremity. Use crutches. Patient will keep dressing clean dry and intact and follow-up in 1 week. Medications at Discharge Home Medications naltrexone 50 mg tablet 50 mg PO Q24H 08/12/21 ondansetron 4 mg disintegrating tablet 4 mg PO Q6H PRN nausea and vomiting #10 tabs 09/08/22 bupropion HCl 150 mg tablet,12 hr sustained-release (Wellbutrin SR) 150 mg PO DAILY 09/28/22 carbamazepine 200 mg tablet (Tegretol) 200 mg PO DAILY 09/28/22 cholecalciferol (vitamin D3) 25 mcg (1,000 unit) capsule 25 mcg PO DAILY 10/25/22 gabapentin 300 mg capsule 300 mg PO BID anxiety 03/18/23 olanzapine 2.5 mg tablet 5 mg PO QHS anxiety 03/18/23 omeprazole 40 mg capsule,delayed release mg gerd 03/18/23 enoxaparin 40 mg/0.4 mL subcutaneous syringe (Lovenox) 40 mg (0.4 mL) subcut DAILY #8 mL 03/22/23 oxycodone 5 mg capsule 5 mg PO Q4H PRN pain 7 days #42 caps 03/22/23 Hospital Course Summary of Care Provided Hospital Course: Patient admitted to hospital after breaking her ankle on Sunday. Due to instability and pain control. Definitive open reduction internal fixation was performed on 03/21/2023. Patient appears to be stable and able to discharge to home self-care. Patient will be discharged home. Pain controlled at this time. Physical Exam Narrative Left foot demonstrates intact motor response to digits as well as capillary filltime light touch and protective sensation. No pain with calf squeeze left foot.splint left intact. Const alert and oriented x3 Weight / BMI Weight Weight: 114.8 kg Body Mass Index (BMI) 37.5 ABG / Lab / Microbiology Data 03/20/23 07:40 03/20/23 07:40 Radiography Diagnostic Testing: Radiology Impression Ankle X-Ray 03/21/23 11:58 IMPRESSION: Intraoperative digital documentation views. Electronically Signed: Karan Leggett MD at 15:33 EDT , D/C Instructions Discharge Diet: No restrictions Discharge Activity: Use Walker and Use Crutches Weight Bearing Status: No weight bearing Keep extremity elevated above heart level: Operative Extremity and Left Leg Call your doctor if your incision/area has: Continuous Slow Oozing, Sudden Increased Bleeding, Increased Pain/ Swelling, Increased Redness, Foul Smelling Discharge and Swelling at the incision site Call your doctor if you observe: Fever of 101 or Higher, Coldness, Increased Pain, Change in Color, Inability to urinate and Inability to have a bowel movement Change Dressing in: do not change dressing Remove Dressing in: do not remove dressing Cleanse incision/area with: Do not get Incision Wet Please Follow Up With: Hal Bar DPM When: 1 week Meaningful Use Info Meaningful Use Diagnoses (Choose all that apply): None applicable Discharge Plan Admission Admit Date/Time: 03/18/23 19:13 Attending Provider: Jaime Peters Primary Care Provider: Mickie Prado Consulting Providers: Iza Dior; Billy Yang Instructions Patient Instructions: Post-Op Tips: Foot Additional Instructions / Restrictions: keep dressing clean, dry and intact take prescriptions as directed ice behind knee, elevate at rest maintain non-weightbearing assisted by crutches on left follow up in 1 week Discharge Orders/Prescriptions Prescriptions: New oxycodone 5 mg capsule 5 mg PO Q4H PRN (Reason: pain) 7 Days Qty: 42 0RF enoxaparin [Lovenox] 40 mg/0.4 mL syringe 40 mg subcut DAILY Qty: 8 0RF Continued naltrexone 50 mg tablet 50 mg PO Q24H Patient Comments: take 1 tablet by mouth once daily carbamazepine [Tegretol] 200 mg tablet 200 mg PO DAILY bupropion HCl [Wellbutrin SR] 150 mg tablet sustained-release 12 hr 150 mg PO DAILY ondansetron 4 mg tablet,disintegrating 4 mg PO Q6H PRN (Reason: nausea and vomiting) Qty: 10 0RF Patient Comments: no longer takes olanzapine 2.5 mg tablet 5 mg PO QHS Patient Comments: TAKE 1/2 (ONE-HALF) TO 1 (ONE) TABLET BY MOUTH TWICE DAILY NEEDED FOR ANXIETY omeprazole 40 mg capsule,delayed release(DR/EC) Patient Comments: TAKE 1 CAPSULE BY MOUTH DAILY gabapentin 300 mg capsule 300 mg PO BID Patient Comments: TAKE 1 CAPSULE BY MOUTH TWICE DAILY cholecalciferol (vitamin D3) 25 mcg (1,000 unit) capsule 25 mcg PO DAILY Referrals / Follow Up: Mickie Prado MD [Primary Care Provider] - Disposition Disposition (needs filled in before D/C Order can be placed): Home, Self Care 03/22/23 1402 <Electronically signed by Hal Bar DPM> Cosigner Signature (if applicable): CC: NORMA Bar; Dr. Mickie Prado MD~ Signed [facility] Work Phone: Evaluation noteNo assessment information available [facility] Work Phone: Evaluation note* Diagnosis Onset Date Resolution Status Acute upper abdominal pain a cute Encounter for wellness examination in adult acute Fatigue acute Chronic anxiety chronic Hypertension chronic [facility] Work Phone: Evaluation note* Diagnosis Onset Date Resolution Status Acute left ankle pain acute Ankle fracture, bimalleolar, closed acute [facility] Work Phone: Evaluation note* Diagnosis Onset Date Resolution Status Acute left ankle pain acute Ankle fracture, bimalleolar, closed acute Fracture of ankle, trimalleolar, left, closed acute [facility] Work Phone: Evaluation note* Diagnosis Onset Date Resolution Status Encounter for wellness examination in adult acute Insulin resistance acute Vitamin D deficiency acute Hypertension chronic [facility] Work Phone: Hospital Discharge instructions Additional Instructions Normal gallbladder ultrasound. Fatty liver noted. Labs are stable. Take medication as prescribed. Follow-up with your doctors. Return if any worsening symptoms.[facility] Work Phone: Hospital Discharge instructions Additional Instructions Your blood vessels were cauterized with silver nitrate. Avoid blowing your nose or putting any sprays into the nose. If bleeding occurs hold direct pressure with your fingers or a clip. Follow up with ENT as needed.[facility] Work Phone: Progress note Author Hal Bar [facility] March 22, 2023 1:59pm Note Date/Time March 22, 2023 1:59 pm [facility] Medical Records Department [address] [place] [id number] Progress Note 03/22/23 1357 MR#: [id number] Acct: [id number] Name: DEEPAK TURNER Rep #:[id number] : 1965 57 From: Hal Bar DPM PCP: Dr. Mickie Prado MD Status:ADM IN Location: [facility] [id number] Subjective Subjective 87-year-old female 1 day after left ankle fracture open reduction internal fixation. Patient denies fever fever chills nausea vomiting today. Patient denies chest pain calf pain shortness of breath. Patient had some pain overnight but notes improvement today is tolerable at rest no other complaints. Objective Data Objective Data Vital Signs: Vital Signs Temp Pulse Resp BP Pulse Ox O2 Del Method O2 Flow Rate 97.9 F 66 16 100/60 96 Room Air 2 03/22/23 09:00 03/22/23 09:00 03/22/23 09:00 03/22/23 09:00 03/22/23 09:00 03/22/23 09:00 03/21/23 22:14 Oxygen Flow Rate (L/min) [7] 99 Oxygen Flow Rate (L/min) [6] 4 Oxygen Flow Rate (L/min) [5] 97 Oxygen Flow Rate (L/min) [4] 98 Oxygen Flow Rate (L/min) [3] 4 Oxygen Flow Rate (L/min) [1 ( 4 Initial Baseline)] Oxygen Flow Rate (L/min) 2 Oxygen Delivery Method [7] Room Air Oxygen Delivery Method [6] Nasal Cannula Oxygen Delivery Method [5] Nasal Cannula Oxygen Delivery Method [4] Nasal Cannula Oxygen Delivery Method [3] Nasal Cannula Oxygen Delivery Method [1 ( Nasal Cannula Initial Baseline)] Oxygen Delivery Method Room Air Weight: 114.8 kg Body Mass Index (BMI) 37.5 Intake & Output: Intake and Output for Last 24 Hours 03/20/23 03/21/23 03/22/23 23:59 23:59 23:59 Intake Total 900 / 1300 1153.5 / 1653.5 600 / 600 Output Total 3000 / 4000 1000 / 2000 1000 / 1000 Balance -2100 / -2700 153.5 / -346.5 -400 / -400 Lab / Micro Data 03/20/23 07:40 03/20/23 07:40 Radiography Diagnostic Testing: Radiology Impression Ankle X-Ray 03/21/23 11:58 IMPRESSION: Intraoperative digital documentation views. Electronically Signed: Karan Leggett MD at 15:33 EDT , Physical Exam Narrative Left foot demonstrates intact motor response to digits as well as capillary filltime light touch and protective sensation. No pain with calf squeeze left foot.splint left intact. Const alert and oriented x3 Assessment & Plan Assessment/Plan (1) Fracture of ankle, trimalleolar, left, closed: PLAN: Exam performed. Patient doing well today. We will plan for discharge home. Patient maintain nonweightbearing left lower extremity. Use crutches. Patient will keep dressing clean dry and intact and follow-up in 1 week. 03/22/23 [id number] <Electronically signed by Hal Bar DPM> Hal Bar DPM Cosigner Signature (if applicable): CC: ~ Signed [facility] Work Phone: Reason for referral (narrative)No reason for referral information availableWPro[facility] Work Phone: Family History No Family History Records Found Relationship Condition Age at Onset Recorded Date/T asuncion Not Specified Alcoholism Unknown Malignant neoplasm Unknown Advance Directives No Advanced Directives Records Found Advance Directive Response Recorded Date/ Time Living Will No May 30, 2021 12:56pm Power of Visualization Developer No May 12:56pm Advance Directive Response Recorded Date/ Time Living Will No September 08 12:46pm Power of Visualization Developer No September 08 12:46pm Advance Directive Response Recorded Date/ Time Living Will No March 18, 2023 3:12pm Power of Visualization Developer No March 18 3:12pm Advance Directive Response Recorded Date/ Time Living Will No March 18, 2023 8:17pm Power of Visualization Developer No March 18 8:17pm Advance Directive Response Recorded Date/ Time Living Will No March 18, 2023 7:17pm Power of Visualization Developer No March 18 7:17pm Advance Directive Response Recorded Date/ Time Living Will No November 22, 2024 11:44am Do you have a Healthcare Power of Visualization Developer? No November 22, 2024 11:44am Advance Directive Response Recorded Date/ Time Living Will No November 22, 2024 11:44am Do you have a Healthcare Power of Visualization Developer? No November 22, 2024 11:44am Living Will No November 22, 2024 7:40pm Do you have a Healthcare Power of Visualization Developer? No November 22, 2024 7:40pm Chief Complaint and Reason for Visit Chief Complaint nose bleed ABD PAIN Chief Complaint ABD PAIN WC ER FU/ Physical Physical E ORDERS Reason for Visit Acute upper abdomina l pain Encounter for wellness examination in adult Fatigue Chronic anxiety Hypertension Chief Complaint ANKLE FRACTURE ANKLE FRACTURE Reason for Visit Acute left ankle brittnay n Ankle fracture, bimalleolar, closed Chief Complaint ANKLE FRACTURE PAINFUL LEFT ANKLE FRACTURE PAINFUL LEFT ANKLE FRACTURE PAINFUL LEFT ANKLE FRACTURE PAINFUL LEFT ANKLE FRACTURE PAINFUL LEFT ANKLE FRACTURE Reason for Visit Acute left ankle brittany n Ankle fracture, bimalleolar, closed Fracture of ankle, trimalleolar, left, closed Chief Complaint DISPLACED TRIMALLEOL AR FRACTURE OF LEFT LEG Annual/Physical SCREENING Reason for Visit [facility] adult Insulin resistance Vitamin D deficiency Hypertension Chief Complaint Admit Date NOSE BLEED November 22, 2024 11: 29am Chief Complaint Admit Date NOSE BLEED November 22, 2024 11: 29am nosebleed November 22, 2024 7:3 4pm Chief Complaint Admit Date NOSE BLEED November 22, 2024 11: 29am nosebleed November 22, 2024 7:3 4pm Annual/Physical March 18, 2025 3:24 pm Summary Purpose Additional Source Comments Source Comments (unrecognize d section and content) In the event this informatio n is protected by the Federal Confidentiality of Alcohol and Drug Abuse Patient Records regulations: The Federal rules restrict any use of the information to criminally investigate or prosecute any alcohol or drug abuse patient.[facility] Care Teams (unrecognized sec tion and content) Dietitian Teacher Relationship Specialty Start Date End Date Citlali Murguia PCP - General 05/20/10 Team Status: Active Member Role Status Dates Dr. Eladio Gilman MD Family Provider Active Dr. Mickie Prado MD Primary Care Provider Active Team Status: Inactive Member Role Status Dates Dr. Mickie Prado MD Primary Care Provider, Attendi ng Provider Active Team Status: Inactive Member Role Status Dates Dr. Mickie Prado MD Primary Care Provider Active Dr. Hever Galvez DO Attending Provider, Emergency Provide r Active Team Status: Inactive Member Role Status Dates Dr. Mickie Prado MD Primary Care Pro vider, Attending Provider, Referring Provider Active Team Status: Active Member Role Status Dates Dr. Mickie Prado MD Primary Care Provider Active Dr. Erwin Richardson DO Emergency Provider Active Dr. Jaime Peters DPM Admit Provider, Other Provid er Active Dr. Billy Yang MD Attending Provider Active Team Status: Active Member Role Status Dates Dr. Mickie Prado MD Primary Care Provider Active Dr. Erwin Richardson DO Emergency Provider Active Dr. Jaime Peters DPM Admit Provider, Attending Pr ovider Active Dr. Iza Dior , Other Provider Active Dr. Billy Yang MD Other Provider Active Team Status: Active Member Role Status Dates Dr. Mickie Prado MD Primary Care Provider Active Dr. Erwin Richardson , Emergency Provider Active Dr. Jaime Peters DPM Admit Provider, Other Provid er Active Dr. Iza Dior , Attending Provider, Other Provide r Active Dr. Billy Yang MD Other Provider Active Team Status: Inactive Member Role Status Dates Dr. Mickie Prado MD Primary Care Provider Active Dr. Erwin Richardson , Emergency Provider Active Dr. Jaime Peters DPM Admit Provider, Attending Pr ovider Active Dr. Iza Dior , Other Provider Active Dr. Billy Yang MD Other Provider Active Team Status: Inactive Member Role Status Dates Dr. Mickie Prado MD Primary Care Provider Active Dr. Hal Bar DPM Attending Provider, Referring Provider Active Team Status: Active Member Role Status Dates Dr. Mickie Prado MD Primary Care Pro vider, Attending Provider, Referring Provider Active Team Status: Active Member Role Status Dates Dr. Mickie Prado MD Primary Care Provider Active Team Status: Inactive Member Role Status Dates Dr. Mickie Prado MD Primary Care Provider Active Start: November 22, 2024 End: November 22, 2024 Dr. Pavel Newsome MD Emergency Provider Active Start: November 22, 2024 End: November 22, 2024 Team Status: Active Member Role/Relationship Status Dates Dr. Mickie Prado MD Primary Care Provider Active Team Status: Inactive Member Role/Relationship Status Dates Dr. Mickie Prado MD Primary Care Provider Active Start: November 22, 2024 End: November 22, 2024 Dr. Pavel Newsome MD Attending Provider Active Start: November 22, 2024 End: November 22, 2024 Dr. Pavel Newsome MD Emergency Provider Active Start: November 22, 2024 End: November 22, 2024 Team Status: Inactive Member Role/Relationship Status Dates Dr. Mickie Prado MD Primary Care Provider Active Start: November 22, 2024 End: November 22, 2024 Dr. Pavel Newsome MD Attending Provider Active Start: November 22, 2024 End: November 22, 2024 Dr. Pavel Newsome MD Emergency Provider Active Start: November 22, 2024 End: November 22, 2024 Team Status: Inactive Member Role/Relationship Status Dates Dr. Mickie Prado MD Primary Care Provider Active Start: March 18, 2025 End: March 18, 2025 Dr. Mickie Prado MD Attending Provider Active Start: March 18, 2025 End: March 18, 2025 Goals (unrecognized section and content) Goals may be documented in a n alternate sectionGoals may be documented in an alternate sectionGoals may be documented in an alternate sectionGoals may be documented in an alternate sectionGoals may be documented in an alternate sectionGoals may be documented in an alternate sectionGoals may be documented in an alternate sectionGoals may be documented in an alternate sectionGoals may be documented in an alternate section INFORMATION SOURCE (unrecogn ized section and content) DATE CREATED AUTHOR 03/21/2025 [facility] FOR RECORDS PERTAINING TO PATIENTS WHO ARE [...] BE BASED ON THE PRIMARY CLINICAL RECORDS. [employer] [facility]. provides no warranty or guarantee of the accuracy or completeness of information in this document.
--- NOTE | 2025-03-27 07:30 | BI_ITS ---
EXAM: SCRN MAMM (CAD)W/SOFIE BILAT DATE: 03/27/2025 CLINICAL HISTORY: F, Age 59 y/o , BREAST CANCER SCREENING TECHNIQUE: SCRN MAMM (CAD)W/SOFIE BILAT COMPARISON: Prior exam(s) dated 10/12/2023. FINDINGS: TISSUE DENSITY: There are scattered areas of fibroglandular density. Bilateral Breast Mammographic Findings: No significant masses, calcifications or other abnormalities are identified. BI/SCRN MAMM (CAD)W/SOFIE BILAT IMPRESSION: There is no mammographic evidence of malignancy. OVERALL FINAL ASSESSMENT BI-RADS 1: NEGATIVE. RECOMMENDATION: Routine annual follow-up in 1 Year A letter with findings and recommendations will be mailed to the patient. Reading Location: [id number]
== END | disposition home or self-care (01) ==
PROVIDERS: PCP Internal Medicine; Referring Provider Internal Medicine; Visit Provider Internal Medicine
DX: Z12.31 Encounter for screening mammogram for malignant neoplasm of breast (principal)
CPT/HCPCS: 77063; 77067

== ENCOUNTER → 2025-04-03 | Outpatient (CLI) | payer OTHER, SELFPAY ==
[2025-04-03 09:09] LABS: Hematocrit 40.5 % (37-47); Hemoglobin 13.2 g/dL (12.0-15.0); Immature Granulocytes Count 0.020 X10^3/uL (0.0-0.0); Mean Corp Hgb Conc 32.6 g/dL (32-36); Mean Corpuscular Volume 91.8 fL (81-99); Mean Platelet Vol. 9.9 fl (6.2-12.0); NRBC Flagged by Analyzer 0 % (0-5); Platelet Count 243 K/mm3 (150-450); RBC Distribution Width CV 13.4 % (11.6-14.6); RBC Distribution Width SD 45.1 fl (35.1-43.9); Red Blood Count 4.41 M/mm3 (4.2-5.4); White Blood Count 6.1 K/mm3 (4.4-11.0)
[2025-04-03 09:51] LABS: Carbamazepine (Tegretol) 5.5 ug/mL (4.0-12.0)
[2025-04-03 10:05] LABS: AST(SGOT) 21 U/L (<=31); Alanine Aminotransfer ALT/SGPT 16 U/L (<=34); Albumin, Serum 4.4 g/dL (3.4-4.8); Alkaline Phosphatase 111 U/L (35-104); Anion Gap 12 (5-15); BUN 12 mg/dL (4-19); BUN/Creat Ratio 14.1 RATIO (10-20); Calcium,Total 9.9 mg/dL (7.6-11.0); Carbon Dioxide 21.7 mmol/L (21.0-32.0); Chloride 107 mmol/L (98-108); Cholesterol 215 mg/dL (<=200); Globulin 3.0 g/dL (2.2-4.2); Glucose 113 mg/dL (70-99); Low Density Lipoprotein Calc. 149 mg/dL; Magnesium 2.3 mg/dL (1.5-2.2); Potassium 4.5 mmol/L (3.3-5.1); Triglycerides 91 mg/dL; Very Low Density Lipoprotein 18 mg/dL (5-40); Vitamin B12 316 pg/mL (180-914); Vitamin D,25 Hydroxy 25.6 ng/mL (30-100); cholesterol:hdl ratio screen 4.49
== END | disposition home or self-care (01) ==
PROVIDERS: PCP Internal Medicine; Referring Provider Internal Medicine; Visit Provider Internal Medicine
DX: I10 Essential (primary) hypertension (principal); E53.8 Deficiency of other specified B group vitamins; E55.9 Vitamin D deficiency, unspecified; E88.819 Insulin resistance, unspecified; E66.9 Obesity, unspecified; F41.9 Anxiety disorder, unspecified; R73.9 Hyperglycemia, unspecified; Z13.220 Encounter for screening for lipoid disorders
CPT/HCPCS: 36415; 80053; 80061; 80156; 82306; 82607; 83036; 83525; 83735; 84443; 85025